=== PATIENT | female | born 1960 | race Caucasian/White ===

== ENCOUNTER 2016-06-03 13:46 | Inpatient (IN) | payer MEDICARE, MEDICAID ==
--- NOTE | 2016-06-03 16:25 | ED ---
Psych HPI - General Chief Complaint: Psychiatric Symptoms Stated Complaint: Mental Health Time Seen by Provider: 06/03/16 14:52 Source: patient Mode of arrival: ambulatory - History of Present Illness Initial Comments: This 55-year-old white female presents complaining of some depression. She states that she has a history of this for approximately 10 years. She states that she had 4 kids and but they all and this makes her quite depressed. She also ended up having her last son approximately one year ago. She states that she was sent in by her doctor today. She also saw her psychologist or counselor 3 days ago. She feels like she is having a nervous breakdown. She has had some suicidal thoughts but no attempts. She apparently was out of her psychiatric medications but started them back up 2 weeks ago. She took 2 Valium 5 mg pills just prior to arrival. She denies any other complaints or modifying factors other than complaining of severe anxiety as well. Has a history of gout or a phobia and states that she essentially never leaves her home. - Related Data Home Medications Medication Instructions Recorded Confirmed Cholecalciferol [Vitamin D3] 2,000 units PO DAILY 10/27/14 06/03/16 Fluticasone Nasal [place] [Flonase 2 spray NASAL QAM 10/27/14 06/03/16 Nasal [place]] Folic Acid 1 mg PO DAILY 10/27/14 06/03/16 Omeprazole [PriLOSEC] 20 mg PO AC-BRKFST 10/27/14 06/03/16 Propylene Glycol/Peg 400/Pf 1 drop BOTH EYES DAILY 10/27/14 06/03/16 [Systane 0.3-0.4% Eye Drops] diphenhydrAMINE [Benadryl] 25 mg PO DAILY PRN 12/10/14 06/03/16 ALPRAZolam [Xanax] 1 mg PO Q6HR PRN 06/03/16 06/03/16 ARIPiprazole [Abilify] 5 mg PO DAILY 06/03/16 06/03/16 Albuterol Inhaler [Ventolin Hfa 1 - 2 puff INHALATION RT-Q6H PRN 06/03/16 Inhaler] Aspirin EC [Ecotrin Low Dose] 81 mg PO DAILY 06/03/16 06/03/16 Aspirin/Acetaminophen/Caffeine 1 tab PO BID PRN 06/03/16 06/03/16 [Excedrin Migraine Caplet] Budesonide/Formoterol Fumarate 2 puff INHALATION RT-BID 06/03/16 06/03/16 [Symbicort 160-4.5 Mcg Inhaler] Diazepam [Valium] 5 mg PO TID PRN 06/03/16 06/03/16 Digest Assure 1 tab PO DAILY 06/03/16 06/03/16 Estradiol [Vivelle-Dot 0.075 MG] 1 patch TRANSDERM Q84H 06/03/16 06/03/16 Ferrous Sulfate [Feosol] 325 mg PO BID 06/03/16 06/03/16 Furosemide [Lasix] 20 mg PO DAILY 06/03/16 06/03/16 Gabapentin [Neurontin] 300 mg PO DAILY 06/03/16 06/03/16 Gluc/Keith-MSM#1/C/Marko/Jose Alejandro/Bor 1 tab PO DAILY 06/03/16 06/03/16 [Glucosamine-Chondroitin Tablet] Multivit-Min/FA/Lycopene/Lut 1 tab PO DAILY 06/03/16 06/03/16 [Centrum Silver Tablet] Naproxen Sodium [Aleve] 220 mg PO DAILY PRN 06/03/16 06/03/16 Ondansetron [Zofran] 4 mg PO Q6H PRN 06/03/16 06/03/16 PARoxetine [Paxil] 20 mg PO HS 06/03/16 06/03/16 Phentermine HCl [Adipex-P] 37.5 mg PO QAM 06/03/16 06/03/16 Relacore 2 tab PO BID 06/03/16 06/03/16 Turmeric 200/Tiffani [id number] 1 tab PO DAILY 06/03/16 06/03/16 Vitamin B Complex 1 cap PO DAILY 06/03/16 06/03/16 metroNIDAZOLE [Metrolotion] 1 applic TOPICAL DAILY PRN 06/03/16 06/03/16 Allergies Allergy/AdvReac Type Severity Reaction Status Date / Time shellfish derived Allergy Swelling Verified 06/03/16 15:38 nuts Allergy Swelling Uncoded 06/03/16 14:00 animals AdvReac Wheezing Uncoded 06/03/16 14:00 environmental AdvReac Wheezing Uncoded 06/03/16 14:00 Review of Systems ROS Statement: Those systems with pertinent positive or pertinent negative responses have been documented in the HPI. ROS Other: All systems not noted in ROS Statement are negative. Past Medical History Past Medical History: Asthma, Eye Disorder, Fibromyalgia, GERD/Reflux Additional Past Medical History / Comment(s): pre diabetic, arthritis, bronchitis,c difficile colitis ibs chronic depression mthfr History of Any Multi-Drug Resistant Organisms: None Reported Past Surgical History: Section, Tonsillectomy Additional Past Surgical History / Comment(s): ear recontructed,colonoscopy and EGD Past Anesthesia/Blood Transfusion Reactions: No Reported Reaction Past Psychological History: Anxiety, Depression Smoking Status: Current every day smoker Past Alcohol Use History: None Reported, Rare Past Drug Use History: None Reported - Past Family History Mother Family Medical History: Asthma, Congestive Heart Failure (CHF), Diabetes Mellitus Additional Family Medical History / Comment(s): 3 lung surgeries Sister(s) Family Medical History: Congestive Heart Failure (CHF), Diabetes Mellitus Brother(s) Family Medical History: Congestive Heart Failure (CHF), Diabetes Mellitus Father Family Medical History: No Reported History General Exam - General Exam Comments Initial Comments: GENERAL: The patient is well nourished and well hydrated. VITAL SIGNS: Heart rate, blood pressure, respiratory rate reviewed as recorded in nurse's notes. EYES: Pupils are round and reactive. Extraocular movements are intact. No conjunctival / lid redness or swelling. ENT: No external evidence of injury, swelling, or ecchymosis. Airway is patent. Throat is clear. NECK: Nontender. No swelling or evidence of injury. No subcutaneous emphysema. Trachea is midline. No thyroid mass. HEART: Regular rate and rhythm. Good peripheral pulses. LUNGS/CHEST: Breath sounds clear and equal bilaterally. No rales, rhonchi, or wheezes. No ecchymosis, subcutaneous emphysema, or tenderness. ABDOMEN: Abdomen soft without tenderness. No palpable masses or organomegaly. No peritoneal signs. No abdominal wall swelling or ecchymosis. EXTREMITIES: No extremity tenderness. Normal muscle tone and function. No thoracolumbar tenderness. NEUROLOGIC: Sensation is grossly intact. Cranial nerve exam reveals face is symmetrical, tongue is midline, speech is clear. SKIN: No abrasions or ecchymosis is noted. No induration or masses noted. PSYCHIATRIC: Alert and oriented. Appears very anxious. Limitations: no limitations Course Vital Signs 06/03/16 13:56 Temperature 98.4 F Pulse Rate 84 Respiratory 16 Rate Blood Pressure 133/86 O2 Sat by Pulse 96 Oximetry Medical Decision Making - Medical Decision Making The patient was seen and examined. All diagnostics are reviewed. It is felt as though she benefit from psychiatric evaluation. The psychiatric nurse has evaluated the patient and they recommend further admission or psychiatric treatment. Patient will be transferred to the psychiatric floor in the near future. - Lab Data Lab Results 06/03/16 Range/Units 15:12 Urine Opiates Screen Not Detected (NotDetected) Ur Oxycodone Screen Detected H (NotDetected) Urine Methadone Screen Not Detected (NotDetected) Ur Propoxyphene Screen Not Detected (NotDetected) Ur Barbiturates Screen Not Detected (NotDetected) U Tricyclic Antidepress Not Detected (NotDetected) Ur Phencyclidine Scrn Not Detected (NotDetected) Ur Amphetamines Screen Detected H (NotDetected) U Methamphetamines Scrn Not Detected (NotDetected) U Benzodiazepines Scrn Detected H (NotDetected) Urine Cocaine Screen Not Detected (NotDetected) U Marijuana (THC) Screen Not Detected (NotDetected) Disposition Clinical Impression: Acute anxiety, Depression, Agoraphobia Disposition: ADMITTED IP TO THIS [facility] Condition: Fair Time of Disposition: 18:53 Decision Date: 06/03/16 Decision Time: 18:53
[2016-06-03] MEDS ORDERED: DIAZEPAM 5 MG TAB PO STA (17:44)
[2016-06-03] MEDS ORDERED: HYDROcodone/APAP 10-325MG 1 EACH TAB PO ONE (18:01)
[2016-06-03] MEDS ORDERED: ZIPRASIDONE 20 MG VIAL IM PRN (19:51)
[2016-06-03] MEDS ORDERED: MAG HYDROX/AL HYDROX/SIMETH 30 ML CUP PO PRN (19:51)
[2016-06-03] MEDS ORDERED: MAGNESIUM HYDROXIDE 2,400 MG/10 ML CUP PO PRN (19:51)
[2016-06-03] MEDS ORDERED: ACETAMINOPHEN TAB 325 MG TAB PO PRN (19:51)
[2016-06-03] MEDS ORDERED: LORazepam 1 MG TAB PO PRN (20:11)
[2016-06-03] MEDS ORDERED: LORazepam 2 MG/ML SYRINGE IM PRN (20:11)
[2016-06-03] MEDS: clonazePAM 0.5 MG TAB PO SCH ×2 (20:49→21:47)
[2016-06-03] MEDS: CHOLECALCIFEROL 1,000 UNIT TAB PO SCH (20:49)
[2016-06-03] MEDS: cycloSPORINE 0.05% OPHTH 0.4 ML DROPERETTE BOTH EYES SCH (20:49)
[2016-06-04] MEDS: CHOLECALCIFEROL 1,000 UNIT TAB PO SCH ×2 (08:05→21:36)
[2016-06-04] MEDS: clonazePAM 0.5 MG TAB PO SCH ×3 (08:05→21:36)
[2016-06-04] MEDS: PANTOPRAZOLE 40 MG TABLET PO SCH (08:05)
[2016-06-04] MEDS: cycloSPORINE 0.05% OPHTH 0.4 ML DROPERETTE BOTH EYES SCH ×2 (08:05→21:36)
[2016-06-04 08:12] LABS: Basophils % (A) 1 %; CH 24.8; CHCM 28.3; Eosinophils # (A) 0.2 k/uL (0-0.7); Eosinophils % (A) 5 %; HCT 32.4 % (34.0-46.0); HDW 3.56; HGB 9.4 gm/dL (11.4-16.0); Hypochromasia Marked; Luc % (Auto) 4; Lymphocytes # (A) 1.5 k/uL (1.0-4.8); Lymphocytes % (A) 29 %; MCH 25.4 pg (25.0-35.0); MCV 87.6 fL (80.0-100.0); Mean Platelet Volume 7.2; Monocytes # (A) 0.3 k/uL (0-1.0); Monocytes % (A) 7 %; Neutrophils # (A) 2.7 k/uL (1.3-7.7); Neutrophils % (A) 54 %; Poikilocytosis Slight; RBC 3.69 m/uL (3.80-5.40); RDW 15.4 % (11.5-15.5); WBC (Perox) 5.26
[2016-06-04 08:58] LABS: ALT 32 U/L (9-52); AST 32 U/L (14-36); Alkaline Phosphatase 73 U/L (38-126); Anion Gap 9 mmol/L; Blood Urea Nitrogen 12 mg/dL (7-17); Calcium 9.2 mg/dL (8.4-10.2); Carbon Dioxide 23 mmol/L (22-30); Chloride 110 mmol/L (98-107); Glucose 85 mg/dL (74-99); Non-African American GFR(MDRD) >60 (>60 ml/min/1.73 sqM); Potassium 4.3 mmol/L (3.5-5.1); Sodium 142 mmol/L (137-145); Total Bilirubin 0.6 mg/dL (0.2-1.3); Total Protein 6.5 g/dL (6.3-8.2)
[2016-06-04] MEDS ORDERED: GABAPENTIN 300 MG CAP PO SCH (09:00)
[2016-06-04] MEDS: IBUPROFEN 600 MG TAB PO PRN (09:11)
--- NOTE | 2016-06-04 10:51 | P.HP ---
Psychiatric H&P - . History & Physical: Allergies Allergy/AdvReac Type Severity Reaction Status Date / Time shellfish derived Allergy Swelling Verified 06/03/16 19:38 nuts Allergy Swelling Uncoded 06/03/16 19:38 animals AdvReac Wheezing Uncoded 06/03/16 19:38 environmental AdvReac Wheezing Uncoded 06/03/16 19:38 Vital Signs Temp 96.9 F L 06/03/16 20:53 Pulse 86 06/04/16 09:15 Resp 16 06/04/16 09:15 BP 112/57 06/04/16 09:15 Pulse Ox 94 L 06/03/16 20:53 Laboratory Last Values WBC 5.0 k/uL (3.8-10.6) 06/04/16 07:58 RBC 3.69 m/uL (3.80-5.40) L 06/04/16 07:58 Hgb 9.4 gm/dL (11.4-16.0) L 06/04/16 07:58 Hct 32.4 % (34.0-46.0) L 06/04/16 07:58 MCV 87.6 fL (80.0-100.0) 06/04/16 07:58 MCH 25.4 pg (25.0-35.0) 06/04/16 07:58 MCHC 29.0 g/dL (31.0-37.0) L 06/04/16 07:58 RDW 15.4 % (11.5-15.5) 06/04/16 07:58 Plt Count 344 k/uL (150-450) 06/04/16 07:58 Neutrophils % 54 % 06/04/16 07:58 Lymphocytes % 29 % 06/04/16 07:58 Monocytes % 7 % 06/04/16 07:58 Eosinophils % 5 % 06/04/16 07:58 Basophils % 1 % 06/04/16 07:58 Neutrophils # 2.7 k/uL (1.3-7.7) 06/04/16 07:58 Lymphocytes # 1.5 k/uL (1.0-4.8) 06/04/16 07:58 Monocytes # 0.3 k/uL (0-1.0) 06/04/16 07:58 Eosinophils # 0.2 k/uL (0-0.7) 06/04/16 07:58 Basophils # 0.0 k/uL (0-0.2) 06/04/16 07:58 Hypochromasia Marked 06/04/16 07:58 Poikilocytosis Slight 06/04/16 07:58 Sodium 142 mmol/L (137-145) 06/04/16 07:58 Potassium 4.3 mmol/L (3.5-5.1) 06/04/16 07:58 Chloride 110 mmol/L (98-107) H 06/04/16 07:58 Carbon Dioxide 23 mmol/L (22-30) 06/04/16 07:58 Anion Gap 9 mmol/L 06/04/16 07:58 BUN 12 mg/dL (7-17) 06/04/16 07:58 Creatinine 0.78 mg/dL (0.52-1.04) 06/04/16 07:58 Est GFR (MDRD) Af Amer >60 (>60 ml/min/1.73 sqM) 06/04/16 07:58 Est GFR (MDRD) Non-Af >60 (>60 ml/min/1.73 sqM) 06/04/16 07:58 Glucose 85 mg/dL (74-99) 06/04/16 07:58 Calcium 9.2 mg/dL (8.4-10.2) 06/04/16 07:58 Total Bilirubin 0.6 mg/dL (0.2-1.3) 06/04/16 07:58 AST 32 U/L (14-36) 06/04/16 07:58 ALT 32 U/L (9-52) 06/04/16 07:58 Alkaline Phosphatase 73 U/L (38-126) 06/04/16 07:58 Total Protein 6.5 g/dL (6.3-8.2) 06/04/16 07:58 Albumin 3.7 g/dL (3.5-5.0) 06/04/16 07:58 TSH 0.651 mIU/L (0.465-4.680) 06/04/16 07:58 Urine Opiates Screen Not Detected (NotDetected) 06/03/16 15:12 Ur Oxycodone Screen Detected (NotDetected) H 06/03/16 15:12 Urine Methadone Screen Not Detected (NotDetected) 06/03/16 15:12 Ur Propoxyphene Screen Not Detected (NotDetected) 06/03/16 15:12 Ur Barbiturates Screen Not Detected (NotDetected) 06/03/16 15:12 U Tricyclic Antidepress Not Detected (NotDetected) 06/03/16 15:12 Ur Phencyclidine Scrn Not Detected (NotDetected) 06/03/16 15:12 Ur Amphetamines Screen Detected (NotDetected) H 06/03/16 15:12 U Methamphetamines Scrn Not Detected (NotDetected) 06/03/16 15:12 U Benzodiazepines Scrn Detected (NotDetected) H 06/03/16 15:12 Urine Cocaine Screen Not Detected (NotDetected) 06/03/16 15:12 U Marijuana (THC) Screen Not Detected (NotDetected) 06/03/16 15:12 06/04/16 10:19 IDENTIFYING DATA: This patient is a 55-year-old female who was admitted to the mental health unit through the emergency room for severe symptoms of depression and anxiety. HPI: The patient states she was instructed to come to the emergency room by a visiting executive secretary social welfare seen her in her home. The patient reports an extended episode of major depression characterized by severely depressed mood, frequent tearfulness, low appetite, poor self-care, low energy, and apathetic thinking. She states that she has not been attending to her daily needs such as showering and she states she could care less if she eats. Sleep has been fragmented. She reports that she can lay in bed for months at a time. This occurs in the context of her experiencing numerous losses. She states that her first due to medical reasons and all 4 of her children are now . Her son was murdered last June. Her mother this past December. She states "I have nobody left". She does however reside with her and they provide care for their 11-year-old grandson. The patient describes severe anxiety symptoms that are constant. They contribute to her feeling restless fatigued and having sleep disturbance. She describes frequent panic attacks. Panic attacks consist of episodes of increased heart rate, shortness of breath, diaphoresis, dizziness, and an intense fear that she will . Oftentimes these panic attacks will mimic heart attack like symptoms. She states no matter how many she has had she is convinced the next one will kill her. She isolates in her home and states she is incapable of going to her primary care physician. She remembered her mother utilized a visiting physician so she called them in one did come to the house. She was started on psychotropic medications 2-3 weeks ago. She reports that the medication has not decreased her shaking. She describes having constant back pain and electrical fibromyalgia pain. She reports using her 's oxycodone with her prescribed Valium and she is also taking Adipex hoping it would boost her energy. She endorses no symptoms of psychosis specifically no auditory or visual hallucinations or specific delusions. There is no history of hypomanic or manic episodes. She feels hopeless but states she has no intent or plan of harming herself and she has no homicidal ideation. She states her grandson is well cared for despite her condition. PAST PSYCHIATRIC HISTORY: No prior inpatient psychiatric care no history of suicide attempts. She was last prescribed Paxil 20 mg daily, Valium 5 mg 3 times daily, Abilify 5 mg daily. Previously she has tried Cymbalta. In the remote past she did work with a psychiatrist and therapist. She has no ongoing outpatient mental health services as she states she cannot leave the home. PMH: Fibromyalgia, GERD, back pain due to degenerative change. ALLERGIES: NO KNOWN DRUG ALLERGIES MEDICATIONS: [] Referred to [facility] CHEMICAL DEPENDENCY HISTORY: [] She reports using alcohol approximately 5 times a year, more recently she states she will have a half of a shot before bed to try to sleep, no use of marijuana, no use of illicit drugs. Reports using her 's oxycodone for her back pain FAMILY PSYCHIATRIC HISTORY: Her brother and sister were known to have anxiety and depressive symptoms she is unaware of which medication they may have used, a distant cousin committed suicide FAMILY CHEMICAL DEPENDENCY HISTORY: None reported SOCIAL HISTORY: The patient is 55 years old she is for the second time. She has no living children. 2 of her children were killed in a motor vehicle accident, another in a drowning accident, and another child was murdered this past June. The patient states her mother this December. Her first of a brain aneurysm. She is originally from the [place] area but has been in the [facility] [employer] [employer] for 20 years. She is unemployed no history of service. She graduated high school and has 2 associates degrees. She has 4 brothers and 2 sisters. She resides with her and their 11-year- old grandson resides with them. Legal history none. Abuse history none. MENTAL STATUS EXAM: The patient is an obese female appearing her stated age. She has a disheveled appearance she is dressed in hospital gowns. She wears eyeglasses. Her hair is not brushed. She shakes her upper extremities throughout the session while seated in the chair. She endorses a severely depressed mood with severe symptoms of anxiety. She has hopeless thinking but denies any acute suicidal ideation intent or plan. She reports no homicidal ideation intent or plan. She has never had any thoughts of harming her grandson. She is tearful throughout the session. She demonstrates psychomotor slowing with gait. She denies any auditory or visual hallucinations or specific delusions and there is no evidence of psychosis. Speech is fluent spontaneous nonpressured. Affect is dysphoric. Thought process can be circumstantial. Insight and judgment limited. Cognitively she is alert and oriented to person place and date. She is able to spell world backwards. She is able to recall 3 objects after delay of several minutes. There is no verbal or physical aggressiveness observed. STRENGTHS/WEAKNESSES: Strengths: Willingness to be treated voluntarily, support from weaknesses: Numerous losses INTELLECTUAL FUNCTIONING: Average IMPRESSIONS: [] 1. Major depressive disorder recurrent severe without psychosis, panic disorder with agoraphobia, PTSD 2. Medical comorbidities include fibromyalgia, back pain, GERD 3. Psychosocial dysfunction secondary to exacerbated symptoms of depression and anxiety in the context of numerous losses PLAN: The patient has been admitted to the mental health unit voluntarily. We reviewed her symptoms and medication options. We will change the Paxil to Zoloft to minimize side effect and initiate Zoloft at 50 mg daily. We will continue Abilify 5 mg daily for severe symptoms of depression. Valium will be discontinued we will use Klonopin 0.5 mg 3 times daily. She will undergo a routine medical consultation. I did increase her Neurontin to 300 mg 3 times daily to address pain complaint she has Motrin unavailable as well. We want to avoid use of opiates given that she is using a benzodiazepine. Social work will meet with the patient to complete a psychosocial assessment and begin discharge planning. We will monitor her for safety. Labs reviewed hemoglobin is noted to be low at 9.4. Vital signs reviewed. 06/04/16 10:41
[2016-06-04] MEDS: ARIPiprazole 5 MG TAB PO SCH (11:19)
[2016-06-04] MEDS: SERTRALINE 50 MG TAB PO SCH (11:19)
[2016-06-04] MEDS: B COMPLEX-VIT C-VIT E-ZINC 1 EACH TAB PO SCH (11:20)
[2016-06-04] MEDS: FOLIC ACID 1 MG TAB PO SCH (11:20)
[2016-06-04] MEDS: FERROUS SULFATE 325 MG TAB PO SCH (11:20)
[2016-06-04] MEDS ORDERED: ASCORBIC ACID 500 MG TAB PO SCH (12:00)
--- NOTE | 2016-06-04 13:21 | P.CONS ---
History of Present Illness - Reason for Consult Consult date: 06/04/16 Medical management - History of Present Illness This is a 55-year-old female patient of Dr. Hinton in the past but currently follows with [facility]. She states she has had severe panic attacks and has been unable to leave the home. She also has a past medical history for asthma, fibromyalgia, gastroesophageal reflux disease, prediabetic, hyperlipidemia arthritis, history of C. difficile colitis, irritable bowel syndrome, MTHFR mutation,anxiety and depression. She states she has had worsening depression for the past year. She does follow with a psychiatrist. She denies any suicidal ideation. She is following with a counselor comes to her home and she was instructed by the counselors come into the hospital. Patient came into [facility] emergency center with the above complaints. Urine drug screen was positive for oxycodone, amphetamines, and diltiazem feedings. Patient has been admitted to the mental health unit. She is complaining of fibromyalgia pain. Review of Systems All systems: negative Constitutional: Denies chills, Denies fever Eyes: denies blurred vision, denies pain Ears, nose, mouth and throat: Denies headache, Denies sore throat Cardiovascular: Denies chest pain, Denies shortness of breath Respiratory: Denies cough Gastrointestinal: Denies abdominal pain, Denies diarrhea, Denies nausea, Denies vomiting Genitourinary: Denies dysuria, Denies hematuria Musculoskeletal: Denies myalgias Integumentary: Denies pruritus, Denies rash Neurological: Denies numbness, Denies weakness Psychiatric: Reports anxiety, Reports depression, Reports hopelessness, Denies suicidal ideation Endocrine: Denies fatigue, Denies weight change Past Medical History Past Medical History: Asthma, Eye Disorder, Fibromyalgia, GERD/Reflux, Hyperlipidemia Additional Past Medical History / Comment(s): pre diabetic, arthritis, bronchitis, c difficile colitis, ibs, mthfr History of Any Multi-Drug Resistant Organisms: None Reported Past Surgical History: Section, Tonsillectomy Additional Past Surgical History / Comment(s): ear recontructed,colonoscopy and EGD Past Anesthesia/Blood Transfusion Reactions: No Reported Reaction Past Psychological History: Anxiety, Depression Smoking Status: Never smoker Past Alcohol Use History: None Reported, Rare Additional Past Alcohol Use History / Comment(s): The patient states that she is a nonsmoker. She denies any medical marijuana, marijuana, street drug use. She is and lives with her . They are taking care of a grandson. Past Drug Use History: None Reported - Past Family History Mother Family Medical History: Asthma, Congestive Heart Failure (CHF), Diabetes Mellitus Additional Family Medical History / Comment(s): 3 lung surgeries Sister(s) Family Medical History: Congestive Heart Failure (CHF), Diabetes Mellitus Brother(s) Family Medical History: Congestive Heart Failure (CHF), Diabetes Mellitus Father Family Medical History: No Reported History Medications and Allergies Home Medications Medication Instructions Recorded Confirmed Type Cholecalciferol [Vitamin D3] 2,000 units PO DAILY 10/27/14 06/03/16 History Fluticasone Nasal [place] [Flonase 2 spray NASAL QAM 10/27/14 06/03/16 History Nasal [place]] Folic Acid 1 mg PO DAILY 10/27/14 06/03/16 History Omeprazole [PriLOSEC] 20 mg PO AC-BRKFST 10/27/14 06/03/16 History Propylene Glycol/Peg 400/Pf 1 drop BOTH EYES DAILY 10/27/14 06/03/16 History [Systane 0.3-0.4% Eye Drops] diphenhydrAMINE [Benadryl] 25 mg PO DAILY PRN 12/10/14 06/03/16 History ALPRAZolam [Xanax] 1 mg PO Q6HR PRN 06/03/16 06/03/16 History ARIPiprazole [Abilify] 5 mg PO DAILY 06/03/16 06/03/16 History Albuterol Inhaler [Ventolin Hfa 1 - 2 puff INHALATION RT-Q6H PRN 06/03/16 History Inhaler] Aspirin EC [Ecotrin Low Dose] 81 mg PO DAILY 06/03/16 06/03/16 History Aspirin/Acetaminophen/Caffeine 1 tab PO BID PRN 06/03/16 06/03/16 History [Excedrin Migraine Caplet] Budesonide/Formoterol Fumarate 2 puff INHALATION RT-BID 06/03/16 06/03/16 History [Symbicort 160-4.5 Mcg Inhaler] Diazepam [Valium] 5 mg PO TID PRN 06/03/16 06/03/16 History Digest Assure 1 tab PO DAILY 06/03/16 06/03/16 History Estradiol [Vivelle-Dot 0.075 MG] 1 patch TRANSDERM Q84H 06/03/16 06/03/16 History Ferrous Sulfate [Feosol] 325 mg PO BID 06/03/16 06/03/16 History Furosemide [Lasix] 20 mg PO DAILY 06/03/16 06/03/16 History Gabapentin [Neurontin] 300 mg PO DAILY 06/03/16 06/03/16 History Gluc/Keith-MSM#1/C/Marko/Jose Alejandro/Bor 1 tab PO DAILY 06/03/16 06/03/16 History [Glucosamine-Chondroitin Tablet] Multivit-Min/FA/Lycopene/Lut 1 tab PO DAILY 06/03/16 06/03/16 History [Centrum Silver Tablet] Naproxen Sodium [Aleve] 220 mg PO DAILY PRN 06/03/16 06/03/16 History Ondansetron [Zofran] 4 mg PO Q6H PRN 06/03/16 06/03/16 History PARoxetine [Paxil] 20 mg PO HS 06/03/16 06/03/16 History Phentermine HCl [Adipex-P] 37.5 mg PO QAM 06/03/16 06/03/16 History Relacore 2 tab PO BID 06/03/16 06/03/16 History Turmeric 200/Tiffani [id number] 1 tab PO DAILY 06/03/16 06/03/16 History Vitamin B Complex 1 cap PO DAILY 06/03/16 06/03/16 History metroNIDAZOLE [Metrolotion] 1 applic TOPICAL DAILY PRN 06/03/16 06/03/16 History Allergies Allergy/AdvReac Type Severity Reaction Status Date / Time shellfish derived Allergy Swelling Verified 06/03/16 19:38 nuts Allergy Swelling Uncoded 06/03/16 19:38 animals AdvReac Wheezing Uncoded 06/03/16 19:38 environmental AdvReac Wheezing Uncoded 06/03/16 19:38 Physical Exam Vitals: Vital Signs Temp Pulse Resp BP Pulse Ox 06/04/16 09:15 86 16 112/57 06/03/16 20:53 96.9 F L 92 20 136/76 94 L Gen: This is a 35-year-old female. Generalized tremors noted patient states are due to anxiety. HEENT: Head is atraumatic, normocephalic. Pupils equal, round. Sclerae is anicteric. NECK: Supple. No JVD. No lymphadenopathy. No thyromegaly. LUNGS: Clear to auscultation. No wheezes or rhonchi. No intercostal retractions. HEART: Regular rate and rhythm. No murmur. ABDOMEN: Soft. Bowel sounds are present. No masses. No tenderness. EXTREMITIES: No pedal edema. No calf tenderness. NEUROLOGICAL: Patient is awake, alert and oriented x3. Cranial nerves 2 through 12 are grossly intact. Results CBC & Chem 7: 06/04/16 07:58 06/04/16 07:58 Labs: Abnormal Lab Results - Last 24 Hours (Table) 06/04/16 06/04/16 Range/Units 07:58 07:58 RBC 3.69 L (3.80-5.40) m/uL Hgb 9.4 L (11.4-16.0) gm/dL Hct 32.4 L (34.0-46.0) % MCHC 29.0 L (31.0-37.0) g/dL Chloride 110 H (98-107) mmol/L Assessment and Plan Plan: 1. Depression. Patient admitted to the mental health unit. Continue current plan of care. 2. Mild persistent asthma. Continue Ventolin inhaler as needed and Symbicort twice daily. 3. Gastroesophageal reflux disease. Continue omeprazole or equivalent.. 4. Fibromyalgia. Naprosyn 500 mg 3 times daily added. 5. Hyperlipidemia, not currently on medication. 6. Vitamin D deficiency. Continue supplement. Impression and plan of care have been directed as dictated by the signing physician. Aleyda Ambrose nurse practitioner acting as scribe for signing physician. Time with Patient: Greater than 30
[2016-06-04] MEDS: NAPROXEN 250 MG TAB PO SCH ×2 (13:26→21:36)
[2016-06-04] MEDS: GABAPENTIN 300 MG CAP PO SCH ×2 (16:23→21:36)
[2016-06-04] MEDS: SYMBICORT 160-4.5 MCG INHALER INHALATION SCH (21:55)
[2016-06-05] MEDS: PANTOPRAZOLE 40 MG TABLET PO SCH (07:55)
[2016-06-05] MEDS: ARIPiprazole 5 MG TAB PO SCH (07:55)
[2016-06-05] MEDS: IBUPROFEN 600 MG TAB PO PRN (07:55)
[2016-06-05] MEDS: NAPROXEN 250 MG TAB PO SCH ×3 (07:56→21:05)
[2016-06-05] MEDS: cycloSPORINE 0.05% OPHTH 0.4 ML DROPERETTE BOTH EYES SCH ×2 (07:57→21:07)
[2016-06-05] MEDS: SERTRALINE 50 MG TAB PO SCH (07:57)
[2016-06-05] MEDS: CHOLECALCIFEROL 1,000 UNIT TAB PO SCH ×2 (07:58→21:05)
[2016-06-05] MEDS: GABAPENTIN 300 MG CAP PO SCH ×3 (07:58→21:07)
[2016-06-05] MEDS: clonazePAM 0.5 MG TAB PO SCH ×3 (07:58→21:07)
--- NOTE | 2016-06-05 09:07 | P.PN ---
Progress Note - Text Interval history: The patient is found in the dining room she follows me to an interview room. She states that her depression feels mildly decreased. She continues to feel that the addition of Abilify has made the most difference. She feels that she is not shaking as much because of the change in medication. She has been compliant with medications. She did not attend groups yesterday but is willing to attend today. Anxiety symptoms continue. She reports no significant panic attacks since I've seen her last. She was seen by Dr. Alvarez for a medical consultation Naprosyn was added for pain. Mental status exam: The patient is alert she is dressed in her clothes and hospital gowns. She has a disheveled appearance. Eye contact is appropriate speech is fluent nonpressured. She reports her mood is less depressed she is reporting no hopelessness thinking no suicidal ideation intent or plan. She feels more motivated to attend to her ADLs. No report of psychosis no evidence of hypomania or tre. There is some psychomotor slowing. She describes pain in her neck and back. There is no verbal or physical aggressiveness. Cognitively she remains oriented to person place and date. Plan: The patient will continue on her current psychotropic medications. We will consider discharging her tomorrow if she demonstrates sufficient improvement. She is instructed to attend groups. Social work will arrange a family meeting involving her . We will continue to monitor her for safety. Vital signs reviewed they are within normal limits.
[2016-06-05] MEDS: ALBUTEROL INHALER 60 PUFF/8 GM INHALER INHALATION PRN ×2 (09:31→17:50)
[2016-06-05] MEDS: SYMBICORT 160-4.5 MCG INHALER INHALATION SCH ×2 (11:59→21:31)
[2016-06-05] MEDS: FOLIC ACID 1 MG TAB PO SCH (12:02)
[2016-06-05] MEDS: B COMPLEX-VIT C-VIT E-ZINC 1 EACH TAB PO SCH (12:02)
[2016-06-05] MEDS: FERROUS SULFATE 325 MG TAB PO SCH (12:02)
[2016-06-06 06:56] VITALS: BP 103/59; PULSE 64; RESP 16; TEMP 97.6
[2016-06-06] MEDS: PANTOPRAZOLE 40 MG TABLET PO SCH (08:05)
[2016-06-06] MEDS: ARIPiprazole 5 MG TAB PO SCH (08:06)
[2016-06-06] MEDS: CHOLECALCIFEROL 1,000 UNIT TAB PO SCH (08:06)
[2016-06-06] MEDS: clonazePAM 0.5 MG TAB PO SCH (08:07)
[2016-06-06] MEDS: GABAPENTIN 300 MG CAP PO SCH (08:07)
[2016-06-06] MEDS: NAPROXEN 250 MG TAB PO SCH (08:08)
[2016-06-06] MEDS: cycloSPORINE 0.05% OPHTH 0.4 ML DROPERETTE BOTH EYES SCH (08:15)
[2016-06-06 08:34] LABS: ALT 28 U/L (9-52); AST 22 U/L (14-36); Alkaline Phosphatase 82 U/L (38-126); Anion Gap 13 mmol/L; Blood Urea Nitrogen 14 mg/dL (7-17); Carbon Dioxide 21 mmol/L (22-30); Chloride 109 mmol/L (98-107); Glucose 99 mg/dL (74-99); Non-African American GFR(MDRD) >60 (>60 ml/min/1.73 sqM); Potassium 4.4 mmol/L (3.5-5.1); Sodium 143 mmol/L (137-145); Total Bilirubin 0.6 mg/dL (0.2-1.3); Total Protein 7.4 g/dL (6.3-8.2)
[2016-06-06] MEDS: SERTRALINE 50 MG TAB PO SCH (08:37)
[2016-06-06 08:44] LABS: Anisocytosis Slight; Aty Lym Flag Slight; CH 25.3; CHCM 29.1; HCT 35.4 % (34.0-46.0); HDW 3.36; HGB 10.6 gm/dL (11.4-16.0); Hypochromasia Marked; MCH 26.1 pg (25.0-35.0); MCHC 29.9 g/dL (31.0-37.0); MCV 87.2 fL (80.0-100.0); Mean Platelet Volume 8.1; RBC 4.05 m/uL (3.80-5.40); RDW 16.2 % (11.5-15.5)
[2016-06-06 08:56] LABS: Add Differential Manual Differential
[2016-06-06 08:59] LABS: Manual Review Performed; Nucleated Red Blood Cells 0 /100 WBC (0-0); Total Cells Counted 100
--- NOTE | 2016-06-06 09:06 | P.DS ---
Providers Date of admission: 06/03/16 18:58 Expected date of discharge: 06/06/16 Attending physician: Harley Peace Consults: 06/03/16 19:51 Consult Physician Routine Consulting Provider: Markie Alvarez Reason/Comments: H & P and medical management Do you want consulting provider notified?: Yes Primary care physician: Jignesh Russell Kut - Discharge Diagnosis(es) (1) Major depressive disorder, recurrent severe without psychotic features Current Visit: Yes Status: Acute Priority: High (2) Panic disorder with agoraphobia Current Visit: Yes Status: Acute Priority: High (3) Posttraumatic stress disorder Current Visit: Yes Status: Acute Priority: High Hospital Course: Brief summary of admission note: This patient is a 55-year-old female who was admitted to the mental health unit through the emergency room for severe symptoms of depression and anxiety. She was instructed to come to the hospital by a visiting social studies teacher due to the patient's lack of function. The patient endorsed a significantly depressed mood and frequent tearfulness low appetite poor self-care low energy and apathy in general. She reported experiencing panic attacks on a regular basis that were debilitating and causing her to be homebound. This occurs in the context of her experiencing numerous close losses over the last 10 years most recently her mother in December and prior to that her son was murdered in June. For full details please refer to my psychiatric evaluation dated 06/04/2016. Summary of hospital course: The patient was admitted to the mental health unit she signed in voluntarily. We reviewed her presenting symptoms and medication options. We discontinued the Paxil and initiated Zoloft which will be titrated to 100 mg daily, Abilify was continued at 5 mg daily, Neurontin was continued and we titrated to 300 mg 3 times daily. Valium was discontinued and Klonopin was initiated at 0.5 mg up to 3 times daily. She underwent a routine medical exam. Lab values reviewed vital signs monitored. Initially the patient did not attend groups but yesterday she made a full effort and attending. Social work has arranged a support meeting involving her . At no time did the patient voice any suicidal ideation. Our primary concern was her lack of function and self-care at home. She was able to attend to ADLs here on the mental health unit she attended to meals. She continues to have great difficulty processing her numerous losses. We discussed the importance of getting to her outpatient mental health appointments and she is agreeable. Mental status exam: The patient is alert she is dressed in her own clothing hygiene adequate grooming improved. Eye contact is appropriate speech is fluent and spontaneous nonpressured. She states her mood is better her anxiety has reduced she is no longer shaking. She does ambulate with some psychomotor slowing due to reported back pain. She denies having any suicidal ideation intent or plan no homicidal ideation intent or plan. She can be tearful when discussing her past losses but does reconstitute appropriately. There is no evidence of hypomanic or manic symptoms there is no evidence of psychosis. She is reporting no auditory or visual hallucinations she is endorsing no specific delusions. There is no verbal or physical aggressiveness. There is no psychomotor agitation. Insight and judgment improved. Cognitively she remains alert and oriented to person place and date and has been cognitively stable across the hospitalization. Impressions 1. Major depressive disorder recurrent severe without psychosis, panic disorder with agoraphobia, posttraumatic stress disorder 2. Medical comorbidities including fibromyalgia, back pain, GERD 3. Psychosocial dysfunction secondary to exacerbated symptoms of depression and anxiety in the context of numerous losses Plan: The patient will be discharged from the mental health unit today to return home residing with her . She will continue on Zoloft 100 mg daily , Abilify 5 mg daily, Klonopin 0.5 mg up to 3 times daily, Neurontin 300 mg 3 times daily. Social work will arrange outpatient mental health services. The patient is instructed to only use her medications as prescribed and no longer use medications prescribed or her . There is no imminent safety risk she is appropriate for transition to outpatient mental healthcare. She is instructed to return to the hospital with any acute safety concerns. Patient Condition at Discharge: Stable Plan - Discharge Summary New Discharge Prescriptions: ARIPiprazole [Abilify] 5 mg PO DAILY #30 tab Gabapentin [Neurontin] 300 mg PO TID #45 cap Sertraline [Zoloft] 100 mg PO DAILY #30 tab clonazePAM [KlonoPIN] 0.5 mg PO TID #45 tab Discharge Medication List Cholecalciferol [Vitamin D3] 2,000 units PO DAILY 10/27/14 [History] Fluticasone Nasal [place] [Flonase Nasal [place]] 2 spray NASAL QAM 10/27/14 [ History] Folic Acid 1 mg PO DAILY 10/27/14 [History] Omeprazole [PriLOSEC] 20 mg PO AC-BRKFST 10/27/14 [History] Propylene Glycol/Peg 400/Pf [Systane 0.3-0.4% Eye Drops] 1 drop BOTH EYES DAILY 10/27/14 [History] Albuterol Inhaler [Ventolin Hfa Inhaler] 1 - 2 puff INHALATION RT-Q6H PRN [History] Aspirin EC [Ecotrin Low Dose] 81 mg PO DAILY 06/03/16 [History] Aspirin/Acetaminophen/Caffeine [Excedrin Migraine Caplet] 1 tab PO BID PRN 06/03 [History] Budesonide/Formoterol Fumarate [Symbicort 160-4.5 Mcg Inhaler] 2 puff INHALATION RT-BID 06/03/16 [History] Digest Assure 1 tab PO DAILY 06/03/16 [History] Estradiol [Vivelle-Dot 0.075 MG] 1 patch TRANSDERM Q84H 06/03/16 [History] Ferrous Sulfate [Iron (65 MG Elemental)] 325 mg PO BID 06/03/16 [History] Furosemide [Lasix] 20 mg PO DAILY 06/03/16 [History] Gluc/Keith-MSM#1/C/Marko/Jose Alejandro/Bor [Glucosamine-Chondroitin Tablet] 1 tab PO DAILY 06/03/16 [History] Multivit-Min/FA/Lycopene/Lut [Centrum Silver Tablet] 1 tab PO DAILY 06/03/16 [ History] Naproxen Sodium [Aleve] 220 mg PO DAILY PRN 06/03/16 [History] Ondansetron [Zofran] 4 mg PO Q6H PRN 06/03/16 [History] Relacore 2 tab PO BID 06/03/16 [History] Turmeric 200/Tiffani [id number] 1 tab PO DAILY 06/03/16 [History] Vitamin B Complex 1 cap PO DAILY 06/03/16 [History] metroNIDAZOLE [Metrolotion] 1 applic TOPICAL DAILY PRN 06/03/16 [History] ARIPiprazole [Abilify] 5 mg PO DAILY #30 tab 06/06/16 [Rx] Gabapentin [Neurontin] 300 mg PO TID #45 cap 06/06/16 [Rx] Sertraline [Zoloft] 100 mg PO DAILY #30 tab 06/06/16 [Rx] clonazePAM [KlonoPIN] 0.5 mg PO TID #45 tab 06/06/16 [Rx] Follow up Appointment(s)/Referral(s): Jignesh Hinton MD [Primary Care Provider] - 1-2 days
[2016-06-06] MEDS: ALBUTEROL INHALER 60 PUFF/8 GM INHALER INHALATION PRN (09:28)
[2016-06-06] MEDS: SYMBICORT 160-4.5 MCG INHALER INHALATION SCH (09:28)
== END 2016-06-06 11:40 | disposition home or self-care (01) | DRG 885 ==
LOC: EC 13:46 → 3MHU 18:58
PROVIDERS: ADMIT Psychiatry & Neurology Psychiatry; ATTEND Psychiatry & Neurology Psychiatry
DX: F33.2 Major depressive disorder, recurrent severe without psychotic features (principal); E72.12 Methylenetetrahydrofolate reductase deficiency; R45.851 Suicidal ideations; F43.10 Post-traumatic stress disorder, unspecified; F40.01 Agoraphobia with panic disorder; F41.9 Anxiety disorder, unspecified; T43.226A Underdosing of selective serotonin reuptake inhibitors, initial encounter; J45.30 Mild persistent asthma, uncomplicated; K21.9 Gastro-esophageal reflux disease without esophagitis; E55.9 Vitamin D deficiency, unspecified; M47.9 Spondylosis, unspecified; K58.9 Irritable bowel syndrome, unspecified; E78.5 Hyperlipidemia, unspecified; M79.7 Fibromyalgia; Z79.899 Other long term (current) drug therapy; Z82.49 Family history of ischemic heart disease and other diseases of the circulatory system; Z83.3 Family history of diabetes mellitus; Z82.5 Family history of asthma and other chronic lower respiratory diseases; Z86.19 Personal history of other infectious and parasitic diseases; Z79.82 Long term (current) use of aspirin; Z79.890 Hormone replacement therapy; Z79.51 Long term (current) use of inhaled steroids; Z87.19 Personal history of other diseases of the digestive system; Z86.69 Personal history of other diseases of the nervous system and sense organs; Z87.09 Personal history of other diseases of the respiratory system; Z91.018 Allergy to other foods; Z91.010 Allergy to peanuts; Z91.013 Allergy to seafood; Z91.048 Other nonmedicinal substance allergy status; Z56.0 Unemployment, unspecified; Z81.8 Family history of other mental and behavioral disorders; Z63.32 Other absence of family member
CPT/HCPCS: 80053; 80306; 82075; 84443; 85025; 94640; 99285

== ENCOUNTER 2017-02-05 16:27 | Emergency (ER) | payer MEDICARE, OTHER ==
[2017-02-05] MEDS ORDERED: LABETALOL 5 MG/ML VIAL MDV IVP STA (16:39)
[2017-02-05] MEDS ORDERED: LORazepam 2 MG/ML INJ IV STA ×2 (16:58→20:04)
[2017-02-05 17:10] LABS: Anisocytosis Slight; Basophils # (A) 0.1 k/uL (0-0.2); Basophils % (A) 1 %; CH 27.9; Eosinophils # (A) 0.2 k/uL (0-0.7); Eosinophils % (A) 2 %; HDW 2.44; HGB 12.5 gm/dL (11.4-16.0); Hypochromasia Slight; Luc % (Auto) 2; Lymphocytes # (A) 1.7 k/uL (1.0-4.8); Lymphocytes % (A) 16 %; MCH 27.6 pg (25.0-35.0); MCHC 30.5 g/dL (31.0-37.0); MCV 90.4 fL (80.0-100.0); Mean Platelet Volume 8.1; Monocytes # (A) 0.6 k/uL (0-1.0); Monocytes % (A) 5 %; Neutrophils % (A) 75 %; RBC 4.54 m/uL (3.80-5.40); RDW 19.3 % (11.5-15.5); WBC 10.7 k/uL (3.8-10.6)
[2017-02-05 17:23] LABS: ALT 83 U/L (9-52); AST 48 U/L (14-36); Alcohol <10 mg/dL; Alkaline Phosphatase 101 U/L (38-126); Anion Gap 8 mmol/L; Blood Urea Nitrogen 19 mg/dL (7-17); Calcium 9.3 mg/dL (8.4-10.2); Carbon Dioxide 25 mmol/L (22-30); Chloride 108 mmol/L (98-107); Glucose 84 mg/dL (74-99); Non-African American GFR(MDRD) >60 (>60 ml/min/1.73 sqM); Potassium 4.6 mmol/L (3.5-5.1); Sodium 141 mmol/L (137-145); Total Bilirubin 0.2 mg/dL (0.2-1.3); Total Protein 6.9 g/dL (6.3-8.2)
[2017-02-05 17:28] LABS: Creatine Kinase 42 U/L (30-135)
[2017-02-05 17:35] LABS: INR 0.9 (<1.2); Prothrombin Time 9.6 sec (9.0-12.0)
[2017-02-05 17:42] LABS: Creatine Kinase MB 0.5 ng/mL (0.0-2.4); Partial Thromboplastin Time 20.5 sec (22.0-30.0); Troponin I <0.012 ng/mL (0.000-0.034)
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
[2017-02-05] MEDS ORDERED: ACETAMINOPHEN TAB 500 MG TAB PO STA (18:14)
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
[2017-02-05] MEDS ORDERED: RX INFO: IV CONTRAST WAS GIVEN 1 EACH MISC MISCELLANE PRN (19:02)
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
[2017-02-05] MEDS ORDERED: KETOROLAC 30 MG/ML 1 ML VIAL IVP STA (20:05)
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
[2017-02-05 21:26] VITALS: BP 101/55; PULSE 79; RESP 18; TEMP 97.3
== END 2017-02-05 21:51 | disposition other institution (70) ==
LOC: MERGE 16:27 → EC 16:27
DX: R41.3 Other amnesia (principal); R51 Headache; M54.2 Cervicalgia; R07.9 Chest pain, unspecified; R10.9 Unspecified abdominal pain; F41.9 Anxiety disorder, unspecified; Z79.899 Other long term (current) drug therapy; Z91.018 Allergy to other foods; Z91.013 Allergy to seafood; V47.6XXA Car passenger injured in collision with fixed or stationary object in traffic accident, initial encounter; Y92.481 Parking lot as the place of occurrence of the external cause
CPT/HCPCS: 99285; 96374; 96375; 96376; 36415; 93005; 86900; 86901; 85379; 80053; 82550; 82553; 84484; 85025; 85610; 85730; 86850; 86870; 86880; 80320; 71010; 72170; 72125; 70450; 71275; 74177; J2060; Q9967; J1885

== ENCOUNTER 2017-06-03 15:38 | Inpatient (IN) | payer MEDICARE, OTHER ==
[2017-06-03] MEDS ORDERED: SODIUM CHLORIDE 0.9% 1,000 ML IV STA ×2 (16:11)
[2017-06-03] MEDS ORDERED: ONDANSETRON 4 MG/2 ML VIAL IVP STA (16:11)
--- NOTE | 2017-06-03 16:23 | ED ---
General Adult HPI - General Source: patient, EMS, RN notes reviewed, old records reviewed Mode of arrival: EMS Limitations: no limitations <Josué Reeder - Last Filed: 06/03/17 17:03> <Zay Farah - Last Filed: 06/03/17 18:37> - General Chief complaint: Weakness Stated complaint: Mental health Time Seen by Provider: 06/03/17 15:46 - History of Present Illness Initial comments: Patient's a 56-year-old female who presents emergency room today by EMS, the chief complaint of needing admission for rehab. Patient does admit that she's had increased weakness over the last several months. She states she was admitted to the hospital in January of 2017. She states that she was discharged home but did not have physical therapy. She states she's had visiting physicians come into her home. She states she still had weakness and difficult time with ambulation. She states she was advised by her doctor that she should come to Hospital for admission and placement for rehab. Patient does not that she's had some nausea and dizziness since January when she was released from the hospital. Patient states there are no new symptoms. Admits to chronic pain with her fibromyalgia. Believes that she was in a Coma Due to having overdosed on antidepressant medications accidentally. She states she was unaware that she was taking 2 of the similar medications and believes that this was the cause for her, back in January 2017. Patient denies any recent fever, chills, shortness of breath, chest pain, abdominal pain, numbness or tingling, dysuria or hematuria, constipation or diarrhea, headaches or visual changes, or any other complaints. (Josué Reeder) - Related Data Home Medications Medication Instructions Recorded Confirmed Omeprazole [PriLOSEC] 20 mg PO DAILY 10/27/14 02/24/17 Albuterol Inhaler [Ventolin Hfa 1 - 2 puff INHALATION RT-Q6H PRN 06/03/16 Inhaler] DULoxetine HCL [Cymbalta] 60 mg PO DAILY 02/05/17 02/24/17 ARIPiprazole [Abilify] 5 mg PO QAM 02/24/17 02/24/17 Ergocalciferol [Vitamin D2] 50,000 unit PO Q7D 02/24/17 02/24/17 Ibuprofen [Motrin] 600 mg PO Q8HR PRN 02/24/17 02/24/17 Ibuprofen [Motrin] 800 mg PO TID PRN 02/24/17 02/24/17 LORazepam [Ativan] 2 mg PO HS 02/24/17 02/24/17 Lisinopril [Zestril] 20 mg PO DAILY 02/24/17 02/24/17 Hutchinson-3 Acid Ethyl Esters [Lovaza] 1 gm PO DAILY 02/24/17 02/24/17 Sertraline [Zoloft] 100 mg PO HS 02/24/17 02/24/17 Triamterene/Hydrochlorothiazid 1 tab PO DAILY 02/24/17 02/24/17 [Triamterene-Hctz 37.5-25 mg Tb] clonazePAM [KlonoPIN] 1 mg PO TID 02/24/17 02/24/17 traZODone HCL [Desyrel] 100 mg PO HS 02/24/17 02/24/17 Previous Rx's Medication Instructions Recorded Gabapentin [Neurontin] 300 mg PO TID #45 cap 06/06/16 Allergies Allergy/AdvReac Type Severity Reaction Status Date / Time cashew nut Allergy Unknown Verified 02/05/17 17:29 shellfish derived Allergy Swelling Verified 06/03/16 19:38 nuts Allergy Swelling Uncoded 06/03/16 19:38 animals AdvReac Wheezing Uncoded 06/03/16 19:38 environmental AdvReac Wheezing Uncoded 06/03/16 19:38 Review of Systems ROS Other: All systems not noted in ROS Statement are negative. <Josué Reeder - Last Filed: 06/03/17 17:03> ROS Other: All systems not noted in ROS Statement are negative. <Zay Farah - Last Filed: 06/03/17 18:37> ROS Statement: Those systems with pertinent positive or pertinent negative responses have been documented in the HPI. Past Medical History Past Medical History: Asthma, Eye Disorder, Fibromyalgia, GERD/Reflux, Hyperlipidemia Additional Past Medical History / Comment(s): pre diabetic, arthritis, bronchitis, c difficile colitis (unknown when ), ibs, amnesia History of Any Multi-Drug Resistant Organisms: C-DIFF Past Surgical History: Section, Tonsillectomy Additional Past Surgical History / Comment(s): ear recontructed,colonoscopy and EGD Past Anesthesia/Blood Transfusion Reactions: No Reported Reaction Past Psychological History: Anxiety, Depression Smoking Status: Former smoker Past Alcohol Use History: Occasional Past Drug Use History: None Reported - Past Family History Mother Family Medical History: Asthma, Congestive Heart Failure (CHF), Diabetes Mellitus Additional Family Medical History / Comment(s): 3 lung surgeries Sister(s) Family Medical History: Congestive Heart Failure (CHF), Diabetes Mellitus Brother(s) Family Medical History: Congestive Heart Failure (CHF), Diabetes Mellitus Father Family Medical History: No Reported History <Josué Reeder - Last Filed: 06/03/17 17:03> General Exam Limitations: no limitations <Josué Reeder - Last Filed: 06/03/17 17:03> Course <Josué Reeder - Last Filed: 06/03/17 17:03> <Zay Farah - Last Filed: 06/03/17 18:37> Vital Signs 06/03/17 06/03/17 15:42 17:21 Temperature 96.9 F L Pulse Rate 87 71 Respiratory 20 16 Rate Blood Pressure 175/85 122/58 O2 Sat by Pulse 98 99 Oximetry - Reevaluation(s) Reevaluation #1: 06/03/17 17:03 Patient's labs and imaging currently pending. Case discussed and signed out to Dr Farah at this time. (Josué Reeder) EKG Findings - EKG Comments: EKG Findings:: EKG performed at 1646: Shows normal sinus rhythm at 75 bpm ME interval 148. QRS is 80. QT/QTc 426/475. No acute ST changes. <Josué Reeder - Last Filed: 06/03/17 17:03> Medical Decision Making - Lab Data Result diagrams: 06/03/17 16:40 <Josué Reeder - Last Filed: 06/03/17 17:03> - Lab Data Result diagrams: 06/03/17 16:40 06/03/17 16:40 <Zay Farah - Last Filed: 06/03/17 18:37> - Medical Decision Making Medical decision making; patient's common because her visiting physician told her she needs to be admitted because of inability to walk. The patient has been receiving physical therapy and OT at home. History finds the patient was in a coma this past January. Transfer to another facility. Has had difficulty ambulating. Patient reports that yesterday while sitting on toilet because she was weak she fell forward onto her knees bumped her head on a door. No loss of consciousness. Denies neck pain. But states that she needs assistance in ambulating and has been falling frequently because of her lower extremity weakness. On the bed she can twist or move but it's not strong enough to support her weight. Patient's denying any psychological issues denies hearing voices denies being suicidal or depressed. Labs show white count 6.4 hemoglobin 9.6 hematocrit of 31.3 INR 1.0. BUN 9 creatinine 0.73 to GFR greater than 60. Troponin normal. Glucose 91. Urinalysis negative no signs of infection.CT of the brain was done and reviewed by radiologist his report includes calvarium is intact. There is no intracranial hemorrhage. There is no mass or mass effect. There is no definitive new attenuation defect. Remainder of the intra-axial and extra- axial compartment examination is unremarkable. The paranasal sinuses, middle ear cavities, and mastoid sinus air cells are clear. The orbits are intact. Impression no acute intracranial or cranial process. Incidental findings there is bilateral prominence of the temporalis, a nonspecific finding which may correlate with clinical diagnosis of bruxism. There is associated anterior osteophytic spurring on the condylar head of the temporomandibular joints. As read by Dr. Master Gaona I discussed the case with Dr. Nichole. Patient be admitted his service. He'll decide if the patient is to receive a psychiatric evaluation but he does want a neurology consultation. (Zay Farah) - Lab Data Lab Results 06/03/17 06/03/17 06/03/17 Range/Units 16:40 16:40 16:40 WBC 6.4 (3.8-10.6) k/uL RBC 3.71 L (3.80-5.40) m/uL Hgb 9.6 L (11.4-16.0) gm/dL Hct 31.3 L (34.0-46.0) % MCV 84.3 (80.0-100.0) fL MCH 25.8 (25.0-35.0) pg MCHC 30.6 L (31.0-37.0) g/dL RDW 13.7 (11.5-15.5) % Plt Count 434 (150-450) k/uL Neutrophils % 64 % Lymphocytes % 26 % Monocytes % 5 % Eosinophils % 3 % Basophils % 1 % Neutrophils # 4.1 (1.3-7.7) k/uL Lymphocytes # 1.6 (1.0-4.8) k/uL Monocytes # 0.3 (0-1.0) k/uL Eosinophils # 0.2 (0-0.7) k/uL Basophils # 0.1 (0-0.2) k/uL Hypochromasia Marked Poikilocytosis Slight PT 9.7 (9.0-12.0) sec INR 1.0 (<1.2) APTT 22.3 (22.0-30.0) sec Sodium 141 (137-145) mmol/L Potassium 4.1 (3.5-5.1) mmol/L Chloride 106 (98-107) mmol/L Carbon Dioxide 26 (22-30) mmol/L Anion Gap 9 mmol/L BUN 9 (7-17) mg/dL Creatinine 0.73 (0.52-1.04) mg/dL Est GFR (CKD-EPI)AfAm >90 (>60 ml/min/1.73 sqM) Est GFR (CKD-EPI)NonAf >90 (>60 ml/min/1.73 sqM) Glucose 91 (74-99) mg/dL Calcium 9.8 (8.4-10.2) mg/dL Total Bilirubin 0.2 (0.2-1.3) mg/dL AST 24 (14-36) U/L ALT 33 (9-52) U/L Alkaline Phosphatase 99 (38-126) U/L Total Creatine Kinase (30-135) U/L CK-MB (CK-2) (0.0-2.4) ng/mL CK-MB (CK-2) Rel Index Troponin I (0.000-0.034) ng/mL Total Protein 6.7 (6.3-8.2) g/dL Albumin 3.7 (3.5-5.0) g/dL Urine Color Urine Appearance (Clear) Urine pH (5.0-8.0) Ur Specific [place] (1.001-1.035) Urine Protein (Negative) Urine Glucose (UA) (Negative) Urine Ketones (Negative) Urine Blood (Negative) Urine Nitrite (Negative) Urine Bilirubin (Negative) Urine Urobilinogen (<2.0) mg/dL Ur Leukocyte Esterase (Negative) Urine RBC (0-5) /hpf Urine WBC (0-5) /hpf Ur Squamous Epith Cells (0-4) /hpf Urine Bacteria (None) /hpf Urine Mucus (None) /hpf 06/03/17 06/03/17 Range/Units 16:40 17:20 WBC (3.8-10.6) k/uL RBC (3.80-5.40) m/uL Hgb (11.4-16.0) gm/dL Hct (34.0-46.0) % MCV (80.0-100.0) fL MCH (25.0-35.0) pg MCHC (31.0-37.0) g/dL RDW (11.5-15.5) % Plt Count (150-450) k/uL Neutrophils % % Lymphocytes % % Monocytes % % Eosinophils % % Basophils % % Neutrophils # (1.3-7.7) k/uL Lymphocytes # (1.0-4.8) k/uL Monocytes # (0-1.0) k/uL Eosinophils # (0-0.7) k/uL Basophils # (0-0.2) k/uL Hypochromasia Poikilocytosis PT (9.0-12.0) sec INR (<1.2) APTT (22.0-30.0) sec Sodium (137-145) mmol/L Potassium (3.5-5.1) mmol/L Chloride (98-107) mmol/L Carbon Dioxide (22-30) mmol/L Anion Gap mmol/L BUN (7-17) mg/dL Creatinine (0.52-1.04) mg/dL Est GFR (CKD-EPI)AfAm (>60 ml/min/1.73 sqM) Est GFR (CKD-EPI)NonAf (>60 ml/min/1.73 sqM) Glucose (74-99) mg/dL Calcium (8.4-10.2) mg/dL Total Bilirubin (0.2-1.3) mg/dL AST (14-36) U/L ALT (9-52) U/L Alkaline Phosphatase (38-126) U/L Total Creatine Kinase 23 L (30-135) U/L CK-MB (CK-2) 0.2 (0.0-2.4) ng/mL CK-MB (CK-2) Rel Index 0.9 Troponin I <0.012 (0.000-0.034) ng/mL Total Protein (6.3-8.2) g/dL Albumin (3.5-5.0) g/dL Urine Color Colorless Urine Appearance Clear (Clear) Urine pH 5.5 (5.0-8.0) Ur Specific [place] 1.008 (1.001-1.035) Urine Protein Negative (Negative) Urine Glucose (UA) Negative (Negative) Urine Ketones Negative (Negative) Urine Blood Negative (Negative) Urine Nitrite Negative (Negative) Urine Bilirubin Negative (Negative) Urine Urobilinogen <2.0 (<2.0) mg/dL Ur Leukocyte Esterase Trace H (Negative) Urine RBC <1 (0-5) /hpf Urine WBC 4 (0-5) /hpf Ur Squamous Epith Cells 1 (0-4) /hpf Urine Bacteria Many H (None) /hpf Urine Mucus Rare H (None) /hpf Disposition <Josué Reeder - Last Filed: 06/03/17 17:03> <Zay Farah - Last Filed: 06/03/17 18:37> Clinical Impression: Muscle weakness of lower extremity Disposition: ADMITTED IP TO THIS HOSP Condition: Serious Referrals: Zaki Marin MD [Primary Care Provider] - 1-2 days
[2017-06-03] MEDS ORDERED: LORazepam 1 MG TAB PO STA (16:53)
[2017-06-03 16:57] LABS: Basophils # (A) 0.1 k/uL (0-0.2); Basophils % (A) 1 %; Eosinophils # (A) 0.2 k/uL (0-0.7); Eosinophils % (A) 3 %; HCT 31.3 % (34.0-46.0); HGB 9.6 gm/dL (11.4-16.0); Hypochromasia Marked; Lymphocytes # (A) 1.6 k/uL (1.0-4.8); Lymphocytes % (A) 26 %; MCH 25.8 pg (25.0-35.0); MCHC 30.6 g/dL (31.0-37.0); MCV 84.3 fL (80.0-100.0); Mean Platelet Volume 7.1; Monocytes # (A) 0.3 k/uL (0-1.0); Monocytes % (A) 5 %; Neutrophils # (A) 4.1 k/uL (1.3-7.7); Neutrophils % (A) 64 %; Platelet Count 434 k/uL (150-450); Poikilocytosis Slight; RBC 3.71 m/uL (3.80-5.40); RDW 13.7 % (11.5-15.5); WBC 6.4 k/uL (3.8-10.6)
[2017-06-03 17:05] LABS: Creatine Kinase 23 U/L (30-135)
[2017-06-03 17:07] LABS: ALT 33 U/L (9-52); AST 24 U/L (14-36); Albumin 3.7 g/dL (3.5-5.0); Alkaline Phosphatase 99 U/L (38-126); Anion Gap 9 mmol/L; Blood Urea Nitrogen 9 mg/dL (7-17); Calcium 9.8 mg/dL (8.4-10.2); Carbon Dioxide 26 mmol/L (22-30); Chloride 106 mmol/L (98-107); Glucose 91 mg/dL (74-99); Potassium 4.1 mmol/L (3.5-5.1); Sodium 141 mmol/L (137-145); Total Bilirubin 0.2 mg/dL (0.2-1.3); Total Protein 6.7 g/dL (6.3-8.2)
[2017-06-03 17:08] LABS: Partial Thromboplastin Time 22.3 sec (22.0-30.0); Prothrombin Time 9.7 sec (9.0-12.0)
[2017-06-03 17:18] LABS: Creatine Kinase MB 0.2 ng/mL (0.0-2.4); Troponin I <0.012 ng/mL (0.000-0.034)
[2017-06-03 17:38] LABS: Appearance,Urine Clear (Clear); Bacteria,Urine Many /hpf; Bilirubin,Urine Negative (Negative); Blood,Urine Negative (Negative); Color,Urine Colorless; Glucose,Urine (UA) Negative (Negative); Ketones,Urine Negative (Negative); Leukocyte Esterase,Urine Trace (Negative); Mucus,Urine Rare /hpf; Nitrite,Urine Negative (Negative); PH, Urine 5.5 (5.0-8.0); Protein,Urine Negative (Negative); RBC,Urine <1 /hpf (0-5); Specific Gravity,Urine 1.008 (1.001-1.035); Squamous Epithelial Cell,Urine 1 /hpf (0-4); Urobilinogen,Urine <2.0 mg/dL (<2.0); WBC,Urine 4 /hpf (0-5)
--- NOTE | 2017-06-03 17:39 | CT ---
EXAMINATION: CT brain wo con DATE AND TIME: 06/03/2017 5:17 PM ORDERING PROVIDER: Josué Reeder CLINICAL INDICATION: Pain The patient states he cannot move. TECHNIQUE: Standard departmental protocol. COMPARISON: 02/24/2017 DESCRIPTION: The calvarium is intact. There is no intracranial hemorrhage. There is no mass or mass e ffect. There is no definite new attenuation defect. Remainder of the intra-axial and extra-axial comp artment examination is unremarkable. The paranasal sinuses, middle ear cavities, and mastoid sinus ai r cells are clear. The orbits are intact. IMPRESSION: NO ACUTE INTRACRANIAL/CRANIAL PROCESS. Incidental finding: There is bilateral prominence of the temporalis, a nonspecific finding which can correlate with a clinical diagnosis of bruxism. There is associated anterior osteophytic spurring of the condylar head of the temporal mandibular joints.
[2017-06-03] MEDS ORDERED: ALPRAZolam 0.25 MG TAB PO PRN (18:12)
[2017-06-03] MEDS ORDERED: NALOXONE 0.4 MG/ML 1 ML VIAL IV PRN (18:51)
[2017-06-03] MEDS ORDERED: ACETAMINOPHEN TAB 325 MG TAB PO PRN (18:51)
[2017-06-03] MEDS ORDERED: ERGOCALCIFEROL 50,000 UNIT CAP PO SCH (20:00)
[2017-06-03 20:14] VITALS: BMI 28.1
--- NOTE | 2017-06-03 20:31 | P.CNNES ---
History of Present Illness Consult date: 06/03/17 History of Present Illness: The patient is a 57-year-old right-handed white female who came into the emergency room upon the instruction of her primary care physician for rehab placement. The patient reports that she was in a coma in January hospitalized at [facility] for 3 weeks transferred to [facility] for 2 weeks. Patient states she has no recollection of what happened during her hospital stay. But she states that what put her into the hospital was taking an excessive amount of antidepressants and the wrong combination of them causing her to be lethargic. The record shows however that the patient presented to [facility] in January with lethargy fever and nuchal rigidity possible meningitis. She was admitted with rhabdomyolysis and acute kidney injury. She had metabolic encephalopathy and was transferred for further care to [facility]. The patient reports that since leaving the hospital she has not gotten up to walk. She states she left-handed forward in the wheelchair and had some home physical therapy but still doesn't have the strength to walk independently. She states that her legs fall from under her. She also complains of vertigo which she's had since she woke up from her "" coma. She states that since January she has had numbness of the left leg. She complains of chronic low back pain which she's had for years as well as fibromyalgia. She denies any bowel or bladder difficulty. She denies any vision loss. She normally gets a headache 3 times a week in the occiput region. She has a history of hearing loss and vision disturbance. Review of Systems Eyes: denies blurred vision, denies pain Ears, nose, mouth and throat: Denies headache, Denies sore throat Cardiovascular: Denies chest pain, Denies shortness of breath Respiratory: Denies cough Gastrointestinal: Denies abdominal pain, Denies diarrhea, Denies nausea, Denies vomiting Musculoskeletal: Reports as per HPI Neurological: Denies numbness, Denies weakness Psychiatric: Denies anxiety, Denies depression Past Medical History Past Medical History: Asthma, Eye Disorder, Fibromyalgia, GERD/Reflux, Hyperlipidemia Additional Past Medical History / Comment(s): pre diabetic, arthritis, bronchitis, c difficile colitis (unknown when ), ibs, amnesia History of Any Multi-Drug Resistant Organisms: C-DIFF Date of last positivie culture/infection: unsure MDRO Source:: unsure Past Surgical History: Section, Tonsillectomy Additional Past Surgical History / Comment(s): ear recontructed,colonoscopy and EGD Past Anesthesia/Blood Transfusion Reactions: No Reported Reaction Past Psychological History: Anxiety, Depression Smoking Status: Former smoker Past Alcohol Use History: Occasional Additional Past Alcohol Use History / Comment(s): The patients states that she is a nonsmoker. She denies any medical marijuana, marijuana, street drug use. She is and lives with her . They are taking care of a grandson. Past Drug Use History: None Reported - Past Family History Mother Family Medical History: Asthma, Congestive Heart Failure (CHF), Diabetes Mellitus Additional Family Medical History / Comment(s): 3 lung surgeries Sister(s) Family Medical History: Congestive Heart Failure (CHF), Diabetes Mellitus Brother(s) Family Medical History: Congestive Heart Failure (CHF), Diabetes Mellitus Father Family Medical History: No Reported History Medications and Allergies Home Medications Medication Instructions Recorded Confirmed Type ARIPiprazole [Abilify] 5 mg PO QAM 02/24/17 06/03/17 History Ergocalciferol [Vitamin D2] 50,000 unit PO Q7D 02/24/17 06/03/17 History Sertraline [Zoloft] 100 mg PO HS 02/24/17 06/03/17 History Acetaminophen-Codeine 300-30mg 1 tab PO Q6H PRN 06/03/17 06/03/17 History [Tylenol #3] Atorvastatin [Lipitor] 20 mg PO DAILY 06/03/17 06/03/17 History Ferrous Sulfate [Feosol] 325 mg PO BID 06/03/17 06/03/17 History Gabapentin [Neurontin] 400 mg PO TID 06/03/17 06/03/17 History Gentamicin 0.3% Ophth Soln 1 drops BOTH EYES Q6HR 06/03/17 06/03/17 History [Garamycin 0.3% Ophth Soln] Meclizine HCl 12.5 mg PO BID PRN 06/03/17 06/03/17 History Ondansetron HCl [Zofran] 8 mg PO BID PRN 06/03/17 06/03/17 History cycloSPORINE 0.05% OPHTH SOLN 1 drop BOTH EYES Q12H 06/03/17 06/03/17 History [Restasis] Allergies Allergy/AdvReac Type Severity Reaction Status Date / Time cashew nut Allergy Unknown Verified 06/03/17 19:30 shellfish derived Allergy Swelling Verified 06/03/17 19:30 nuts Allergy Swelling Uncoded 06/03/16 19:38 animals AdvReac Wheezing Uncoded 06/03/16 19:38 environmental AdvReac Wheezing Uncoded 06/03/16 19:38 Physical Examination - Vital Signs Vital Signs: Vital Signs Temp Pulse Resp BP Pulse Ox 06/03/17 18:54 82 18 135/76 96 06/03/17 17:21 71 16 122/58 99 06/03/17 15:42 96.9 F L 87 20 175/85 98 Intake and Output 06/03/17 06/03/17 06/03/17 06:59 14:59 22:59 Other: Weight 81.647 kg Patient Weight 06/04/17 06:59 Weight 81.647 kg - Constitutional General appearance: cooperative - EENT EENT: PERRL, hearing intact, vision intact - Respiratory Respiratory: lungs clear - Cardiovascular Cardiovascular: regular rate, normal S1 - Integumentary Integumentary: normal - Neurologic Mental status she was awake alert and oriented 3 her speech is fluent there was no a aphasia or dysarthria she was able to name the president she would is able to do simple addition and subtraction she was able to spell next Cranial most 2 through 12 are grossly intact next Motor examination she was able to lift both legs up against gravity very briefly. Her strength was 5 out of 5X Sensory examination revealed decreased light touch left leg by 25% Plantar response was equivocal bilaterally Results - Laboratory Findings CBC and BMP: 06/03/17 16:40 06/03/17 16:40 Abnormal Lab Findings: Abnormal Labs 06/03/17 06/03/17 06/03/17 16:40 16:40 17:20 RBC 3.71 L Hgb 9.6 L Hct 31.3 L MCHC 30.6 L Total Creatine Kinase 23 L Ur Leukocyte Esterase Trace H Urine Bacteria Many H Urine Mucus Rare H Assessment and Plan (1) Complaints of leg weakness Current Visit: Yes Status: Acute SNOMED Code(s): 837227904 (2) Chronic back pain Current Visit: Yes Status: Acute SNOMED Code(s): 880007843 Plan: The patient is a 57-year-old woman who has been having weakness in the legs after being hospitalized for over a month. She states she was hospitalized at [facility] as well as [facility]. He had been hospitalized for several weeks. Not get up in the hospital or receive physical therapy during that time. He is in the hospital today so that she may receive rehab. Next The patient does have some weakness in both lower extremities. He has a history of chronic back pain. Recommend further evaluation with the back with MRI or CT. Patient also has vertigo which appears to be a peripheral vestibular type. It is exacerbated by quick head movements and is described as a subjective vertigo worse with closing her eyes . recommend ENT evaluation
[2017-06-03] MEDS ORDERED: SERTRALINE 100 MG TAB PO SCH (21:00)
[2017-06-03] MEDS: Acetaminophen-Codeine 300-30mg TAB PO PRN (22:20)
[2017-06-03] MEDS: cycloSPORINE 0.05% OPHTH 0.4 ML DROPERETTE BOTH EYES SCH (22:21)
[2017-06-03] MEDS: FERROUS SULFATE 325 MG TAB PO SCH (22:22)
[2017-06-03] MEDS: FAMOTIDINE 20 MG TAB PO SCH (22:22)
[2017-06-03] MEDS: GABAPENTIN 400 MG CAP PO SCH (22:22)
[2017-06-03] MEDS: SODIUM CHLORIDE 0.45% 1,000 ML IV SCH (22:44)
[2017-06-03] MEDS: GENTAMICIN 0.3% OPHTH DROPS 5 ML BTL BOTH EYES SCH (23:38)
[2017-06-04 01:23] LABS: Glucose,Whole Blood 124 mg/dL (75-99)
[2017-06-04] MEDS ORDERED: NON-FORMULARY DRUG (Ondansetron Hcl [Zofran] 8 MG) PO PRN (01:29)
--- NOTE | 2017-06-04 05:03 | HP ---
HISTORY AND PHYSICAL DOS: 06/03/17 CHIEF COMPLAINT: Weakness. HISTORY OF PRESENT ILLNESS: This 56-year-old woman with a past medical history of asthma, fibromyalgia, GERD , hyperlipidemia, prediabetes, C diff, anxiety, depression being followed by a physician in the outpatient setting, recently admitted to [facility] in January with multiple medical issues. The patient apparently had metabolic encephalopathy suspected viral encephalitis. Patient also had rhabdomyolysis. The patient also had meningitic picture. Subsequently patient was transferred to [facility] and according to her, the patient was in coma. The results are not available, but after discharge from the hospital, patient is unable to walk according to her and the patient was to [facility] with increasing difficulties walking and weakness also. There is no history of fever, rigors. No history of headache, loss of consciousness or seizures at this time. PAST MEDICAL HISTORY: Asthma, GERD, fibromyalgia, DJD, history of C diff, anxiety and depression. MEDICATIONS: Prior to admission include home medications are: 1. Zoloft 100 mg q.h.s. 2. Lipitor 20 mg p.o. daily. 3. Garamycin 1 q.6h p.r.n. 4. Iron sulfate. 5. ophthalmic solution 1 drop both eyes. 6. Neurontin 400 mg p.o. t.i.d. 7. Zofran 8 mg b.i.d. p.r.n. 8. Meclizine 12.5 mg b.i.d. 9. Vitamin D2 50,000 q.72h. 10.Tylenol #3 1 tablets q.6h p.r.n. 11.Abilify 5 mg q.a.m. ALLERGIES: ARE CASHEW NUTS, SHELLFISH NUTS, ANIMAL, AND ENVIRONMENTAL ALLERGIES. FAMILY HISTORY: History of asthma, CHF, diabetes mellitus, lung surgery. SOCIAL HISTORY: Previous history of smoking. No history of current smoking, alcohol intake. REVIEW OF SYSTEMS: ENT: No diminished hearing. No diminished vision. Cardiovascular: No angina. Respiratory: No cough or hemoptysis. GI no nausea or vomiting. : No dysuria. NERVOUS SYSTEM: As mentioned. ALLERGY/IMMUNOLOGY: As mentioned earlier. HEMATOLOGY/ONCOLOGY: No history of anemia. Endocrine: No history of diabetes or hypothyroidism. Constitutional: As mentioned earlier. Rheumatology: Negative. Dermatology: Negative. Psychiatric: As mentioned earlier. PHYSICAL EXAMINATION: The patient is the alert, oriented times three, pulse 92, blood pressure 115/85, respiration 18, temperature 98.2, pulse ox 98% on room air. HEENT: Conjunctivae normal. Oral mucosa moist. Neck is no jugular venous distention. No carotid bruit. No lymph node enlargement. Cardiovascular system: S1, S2. No S3, no S4. Respiratory: Breath sounds diminished in the bases. No rhonchi. No crackles. ABDOMEN: Soft, nontender. No mass palpable. Legs no edema and no swelling. NERVOUS SYSTEM: Higher functions as mentioned. Moves all 4 limbs. Mild diffuse weakness present especially in the lower limbs. Otherwise minimal sensory abnormalities also noted. SKIN: No ulcer, rash or bleeding. Lymphatics: No lymph nodes palpable in the neck, axillae or groin. Joints: No active deforming arthropathy. LABS: At this time WBC 7, hemoglobin 9.6, glucose 124, creatinine kinase . UA noted. ASSESSMENT: 1. Generalized tiredness and weakness for evaluation, rule out spinal cord lesions. 2. Rule out transient ischemic attack. 3. History of recent metabolic encephalopathy/meningitis/rhabdomyolysis. 4. Anemia normocytic anemia of chronic disease. 5. History of asthma. 6. History of fibromyalgia. 7. History of gastroesophageal reflux disease. 8. Hyperlipidemia. 9. History of prediabetes. 10.History of degenerative joint disease. 11.History of C. dif colitis. 12.History of anxiety, depression. 13.Remote history of nicotine dependence. RECOMMENDATIONS AND DISCUSSION: In this 56-year-old woman who presented with multiple complex medical issues, we will monitor the patient closely, continue the current medications, management and symptomatic treatment. MRI of the lumbar spine is requested by Dr. Vergara, Neurology. Otherwise we will also obtain a psychiatric consultation. Resume the home medications. DVT prophylaxis. Guarded prognosis because of multiple complex medical issues. A copy of this dictation forwarded to Dr. Marin who is the primary physician. MMODL / IJN: [id number] / FIDEL
[2017-06-04] MEDS: GENTAMICIN 0.3% OPHTH DROPS 5 ML BTL BOTH EYES SCH ×4 (05:56→22:41)
[2017-06-04] MEDS: Acetaminophen-Codeine 300-30mg TAB PO PRN ×3 (07:36→20:49)
[2017-06-04] MEDS: FAMOTIDINE 20 MG TAB PO SCH ×2 (07:39→20:51)
[2017-06-04] MEDS: ATORVASTATIN 20 MG TAB PO SCH (07:40)
[2017-06-04] MEDS: GABAPENTIN 400 MG CAP PO SCH ×3 (07:40→20:51)
[2017-06-04] MEDS: HEPARIN SODIUM,PORCINE 5,000 UNIT/ML 1 ML VIAL SQ SCH ×2 (07:40→20:51)
[2017-06-04] MEDS: FERROUS SULFATE 325 MG TAB PO SCH ×2 (07:40→20:51)
[2017-06-04] MEDS: PANTOPRAZOLE 40 MG TABLET PO SCH (07:41)
[2017-06-04] MEDS: cycloSPORINE 0.05% OPHTH 0.4 ML DROPERETTE BOTH EYES SCH ×2 (07:44→20:50)
[2017-06-04] MEDS ORDERED: ARIPiprazole 5 MG TAB PO SCH (09:00)
[2017-06-04] MEDS: SODIUM CHLORIDE 0.45% 1,000 ML IV SCH ×3 (10:27→22:43)
[2017-06-04] MEDS: MULTIVITAMINS, THERA 1 EACH TAB PO SCH (11:51)
[2017-06-04] MEDS: FOLIC ACID 1 MG TAB PO SCH (11:51)
[2017-06-04] MEDS: THIAMINE 100 MG TAB PO SCH (11:51)
[2017-06-04] MEDS: LORazepam 1 MG TAB PO PRN (12:26)
[2017-06-04 12:34] LABS: Amphetamine Screen,Urine Not Detected (NotDetected); Barbiturate Screen,Urine Not Detected (NotDetected); Benzodiazepines Screen,Urine Not Detected (NotDetected); Cocaine Screen,Urine Not Detected (NotDetected); Methadone Screen, Urine Not Detected (NotDetected); Opiate Screen,Urine Detected (NotDetected); Oxycodone Screen, Urine Not Detected (NotDetected); Phencyclidine Screen,Urine Not Detected (NotDetected); Tricyclic Antidepressant,Urine Not Detected (NotDetected); Urn Cannabinoid Scrn Not Detected (NotDetected)
--- NOTE | 2017-06-04 15:01 | P.CN ---
Psychiatric Consult - . Consult date: 06/04/17 Consult:: 06/04/17 14:51 Patient was seen on a psychiatry consult regarding her "behavior and medication ". Patient was admitted to with neurological complaints and request for rehab. Patient reports that she had a doctor coming to her house and had ordered several medications which did not agree with the other medications she was taking and was in a coma for a while came to this hospital and then went to [facility] and then was sent home. She said she has fibromyalgia and has multiple pains all over the body with tingling and numbness of the fingers toes etc. She also reports of having dizziness and takes meclizine. She said she has to hold onto something when she walks at home. She said she is still grieving the of her mother and her son who was murdered in June 2016. She said he is and always will be in her heart. But she said she is not depressed or worried about it anymore. She has not been taking Zoloft or Abilify since about January 2017. In spite of this she does not feel depressed and does not have any suicidal thoughts. She also reported that she cannot take these medications because they interfered with her other medications and put her into a coma. Apparently she will be going to [facility] for neurological rehabilitation either tomorrow or day after. Patient was seen lying down in her bed. When I was there earlier she was gone to have her MRI done. She was surrounded by her grand children son etc. Initially they were quiet but they started to talk between themselves and it was interfering with patient's examination. She is polite and cooperative. She did not show any psychomotor agitation or retardation. Her speech is spontaneous relevant and goal-directed. Her mood is mildly anxious and affect is appropriate. She denies hallucinations, delusional thinking, suicidal and homicidal ideas. She is well oriented with adequate memory concentration general fund of knowledge etc. Her insight appears to be adequate along with her judgment. Assessment: She has several diagnoses in her chart including major depression and panic attacks with agoraphobia etc. in spite of this she was in the hospital only for 3 days and it is unusual for a person with major depression to get better within 3 days and go home. So her diagnosis was most likely extended grief than major depression. She appears to be functioning well without Zoloft and Abilify. In view of these her Zoloft and Abilify can be safely discontinued.
--- NOTE | 2017-06-04 15:10 | MR ---
EXAMINATION TYPE: MR lumbar spine wo con DATE OF EXAM: 06/04/2017 COMPARISON: NONE HISTORY: 56-year-old female with difficulty walking TECHNIQUE: Multiplanar, multisequence images of the lumbar spine were acquired. Findings: Mild to moderate variable disc desiccation especially from L2 through S1 levels. Some fatty Modic type II endplate changes anteriorly at L2-L3 and L3-L4. No suspicious bone marrow r eplacement. Tiny posterior annular fissure at L3-L4 with multilevel mild posterior disc bulges. Hypertrophic facet arthropathy mid to lower lumbar spine. Preserved alignment and maintained vertebral body heights. Conus medullaris is normal. At T12/L1, no canal or foraminal stenosis. At L1-L2, no canal or foraminal stenosis. At L2-L3, diffuse disc bulge slightly impressing onto the ventral thecal sac. No significant spinal c anal or neuroforaminal stenosis. At L3-L4, facet degenerative change with a diffuse disc bulge and posterior annular fissure. This imp resses on the ventral thecal sac but does not cause significant spinal canal stenosis. There is a mil d right-sided neuroforaminal stenosis. At L4-L5, there is facet degenerative change and bulging disc. Changes result in minimal inferior rig ht-sided neural foraminal narrowing. No spinal canal stenosis. At L5-S1, there is facet degenerative change and mild bulging disc. No significant spinal canal or ne uroforaminal stenosis. Disc material closely approaches the bilateral traversing S1 nerve roots. No prevertebral or paravertebral soft tissue abnormality. IMPRESSION: 1. Mild degenerative disc disease particularly from L2 through S1 levels. Also, facet arthropathy mid to lower lumbar spine. 2. No vertebral compression collapse or malalignment. 3. Disc bulges impress onto the ventral thecal sac at multiple levels but do not contribute to any si gnificant spinal canal stenosis. There is a posterior annular fissure at L3-L4. 4. Disc material at L5-S1 closely approaches the bilateral traversing S1 nerve roots. 5. Mild right-sided neuroforaminal stenosis at L3-L4.
--- NOTE | 2017-06-04 21:04 | PN ---
PROGRESS NOTE DATE OF SERVICE: 06/04/2017. INTERVAL HISTORY: This 56-year-old woman who was admitted with generalized tiredness and weakness is being evaluated for a spinal cord lesion. Please note that the patient had recently significantly complicated illness which spanned the hospitalization in this hospital as well as also [facility]. The possibility of metabolic encephalopathy with rhabdomyolysis is considered at this time. The patient also complaining of severe anxiety at this time. PAST MEDICAL HISTORY: Reviewed. REVIEW OF SYSTEMS: CARDIOVASCULAR: No angina, palpitations. RESPIRATORY: As mentioned earlier. GI: As mentioned earlier. : No dysuria. NERVOUS: As mentioned earlier. CURRENT MEDICATIONS: 1. Tylenol 650 every 6 hours p.r.n. 2. Tylenol No. 3. 3. Lipitor. 4. Restasis. 6. Folic acid 1 mg daily. 7. Neurontin 400 mg p.o. t.i.d. 8. Gentamicin. 9. Heparin 5 subcu b.i.d. 10.Ativan 1 mg every 6 hours p.r.n. 11.Antivert 12.5 mg b.i.d. 12.Multivitamin 1 p.o. daily. 13.Narcan 0.2 q.2h p.r.n. 14.Zofran 4 mg q.8h p.r.n. 15.Protonix 40 mg daily. 16.Vitamin B1 thiamine 100 mg p.o. daily. PHYSICAL EXAM: Patient is alert, oriented x3. Pulse 81, blood pressure 129/70, respirations 16 , temperature 98.1, pulse ox 96% on room air. HEENT: Conjunctivae normal. NECK: No jugular venous distention. CARDIOVASCULAR: S1, S2 muffled. RESPIRATORY: Breath sounds diminished in the bases. A few scattered rhonchi and crackles. ABDOMEN: Soft, nontender. No mass palpable. LEGS: No edema. No swelling. NERVOUS SYSTEM: Diffusely weak and tremors also present. LABS: WBC 6.2, hemoglobin is 9.6. ESR is 48. Glucose 124. CRP is negative and drug screen is positive for opiates. ASSESSMENT: 1. General tiredness and weakness for evaluation, rule out spinal cord lesion. 2. Rule out transient ischemic attack. 3. History of recent metabolic encephalopathy, meningitis and rhabdomyolysis. 4. Anemia, normocytic anemia of chronic disease. 5. History of asthma. 6. History of fibromyalgia. 7. History of gastroesophageal reflux disease. 8. Hyperlipidemia. 9. History of pre-diabetes. 10.History of degenerative joint disease. 11.History of Clostridium difficile colitis. 12.History of anxiety, depression. 13.Remote history of nicotine dependence. RECOMMENDATIONS AND DISCUSSION: Recommend to continue current medical management, continue with monitoring and symptomatic treatment and a lumbar spine MRI has been ordered by Neurology which showed mild DJD and no significant lesions, disc bulges noted. Otherwise, a psych consult was also done by and was about possibly extended grief. I will continue monitoring, closely follow with PT/OT evaluation and possible ECF rehab. Further recommendations to follow. MMODL / IJN: [id number] / FIDEL
--- NOTE | 2017-06-04 21:59 | P.PN ---
Subjective Progress Note Date: 06/04/17 The patient is a 57-year-old woman admitted to the hospital for rehab placement. His been complaining of chronic pain. She has a history of chronic pain as well as fibromyalgia. She also has a history of chronic back problems. She has been complaining of left leg pain since January after she had a hospitalization and coma. She states she normally takes Tylenol for at home and was requesting some here for pain. She denies any new symptoms since yesterday. She had an MRI of the lumbar spine today which showed mild degenerative disc disease as well as disc bulging at multiple levels. There was also some mild stenosis at L3 4. Objective - Vital Signs Vital signs: Vital Signs Temp 98.1 F 06/04/17 07:00 Pulse 81 06/04/17 07:00 Resp 16 06/04/17 15:22 BP 129/77 06/04/17 07:00 Pulse Ox 96 06/04/17 07:00 Intake & Output 06/04/17 06/04/17 06/05/17 06:59 18:59 06:59 Intake Total 1160 240 Balance 1160 240 Weight 81.647 kg 81.647 kg Intake: Intake, IV Titration 800 240 Amount Sodium Chloride 0.45% 1, 800 240 000 ml @ 80 mls/hr IV . [id number] [facility] Rx#:[id number] Oral 360 Other: Voiding Method Bedside Commode Bedside Commode # Voids 1 3 - Constitutional General appearance: Present: obese - EENT Eyes: Present: EOMI, PERRLA ENT: Present: hearing grossly normal - Neurologic Neurologic: Present: CNII-XII intact - Psychiatric Psychiatric: Present: A&O x's 3, appropriate affect (On strength testing patient is able to lift both legs up against gravity but more difficulty on the left leg. This is unchanged since yesterday. He states his been this way for several months.) - Labs CBC & Chem 7: 06/03/17 16:40 06/03/17 16:40 Labs: Abnormal Lab Results - Last 24 Hours (Table) 06/04/17 06/04/17 06/04/17 Range/Units 01:20 08:13 12:00 ESR 48 H (0-20) mm/hr POC Glucose (mg/dL) 124 H (75-99) mg/dL Urine Opiates Screen Detected H (NotDetected) Assessment and Plan (1) Complaints of leg weakness Current Visit: Yes Status: Acute SNOMED Code(s): 343134316 (2) Chronic back pain Current Visit: Yes Status: Acute SNOMED Code(s): 013654888 Plan: The patient is a 57-year-old woman with history of fibromyalgia chronic pain and leg weakness and pain. She has chronic left leg pain and weakness for several months now. Her MRI shows some mild disc bulges and degenerative disc disease. Recommend the venous Doppler check of her left leg. Also we'll increase gabapentin to 600 mg 3 times a day, continue PT/rehab
[2017-06-04] MEDS ORDERED: GABAPENTIN 100 MG CAP PO STA (22:21)
[2017-06-04] MEDS: GABAPENTIN 300 MG CAP PO SCH (22:40)
[2017-06-05] MEDS: Acetaminophen-Codeine 300-30mg TAB PO PRN ×2 (03:39→10:02)
[2017-06-05] MEDS: ARTIFICIAL TEARS-HYPROMELLOSE DROPS 15 ML BTL BOTH EYES PRN ×3 (03:41→13:30)
[2017-06-05] MEDS: GENTAMICIN 0.3% OPHTH DROPS 5 ML BTL BOTH EYES SCH ×4 (06:33→23:02)
[2017-06-05] MEDS: FERROUS SULFATE 325 MG TAB PO SCH ×2 (08:14→21:19)
[2017-06-05] MEDS: cycloSPORINE 0.05% OPHTH 0.4 ML DROPERETTE BOTH EYES SCH ×2 (08:14→21:19)
[2017-06-05] MEDS: GABAPENTIN 300 MG CAP PO SCH ×2 (08:14→21:19)
[2017-06-05] MEDS: HEPARIN SODIUM,PORCINE 5,000 UNIT/ML 1 ML VIAL SQ SCH ×2 (08:14→21:19)
[2017-06-05] MEDS: PANTOPRAZOLE 40 MG TABLET PO SCH (08:14)
[2017-06-05] MEDS: ATORVASTATIN 20 MG TAB PO SCH (08:14)
[2017-06-05] MEDS: FAMOTIDINE 20 MG TAB PO SCH ×2 (08:14→21:19)
[2017-06-05] MEDS: ONDANSETRON 4 MG/2 ML VIAL IVP PRN ×2 (08:17→18:43)
[2017-06-05 08:22] LABS: Anion Gap 10 mmol/L; Blood Urea Nitrogen 7 mg/dL (7-17); Calcium 9.2 mg/dL (8.4-10.2); Carbon Dioxide 24 mmol/L (22-30); Chloride 109 mmol/L (98-107); Glucose 87 mg/dL (74-99); Potassium 4.5 mmol/L (3.5-5.1); Sodium 143 mmol/L (137-145)
[2017-06-05 08:36] LABS: Basophils # (A) 0.1 k/uL (0-0.2); Basophils % (A) 1 %; Eosinophils # (A) 0.2 k/uL (0-0.7); Eosinophils % (A) 4 %; HGB 8.7 gm/dL (11.4-16.0); Hypochromasia Marked; Lymphocytes # (A) 1.8 k/uL (1.0-4.8); Lymphocytes % (A) 31 %; MCH 25.6 pg (25.0-35.0); MCHC 30.1 g/dL (31.0-37.0); Mean Platelet Volume 7.2; Monocytes # (A) 0.4 k/uL (0-1.0); Monocytes % (A) 7 %; Neutrophils # (A) 3.2 k/uL (1.3-7.7); Neutrophils % (A) 55 %; Platelet Count 390 k/uL (150-450); Poikilocytosis Slight; RBC 3.41 m/uL (3.80-5.40); WBC 5.7 k/uL (3.8-10.6)
--- NOTE | 2017-06-05 09:16 | US ---
EXAMINATION TYPE: US venous doppler duplex LE LT DATE OF EXAM: 06/05/2017 8:45 AM COMPARISON: NONE CLINICAL HISTORY: pain for months. Left leg swelling and numbness x few months, patient on blood thin ners. SIDE PERFORMED: Left TECHNIQUE: The lower extremity deep venous system is examined utilizing real time linear array sonog tristan with graded compression, doppler sonography and color-flow sonography. VESSELS IMAGED: External Iliac Vein (EIV) Common Femoral Vein Deep Femoral Vein Greater Saphenous Vein * Femoral Vein Popliteal Vein Small Saphenous Vein * Proximal Calf Veins (* superficial vessels) Left Leg: Appears negative for DVT IMPRESSION: 1. No diagnostic evidence of DVT as visualized.
[2017-06-05] MEDS: LORazepam 1 MG TAB PO PRN ×2 (09:40→21:19)
[2017-06-05] MEDS: MECLIZINE 12.5 MG TAB PO PRN ×2 (09:40→18:43)
[2017-06-05] MEDS ORDERED: DOCUSATE 100 MG CAP PO STA (10:52)
[2017-06-05] MEDS: ASPIRIN-ACET-CAFF 250-250-65MG 1 EACH TAB PO PRN ×2 (12:05→23:03)
[2017-06-05] MEDS: MULTIVITAMINS, THERA 1 EACH TAB PO SCH (12:55)
[2017-06-05] MEDS: THIAMINE 100 MG TAB PO SCH (12:55)
[2017-06-05] MEDS: FOLIC ACID 1 MG TAB PO SCH (12:55)
[2017-06-05] MEDS: HYDROcodone/APAP 5-325MG 1 EACH TAB PO PRN ×2 (15:04→21:24)
--- NOTE | 2017-06-05 17:05 | PN ---
PROGRESS NOTE DATE OF SERVICE: 06/05/2017 This is a 56-year-old woman who was admitted with generalized tiredness and weakness had lumbar spine MRI. Lumbar spine MRI showed multiple degenerative disc disease and foraminal stenosis, but there was no spinal canal stenosis noted. PAST MEDICAL HISTORY: Reviewed. REVIEW OF SYSTEMS: Cardiovascular: No angina or palpitations. Respiratory: As mentioned earlier. GI no nausea or vomiting. : No dysuria. Central nervous system: As mentioned earlier. CURRENT MEDICATIONS ARE: 1. Tylenol 650 q.6h. 2. Excedrin 1 p.o. p.r.n. 3. [place] 5 mg p.r.n. 5. Lipitor 20 mg daily. 6. Cyclosporine 1 drop both eyes. 7. Pepcid 20 mg b.i.d. 8. Iron sulfate 320 mg p.o. b.i.d. 9. Folic acid 1 mg. 10.Neurontin 600 mg t.i.d. 11.Gentamicin 0.3% ophthalmic ointment. 12.Heparin 5000 subcu b.i.d. 13.Ativan 1 mg q.6h. 14.Antivert 12.5 mg b.i.d. 15.Multivitamins one p.o. daily. 16.Narcan 0.2 q.2h p.r.n. 17.Protonix 40 mg. 18.Vitamin B1 100 mg p.o. daily. PHYSICAL EXAM: Patient is alert, oriented x3. Pulse 73, blood pressure is 130/60, respirations 16, temperature 97.2, pulse ox 94% on room air. HEENT: Conjunctivae normal. Oral mucosa moist. Neck is no jugular venous distention. No carotid bruit. No lymph node enlargement. Cardiovascular system: S1, S2. No S3, no S4. RESPIRATORY: Breath sounds diminished in the bases. A few scattered rhonchi and crackles. ABDOMEN: Soft, nontender. Legs are no edema. No swelling. Central nervous system: Higher functions as mentioned earlier. Cranial nerves 2 thru 12 grossly intact. Otherwise, moves all 4 limbs. Diffuse wasting and tremors and weakness present. Gait ataxia present. Significant weakness of the lower limbs also present. Sensory impairment in the lower limbs also present. LAB: WBC 5.7, hemoglobin is 8.7. Drug screen positive opiates only. ASSESSMENT: 1. Generalized tiredness and weakness, possibly bilateral peripheral neuropathy, critical care polyneuropathy with gait dysfunction. 2. Spinal cord lesion unlikely. 3. Transient ischemic attack, unlikely. 4. History of recent metabolic encephalopathy, meningitis and rhabdomyolysis. 5. Anemia, normocytic anemia, chronic disease. 6. History of asthma. 7. History of fibromyalgia. 8. Gastroesophageal reflux disease. 9. Hyperlipidemia. 10.History of pre-diabetes. 11.History of degenerative joint disease. 12.History of C difficile colitis. 13.Anxiety, depression. 14.Remote history of nicotine dependence. RECOMMENDATIONS AND DISCUSSION: In this 56-year-old woman who presented with multiple complex medical issues, we will monitor the patient closely, continue the current management and symptomatic treatment. I would recommend supplement vitamins at this time. Otherwise I would also recommend PT/OT evaluation, possible ECF rehab. The patient will require more than 2 nights hospital stay for evaluation and treatment of the multiple medical problems including neurology. Otherwise continue the rest of the medications. DVT prophylaxis as mentioned earlier. Prognosis guarded because of multiple complex medical issues. Further recommendations to follow. MMODL / IJN: [id number] / FIDEL
[2017-06-05 20:41] LABS: Glucose,Whole Blood 111 mg/dL (75-99)
[2017-06-05] MEDS: SODIUM CHLORIDE 0.45% 1,000 ML IV SCH (23:05)
[2017-06-06] MEDS: GENTAMICIN 0.3% OPHTH DROPS 5 ML BTL BOTH EYES SCH ×4 (06:16→23:12)
[2017-06-06] MEDS: HYDROcodone/APAP 5-325MG 1 EACH TAB PO PRN ×4 (06:20→23:09)
[2017-06-06 07:52] LABS: Basophils # (A) 0.1 k/uL (0-0.2); Basophils % (A) 1 %; Eosinophils # (A) 0.4 k/uL (0-0.7); Eosinophils % (A) 5 %; HCT 30.1 % (34.0-46.0); Hypochromasia Marked; Lymphocytes # (A) 2.1 k/uL (1.0-4.8); Lymphocytes % (A) 28 %; MCH 25.8 pg (25.0-35.0); MCV 85.9 fL (80.0-100.0); Mean Platelet Volume 7.3; Monocytes # (A) 0.4 k/uL (0-1.0); Monocytes % (A) 6 %; Neutrophils # (A) 4.3 k/uL (1.3-7.7); Neutrophils % (A) 58 %; Platelet Count 443 k/uL (150-450); Poikilocytosis Slight; RDW 14.4 % (11.5-15.5); WBC 7.4 k/uL (3.8-10.6)
[2017-06-06 08:20] LABS: Anion Gap 9 mmol/L; Blood Urea Nitrogen 6 mg/dL (7-17); Calcium 9.2 mg/dL (8.4-10.2); Carbon Dioxide 27 mmol/L (22-30); Chloride 106 mmol/L (98-107); Glucose 98 mg/dL (74-99); Potassium 4.3 mmol/L (3.5-5.1); Sodium 142 mmol/L (137-145)
[2017-06-06] MEDS: cycloSPORINE 0.05% OPHTH 0.4 ML DROPERETTE BOTH EYES SCH ×2 (09:13→21:32)
[2017-06-06] MEDS: ATORVASTATIN 20 MG TAB PO SCH (09:13)
[2017-06-06] MEDS: FERROUS SULFATE 325 MG TAB PO SCH ×2 (09:13→21:33)
[2017-06-06] MEDS: GABAPENTIN 300 MG CAP PO SCH ×3 (09:13→21:33)
[2017-06-06] MEDS: FAMOTIDINE 20 MG TAB PO SCH (09:13)
[2017-06-06] MEDS: PANTOPRAZOLE 40 MG TABLET PO SCH (09:13)
[2017-06-06] MEDS: SODIUM CHLORIDE 0.45% 1,000 ML IV SCH (09:14)
[2017-06-06] MEDS: HEPARIN SODIUM,PORCINE 5,000 UNIT/ML 1 ML VIAL SQ SCH ×2 (09:14→21:33)
[2017-06-06] MEDS: LORazepam 1 MG TAB PO PRN ×2 (09:29→15:23)
[2017-06-06] MEDS: MULTIVITAMINS, THERA 1 EACH TAB PO SCH (11:02)
[2017-06-06] MEDS: MECLIZINE 12.5 MG TAB PO PRN (11:02)
[2017-06-06] MEDS: FOLIC ACID 1 MG TAB PO SCH (11:02)
[2017-06-06] MEDS: THIAMINE 100 MG TAB PO SCH (11:02)
[2017-06-06] MEDS: ONDANSETRON 4 MG/2 ML VIAL IVP PRN (13:02)
[2017-06-06] MEDS: LIDOCAINE 5% PATCH TOPICAL SCH (17:53)
[2017-06-06] MEDS: ARTIFICIAL TEARS-HYPROMELLOSE DROPS 15 ML BTL BOTH EYES PRN (17:57)
--- NOTE | 2017-06-06 19:57 | PN ---
PROGRESS NOTE DATE OF SERVICE: 06/06/2017 Patient is seen multiple times in the room today. Patient continues to complain of uncontrolled pain, wants her pain medication to be increased. She wants her Antivert, Ativan and her nausea medication increased. The patient was seen earlier in the day, recommended a pain consult and also discharge to skilled rehab; had detailed discussion with the patient's daughter at that point and daughter related that they have changed their minds and they want patient to be discharged to [facility]. fruit i farmworker was called by patient's nurse and was told that there were multiple family members in the room screaming and demanding that patient's pain medication be increased. Security was called at that point. Patient was seen in the room again with the family and all their questions were answered to satisfaction. HER VITAL SIGNS: Temperature 98.2, pulse 70, respiration 18, blood pressure 136/74, oxygen saturation 98%. HEENT: Atraumatic, normocephalic. Pupils equal and react to light. Extraocular movements intact. Buccal mucosa is fair. NECK: Supple. No goiter or lymphadenopathy. JVD is negative. No carotid bruit heard. Lungs are clear to auscultate. No rales, rhonchi or wheezes. Heart is regular rate and rhythm without any murmurs, gallop rhythm. Abdomen is soft, nontender, nondistended. Bowel sounds positive. EXTREMITIES: No edema, clubbing or cyanosis. LABS: CBC: White blood count 7.4, hemoglobin 9.0, hematocrit 30.1 and platelet count of 443. Chemical profile: Sodium 142, potassium 4.3, chloride 106, bicarb 27, BUN of 6, creatinine 0.7. Urine toxicology positive for opiates. ASSESSMENT: 1. Generalized tiredness, weakness. Patient has been seen by Neurology. Recommendation is possible generalized debility and PT/OT and skilled rehab. 2. Uncontrolled pain. Patient remains on [place]. I recommended pain consult. Family and patient are agreeable now. 3. Constipation. Will start patient on Colace. 4. Intractable nausea. Patient relates that Zofran is not working. Will discontinue Zofran and prescribe Phenergan. Patient has been referred to Case Management for discharge planning. Patient's insurance needs to authorize skilled rehab. Patient's and the family members' questions were answered to satisfaction. At the end they proceeded to thank me for my time and taking the time to come and see the patient and talk to the family again. I did advise the family, though, to designate one spokesperson so they could be updated and they would be then updating the rest of the family. The patient and the family are agreeable to that; will be the spokesperson from this point onwards. DEVAUGHN / DEBRA: [id number] /
[2017-06-06] MEDS: DOCUSATE 100 MG CAP PO SCH (21:33)
--- NOTE | 2017-06-06 21:41 | P.PN ---
Subjective Progress Note Date: 06/06/17 Patient is a 56-year-old woman with history of general debility. She had been hospitalized for prolonged period of time and she had been complaining about general weakness and insufficient therapy at home. She basically came into the hospital for rehab placement. During her hospital stay she has complaints of chronic back pain and fibromyalgia pain. Patient is able to lift her legs up above the bed but still has not walked according to the patient she tried to stand up today and fell. She states physical therapist was at her side. She states she did not injure herself. She has had an MRI of the lumbar spine which showed degenerative disc disease and no evidence of a herniated disc. She should benefit from physical therapy for muscle strengthening and gait training. He is awaiting rehab placement. Objective - Vital Signs Vital signs: Vital Signs Temp 98.1 F 06/06/17 14:47 Pulse 78 06/06/17 16:00 Resp 18 06/06/17 16:00 BP 128/92 06/06/17 14:47 Pulse Ox 97 06/06/17 14:47 Intake & Output 06/06/17 06/06/17 06/07/17 06:59 18:59 06:59 Intake Total 960 240 Output Total 602 Balance 960 -362 Intake: IV 960 Sodium Chloride 0.45% 1, 960 000 ml @ 80 mls/hr IV . [id number] [facility] Rx#:[id number] Oral 240 Output: Urine 600 Stool 2 Other: Voiding Method Bedside Commode Bedside Commode # Voids 2 - Constitutional General appearance: Present: obese - EENT Eyes: Present: EOMI, PERRLA - Neurologic Neurologic: Present: CNII-XII intact (She is able to lift both legs up against gravity.) - Labs CBC & Chem 7: 06/06/17 07:27 06/06/17 07:27 Labs: Abnormal Lab Results - Last 24 Hours (Table) 06/06/17 06/06/17 Range/Units 07:27 07:27 RBC 3.50 L (3.80-5.40) m/uL Hgb 9.0 L (11.4-16.0) gm/dL Hct 30.1 L (34.0-46.0) % MCHC 30.0 L (31.0-37.0) g/dL BUN 6 L (7-17) mg/dL Assessment and Plan (1) Complaints of leg weakness Current Visit: Yes Status: Acute SNOMED Code(s): 014231998 (2) Chronic back pain Current Visit: Yes Status: Acute SNOMED Code(s): 829623097 Plan: The patient is a 56-year-old woman with general debility and difficulty walking. She is awaiting rehab placement. He has chronic back pain. She has fibromyalgia. She has had a CAT scan of the brain during this hospital stay which was unremarkable. She has had physical therapy but has been unsuccessful to accomplish much. Recommend MRI of the brain, which if she is being discharged, can be done outpatient.
[2017-06-06] MEDS: PROMETHAZINE INJ 25 MG in SODIUM CHLORIDE 0.9% 50 ML IVPB PRN (23:10)
[2017-06-07] MEDS: GENTAMICIN 0.3% OPHTH DROPS 5 ML BTL BOTH EYES SCH ×3 (06:15→17:17)
[2017-06-07 07:37] LABS: Basophils % (A) 1 %; Eosinophils # (A) 0.3 k/uL (0-0.7); Eosinophils % (A) 5 %; HCT 28.4 % (34.0-46.0); HGB 8.5 gm/dL (11.4-16.0); Hypochromasia Marked; Lymphocytes # (A) 1.7 k/uL (1.0-4.8); Lymphocytes % (A) 27 %; MCHC 29.8 g/dL (31.0-37.0); MCV 87.1 fL (80.0-100.0); Mean Platelet Volume 7.9; Monocytes # (A) 0.4 k/uL (0-1.0); Monocytes % (A) 7 %; Neutrophils # (A) 3.6 k/uL (1.3-7.7); Neutrophils % (A) 59 %; Platelet Count 343 k/uL (150-450); Poikilocytosis Slight; RBC 3.26 m/uL (3.80-5.40); RDW 15.6 % (11.5-15.5); WBC 6.1 k/uL (3.8-10.6)
[2017-06-07 07:50] LABS: Calcium 9.2 mg/dL (8.4-10.2); Potassium 4.7 mmol/L (3.5-5.1)
[2017-06-07] MEDS: HYDROcodone/APAP 5-325MG 1 EACH TAB PO PRN ×3 (08:18→20:10)
[2017-06-07] MEDS: PROMETHAZINE INJ 25 MG in SODIUM CHLORIDE 0.9% 50 ML IVPB PRN ×3 (08:19→20:10)
[2017-06-07] MEDS: MECLIZINE 12.5 MG TAB PO PRN (08:19)
[2017-06-07] MEDS: ATORVASTATIN 20 MG TAB PO SCH (08:20)
[2017-06-07] MEDS: cycloSPORINE 0.05% OPHTH 0.4 ML DROPERETTE BOTH EYES SCH ×2 (08:20→20:12)
[2017-06-07] MEDS: PANTOPRAZOLE 40 MG TABLET PO SCH (08:20)
[2017-06-07] MEDS: DOCUSATE 100 MG CAP PO SCH ×2 (08:20→20:13)
[2017-06-07] MEDS: HEPARIN SODIUM,PORCINE 5,000 UNIT/ML 1 ML VIAL SQ SCH ×2 (08:21→20:12)
[2017-06-07] MEDS: GABAPENTIN 300 MG CAP PO SCH ×3 (08:21→20:12)
[2017-06-07] MEDS: FERROUS SULFATE 325 MG TAB PO SCH ×2 (08:21→20:12)
[2017-06-07] MEDS: FOLIC ACID 1 MG TAB PO SCH (11:15)
[2017-06-07] MEDS: MULTIVITAMINS, THERA 1 EACH TAB PO SCH (11:16)
[2017-06-07] MEDS: THIAMINE 100 MG TAB PO SCH (11:16)
[2017-06-07] MEDS: LIDOCAINE 5% PATCH TOPICAL SCH (17:16)
--- NOTE | 2017-06-07 18:01 | PN ---
PROGRESS NOTE DATE OF SERVICE: 06/07/2017. HISTORY: The patient is resting comfortably in bed. She has no complaints today. Claims that she is not ready to go back to [facility] because she had some episodes of nausea. Claims that she was called by the social work msw and was told that she most likely will be going tomorrow and she would like to have an ambulance with recliner since she is not able to sit. PHYSICAL EXAMINATION: VITAL SIGNS: Temperature 98.1, pulse 78, respirations 18, blood pressure 128/92, O2 saturation 97%. GENERAL: The patient is awake, alert, no acute distress. HEENT: Atraumatic, normocephalic. Pupils equal and react to light. Extraocular movements intact. Buccal mucosa is moist. NECK: Supple. No goiter or lymphadenopathy. JVD is negative. No carotid bruit heard. LUNGS: Clear to auscultate. No rales, rhonchi, or wheezes. HEART: Regular rate and rhythm without any murmurs or gallop rhythm. ABDOMEN: Soft, nontender, nondistended. Bowel sounds positive. EXTREMITIES: No edema, clubbing or cyanosis. No gross motor deficits. NEUROLOGIC: Cranial nerves 2 through 12 grossly intact. No gross motor or sensory deficit. LABORATORY DATA: Chemical profile: Sodium 142, potassium 4.3, chloride 106, bicarb 27, BUN 6, creatinine 0.7, glucose 98. CBC, white blood count 7.4, hemoglobin 9, hematocrit 30.1 and platelet count of 443,000. ASSESSMENT: 1. Generalized weakness. The patient has been seen by neurology, recommending possible MRI as an outpatient. Also PT, OT, and skilled rehab for generalized debility. 2. Uncontrolled pain. Patient remains on [place], not overly complaining of pain today. 3. Constipation. Patient is started on Colace. She does not have any further complaints. 4. Intractable nausea and vomiting. Patient was not relieved by Zofran, so she was started on Phenergan. Nursing staff claims that patient has not required any Phenergan. 5. The patient needs 3-night stay for skilled rehab. She remains stable and will be discharged to skilled rehab facility once all the arrangements are made. MMODL / IJN: [id number] /
[2017-06-07] MEDS: ASPIRIN-ACET-CAFF 250-250-65MG 1 EACH TAB PO PRN (20:11)
[2017-06-07] MEDS: LORazepam 1 MG TAB PO PRN (23:03)
[2017-06-08] MEDS: GENTAMICIN 0.3% OPHTH DROPS 5 ML BTL BOTH EYES SCH ×5 (00:11→23:50)
[2017-06-08] MEDS: HYDROcodone/APAP 5-325MG 1 EACH TAB PO PRN ×4 (03:35→21:19)
[2017-06-08 08:30] LABS: Anisocytosis Slight; Basophils # (A) 0.1 k/uL (0-0.2); Basophils % (A) 1 %; Eosinophils # (A) 0.4 k/uL (0-0.7); Eosinophils % (A) 4 %; HCT 26.9 % (34.0-46.0); HGB 8.2 gm/dL (11.4-16.0); Hypochromasia Marked; Lymphocytes # (A) 1.7 k/uL (1.0-4.8); Lymphocytes % (A) 20 %; MCH 26.3 pg (25.0-35.0); MCHC 30.5 g/dL (31.0-37.0); MCV 86.2 fL (80.0-100.0); Mean Platelet Volume 7.3; Monocytes # (A) 0.6 k/uL (0-1.0); Monocytes % (A) 7 %; Neutrophils # (A) 5.3 k/uL (1.3-7.7); Neutrophils % (A) 65 %; Platelet Count 308 k/uL (150-450); Poikilocytosis Slight; RBC 3.12 m/uL (3.80-5.40); RDW 16.6 % (11.5-15.5); WBC 8.1 k/uL (3.8-10.6)
[2017-06-08 09:00] LABS: Anion Gap 7 mmol/L; Blood Urea Nitrogen 16 mg/dL (7-17); Carbon Dioxide 28 mmol/L (22-30); Chloride 105 mmol/L (98-107); Glucose 87 mg/dL (74-99); Potassium 4.6 mmol/L (3.5-5.1); Sodium 140 mmol/L (137-145)
[2017-06-08] MEDS: DOCUSATE 100 MG CAP PO SCH ×2 (09:05→21:19)
[2017-06-08] MEDS: cycloSPORINE 0.05% OPHTH 0.4 ML DROPERETTE BOTH EYES SCH ×2 (09:06→19:27)
[2017-06-08] MEDS: FERROUS SULFATE 325 MG TAB PO SCH ×2 (09:06→21:19)
[2017-06-08] MEDS: HEPARIN SODIUM,PORCINE 5,000 UNIT/ML 1 ML VIAL SQ SCH ×2 (09:06→21:19)
[2017-06-08] MEDS: GABAPENTIN 300 MG CAP PO SCH ×3 (09:06→21:19)
[2017-06-08] MEDS: PANTOPRAZOLE 40 MG TABLET PO SCH (09:06)
[2017-06-08] MEDS: ATORVASTATIN 20 MG TAB PO SCH (09:06)
[2017-06-08] MEDS: PROMETHAZINE INJ 25 MG in SODIUM CHLORIDE 0.9% 50 ML IVPB PRN (09:07)
[2017-06-08] MEDS: MULTIVITAMINS, THERA 1 EACH TAB PO SCH (12:04)
[2017-06-08] MEDS: THIAMINE 100 MG TAB PO SCH (12:04)
[2017-06-08] MEDS: FOLIC ACID 1 MG TAB PO SCH (12:04)
[2017-06-08] MEDS: PROMETHAZINE 25 MG TAB PO PRN (15:36)
[2017-06-08] MEDS: LORazepam 1 MG TAB PO PRN ×2 (15:36→21:19)
[2017-06-08] MEDS: LIDOCAINE 5% PATCH TOPICAL SCH (18:15)
--- NOTE | 2017-06-08 19:02 | DS ---
DISCHARGE SUMMARY DATE OF ADMISSION: 06/03/2017. DATE OF DISCHARGE: 06/08/2017. DISCHARGE DIAGNOSES: 1. Generalized debility. 2. Possible transient ischemic attack. 3. Metabolic encephalopathy. 4. Anemia of chronic disease. 5. History of asthma. 6. Fibromyalgia. 7. Gastroesophageal reflux disease. 8. Hyperlipidemia. 9. History of degenerative joint disease. BRIEF HISTORY: This patient is a 56-year-old female who is a patient with past medical history of asthma, fibromyalgia, gastroesophageal reflux disease, hyperlipidemia, prediabetes, C diff colitis, anxiety, depression, presented to the ED with multiple medical issues. The patient was diagnosed with metabolic encephalopathy and rhabdomyolysis on an episode prior to this admission at which time she was transferred to [facility] and according to the patient, she was in coma. After discharge patient was unable to walk and she presented to [facility] with increasing difficulty in walking and weakness. BRIEF HOSPITAL COURSE: The patient was admitted to general medical floor. Neurology consultation was done. An MRI of the lumbar spine was done. Workup of TIA/CVA was unremarkable. Patient's CT of the head did not show any acute intracranial process. The patient also had a MRI of the lumbar spine done which showed mild degenerative disease and L2 through S1. No vertebral compression or collapse. Also showed some disc bulging, more so on level L3 and L4. The patient detailed and thorough evaluation. Venous Doppler was negative for DVT. After detailed neurology workup, the patient was recommended skilled rehab for debility. The patient and the family are agreeable to this. All of her home medications are continued. Due to complete continued complains of weakness and fall, the patient was recommended to have an MRI of the brain as an outpatient to complete the workup. DISCHARGE MEDICATIONS ARE: 1. Lipitor 20 mg daily. 2. Colace 100 mg b.i.d. 3. Iron sulfate 325 mg b.i.d. 4. Folic acid 1 mg p.o. daily. 5. Neurontin 600 mg t.i.d. 6. Ativan 1 mg p.o. q.6 hours p.r.n. 7. Meclizine 12.5 mg b.i.d. 8. Multivitamin 1 daily. 9. Protonix 40 mg daily. 10.Promethazine 25 mg q.6 hours p.r.n. for nausea. 11.Thiamine 100 mg daily. PHYSICAL EXAMINATION: At the time of discharge, patient is awake, alert and oriented. Family members at bedside. VITAL SIGNS: Temperature of 98.3, pulse 52, respiration 18, blood pressure 147/80, O2 saturation 98%. HEENT: Atraumatic, normocephalic. Pupils equal and react to light. Extraocular movements intact. Buccal mucosa is fair. NECK: Supple. No goiter, lymphadenopathy. JVD is negative. No carotid bruit heard. Lungs are clear to auscultate. No rales, rhonchi, or wheezes. Heart is regular rate and rhythm without any murmurs or gallop rhythm. ABDOMEN: Soft, nontender, nondistended. Bowel sounds positive. EXTREMITIES: No edema, clubbing or cyanosis. DISPOSITION: [facility] facility. Continue all current medications and follow up with primary care physician and Neurology for an MRI as an outpatient. MMODL / IJN: [id number] /
[2017-06-09] MEDS: HYDROcodone/APAP 5-325MG 1 EACH TAB PO PRN ×2 (05:34→11:39)
[2017-06-09] MEDS: LORazepam 1 MG TAB PO PRN ×2 (05:34→12:03)
[2017-06-09] MEDS: GENTAMICIN 0.3% OPHTH DROPS 5 ML BTL BOTH EYES SCH ×2 (05:35→11:40)
[2017-06-09] MEDS: PANTOPRAZOLE 40 MG TABLET PO SCH (07:41)
[2017-06-09] MEDS: FERROUS SULFATE 325 MG TAB PO SCH (07:41)
[2017-06-09] MEDS: GABAPENTIN 300 MG CAP PO SCH (07:42)
[2017-06-09] MEDS: cycloSPORINE 0.05% OPHTH 0.4 ML DROPERETTE BOTH EYES SCH (07:42)
[2017-06-09] MEDS: HEPARIN SODIUM,PORCINE 5,000 UNIT/ML 1 ML VIAL SQ SCH (07:43)
[2017-06-09] MEDS: DOCUSATE 100 MG CAP PO SCH (07:43)
[2017-06-09] MEDS: ATORVASTATIN 20 MG TAB PO SCH (07:43)
[2017-06-09 08:08] LABS: Anisocytosis Slight; Basophils % (A) 1 %; Eosinophils # (A) 0.3 k/uL (0-0.7); Eosinophils % (A) 4 %; HCT 28.6 % (34.0-46.0); HGB 8.5 gm/dL (11.4-16.0); Hypochromasia Marked; Lymphocytes # (A) 1.7 k/uL (1.0-4.8); Lymphocytes % (A) 23 %; MCHC 29.6 g/dL (31.0-37.0); MCV 87.7 fL (80.0-100.0); Mean Platelet Volume 8.3; Monocytes # (A) 0.5 k/uL (0-1.0); Monocytes % (A) 6 %; Neutrophils # (A) 4.8 k/uL (1.3-7.7); Neutrophils % (A) 64 %; Platelet Count 315 k/uL (150-450); RBC 3.27 m/uL (3.80-5.40); RDW 18.2 % (11.5-15.5); WBC 7.5 k/uL (3.8-10.6)
[2017-06-09] MEDS: PROMETHAZINE 25 MG TAB PO PRN ×2 (08:23→13:15)
[2017-06-09 08:28] VITALS: BP 124/76; PULSE 74; RESP 18; TEMP 97.4
[2017-06-09 08:42] LABS: Anion Gap 8 mmol/L; Blood Urea Nitrogen 15 mg/dL (7-17); Calcium 9.1 mg/dL (8.4-10.2); Carbon Dioxide 29 mmol/L (22-30); Chloride 105 mmol/L (98-107); Glucose 95 mg/dL (74-99); Potassium 4.8 mmol/L (3.5-5.1); Sodium 142 mmol/L (137-145)
[2017-06-09] MEDS: MULTIVITAMINS, THERA 1 EACH TAB PO SCH (11:40)
[2017-06-09] MEDS: MECLIZINE 12.5 MG TAB PO PRN (11:41)
[2017-06-09] MEDS: FOLIC ACID 1 MG TAB PO SCH (11:41)
[2017-06-09] MEDS: THIAMINE 100 MG TAB PO SCH (12:03)
--- NOTE | 2017-06-09 12:10 | P.CON ---
Consult Note - . Consult date: 06/09/17 Assessment/Plan:: This is a 56-year-old female with history of fibromyalgia, opioid dependence, and debilitation due to history of 1 month, as the patient states. She complains of widespread body pain and especially in both shoulders arms lower back and left leg. She feels sharp pain in the left leg when she moves it and occasional numbness and tingling. The patient has been on Tylenol with Codeine No. 4 2 pills every 4-6 hours with a total of 8-10 pills a day as she states. Right now she is on [place] 5 mg every 6 hours when necessary pain. She had side effects to tramadol with nausea and vomiting and she cannot use it anymore. She is awaiting [facility] in a penit[facility]. She denies any bowel or bladder dysfunction however this pain wakes her up at night. She used to be on trazodone 100 mg at night and ibuprofen 800 mg when necessary pain. By physical exam she is alert oriented 3 She has normal muscle strength for knee flexion bilaterally and ankle flexion and extension bilaterally. Jignesh's test negative bilaterally and internal and external rotation of the hip joints did not elicit any pain in the hip joints.. She has widespread tenderness in her body especially in her lower back and trapezius muscles bilaterally. Straight leg raising test negative bilaterally Her lumbar spine MRI showed mild lumbar spondylosis and mild neural foraminal stenosis at the L3 4 level on the right side and mild degenerative disc disease with disc bulging at the L5-S1 level. There is no central canal stenosis and no clear nerve root compression. Plan: The patient understands that fibromyalgia should not be treated by opioids however she does have osteoarthritis in multiple sites. The patient is requesting to be on Tylenol with Codeine No. 4 however she was told that this is not on the hospital formulary. I will increase her [place] dose to 10 mg 1 every 4-6 hours when necessary pain with maximum dose of 4 pills a day. We will put her on trazodone 100 mg at night as she used to be. We will also resume her ibuprofen 800 mg twice a day as needed for pain. The patient may benefit from getting lumbar epidural steroid injection because of her left leg pain however if the above measures help her pain then we can do the injection as an outpatient procedure. I thank you for the consultation
[2017-06-09] MEDS ORDERED: HYDROcodone/APAP 10-325MG 1 EACH TAB PO PRN (12:32)
--- NOTE | 2017-06-09 12:57 | P.DS ---
Providers Date of admission: 06/05/17 09:54 Expected date of discharge: 06/09/17 Attending physician: Arnold Nichole Consults: 06/03/17 18:51 Consult Physician Stat Consulting Provider: Tsering Vergara Consult Reason/Comments: lower extremity weakness, bilateral Do you want consulting provider notified?: Yes 06/04/17 03:13 Consult Physician Routine Consulting Provider: Mahesh West Consult Reason/Comments: medications/behavioral Do you want consulting provider notified?: Yes, Notify in am Pain management services, Dr. Sheets Primary care physician: [facility] Course: Final Diagnoses: 1. Generalized debility 2. Possible TIA 3. Acute metabolic encephalopathy, multifactorial 4. Anemia of chronic disease 5. History of asthma 6. Fibromyalgia 7. Gastroesophageal reflux is 8. Hyperlipidemia 9. Degenerative joint disease Hospital course: This is a 56-year-old female with history of chronic back pain , fibromyalgia, admitted with increasing difficulty in walking, generalized weakness, pain,. Evaluated by neurology, psychiatry and pain management. Neuro workup completed. Brain CT unremarkable . Lumbar Spine MRI reported degenerative disc disease without evidence of herniated disc, no vertebral compression collapse or malalignment, no significant spinal canal stenosis.Neurology recommending outpatient MRI of the brain. Significant clinical improvement. Patient has been cleared by all the consults for discharge. Patient is being discharged to subacute rehab in a stable condition with guarded prognosis. Physical exam: VSS, ALert & oriented X 3,CV; Regular S1,S2,Lungs: Bilateral bases Diminished, essentially clear. ABD: Soft, nontender, positive bowel sounds. Neuro: generalized weakness, able to lift legs off the bed. The impression and plan of care has been dictated as directed. : I performed a history and examination of this patient, discussed the same with the dictator. I agree with the dictator's note ,documented as a scribe. Any additional findings or plans will be noted. Time taken: 35 minutes Patient Condition at Discharge: Stable Plan - Discharge Summary Discharge Rx Participant: Yes New Discharge Prescriptions: New [id number] [phone] [Excedrin] 1 each PO Q6HR PRN 14 Days #30 tab PRN Reason: Headache Docusate [Colace] 100 mg PO BID cap LORazepam [Ativan] 1 mg PO Q6HR PRN 7 Days #10 tab PRN Reason: Anxiety Pantoprazole [Protonix] 40 mg PO AC-BRKFST 30 Days #30 tablet. Folic Acid 1 mg PO DAILY@1200 tab Gabapentin [Neurontin] 600 mg PO TID cap Lidocaine 5% Patch [Lidoderm 5% Patch] 1 patch TOPICAL DAILY@1730 patch Multivitamins, Thera [Multivitamin (formulary)] 1 each PO DAILY@1200 tab Promethazine [Phenergan] 25 mg PO Q6HR PRN tab PRN Reason: Nausea Thiamine [Vitamin B-1] 100 mg PO DAILY@1200 tab traZODone HCL [Desyrel] 100 mg PO HS tab Hydrocodone/Acetaminophen [[place] 10-325] 1 tab PO Q4H PRN #20 tab PRN Reason: Pain Ibuprofen [Motrin] 800 mg PO BID PRN #1 tab PRN Reason: Pain Continue Ergocalciferol [Vitamin D2 (DRISDOL)] 50,000 unit PO Q7D Atorvastatin [Lipitor] 20 mg PO DAILY Gentamicin 0.3% Ophth Soln [Garamycin 0.3% Ophth Soln] 1 drops BOTH EYES Q6HR Ferrous Sulfate [Iron (65 MG Elemental)] 325 mg PO BID cycloSPORINE 0.05% OPHTH SOLN [Restasis] 1 drop BOTH EYES Q12H Ondansetron HCl [Zofran] 8 mg PO BID PRN PRN Reason: Nausea Meclizine HCl 12.5 mg PO BID PRN PRN Reason: Vertigo Discontinued Sertraline [Zoloft] 100 mg PO HS ARIPiprazole [Abilify] 5 mg PO QAM Gabapentin [Neurontin] 400 mg PO TID Discharge Medication List Ergocalciferol [Vitamin D2 (DRISDOL)] 50,000 unit PO Q7D 02/24/17 [History] Atorvastatin [Lipitor] 20 mg PO DAILY 06/03/17 [History] Ferrous Sulfate [Iron (65 MG Elemental)] 325 mg PO BID 06/03/17 [History] Gentamicin 0.3% Ophth Soln [Garamycin 0.3% Ophth Soln] 1 drops BOTH EYES Q6HR [History] Meclizine HCl 12.5 mg PO BID PRN 06/03/17 [History] Ondansetron HCl [Zofran] 8 mg PO BID PRN 06/03/17 [History] cycloSPORINE 0.05% OPHTH SOLN [Restasis] 1 drop BOTH EYES Q12H 06/03/17 [History ] Qyxxhli-Klgx-Qjwg [phone] [Excedrin] 1 each PO Q6HR PRN 14 Days #30 tab 02/15 [Rx] Docusate [Colace] 100 mg PO BID cap 06/08/17 [Rx] LORazepam [Ativan] 1 mg PO Q6HR PRN 7 Days #10 tab 06/08/17 [Rx] Pantoprazole [Protonix] 40 mg PO AC-BRKFST 30 Days #30 tablet. 06/08/17 [Rx] Folic Acid 1 mg PO DAILY@1200 tab 06/09/17 [Rx] Gabapentin [Neurontin] 600 mg PO TID cap 06/09/17 [Rx] Hydrocodone/Acetaminophen [[place] 10-325] 1 tab PO Q4H PRN #20 tab 06/09/17 [Rx] Ibuprofen [Motrin] 800 mg PO BID PRN #1 tab 06/09/17 [Rx] Lidocaine 5% Patch [Lidoderm 5% Patch] 1 patch TOPICAL DAILY@1730 patch [Rx] Multivitamins, Thera [Multivitamin (formulary)] 1 each PO DAILY@1200 tab [Rx] Promethazine [Phenergan] 25 mg PO Q6HR PRN tab 06/09/17 [Rx] Thiamine [Vitamin B-1] 100 mg PO DAILY@1200 tab 06/09/17 [Rx] traZODone HCL [Desyrel] 100 mg PO HS tab 06/09/17 [Rx] Follow up Appointment(s)/Referral(s): Jarrod Birmingham, [NON-STAFF] - 1 Week Anastasia Vergara MD [STAFF PHYSICIAN] - 2 Weeks Jose Sheets MD [STAFF PHYSICIAN] - 1 Week Zaki Marin MD [Primary Care Provider] - 3 Days Activity/Diet/Wound Care/Special Instructions: OP Brain MRI as per Neurology Potential OP Lumbar epidural steroid INjection secondary to Left leg pain, if no improvement with medication. Discharge Disposition: TRANSFER TO SNF/ECF
[2017-06-09] MEDS ORDERED: IBUPROFEN 400 MG TAB PO SCH (16:00)
[2017-06-09] MEDS ORDERED: traZODone HCL 100 MG TAB PO SCH (21:00)
--- NOTE | 2017-06-11 09:52 | CDI ---
Documentation Clarification Form Date: 06/12/17 From: Sandie Swanson (If you have questions, contact Natasha Chin, Vendor Specialist at [phone]) Admit Date: 06/05/2017 9:54:00 AM Patient Name: Concepción Rios Visit Number: [id number] Discharge Date: 06/09/17 ATTENTION: The Clinical Documentation Specialists (CDI) and [facility] Coding Staff appreciate your assistance in clarifying documentation. Please respond to the clarification below the line at the bottom and electronically sign. The CDI & [facility] Coding staff will review the response and follow-up if needed. Please note: Queries are made part of the Legal Health Record. If you have any questions, please contact the author of this message via ITS. Dr. Arnold Nichole Conflicting documentation has been found in the medical record. On the H&P, it is noted that the patient has a history of recent metabolic encephalopathy back in January of last year. Per the neurology consult, "mental status she was awake alert and oriented x 3, her speech is fluent there was no aphasia or dysarthria, she was able to name the president, she is able to do simple addition and subtraction, she was able to spell next." The discharge summary notes a final diagnosis of acute metabolic encephalopathy , multifactorial. Further clarification regarding the diagnosis of metabolic encephalopathy is needed for proper reporting purposes. In your opinion what is the most clinically appropriate diagnosis for this patient? *History of metabolic encephalopathy, no symptoms of encephalopathy noted during this stay *Acute metabolic encephalopathy (please clarify clinical significance) *Other explanation of clinical findings *Unable to determine (no explanation for clinical findings) Thank you for your time. History of recent acute metabolic encephalopathy, no symptoms of encephalopathy noted during this stay MTDD
== END 2017-06-09 14:00 | DRG 948 ==
LOC: EC 15:38 → 5MS5E 18:51 → OBSVTOIN 06-05 09:54
PROVIDERS: ADMIT Hospitalist; ATTEND Hospitalist
DX: R53.81 Other malaise (principal); F11.20 Opioid dependence, uncomplicated; G45.9 Transient cerebral ischemic attack, unspecified; F43.21 Adjustment disorder with depressed mood; D63.8 Anemia in other chronic diseases classified elsewhere; E78.5 Hyperlipidemia, unspecified; G89.29 Other chronic pain; M79.7 Fibromyalgia; J45.909 Unspecified asthma, uncomplicated; K21.9 Gastro-esophageal reflux disease without esophagitis; K58.9 Irritable bowel syndrome, unspecified; F41.9 Anxiety disorder, unspecified; H57.9 Unspecified disorder of eye and adnexa; R73.03 Prediabetes; M79.605 Pain in left leg; M54.5 Low back pain; H81.399 Other peripheral vertigo, unspecified ear; M15.9 Polyosteoarthritis, unspecified; M51.36 Other intervertebral disc degeneration, lumbar region; H53.9 Unspecified visual disturbance; H91.90 Unspecified hearing loss, unspecified ear; M47.816 Spondylosis without myelopathy or radiculopathy, lumbar region; W19.XXXA Unspecified fall, initial encounter; K59.00 Constipation, unspecified; R11.2 Nausea with vomiting, unspecified; Z79.899 Other long term (current) drug therapy; Z91.018 Allergy to other foods; Z91.013 Allergy to seafood; Z86.19 Personal history of other infectious and parasitic diseases; Z82.5 Family history of asthma and other chronic lower respiratory diseases; Z91.81 History of falling; Z83.3 Family history of diabetes mellitus; Z82.49 Family history of ischemic heart disease and other diseases of the circulatory system; Z87.891 Personal history of nicotine dependence; Z86.61 Personal history of infections of the central nervous system
CPT/HCPCS: 36415; 70450; 72148; 80048; 80053; 80306; 81001; 82550; 82553; 84484; 85025; 85610; 85652; 85730; 86140; 93005; 96361; 96374; 99285

== ENCOUNTER 2017-09-03 21:47 | Emergency (ER) | payer MEDICARE, OTHER ==
[2017-09-03] MEDS ORDERED: SODIUM CHLORIDE 0.9% 1,000 ML IV STA (22:15)
[2017-09-03] MEDS ORDERED: ALBUTEROL NEBULIZED 2.5 MG/3 ML INHALATION STA (22:15)
[2017-09-03] MEDS ORDERED: IPRATROPIUM 0.5 MG/2.5 ML NEBU INHALATION STA (22:15)
[2017-09-03 22:32] LABS: Anisocytosis Moderate; Basophils % (A) 0 %; Eosinophils # (A) 0.4 k/uL (0-0.7); Eosinophils % (A) 6 %; HCT 29.8 % (34.0-46.0); HGB 8.8 gm/dL (11.4-16.0); Hypochromasia Marked; Lymphocytes # (A) 1.5 k/uL (1.0-4.8); Lymphocytes % (A) 22 %; MCH 25.5 pg (25.0-35.0); MCHC 29.6 g/dL (31.0-37.0); MCV 86.2 fL (80.0-100.0); Mean Platelet Volume 7.2; Monocytes # (A) 0.4 k/uL (0-1.0); Monocytes % (A) 5 %; Neutrophils # (A) 4.3 k/uL (1.3-7.7); Neutrophils % (A) 64 %; Platelet Count 289 k/uL (150-450); Poikilocytosis Moderate; RBC 3.46 m/uL (3.80-5.40); RDW 20.2 % (11.5-15.5); WBC 6.8 k/uL (3.8-10.6)
[2017-09-03 22:34] VITALS: RESP 18
[2017-09-03 22:41] LABS: Partial Thromboplastin Time 22.3 sec (22.0-30.0)
[2017-09-03 22:43] LABS: ALT 28 U/L (9-52); AST 17 U/L (14-36); Albumin 3.9 g/dL (3.5-5.0); Alkaline Phosphatase 95 U/L (38-126); Anion Gap 14 mmol/L; Blood Urea Nitrogen 11 mg/dL (7-17); Calcium 9.1 mg/dL (8.4-10.2); Carbon Dioxide 23 mmol/L (22-30); Chloride 108 mmol/L (98-107); Glucose 87 mg/dL (74-99); Sodium 145 mmol/L (137-145); Total Bilirubin 0.2 mg/dL (0.2-1.3); Total Protein 6.5 g/dL (6.3-8.2)
[2017-09-03 22:55] LABS: Creatine Kinase 38 U/L (30-135)
--- NOTE | 2017-09-03 23:00 | CT ---
EXAMINATION TYPE: CT angio chest DATE OF EXAM: 09/03/2017 10:52 PM COMPARISON: 02/05/2017 HISTORY: SOB CT DLP: 425.6 mGycm Automated exposure control for dose reduction was used. CONTRAST: CTA scan of the thorax is performed with IV Contrast, patient injected with 100 mL of Isovue 370, pul monary embolism protocol. There are 3-D post processed images.. FINDINGS: There is diffuse mild pulmonary emphysema. There is mild pleural thickening at the lung apices. There is a 2 cm minimal reticular infiltrate in the superior segment right lower lobe. There is moderate s ize hiatal hernia. There is some patchy infiltrate and atelectasis at the left posterior lung base. H eart size is fairly normal. There is no pericardial effusion. There is no mediastinal adenopathy. I see no filling defects in the pulmonary arteries. Thoracic aorta is intact. There is no evidence of aneurysm or dissection.. IMPRESSION: NO EVIDENCE OF PULMONARY EMBOLISM. MILD PULMONARY CHANGES ABOVE. LARGE HIATAL HERNIA.
[2017-09-03 23:07] LABS: Creatine Kinase MB 0.4 ng/mL (0.0-2.4); Troponin I <0.012 ng/mL (0.000-0.034)
--- NOTE | 2017-09-03 23:25 | XR ---
EXAMINATION TYPE: XR cervical spine comp DATE OF EXAM: 09/03/2017 COMPARISON: NONE HISTORY: Left side neck pain TECHNIQUE: 6 views FINDINGS: The cervical vertebra have normal alignment. There is narrowing of disc spaces from C4 to C 7. Posterior elements are intact. Atlantoaxial facet joint is normal. There are no cervical ribs. IMPRESSION: Multilevel mild spondylotic changes. No fracture seen.
--- NOTE | 2017-09-03 23:25 | ED ---
SOB HPI - General Chief Complaint: Shortness of Breath Stated Complaint: SOB Time Seen by Provider: 09/03/17 21:56 Source: patient, EMS Mode of arrival: EMS Limitations: no limitations - History of Present Illness Initial Comments: 57 years old female sent in by Dr. Dhaliwal she shortness of breath for the last 2 days she had a history of anemia she required a transfusion in recent past and she developed the infection according to her and she had a history of asthma now she is concerned about pulmonary embolism as well as the Dr. Dhaliwal. She is also complaining about the neck pain and pain in the left shoulder and she said she fell 3 days ago. Denies any abdominal pain no frequency urgency dysuria no symptoms of TIA or CVA - Related Data Home Medications Medication Instructions Recorded Confirmed Atorvastatin [Lipitor] 20 mg PO HS 06/03/17 09/03/17 Ferrous Sulfate [Iron (65 MG 325 mg PO DAILY 06/03/17 09/03/17 Elemental)] Albuterol Inhaler [Ventolin Hfa 2 puff INHALATION RT-Q6H PRN 09/03/17 09/03/17 Inhaler] Baclofen [Lioresal] 10 mg PO TID PRN 09/03/17 09/03/17 Buprenorphine [[place] 10 MCG/HOUR] 1 patch TRANSDERM Q7D 09/03/17 09/03/17 Cefuroxime [Ceftin] 250 mg PO BID 09/03/17 09/03/17 Diclofenac Sodium [Voltaren Gel] 1 applic TOPICAL BID 09/03/17 09/03/17 Folic Acid 1 mg PO DAILY 09/03/17 09/03/17 Gabapentin [Neurontin] 400 mg PO TID 09/03/17 09/03/17 Hydrocodone/Acetaminophen [[place] 1 tab PO Q6HR PRN 09/03/17 09/03/17 10-325] Lidocaine 5% Oint [Xylocaine 5% 1 applic TOPICAL Q2HR PRN 09/03/17 09/03/17 Oint] Losartan Potassium [Cozaar] 25 mg PO DAILY 09/03/17 09/03/17 Mometasone Inhalr 220 Mcg/Puff 2 puff INHALATION RT-DAILY 09/03/17 09/03/17 [Asmanex] Montelukast Sodium [Singulair] 10 mg PO HS 09/03/17 09/03/17 Nitroglycerin Sl Tabs [Nitrostat] 0.4 mg SUBLINGUAL Q5M PRN 09/03/17 09/03/17 Sertraline HCl [Zoloft] 100 mg PO HS 09/03/17 09/03/17 clonazePAM [KlonoPIN] 0.5 mg PO BID 09/03/17 09/03/17 Previous Rx's Medication Instructions Recorded Pantoprazole [Protonix] 40 mg PO AC-BRKFST 30 Days #30 06/08/17 tablet. Levofloxacin [Levaquin] 500 mg PO DAILY #5 tab 09/04/17 predniSONE 50 mg PO DAILY #5 tablet 09/04/17 Allergies Allergy/AdvReac Type Severity Reaction Status Date / Time cashew nut Allergy Unknown Verified 09/03/17 22:18 shellfish derived Allergy Swelling Verified 09/03/17 22:18 nuts Allergy Swelling Uncoded 06/03/16 19:38 animals AdvReac Wheezing Uncoded 06/03/16 19:38 environmental AdvReac Wheezing Uncoded 06/03/16 19:38 Review of Systems ROS Statement: Those systems with pertinent positive or pertinent negative responses have been documented in the HPI. ROS Other: All systems not noted in ROS Statement are negative. Past Medical History Past Medical History: Asthma, Eye Disorder, Fibromyalgia, GERD/Reflux, Hyperlipidemia Additional Past Medical History / Comment(s): pre diabetic, arthritis, bronchitis, c difficile colitis (unknown when ), ibs, amnesia History of Any Multi-Drug Resistant Organisms: C-DIFF Date of last positivie culture/infection: unsure MDRO Source:: unsure Past Surgical History: Section, Tonsillectomy Additional Past Surgical History / Comment(s): ear recontructed,colonoscopy and EGD Past Anesthesia/Blood Transfusion Reactions: No Reported Reaction Past Psychological History: Anxiety, Depression Smoking Status: Former smoker Past Alcohol Use History: Occasional Past Drug Use History: None Reported - Past Family History Mother Family Medical History: Asthma, Congestive Heart Failure (CHF), Diabetes Mellitus Additional Family Medical History / Comment(s): 3 lung surgeries Sister(s) Family Medical History: Congestive Heart Failure (CHF), Diabetes Mellitus Brother(s) Family Medical History: Congestive Heart Failure (CHF), Diabetes Mellitus Father Family Medical History: No Reported History General Exam - General Exam Comments Initial Comments: General: The patient is awake and alert, in no distress, and does not appear acutely ill. Skin: Skin is warm and dry and no rashes or lesions are noted. Eye: Pupils are equal, round and reactive to light, extra-ocular movements are intact; there is normal conjunctiva bilaterally. Ears, nose, mouth and throat: There are moist mucous membranes and no oral lesions. Neck: The neck is supple, there is no tenderness or JVD. Cardiovascular: There is a regular rate and rhythm. No murmur, rub or gallop is appreciated. Respiratory: To auscultation bilateral, no wheezing no rhonchi no distress respiratory lee noticed Gastrointestinal: Soft, non-distended, non-tender abdomen without masses or organomegaly noted. There is no rebound or guarding present. Bowel sounds are unremarkable. Back: There is no tenderness to palpation in the midline. There is no obvious deformity. Musculoskeletal: Normal ROM, no tenderness, There is no pedal edema. There is no calf tenderness or swelling. No cords were appreciated. Neurological: CN II-XII intact, Cranial nerves III through XII are intact. There are no obvious motor or sensory deficits. Coordination appears grossly intact. Speech is normal. Psychiatric: Cooperative, appropriate mood & affect, normal judgment. Limitations: no limitations Course Vital Signs 09/03/17 09/03/17 09/03/17 21:59 22:21 22:31 Temperature 98.2 F Pulse Rate 71 67 Respiratory 18 16 18 Rate Blood Pressure 182/97 O2 Sat by Pulse 97 Oximetry 09/03/17 09/03/17 22:33 23:19 Temperature Pulse Rate 71 75 Respiratory 18 Rate Blood Pressure 135/58 O2 Sat by Pulse 96 Oximetry EKG is normal sinus rhythm ventricular rate is 61 NE interval is 152 QRS duration is 76 QT/QTc is 442/444 review of this EKG does not reveal any ST elevation or ST depression Plan reassessment noticed CBC is normal hemoglobin is on the lower side is 8.8 and hemoglobin has been in the same ballpark INR is normal, BS metabolic panel is unremarkable troponin is normal EKG did not show any STEMI PE study was normal C-spine studies show some degenerative changes left shoulder was absolutely within normal range noticed some infiltrate on the PE studies she be gone home on some antibiotics Levaquin 500 milligrams once daily for next 7 days she will follow with the Dr. Dhaliwal Medical Decision Making - Lab Data Result diagrams: 09/03/17 21:54 09/03/17 21:54 Lab Results 09/03/17 09/03/17 09/03/17 Range/Units 21:54 21:54 21:54 WBC 6.8 (3.8-10.6) k/uL RBC 3.46 L (3.80-5.40) m/uL Hgb 8.8 L (11.4-16.0) gm/dL Hct 29.8 L (34.0-46.0) % MCV 86.2 (80.0-100.0) fL MCH 25.5 (25.0-35.0) pg MCHC 29.6 L (31.0-37.0) g/dL RDW 20.2 H (11.5-15.5) % Plt Count 289 (150-450) k/uL Neutrophils % 64 % Lymphocytes % 22 % Monocytes % 5 % Eosinophils % 6 % Basophils % 0 % Neutrophils # 4.3 (1.3-7.7) k/uL Lymphocytes # 1.5 (1.0-4.8) k/uL Monocytes # 0.4 (0-1.0) k/uL Eosinophils # 0.4 (0-0.7) k/uL Basophils # 0.0 (0-0.2) k/uL Hypochromasia Marked Poikilocytosis Moderate Anisocytosis Moderate PT (9.0-12.0) sec INR (<1.2) APTT (22.0-30.0) sec Sodium 145 (137-145) mmol/L Potassium 4.0 (3.5-5.1) mmol/L Chloride 108 H (98-107) mmol/L Carbon Dioxide 23 (22-30) mmol/L Anion Gap 14 mmol/L BUN 11 (7-17) mg/dL Creatinine 0.80 (0.52-1.04) mg/dL Est GFR (CKD-EPI)AfAm >90 (>60 ml/min/1.73 sqM) Est GFR (CKD-EPI)NonAf 82 (>60 ml/min/1.73 sqM) Glucose 87 (74-99) mg/dL Calcium 9.1 (8.4-10.2) mg/dL Total Bilirubin 0.2 (0.2-1.3) mg/dL AST 17 (14-36) U/L ALT 28 (9-52) U/L Alkaline Phosphatase 95 (38-126) U/L Total Creatine Kinase 38 (30-135) U/L CK-MB (CK-2) 0.4 (0.0-2.4) ng/mL CK-MB (CK-2) Rel Index 1.1 Troponin I <0.012 (0.000-0.034) ng/mL NT-Pro-B Natriuret Pep pg/mL Total Protein 6.5 (6.3-8.2) g/dL Albumin 3.9 (3.5-5.0) g/dL 09/03/17 09/03/17 Range/Units 21:54 21:54 WBC (3.8-10.6) k/uL RBC (3.80-5.40) m/uL Hgb (11.4-16.0) gm/dL Hct (34.0-46.0) % MCV (80.0-100.0) fL MCH (25.0-35.0) pg MCHC (31.0-37.0) g/dL RDW (11.5-15.5) % Plt Count (150-450) k/uL Neutrophils % % Lymphocytes % % Monocytes % % Eosinophils % % Basophils % % Neutrophils # (1.3-7.7) k/uL Lymphocytes # (1.0-4.8) k/uL Monocytes # (0-1.0) k/uL Eosinophils # (0-0.7) k/uL Basophils # (0-0.2) k/uL Hypochromasia Poikilocytosis Anisocytosis PT 10.0 (9.0-12.0) sec INR 1.0 (<1.2) APTT 22.3 (22.0-30.0) sec Sodium (137-145) mmol/L Potassium (3.5-5.1) mmol/L Chloride (98-107) mmol/L Carbon Dioxide (22-30) mmol/L Anion Gap mmol/L BUN (7-17) mg/dL Creatinine (0.52-1.04) mg/dL Est GFR (CKD-EPI)AfAm (>60 ml/min/1.73 sqM) Est GFR (CKD-EPI)NonAf (>60 ml/min/1.73 sqM) Glucose (74-99) mg/dL Calcium (8.4-10.2) mg/dL Total Bilirubin (0.2-1.3) mg/dL AST (14-36) U/L ALT (9-52) U/L Alkaline Phosphatase (38-126) U/L Total Creatine Kinase (30-135) U/L CK-MB (CK-2) (0.0-2.4) ng/mL CK-MB (CK-2) Rel Index Troponin I (0.000-0.034) ng/mL NT-Pro-B Natriuret Pep 435 pg/mL Total Protein (6.3-8.2) g/dL Albumin (3.5-5.0) g/dL Disposition Clinical Impression: Dyspnea, Pneumonia Disposition: HOME SELF-CARE Condition: Good Instructions: Dyspnea (ED) Prescriptions: Levofloxacin [Levaquin] 500 mg PO DAILY #5 tab predniSONE 50 mg PO DAILY #5 tablet Is patient prescribed a controlled substance at d/c from ED?: No Referrals: Amelie Dhaliwal MD [Primary Care Provider] - 1-2 days
--- NOTE | 2017-09-03 23:26 | XR ---
EXAMINATION TYPE: XR shoulder complete LT DATE OF EXAM: 09/03/2017 COMPARISON: NONE HISTORY: Left shoulder pain TECHNIQUE: 3 views FINDINGS: I see no fracture nor dislocation. Joint spaces are normal. There are no pathologic calcifi cations. IMPRESSION: Negative left shoulder exam.
[2017-09-03] MEDS ORDERED: cefTRIAXone 2,000 MG in SODIUM CHLORIDE 0.9% 100 ML IVPB STA (23:27)
[2017-09-04] MEDS ORDERED: MORPHINE SULFATE 2 MG/ML SYRINGE IVP STA (00:43)
[2017-09-04 00:57] VITALS: BP 143/67; PULSE 71; TEMP 98.4
== END 2017-09-04 01:13 | disposition home or self-care (01) ==
LOC: EC 21:47
DX: J18.9 Pneumonia, unspecified organism (principal); M54.2 Cervicalgia; M25.512 Pain in left shoulder; D64.9 Anemia, unspecified; J45.909 Unspecified asthma, uncomplicated; M79.7 Fibromyalgia; E78.5 Hyperlipidemia, unspecified; M19.90 Unspecified osteoarthritis, unspecified site; F32.9 Major depressive disorder, single episode, unspecified; F41.9 Anxiety disorder, unspecified; Z86.19 Personal history of other infectious and parasitic diseases; Z91.013 Allergy to seafood; Z91.018 Allergy to other foods; Z91.09 Other allergy status, other than to drugs and biological substances; Z79.1 Long term (current) use of non-steroidal anti-inflammatories (NSAID); Z79.51 Long term (current) use of inhaled steroids; Z79.899 Other long term (current) drug therapy; Z87.891 Personal history of nicotine dependence
CPT/HCPCS: 99285; 96365; 96375; 36415; 94640; 93005; 83880; 80053; 82550; 82553; 84484; 85025; 85610; 85730; 72050; 73030; 71275; J0696; J2270; Q9967

== ENCOUNTER → 2017-11-21 | Outpatient (CLI) | payer MEDICARE, OTHER ==
--- NOTE | 2017-11-22 22:34 | MR ---
EXAMINATION TYPE: MR brain/cspine wo/w DATE OF EXAM: 11/21/2017 COMPARISON: CT brain 06/03/2017 HISTORY: Dizziness, unsteady gait, neck pain, headaches, BUE weakness TECHNIQUE: Multiplanar, multisequence images of the brain and brainstem, cervical spine is performed without and with IV contrast, utilizing 8.5 mL intravenous Gadavist . FINDINGS: Brain MRI: Diffusion weighted images demonstrate no evidence of a recent infarct or other diffusion a bnormality. There is no extra-axial fluid collection or significant white matter signal abnormality. The ventricular system and cisternal spaces are normal in size and appearance. The brain volume is age appropriate. Midline structures demonstrate normal morphology. The craniocervical junction appears within normal limits. Post contrast images demonstrate no abnormal enhancement. The dural venous sinuses appear pa tent. The visualized sinuses are clear and the globes are intact. IMPRESSION: Normal brain MRI Cervical spine MRI: Cervical vertebral bodies show preserved height and alignment. There is multileve l spondylosis present, loss of disc height and signal at the intervertebral levels and endplate disco genic marrow signal change. Difficult to exclude cord signal change. C2-3: Lateral extension of endplate disc complex towards the left causes some foraminal encroachment. There is no evident disc herniation or central canal stenosis C3-4: Posterior extension of endplate disc complex may contact the anterior cervical cord, there is m oderate central canal stenosis, lateral extension of endplate disc complex results in bilateral scarlett inal encroachment left greater than right. There is associated facet arthropathy C4-5: Posterior extension of endplate disc complex, broad-based posterior disc bulge contacts anterio r cervical cord and causes moderate to severe central canal stenosis, lateral extension of endplate d isc complex results in bilateral foraminal encroachment C5-6: Posterior extension of endplate disc complex results in mass effect on the anterior cervical co rd, moderate central stenosis. Lateral extension of endplate disc complex causes bilateral foraminal encroachment left greater than right C6-7: Posterior extension of disc complex is eccentric towards the left causing anterolateral mass ef fect on the thecal sac, mild central stenosis, left-sided foraminal encroachment greater than right. C7-T1: Lateral extension endplate disc complex causes left-sided foraminal encroachment, mild anterio r mass effect on the thecal sac, no significant central stenosis. No abnormal enhancement following contrast administration. IMPRESSION: Multilevel degenerative disc disease, spinal stenosis, foraminal encroachment. Difficult to exclude cord signal change.
== END | disposition home or self-care (01) ==
LOC: RADMRIMAIN 14:30
PROVIDERS: ATTEND Family Medicine
DX: M48.02 Spinal stenosis, cervical region (principal); M51.16 Intervertebral disc disorders with radiculopathy, lumbar region; R26.89 Other abnormalities of gait and mobility; Z01.812 Encounter for preprocedural laboratory examination
CPT/HCPCS: 82565; 70553; 72156; 36415; A9581

== ENCOUNTER 2018-06-05 12:17 | Day surgery (SDC) | payer MEDICARE, OTHER ==
[2018-06-04 14:48] VITALS: BMI 35.0
[~2018-06-05 12:17] MED LIST: LACTATED RINGERS 1,000 ML IV SCH
[2018-06-05 14:08] VITALS: RESP 18; TEMP 97.2
[2018-06-05] MEDS ORDERED: LIDOCAINE 1% 20 ML VIAL (10MG/ML) FOR IV START INTRADERMA ONE (14:19)
[2018-06-05] MEDS ORDERED: MIDAZOLAM 2 MG/2 ML VIAL IVP ONE (14:53)
[2018-06-05] MEDS ORDERED: LIDOCAINE 1% INJ 10MG/ML (20 ML MDV) ONE (15:01)
[2018-06-05] MEDS ORDERED: PROPOFOL 10 MG/ML 20 ML VIAL IV ONE (15:01)
--- NOTE | 2018-06-05 15:22 | P.PCN ---
Date of Procedure: 06/05/18 Procedure(s) Performed: Brief history: Patient is a pleasant 57-year-old white female, scheduled for an upper endoscopy as well as colonoscopy as a part of evaluation of iron deficiency anemia and intermittent lower abdominal pain/change in bowel habits. Procedure performed: Esophagogastroduodenoscopy with biopsy Colonoscopy Preoperative diagnosis: Iron deficiency anemia Abdominal pain and change in bowel habits Anesthesia: MAC Procedure: After informed consent was obtained from the patient was brought into the endoscopy unit and IV sedation was administered by anesthesia under continuous monitoring. Initially upper endoscopy was done. The Olympus GF 160 video endoscope was inserted inserted into the mouth and esophagus intubated without any difficulty and was gradually advanced into the stomach and duodenum and carefully examined. The bulb and second part of the duodenum appeared normal. Biopsies were done from the duodenum to rule out celiac disease. The scope was then withdrawn into the stomach adequately insufflated with air and upon careful examination the antrum and body, cardia and fundus appeared normal. The scope was then withdrawn into the esophagus. The GE junction was located at 38 cm to the incisors. Small sliding Hiatal hernia noted. It appeared regular with no erythema erosions or ulcerations. Rest of the esophagus appeared normal. Patient tolerated the procedure well. At this time the patient continued to remain sedation. Initial digital rectal examination was normal. Olympus CF 160 video colonoscope was then inserted into the rectum and gradually advanced to the cecum without any difficulty. Careful examination was performed as the scope was gradually being withdrawn. The prep was excellent. The cecum, ascending colon, transverse colon, descending colon, sigmoid colon and rectum appeared normal. Retroflexion was performed in the rectum and no lesions were noted. Patient tolerated the procedure well. Impression: 1. Upper endoscopy revealed antral erosive gastritis and a small hiatal hernia 2. Colonoscopy was within normal limits with no evidence of colitis or colorectal neoplasia Recommendations: Findings of this examination were discussed with the patient as well as a family. She was advised to follow with the biopsy results. She can have a repeat screening colonoscopy in 10 years
[2018-06-05 15:42] VITALS: BP 156/88; PULSE 64
== END 2018-06-05 16:14 | disposition home or self-care (01) ==
LOC: ORWHC2ENDO 12:17
PROVIDERS: ATTEND Internal Medicine Gastroenterology
DX: D50.9 Iron deficiency anemia, unspecified (principal); R19.4 Change in bowel habit; K44.9 Diaphragmatic hernia without obstruction or gangrene; K29.60 Other gastritis without bleeding; K29.50 Unspecified chronic gastritis without bleeding; Z88.8 Allergy status to other drugs, medicaments and biological substances; Z79.899 Other long term (current) drug therapy; I10 Essential (primary) hypertension; J45.909 Unspecified asthma, uncomplicated; F41.9 Anxiety disorder, unspecified
CPT/HCPCS: 88305; 45378; 43239; J2250; J2001; J2704

== ENCOUNTER 2019-04-16 17:05 | Inpatient (IN) | payer MEDICARE, OTHER ==
[2019-04-16] MEDS ORDERED: ONDANSETRON 4 MG/2 ML VIAL IVP STA (18:12)
[2019-04-16] MEDS ORDERED: SODIUM CHLORIDE 0.9% 1,000 ML IV STA (18:12)
[2019-04-16] MEDS ORDERED: LORazepam 2 MG/ML INJ IV STA ×2 (18:12→20:59)
[2019-04-16 18:48] LABS: Anisocytosis Moderate; Basophils # (A) 0.1 k/uL (0-0.2); Basophils % (A) 1 %; Eosinophils # (A) 0.5 k/uL (0-0.7); Eosinophils % (A) 4 %; HCT 23.7 % (34.0-46.0); Hypochromasia Marked; Lymphocytes # (A) 2.3 k/uL (1.0-4.8); Lymphocytes % (A) 19 %; MCH 17.1 pg (25.0-35.0); MCHC 24.4 g/dL (31.0-37.0); MCV 70.2 fL (80.0-100.0); Mean Platelet Volume 7.9; Microcytosis Marked; Monocytes # (A) 0.7 k/uL (0-1.0); Monocytes % (A) 5 %; Neutrophils # (A) 8.6 k/uL (1.3-7.7); Neutrophils % (A) 70 %; Platelet Count 425 k/uL (150-450); Poikilocytosis Slight; RBC 3.38 m/uL (3.80-5.40); RDW 20.9 % (11.5-15.5); WBC 12.3 k/uL (3.8-10.6)
[2019-04-16 18:50] LABS: HGB 5.8 gm/dL (11.4-16.0)
[2019-04-16 18:53] LABS: ALT 13 U/L (4-34); AST 22 U/L (14-36); African American GFR (CKD) >90 (>60 ml/min/1.73 sqM); Albumin 4.2 g/dL (3.5-5.0); Alkaline Phosphatase 84 U/L (38-126); Anion Gap 10 mmol/L; Blood Urea Nitrogen 10 mg/dL (7-17); Calcium 9.1 mg/dL (8.4-10.2); Carbon Dioxide 22 mmol/L (22-30); Chloride 110 mmol/L (98-107); Glucose 90 mg/dL (74-99); Magnesium 1.9 mg/dL (1.6-2.3); Non-African American GFR(CKD) 84 (>60 ml/min/1.73 sqM); Potassium 4.4 mmol/L (3.5-5.1); Sodium 142 mmol/L (137-145); Total Bilirubin 0.3 mg/dL (0.2-1.3); Total Protein 7.3 g/dL (6.3-8.2)
[2019-04-16 19:03] LABS: Ovalocytes Present; Polychromasia Present; Target Cells Present
[2019-04-16 19:04] LABS: Stomatocytes Present
[2019-04-16 19:12] LABS: INR 0.9 (<1.2); Partial Thromboplastin Time 20.9 sec (22.0-30.0); Prothrombin Time 9.5 sec (9.0-12.0)
--- NOTE | 2019-04-16 20:06 | ED ---
General Adult HPI - General Chief complaint: GI Bleed Stated complaint: needs blood transfusion Time Seen by Provider: 04/16/19 17:15 Source: patient Mode of arrival: ambulatory Limitations: no limitations - History of Present Illness Initial comments: The patient is a 58-year-old female with past medical history of iron deficiency anemia, hypertension and asthma who presents to the emergency department reported generalized weakness and shortness of breath. She states that she does have a history of iron deficiency anemia. Last iron infusion was in 2018. She states that she did have stabilization of her hemoglobin and did not require iron transfusions during the end of last year. During the last week she has had some generalized weakness and shortness of breath. She was concerned that it may be related to her hemoglobin level. She called and had a visiting physician come to the house. They did perform laboratory studies and noted the patient's hemoglobin was low. They sent her into the emergency room for further evaluation. She denies a history of GI bleeding. No blood loss from other sources. Does admit to having black stools over the past week. Does not take any iron supplementation at home. Her last endoscopy was in May of last year. Denies alcohol or NSAID use. Does admit to diffuse abdominal bloating and discomfort. No fevers or chills. Denies any nausea or vomiting. Denies hematuria, dysuria or difficulty voiding. Denies any abnormal vaginal bleeding or discharge. No headaches or visual changes. There are no alleviating, precipitating or modifying factors - Related Data Home Medications Medication Instructions Recorded Confirmed ARIPiprazole [Abilify] 5 mg PO DAILY 04/16/19 04/19/19 Albuterol Sulfate [Proair Hfa] 2 puff INHALATION RT-QID PRN 04/16/19 04/19/19 Ergocalciferol [Vitamin D2 50,000 unit PO Q7D 04/16/19 04/19/19 (DRISDOL)] cycloSPORINE [Restasis] 1 drop BOTH EYES Q12H 04/16/19 04/19/19 oxyCODONE HCL [oxyCODONE HCL (IR)] 30 mg PO TID 04/16/19 04/19/19 traZODone HCL [Desyrel] 100 mg PO HS 04/16/19 04/19/19 Meclizine HCl 25 mg PO BID PRN 04/19/19 04/19/19 busPIRone HCL [Buspar] 30 mg PO BID 04/19/19 04/19/19 rOPINIRole HCL [Requip] 0.25 mg PO TID 04/19/19 04/19/19 tiZANidine [Zanaflex] 2 mg PO BID PRN 04/19/19 04/19/19 tiZANidine [Zanaflex] 4 mg PO HS 04/19/19 04/19/19 Previous Rx's Medication Instructions Recorded DULoxetine HCL [Cymbalta] 60 mg PO DAILY capsule. 04/19/19 Docusate [Colace] 100 mg PO BID cap 04/19/19 Pantoprazole [Protonix] 40 mg PO AC-BID #60 tablet. 04/19/19 Polyethylene Glycol 3350 [Miralax] 17 gm PO DAILY powd.pack 04/19/19 Allergies Allergy/AdvReac Type Severity Reaction Status Date / Time cashew nut Allergy Unknown Verified 04/16/19 21:26 shellfish derived Allergy Swelling Verified 04/16/19 21:26 nuts Allergy Swelling Uncoded 04/16/19 17:14 animals AdvReac Wheezing Uncoded 04/16/19 17:14 environmental AdvReac Wheezing Uncoded 04/16/19 17:14 Review of Systems ROS Statement: Those systems with pertinent positive or pertinent negative responses have been documented in the HPI. ROS Other: All systems not noted in ROS Statement are negative. 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), has some amnesia, anemia-gets iron infusions History of Any Multi-Drug Resistant Organisms: C-DIFF Date of last positivie culture/infection: unsure MDRO Source:: unsure Past Surgical History: Section, Cholecystectomy, Ear Surgery, Hysterectomy, Tonsillectomy Additional Past Surgical History / Comment(s): left ear recontructed, colonoscopy and EGD, C/S x 4 Past Anesthesia/Blood Transfusion Reactions: Motion Sickness Past Psychological History: Anxiety, Depression Smoking Status: Former smoker Past Alcohol Use History: None Reported Past Drug Use History: None Reported - Past Family History Mother Family Medical History: No Reported History Additional Family Medical History / Comment(s): . Sister(s) Family Medical History: Congestive Heart Failure (CHF), Diabetes Mellitus Brother(s) Family Medical History: Congestive Heart Failure (CHF), Diabetes Mellitus Father Family Medical History: No Reported History Son(s) Additional Family Medical History / Comment(s): Patient has 1 son living. 3 sons have passed and patient does not want to talk about their cause of . General Exam Limitations: no limitations General appearance: alert, in no apparent distress Head exam: Present: atraumatic, normocephalic, normal inspection Eye exam: Present: normal appearance, PERRL, EOMI. Absent: scleral icterus, conjunctival injection, periorbital swelling ENT exam: Present: normal exam, mucous membranes moist Neck exam: Present: normal inspection. Absent: tenderness, meningismus, lymphadenopathy Respiratory exam: Present: normal lung sounds bilaterally. Absent: respiratory distress, wheezes, rales, rhonchi, stridor Cardiovascular Exam: Present: normal rhythm, tachycardia, normal heart sounds. Absent: systolic murmur, diastolic murmur, rubs, gallop, clicks GI/Abdominal exam: Present: soft, normal bowel sounds. Absent: distended, tenderness, guarding, rebound, rigid Rectal exam: Present: normal inspection, heme (-) stool Extremities exam: Present: normal inspection, full ROM, normal capillary refill. Absent: tenderness, pedal edema, joint swelling, calf tenderness Back exam: Present: normal inspection Neurological exam: Present: alert, oriented X3, CN II-XII intact Psychiatric exam: Present: normal affect, normal mood Skin exam: Present: warm, dry, intact, normal color. Absent: rash Course Vital Signs 04/16/19 04/16/19 04/16/19 17:12 20:45 21:49 Temperature 97.8 F 97.8 F Pulse Rate 111 H 124 H Pulse Rate [ 95 Left Pulse Oximetery] Pulse Rate [ 95 Pulse Oximetery ] Respiratory 20 18 18 Rate Blood Pressure 138/81 125/99 Blood Pressure 143/65 [Left Arm] O2 Sat by Pulse 98 98 95 Oximetry 04/16/19 22:04 Temperature 98.0 F Pulse Rate 105 H Pulse Rate [ Left Pulse Oximetery] Pulse Rate [ Pulse Oximetery ] Respiratory 18 Rate Blood Pressure 127/95 Blood Pressure [Left Arm] O2 Sat by Pulse 98 Oximetry EKG Findings - EKG Comments: EKG Findings:: EKG demonstrates sinus tachycardia with a ventricular rate of 121. [place] interval 130. QRS 66. QTC of 477. No acute ST segment elevation depressions concerning for ischemic changes. Procedures - Stool Hemoccult Hemoccult result: negative Medical Decision Making - Medical Decision Making Upon arrival the patient was placed into room 22. A thorough history and physical exam is performed. Peripheral IV was established. I did perform a rectal exam which does not demonstrate any gross blood. Sample sent to the lab for occult testing. The patient is noted to be tachycardic. A 12-lead EKG was performed which demonstrated a sinus tachycardia. The patient is requesting something for pain and anxiety. I did provide her with a liter bolus of normal saline, 4 mg of Zofran and 1 mg of Ativan. She is reassessed and continues to ask for something for pain. I then provided her with 4 mg of morphine. Laboratory studies were repeated and demonstrated with blood cell count of 12.3. Hemoglobin 5.8. CMP is unremarkable. Fecal occult is negative. I did send the patient for a CT of her abdomen and pelvis because of reported diffuse abdominal pain. It does not demonstrate any acute abnormality. Large hiatal hernia. I reevaluated the patient. She does state that her pain is improved. She does remain tachycardic. I will transfuse the patient 2 units of blood because of her symptomatic anemia. I did recommend hospital admission. A call discuss case with Dr. Byrne who accepted admission recommended that GI be placed on consult. Bridging orders were placed and the patient was transferred to the floor in stable condition - Lab Data Result diagrams: 04/20/19 06:19 04/18/19 06:41 Lab Results 04/16/19 04/16/19 04/16/19 Range/Units 17:25 17:25 17:25 WBC 12.3 H (3.8-10.6) k/uL RBC 3.38 L (3.80-5.40) m/uL Hgb 5.8 L* (11.4-16.0) gm/dL Hct 23.7 L (34.0-46.0) % MCV 70.2 L (80.0-100.0) fL MCH 17.1 L (25.0-35.0) pg MCHC 24.4 L (31.0-37.0) g/dL RDW 20.9 H (11.5-15.5) % Plt Count 425 (150-450) k/uL Neutrophils % 70 % Lymphocytes % 19 % Monocytes % 5 % Eosinophils % 4 % Basophils % 1 % Neutrophils # 8.6 H (1.3-7.7) k/uL Lymphocytes # 2.3 (1.0-4.8) k/uL Monocytes # 0.7 (0-1.0) k/uL Eosinophils # 0.5 (0-0.7) k/uL Basophils # 0.1 (0-0.2) k/uL Manual Slide Review Performed Polychromasia Present Hypochromasia Marked Poikilocytosis Slight Anisocytosis Moderate Microcytosis Marked Target Cells Present Ovalocytes Present Stomatocytes Present PT (9.0-12.0) sec INR (<1.2) APTT (22.0-30.0) sec Sodium 142 (137-145) mmol/L Potassium 4.4 (3.5-5.1) mmol/L Chloride 110 H (98-107) mmol/L Carbon Dioxide 22 (22-30) mmol/L Anion Gap 10 mmol/L BUN 10 (7-17) mg/dL Creatinine 0.78 (0.52-1.04) mg/dL Est GFR (CKD-EPI)AfAm >90 (>60 ml/min/1.73 sqM) Est GFR (CKD-EPI)NonAf 84 (>60 ml/min/1.73 sqM) Glucose 90 (74-99) mg/dL Plasma Lactic Acid Cipriano (0.7-2.0) mmol/L Calcium 9.1 (8.4-10.2) mg/dL Magnesium 1.9 (1.6-2.3) mg/dL Iron (50-170) ug/dL TIBC (228-460) ug/dL % Saturation (12.00-45.00) Ferritin (10.0-291.0) ng/mL Total Bilirubin 0.3 (0.2-1.3) mg/dL AST 22 (14-36) U/L ALT 13 (4-34) U/L Alkaline Phosphatase 84 (38-126) U/L Troponin I (0.000-0.034) ng/mL Total Protein 7.3 (6.3-8.2) g/dL Albumin 4.2 (3.5-5.0) g/dL Lipase 63 (23-300) U/L Stool Occult Blood (Negative) Blood Type A Positive Blood Type Recheck A Pos Bld Type Recheck Status No Antibody Screen POSITIVE Antibody Identification Anti-E Direct Antiglob Test Negative Crossmatch See Detail Spec Expiration Date 04/16/19 18204/16/19 04/16/19 04/16/19 Range/Units 17:25 17:25 17:25 WBC (3.8-10.6) k/uL RBC (3.80-5.40) m/uL Hgb (11.4-16.0) gm/dL Hct (34.0-46.0) % MCV (80.0-100.0) fL MCH (25.0-35.0) pg MCHC (31.0-37.0) g/dL RDW (11.5-15.5) % Plt Count (150-450) k/uL Neutrophils % % Lymphocytes % % Monocytes % % Eosinophils % % Basophils % % Neutrophils # (1.3-7.7) k/uL Lymphocytes # (1.0-4.8) k/uL Monocytes # (0-1.0) k/uL Eosinophils # (0-0.7) k/uL Basophils # (0-0.2) k/uL Manual Slide Review Polychromasia Hypochromasia Poikilocytosis Anisocytosis Microcytosis Target Cells Ovalocytes Stomatocytes PT 9.5 (9.0-12.0) sec INR 0.9 (<1.2) APTT 20.9 L (22.0-30.0) sec Sodium (137-145) mmol/L Potassium (3.5-5.1) mmol/L Chloride (98-107) mmol/L Carbon Dioxide (22-30) mmol/L Anion Gap mmol/L BUN (7-17) mg/dL Creatinine (0.52-1.04) mg/dL Est GFR (CKD-EPI)AfAm (>60 ml/min/1.73 sqM) Est GFR (CKD-EPI)NonAf (>60 ml/min/1.73 sqM) Glucose (74-99) mg/dL Plasma Lactic Acid Cipriano 1.6 (0.7-2.0) mmol/L Calcium (8.4-10.2) mg/dL Magnesium (1.6-2.3) mg/dL Iron (50-170) ug/dL TIBC (228-460) ug/dL % Saturation (12.00-45.00) Ferritin (10.0-291.0) ng/mL Total Bilirubin (0.2-1.3) mg/dL AST (14-36) U/L ALT (4-34) U/L Alkaline Phosphatase (38-126) U/L Troponin I (0.000-0.034) ng/mL Total Protein (6.3-8.2) g/dL Albumin (3.5-5.0) g/dL Lipase (23-300) U/L Stool Occult Blood Negative (Negative) Blood Type Blood Type Recheck Bld Type Recheck Status Antibody Screen Antibody Identification Direct Antiglob Test Crossmatch Spec Expiration Date 04/16/19 04/16/19 Range/Units 17:25 17:25 WBC (3.8-10.6) k/uL RBC (3.80-5.40) m/uL Hgb (11.4-16.0) gm/dL Hct (34.0-46.0) % MCV (80.0-100.0) fL MCH (25.0-35.0) pg MCHC (31.0-37.0) g/dL RDW (11.5-15.5) % Plt Count (150-450) k/uL Neutrophils % % Lymphocytes % % Monocytes % % Eosinophils % % Basophils % % Neutrophils # (1.3-7.7) k/uL Lymphocytes # (1.0-4.8) k/uL Monocytes # (0-1.0) k/uL Eosinophils # (0-0.7) k/uL Basophils # (0-0.2) k/uL Manual Slide Review Polychromasia Hypochromasia Poikilocytosis Anisocytosis Microcytosis Target Cells Ovalocytes Stomatocytes PT (9.0-12.0) sec INR (<1.2) APTT (22.0-30.0) sec Sodium (137-145) mmol/L Potassium (3.5-5.1) mmol/L Chloride (98-107) mmol/L Carbon Dioxide (22-30) mmol/L Anion Gap mmol/L BUN (7-17) mg/dL Creatinine (0.52-1.04) mg/dL Est GFR (CKD-EPI)AfAm (>60 ml/min/1.73 sqM) Est GFR (CKD-EPI)NonAf (>60 ml/min/1.73 sqM) Glucose (74-99) mg/dL Plasma Lactic Acid Cipriano (0.7-2.0) mmol/L Calcium (8.4-10.2) mg/dL Magnesium (1.6-2.3) mg/dL Iron 35 L (50-170) ug/dL TIBC 488 H (228-460) ug/dL % Saturation 7.17 L (12.00-45.00) Ferritin 7.4 L (10.0-291.0) ng/mL Total Bilirubin (0.2-1.3) mg/dL AST (14-36) U/L ALT (4-34) U/L Alkaline Phosphatase (38-126) U/L Troponin I <0.012 (0.000-0.034) ng/mL Total Protein (6.3-8.2) g/dL Albumin (3.5-5.0) g/dL Lipase (23-300) U/L Stool Occult Blood (Negative) Blood Type Blood Type Recheck Bld Type Recheck Status Antibody Screen Antibody Identification Direct Antiglob Test Crossmatch Spec Expiration Date Critical Care Time Critical Care Time: Yes Critical Care Time: 35 minutes. Patient received 2 units of blood due to her low hb of 5.8. Multiple reassessments were performed as blood was delayed due to antibodies. She remained hemodynamically stable before transfusion. Disposition Clinical Impression: Anemia, Tachycardia Disposition: ADMITTED IP TO THIS HOSP Condition: Serious Is patient prescribed a controlled substance at d/c from ED?: No Decision to Admit Reason: Admit from EC Decision Date: 04/16/19 Decision Time: 20:21
--- NOTE | 2019-04-16 20:07 | CT ---
EXAMINATION TYPE: CT abdomen pelvis w con DATE OF EXAM: 04/16/2019 COMPARISON: 02/24/2017 HISTORY: Abdomen pain, black stool, anemic. CT DLP: 1495 mGycm Automated exposure control for dose reduction was used. CONTRAST: Performed with IV Contrast, patient injected with 100 mL of Isovue 300. There is very large hiatal hernia. There is intrathoracic stomach. There is no pleural effusion. Ther e is mild atelectasis at the lung bases. Liver spleen pancreas appear normal. There are clips from cholecystectomy. Bile ducts are not dilated . There is no adrenal mass. Kidneys show satisfactory contrast opacification. There is no hydronephrosi s. There is no retroperitoneal adenopathy. Ureters are not dilated. Bladder distends smoothly. There is no inguinal hernia. There is no ascites. There is no free air. There is no evidence of a bowel obstruction. There is no s ign of mesenteric edema. There is no sign of thickened appendix. Lumbar vertebra have fairly normal alignment. There is mild disc space narrowing. Posterior elements are intact. There is no compression fracture. Bony pelvis appears intact. IMPRESSION: Very large hiatal hernia. No acute abnormality of the abdomen pelvis. There is some patchy atelectasi s at the lung bases improved slightly compared to old exam.
[2019-04-16] MEDS ORDERED: NALOXONE 0.4 MG/ML 1 ML VIAL IV PRN (20:21)
[2019-04-16] MEDS ORDERED: MORPHINE SULFATE 4 MG/ML SYRINGE IVP STA (20:32)
[2019-04-17 00:59] LABS: Anisocytosis Moderate; HCT 23.1 % (34.0-46.0); Hypochromasia Marked; MCH 17.1 pg (25.0-35.0); MCHC 24.4 g/dL (31.0-37.0); MCV 69.8 fL (80.0-100.0); Mean Platelet Volume 8.9; Microcytosis Marked; Platelet Count 365 k/uL (150-450); Poikilocytosis Slight; RBC 3.31 m/uL (3.80-5.40); RDW 21.2 % (11.5-15.5); WBC 12.7 k/uL (3.8-10.6)
[2019-04-17 01:01] LABS: HGB 5.6 gm/dL (11.4-16.0)
[2019-04-17 01:37] LABS: Band Neutrophils % 2 %; Eosinophils # (M) 0.25 k/uL (0-0.7); Lymphocytes # (M) 1.14 k/uL (1.0-4.8); Monocytes # (M) 0.51 k/uL (0-1.0); Neutrophils % (M) 83 %; Nucleated Red Blood Cells 0 /100 WBC (0-0); Total Cells Counted 100
[2019-04-17 01:38] LABS: Polychromasia Present
[2019-04-17] MEDS ORDERED: SODIUM CHLORIDE 0.9% 500 ML 500 ML IV ONE (01:44)
[2019-04-17] MEDS: traZODone HCL 100 MG TAB PO SCH ×2 (02:04→22:01)
[2019-04-17] MEDS: cycloSPORINE 0.05% OPHTH 0.4 ML DROPERETTE BOTH EYES SCH ×3 (02:05→22:01)
[2019-04-17 02:55] LABS: Glucose,Whole Blood 128 mg/dL (75-99)
[2019-04-17 05:03] LABS: Anisocytosis Moderate; HCT 21.9 % (34.0-46.0); Hypochromasia Marked; MCH 17.8 pg (25.0-35.0); MCHC 24.7 g/dL (31.0-37.0); MCV 72.1 fL (80.0-100.0); Mean Platelet Volume 8.9; Microcytosis Marked; Platelet Count 360 k/uL (150-450); Poikilocytosis Slight; RBC 3.04 m/uL (3.80-5.40); RDW 21.9 % (11.5-15.5); WBC 11.9 k/uL (3.8-10.6)
[2019-04-17 05:04] LABS: HGB 5.4 gm/dL (11.4-16.0)
[2019-04-17 05:12] LABS: African American GFR (CKD) >90 (>60 ml/min/1.73 sqM); Anion Gap 8 mmol/L; Blood Urea Nitrogen 8 mg/dL (7-17); Calcium 8.7 mg/dL (8.4-10.2); Carbon Dioxide 21 mmol/L (22-30); Chloride 111 mmol/L (98-107); Glucose 101 mg/dL (74-99); Non-African American GFR(CKD) >90 (>60 ml/min/1.73 sqM); Potassium 4.4 mmol/L (3.5-5.1); Sodium 140 mmol/L (137-145)
[2019-04-17] MEDS: SODIUM CHLORIDE 0.9% 1,000 ML IV SCH ×2 (05:26→13:45)
[2019-04-17 05:36] LABS: Band Neutrophils % 1 %; Eosinophils # (M) 0.12 k/uL (0-0.7); Lymphocytes # (M) 1.67 k/uL (1.0-4.8); Neutrophils % (M) 79 %; Nucleated Red Blood Cells 0 /100 WBC (0-0); Total Cells Counted 100
[2019-04-17 05:37] LABS: Polychromasia Present
[2019-04-17] MEDS: ARIPiprazole 5 MG TAB PO SCH (08:17)
[2019-04-17] MEDS: DULoxetine HCL 60 MG CAPSULE.DR PO SCH (08:17)
[2019-04-17] MEDS: FERROUS SULFATE 325 MG TAB PO SCH ×2 (08:17→22:00)
[2019-04-17] MEDS: TRIAMTERENE-HCTZ 37.5-25MG 1 EACH TAB PO SCH (08:18)
[2019-04-17] MEDS ORDERED: HYDROcodone/APAP 7.5-325MG 1 EACH TAB PO SCH (09:00)
[2019-04-17 11:56] LABS: Anisocytosis Moderate; HCT 29.6 % (34.0-46.0); Hypochromasia Marked; MCH 20.8 pg (25.0-35.0); Mean Platelet Volume 8.5; Microcytosis Moderate; Platelet Count 369 k/uL (150-450); Poikilocytosis Marked; RBC 3.85 m/uL (3.80-5.40); RDW 22.9 % (11.5-15.5); WBC 12.5 k/uL (3.8-10.6)
[2019-04-17 12:23] LABS: Basophils # (M) 0.13 k/uL (0-0.2); Eosinophils # (M) 0.75 k/uL (0-0.7); Lymphocytes # (M) 2.25 k/uL (1.0-4.8); Monocytes # (M) 0.38 k/uL (0-1.0); Neutrophils % (M) 72 %; Nucleated Red Blood Cells 0 /100 WBC (0-0); Polychromasia Present; Stomatocytes Present; Total Cells Counted 100
[2019-04-17 12:24] LABS: Poikilocytosis (M) Present
--- NOTE | 2019-04-17 13:10 | P.CNPUL ---
History of Present Illness Consult date: 04/17/19 Requesting physician: Amelie Dhaliwal Reason for consult: other (severe anemia, patient was transferred to the ICU.) Chief complaint: weakness and shortness of breath. History of present illness: this is a 58-year-old female with history of chronic iron deficiency anemia, hypertension, bronchial asthma, presented to the ER with mostly symptoms of weakness, some shortness of breath, patient is normally maintained on iron infusions for her chronic iron deficiency anemia. During the last week, the patient has been complaining of shortness of breath, weakness, and she was quite concerned that her hemoglobin may be getting low. Her primary care physician ordered a CBC, and indeed her hemoglobin was extremely low, patient was advised to go to the ER. Patient had no symptoms of GI bleeding, no symptoms to suggest any active bleeding, but she does have chronic black tarry stools. More so in the last week. Patient had her last endoscopy in May of last year. Not using any nonsteroidal anti-inflammatory drugs. She had no abdominal pain, except she had some vague abdominal bloating and discomfort. No fever no chills, no hematuria, no dysuria, no frequency, no vaginal bleeding. Patient was initially admitted to the medical floor, however considering there was a delay of getting her blood from [place], and considering her hemoglobin was 5.8 on admission, and was rechecked went down to 5.4, patient was transferred to the ICU for stabilization until blood is received from [place]. While I was seeing the patient, patient was already receiving her first unit of packed RBCs. And she was relatively asymptomatic, feeling much better. Her only issue seems to be related to the fact that she is hard of hearing, and she could not find her hearing aid. Review of Systems constitutional: Weakness fatigue malaise HEENT: Negative, patient is hard of hearing, Pulmonary: Some shortness of breath on exertion for the last 2 weeks. No cough no wheezing no fever no chills no hemoptysis. GI: As noted in HPI. Cardiac: Denies any chest pain, no syncope, no palpitations. genitourinary : No dysuria frequency urgency or hematuria. Neurologic: No headache blurred vision dizziness, hard of hearing.history of seizure disorder. Skin: No rashes. No pruritus. Psychologic: Denies any symptoms of active depression.. Hematologic: History of [place] HFR gene mutation,History of chronic iron deficiency anemia multiple colonoscopies and EGDs done in the past 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), has some amnesia, anemia-gets iron infusions History of Any Multi-Drug Resistant Organisms: C-DIFF Date of last positivie culture/infection: unsure MDRO Source:: unsure Past Surgical History: Section, Cholecystectomy, Ear Surgery, Hyste rectomy, Tonsillectomy Additional Past Surgical History / Comment(s): left ear recontructed, colonoscopy and EGD, C/S x 4 Past Anesthesia/Blood Transfusion Reactions: Motion Sickness Past Psychological History: Anxiety, Depression Smoking Status: Former smoker Past Alcohol Use History: None Reported Past Drug Use History: None Reported - Past Family History Mother Family Medical History: No Reported History Additional Family Medical History / Comment(s): . Sister(s) Family Medical History: Congestive Heart Failure (CHF), Diabetes Mellitus Brother(s) Family Medical History: Congestive Heart Failure (CHF), Diabetes Mellitus Father Family Medical History: No Reported History Medications and Allergies Home Medications Medication Instructions Recorded Confirmed Type ARIPiprazole [Abilify] 5 mg PO DAILY 04/16/19 04/16/19 History Albuterol Sulfate [Proair Hfa] 1 - 2 puff INHALATION RT-Q6H PRN 04/16/19 04/16/19 History DULoxetine HCL [Cymbalta] 60 mg PO DAILY 04/16/19 04/16/19 History Ergocalciferol [Vitamin D2] 50,000 unit PO Q7D 04/16/19 04/16/19 History Ferrous Sulfate [Feosol] 325 mg PO BID 04/16/19 04/16/19 History HYDROcodone/APAP 7.5-325MG [Sabin 1 tab PO BID 04/16/19 04/16/19 History 7.5-325] Alexis-3 Acid Ethyl Esters [Lovaza] 1 gm PO DAILY 04/16/19 04/16/19 History Triamterene/Hydrochlorothiazid 1 tab PO DAILY 04/16/19 04/16/19 History [Triamterene-Hctz 37.5-25 mg Tb] cycloSPORINE [Restasis] 1 drop BOTH EYES Q12H 04/16/19 04/16/19 History oxyCODONE HCL [oxyCODONE HCL (IR)] 30 mg PO TID 04/16/19 04/16/19 History traZODone HCL [Desyrel] 100 mg PO HS 04/16/19 04/16/19 History Allergies Allergy/AdvReac Type Severity Reaction Status Date / Time cashew nut Allergy Unknown Verified 04/16/19 21:26 shellfish derived Allergy Swelling Verified 04/16/19 21:26 nuts Allergy Swelling Uncoded 04/16/19 17:14 animals AdvReac Wheezing Uncoded 04/16/19 17:14 environmental AdvReac Wheezing Uncoded 04/16/19 17:14 Physical Exam Vitals: Vital Signs Temp Pulse Pulse Pulse Resp BP BP 04/17/19 11:00 98 14 107/96 04/17/19 10:59 98.5 F 90 14 118/90 04/17/19 10:00 98 12 126/91 04/17/19 09:30 98.6 F 97 12 126/81 04/17/19 09:00 98.6 F 101 H 15 105/58 04/17/19 08:50 98.6 F 101 H 16 115/62 04/17/19 08:07 98.4 F 95 15 111/62 04/17/19 08:00 98.3 F 98 14 119/83 04/17/19 07:00 101 H 17 111/68 04/17/19 06:00 108 H 14 113/74 04/17/19 05:56 98.7 F 98 12 111/68 04/17/19 05:26 98.6 F 105 H 16 119/70 04/17/19 05:16 98.9 F 110 H 14 125/65 04/17/19 05:00 100 11 L 98/73 04/17/19 04:05 04/17/19 04:00 104 H 12 121/62 04/17/19 03:00 97.8 F 105 H 12 131/98 04/17/19 02:54 11 L 04/17/19 01:50 97.7 F 132 H 18 128/76 04/16/19 23:00 97.9 F 99 18 135/67 04/16/19 22:04 98.0 F 105 H 18 127/95 04/16/19 21:49 97.8 F 95 95 18 143/65 04/16/19 20:45 124 H 18 125/99 04/16/19 17:12 97.8 F 111 H 20 138/81 Pulse Ox 04/17/19 11:00 95 04/17/19 10:59 94 L 04/17/19 10:00 96 04/17/19 09:30 95 04/17/19 09:00 94 L 04/17/19 08:50 91 L 04/17/19 08:07 95 04/17/19 08:00 98 04/17/19 07:00 96 04/17/19 06:00 97 04/17/19 05:56 100 04/17/19 05:26 96 04/17/19 05:16 96 04/17/19 05:00 96 04/17/19 04:05 96 04/17/19 04:00 97 04/17/19 03:00 94 L 04/17/19 02:54 96 04/17/19 01:50 98 04/16/19 23:00 96 04/16/19 22:04 98 04/16/19 21:49 95 04/16/19 20:45 98 04/16/19 17:12 98 Intake and Output 04/16/19 04/17/19 04/17/19 22:59 06:59 14:59 Intake Total 480 375 745 Output Total 400 Balance 480 375 345 Intake: IV 375 125 Sodium Chloride 0.9% 1, 375 125 000 ml @ 125 mls/hr IV . Q8H [facility] Rx#:[id number] Oral 480 Blood Product 0 620 Rc As-1 Unit 310 [id number] Rc As-1 Unit 0 310 [id number] Output: Urine 400 Other: Voiding Method Bedside Commode Bedside Commode Bedside Commode # Voids 1 0 1 Weight 79.379 kg Physical Exam: Revealed 58-year-old female in no distress. Head: Atraumatic, normocephalic. HEENT:[Neck is supple.] [No neck masses.] [No thyromegaly.] [No JVD.]moist mucous membranes. Chest: [Clear throughout, no crackles, no rhonchi, no wheezes.] Cardiac Exam: [Normal S1 and S2, no S3 gallop, no murmur.] Abdomen: [Soft, nontender, no megaly, no rebound, no guarding, normal bowel sounds.] Extremities: [No clubbing, no edema, no cyanosis.] Neurological Exam: [No focal neurologic deficit.]patient is hard of hearing. Skin: No rashes. Psychiatric: Normal mood, slightly anxious, normal mental status examination. Musculoskeletal: No deformities, no limitation in range of motion. Results - Laboratory Findings CBC and BMP: 04/17/19 11:28 04/17/19 04:27 PT/INR, D-dimer PT 9.5 sec (9.0-12.0) 04/16/19 17:25 INR 0.9 (<1.2) 04/16/19 17:25 Abnormal lab findings: Abnormal Labs 04/16/19 04/16/19 04/16/19 17:25 17:25 17:25 WBC 12.3 H RBC 3.38 L Hgb 5.8 L* Hct 23.7 L MCV 70.2 L MCH 17.1 L MCHC 24.4 L RDW 20.9 H Neutrophils # 8.6 H Neutrophils # (Manual) Eosinophils # (Manual) APTT Chloride 110 H Carbon Dioxide Glucose POC Glucose (mg/dL) Crossmatch See Detail 04/16/19 04/17/19 04/17/19 17:25 00:43 02:13 WBC 12.7 H RBC 3.31 L Hgb 5.6 L* Hct 23.1 L MCV 69.8 L MCH 17.1 L MCHC 24.4 L RDW 21.2 H Neutrophils # Neutrophils # (Manual) 10.70 H Eosinophils # (Manual) APTT 20.9 L Chloride Carbon Dioxide Glucose POC Glucose (mg/dL) Crossmatch See Detail 04/17/19 04/17/19 04/17/19 02:53 04:27 04:27 WBC 11.9 H RBC 3.04 L Hgb 5.4 L* Hct 21.9 L MCV 72.1 L MCH 17.8 L MCHC 24.7 L RDW 21.9 H Neutrophils # Neutrophils # (Manual) 9.50 H Eosinophils # (Manual) APTT Chloride 111 H Carbon Dioxide 21 L Glucose 101 H POC Glucose (mg/dL) 128 H Crossmatch 04/17/19 11:28 WBC 12.5 H RBC Hgb 8.0 L D Hct 29.6 L MCV 77.0 L MCH 20.8 L MCHC 27.0 L RDW 22.9 H Neutrophils # Neutrophils # (Manual) 9.00 H Eosinophils # (Manual) 0.75 H APTT Chloride Carbon Dioxide Glucose POC Glucose (mg/dL) Crossmatch - Diagnostic Findings Additional studies: CT of the abdomen and pelvis was noted, large hiatal hernia otherwise unr emarkable. Minimal atelectasis at the lung bases Assessment and Plan Assessment: impression: acute on chronic iron deficiency anemia, most likely secondary to chronic GI blood losses. Will need further evaluation by gastroenterology. severe anemia secondary to above. Multiple comorbidities including psoriatic arthritis. Mild asthma presently inactive. History of fibromyalgia. Large hiatal hernia with GERD and esophagitis. History of dyslipidemia. Osteoarthritis. Obstructive sleep apnea syndrome. Psoriatic arthritis. Recommendation: Agree with blood transfusion as ordered. Once the patient receives her blood and stable, could be transferred out of the ICU later today. And will be continued to be monitored on the regular medical floor. Suggested GI consultation and evaluation Also suggest hematology to evaluate. In the meantime continue present treatment plan as outlined. We'll continue to follow. While in the ICU Time with Patient: Greater than 30
[2019-04-17] MEDS ORDERED: ACETAMINOPHEN TAB 325 MG TAB PO PRN (13:27)
[2019-04-17] MEDS: HYDROcodone/APAP 7.5-325MG 1 EACH TAB PO PRN (13:45)
[2019-04-17] MEDS ORDERED: PANTOPRAZOLE 40 MG TABLET PO SCH (16:30)
--- NOTE | 2019-04-17 16:42 | P.HPIM ---
History of Present Illness H&P Date: 04/17/19 Chief Complaint: Generalized weakness This is a 58-year-old female patient of Dr. Dhaliwal with past medical history of iron deficiency anemia with previous iron infusions, hypertension, hyperlipidemia, psoriasis, obstructive sleep apnea, MTHFR mutation, asthma, depression, chronic pain with cervical and lumbar stenosis, fibromyalgia, gastroesophageal reflux disease. Patient states that she was receiving regular iron infusions with Dr. Melo about every 6-8 weeks but has not received any for a while. She states she is off schedule and has not been back to see him. In May 2018 she underwent upper endoscopy and colonoscopy. Results were antral erosive gastritis and small hiatal hernia, no colitis or colorectal neoplasia. Patient complains of left-sided abdominal pain, no nausea or vomiting, no hematuria. She has not noticed any blood in her stools. She does have dark stools but on chronic iron. Patient is complaining of severe headache and neck pain secondary to her spinal stenosis. Patient came into [facility] emergency center for evaluation. She was afebrile, sinus tachycardia 124, blood pressure 138/81, pulse ox 98%. EKG was a sinus tachycardia 121. No acute ST changes. WBC 12.3, hemoglobin 5.8, platelet count 425. Creatinine 0.78 and BUN 10, blood sugar 90 lactic acid 1.6, stool for occult blood negative. Troponin negative. Patient was admitted to the intensive care unit and has been downgraded to [facility] with telemetry. She is status post transfusion of 2 units of packed RBC with repeat hemoglobin of 8. Third unit of packed RBCs will be held. Patient has been seen by GI with plan for possible capsule endoscopy. Review of Systems Constitutional: Reports chronic headaches, Reports chronic pain, Reports fatigue, Reports poor appetite, Reports weakness, Denies anorexia, Denies chills, Denies fever Eyes: denies blurred vision, denies pain Ears, nose, mouth and throat: Reports headache, Denies nasal congestion, Denies nasal discharge, Denies vertigo Cardiovascular: Denies chest pain, Denies dyspnea on exertion, Denies edema, Denies leg edema, Denies lightheadedness, Denies shortness of breath, Denies syncope Respiratory: Denies cough, Denies cough with sputum, Denies dyspnea, Denies excessive sputum, Denies hemoptysis, Denies home oxygen, Denies respiratory infections, Denies wheezing Gastrointestinal: Reports abdominal pain, Denies diarrhea, Denies nausea, Denies vomiting Genitourinary: Denies dysuria, Denies hematuria, Denies urgency, Denies urinary frequency Musculoskeletal: Reports gait dysfunction, Reports muscle weakness, Denies frequent falls, Denies myalgias Integumentary: Denies pruritus, Denies rash, Denies wounds Neurological: Denies change in mentation, Denies change in speech, Denies numbness, Denies weakness Psychiatric: Denies anxiety, Denies depression Endocrine: Denies fatigue, Denies weight change 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), has some amnesia, anemia-gets iron infusions History of Any Multi-Drug Resistant Organisms: C-DIFF Date of last positivie culture/infection: unsure MDRO Source:: unsure Past Surgical History: Section, Cholecystectomy, Ear Surgery, Hysterectomy, Tonsillectomy Additional Past Surgical History / Comment(s): left ear recontructed, colonoscopy and EGD, C/S x 4 Past Anesthesia/Blood Transfusion Reactions: Motion Sickness Past Psychological History: Anxiety, Depression Smoking Status: Former smoker Past Alcohol Use History: None Reported Additional Past Alcohol Use History / Comment(s): Patient was a smoker for 10 years and quit in 1998. She denies any marijuana, illicit drug use or alcohol use. She drinks a shot of vodka maybe 5 times per year. Past Drug Use History: None Reported - Past Family History Mother Family Medical History: No Reported History Additional Family Medical History / Comment(s): Mother at age 84 and had history of anemia. Sister(s) Family Medical History: Congestive Heart Failure (CHF), Diabetes Mellitus Brother(s) Family Medical History: Congestive Heart Failure (CHF), Diabetes Mellitus Father Family Medical History: No Reported History Additional Family Medical History / Comment(s): Father at age 54 from an accident. Son(s) Additional Family Medical History / Comment(s): Patient has 1 son living. 3 sons have passed and patient does not want to talk about their cause of . Medications and Allergies Home Medications Medication Instructions Recorded Confirmed Type ARIPiprazole [Abilify] 5 mg PO DAILY 04/16/19 04/19/19 History Albuterol Sulfate [Proair Hfa] 2 puff INHALATION RT-QID PRN 04/16/19 04/19/19 History Ergocalciferol [Vitamin D2 50,000 unit PO Q7D 04/16/19 04/19/19 History (GABINO)] cycloSPORINE [Restasis] 1 drop BOTH EYES Q12H 04/16/19 04/19/19 History oxyCODONE HCL [oxyCODONE HCL (IR)] 30 mg PO TID 04/16/19 04/19/19 History traZODone HCL [Desyrel] 100 mg PO HS 04/16/19 04/19/19 History DULoxetine HCL [Cymbalta] 60 mg PO DAILY capsule. 04/19/19 Rx Docusate [Colace] 100 mg PO BID cap 04/19/19 Rx Meclizine HCl 25 mg PO BID PRN 04/19/19 04/19/19 History Pantoprazole [Protonix] 40 mg PO AC-BID #60 tablet. 04/19/19 Rx Polyethylene Glycol 3350 [Miralax] 17 gm PO DAILY powd.pack 04/19/19 Rx busPIRone HCL [Buspar] 30 mg PO BID 04/19/19 04/19/19 History rOPINIRole HCL [Requip] 0.25 mg PO TID 04/19/19 04/19/19 History tiZANidine [Zanaflex] 2 mg PO BID PRN 04/19/19 04/19/19 History tiZANidine [Zanaflex] 4 mg PO HS 04/19/19 04/19/19 History Allergies Allergy/AdvReac Type Severity Reaction Status Date / Time cashew nut Allergy Unknown Verified 04/16/19 21:26 shellfish derived Allergy Swelling Verified 04/16/19 21:26 nuts Allergy Swelling Uncoded 04/16/19 17:14 animals AdvReac Wheezing Uncoded 04/16/19 17:14 environmental AdvReac Wheezing Uncoded 04/16/19 17:14 Physical Exam Vitals: Vital Signs Temp Pulse Pulse Pulse Resp BP BP 04/17/19 11:00 98 14 107/96 04/17/19 10:59 98.5 F 90 14 118/90 04/17/19 10:00 98 12 126/91 04/17/19 09:30 98.6 F 97 12 126/81 04/17/19 09:00 98.6 F 101 H 15 105/58 04/17/19 08:50 98.6 F 101 H 16 115/62 04/17/19 08:07 98.4 F 95 15 111/62 04/17/19 08:00 98.3 F 98 14 119/83 04/17/19 07:00 101 H 17 111/68 04/17/19 06:00 108 H 14 113/74 04/17/19 05:56 98.7 F 98 12 111/68 04/17/19 05:26 98.6 F 105 H 16 119/70 04/17/19 05:16 98.9 F 110 H 14 125/65 04/17/19 05:00 100 11 L 98/73 04/17/19 04:05 04/17/19 04:00 104 H 12 121/62 04/17/19 03:00 97.8 F 105 H 12 131/98 04/17/19 02:54 11 L 04/17/19 01:50 97.7 F 132 H 18 128/76 04/16/19 23:00 97.9 F 99 18 135/67 04/16/19 22:04 98.0 F 105 H 18 127/95 04/16/19 21:49 97.8 F 95 95 18 143/65 04/16/19 20:45 124 H 18 125/99 04/16/19 17:12 97.8 F 111 H 20 138/81 Pulse Ox 04/17/19 11:00 95 04/17/19 10:59 94 L 04/17/19 10:00 96 04/17/19 09:30 95 04/17/19 09:00 94 L 04/17/19 08:50 91 L 04/17/19 08:07 95 04/17/19 08:00 98 04/17/19 07:00 96 04/17/19 06:00 97 04/17/19 05:56 100 04/17/19 05:26 96 04/17/19 05:16 96 04/17/19 05:00 96 04/17/19 04:05 96 04/17/19 04:00 97 04/17/19 03:00 94 L 04/17/19 02:54 96 04/17/19 01:50 98 04/16/19 23:00 96 04/16/19 22:04 98 04/16/19 21:49 95 04/16/19 20:45 98 04/16/19 17:12 98 Intake and Output 04/16/19 04/17/19 04/17/19 22:59 06:59 14:59 Intake Total 480 375 745 Output Total 400 Balance 480 375 345 Intake: IV 375 125 Sodium Chloride 0.9% 1, 375 125 000 ml @ 125 mls/hr IV . Q8H [facility] Rx#:[id number] Oral 480 Blood Product 0 620 Rc As-1 Unit 310 [id number] Rc As-1 Unit 0 310 [id number] Output: Urine 400 Other: Voiding Method Bedside Commode Bedside Commode Bedside Commode # Voids 1 0 1 Weight 79.379 kg Gen: This is a 58-year-old obese female. Patient is resting in the ICU bed appears to be in moderate distress secondary to pain from her neck and head. Patient states she's unable to talk and answer questions any further due to the pain. HEENT: Head is atraumatic, normocephalic. Pupils equal, round. Sclerae is anicteric. Patient is hard of hearing on the left side. NECK: Supple. No JVD. No lymphadenopathy. No thyromegaly. LUNGS: Clear to auscultation. No wheezes or rhonchi. No intercostal retractions. HEART: Regular rate and rhythm. No murmur. ABDOMEN: Soft. Bowel sounds are present. No masses. Left-sided tenderness. EXTREMITIES: No pedal edema. No calf tenderness. Dorsalis pedis +1 bilaterally. NEUROLOGICAL: Patient is awake, alert and oriented x3. Cranial nerves 2 through 12 are grossly intact. Results CBC & Chem 7: 04/20/19 06:19 04/18/19 06:41 Labs: Abnormal Lab Results - Last 24 Hours (Table) 04/16/19 04/16/19 04/16/19 Range/Units 17:25 17:25 17:25 WBC 12.3 H (3.8-10.6) k/uL RBC 3.38 L (3.80-5.40) m/uL Hgb 5.8 L* (11.4-16.0) gm/dL Hct 23.7 L (34.0-46.0) % MCV 70.2 L (80.0-100.0) fL MCH 17.1 L (25.0-35.0) pg MCHC 24.4 L (31.0-37.0) g/dL RDW 20.9 H (11.5-15.5) % Neutrophils # 8.6 H (1.3-7.7) k/uL Neutrophils # (Manual) (1.3-7.7) k/uL Eosinophils # (Manual) (0-0.7) k/uL APTT (22.0-30.0) sec Chloride 110 H (98-107) mmol/L Carbon Dioxide (22-30) mmol/L Glucose (74-99) mg/dL POC Glucose (mg/dL) (75-99) mg/dL Crossmatch See Detail 04/16/19 04/17/19 04/17/19 Range/Units 17:25 00:43 02:13 WBC 12.7 H (3.8-10.6) k/uL RBC 3.31 L (3.80-5.40) m/uL Hgb 5.6 L* (11.4-16.0) gm/dL Hct 23.1 L (34.0-46.0) % MCV 69.8 L (80.0-100.0) fL MCH 17.1 L (25.0-35.0) pg MCHC 24.4 L (31.0-37.0) g/dL RDW 21.2 H (11.5-15.5) % Neutrophils # (1.3-7.7) k/uL Neutrophils # (Manual) 10.70 H (1.3-7.7) k/uL Eosinophils # (Manual) (0-0.7) k/uL APTT 20.9 L (22.0-30.0) sec Chloride (98-107) mmol/L Carbon Dioxide (22-30) mmol/L Glucose (74-99) mg/dL POC Glucose (mg/dL) (75-99) mg/dL Crossmatch See Detail 04/17/19 04/17/19 04/17/19 Range/Units 02:53 04:27 04:27 WBC 11.9 H (3.8-10.6) k/uL RBC 3.04 L (3.80-5.40) m/uL Hgb 5.4 L* (11.4-16.0) gm/dL Hct 21.9 L (34.0-46.0) % MCV 72.1 L (80.0-100.0) fL MCH 17.8 L (25.0-35.0) pg MCHC 24.7 L (31.0-37.0) g/dL RDW 21.9 H (11.5-15.5) % Neutrophils # (1.3-7.7) k/uL Neutrophils # (Manual) 9.50 H (1.3-7.7) k/uL Eosinophils # (Manual) (0-0.7) k/uL APTT (22.0-30.0) sec Chloride 111 H (98-107) mmol/L Carbon Dioxide 21 L (22-30) mmol/L Glucose 101 H (74-99) mg/dL POC Glucose (mg/dL) 128 H (75-99) mg/dL Crossmatch 04/17/19 Range/Units 11:28 WBC 12.5 H (3.8-10.6) k/uL RBC (3.80-5.40) m/uL Hgb 8.0 L D (11.4-16.0) gm/dL Hct 29.6 L (34.0-46.0) % MCV 77.0 L (80.0-100.0) fL MCH 20.8 L (25.0-35.0) pg MCHC 27.0 L (31.0-37.0) g/dL RDW 22.9 H (11.5-15.5) % Neutrophils # (1.3-7.7) k/uL Neutrophils # (Manual) 9.00 H (1.3-7.7) k/uL Eosinophils # (Manual) 0.75 H (0-0.7) k/uL APTT (22.0-30.0) sec Chloride (98-107) mmol/L Carbon Dioxide (22-30) mmol/L Glucose (74-99) mg/dL POC Glucose (mg/dL) (75-99) mg/dL Crossmatch Thrombosis Risk Factor Assmnt - DVT/VTE Prophylaxis DVT/VTE Prophylaxis: Pharmacologic Prophylaxis ordered - Choose All That Apply Any of the Below Risk Factors Present?: Yes Each Factor Represents 1 point: Age 41-60 years, Obesity (BMI >25) Other Risk Factors: No Thrombosis Risk Factor Assessment Total Risk Factor Score: 2 Thrombosis Risk Factor Assessment Level: Low Risk Assessment and Plan Assessment: 1.[ ]. 2. [ ]. 3. [ ]. 4. [ ]. 5. [ ]. 6. [ ]. 7. [ ]. 8. [ ]. 9. [ ]. 10. [ ]. Patient will be admitted to the hospital for a minimum of 2 night stay. Discharge plan: Impression and plan of care have been directed as dictated by the signing physician. Aleyda Ambrose nurse practitioner acting as scribe for signing physician. Plan: 1. Acute on chronic iron deficiency anemia, previously under the care of Dr. Franco. Consult with GI appreciated. Patient may undergo capsule endoscopy. Consult with Dr. Melo added. 2. Severe symptomatic anemia, possible acute on chronic blood loss. Patient is status post transfusion of 2 units packed RBCs. Recheck hemoglobin in the morning. Continue oral iron 325 mg twice daily 3. Chronic pain syndrome secondary to cervical and lumbar spinal stenosis, fibromyalgia, rheumatoid arthritis. Continue Tylenol, Excedrin, [place] 7.5 twice daily as needed, oxycodone 30 mg 3 times daily scheduled. 4. Hypertension. Continue Maxzide 25 mg daily. 5. Recurrent depression. Continue Cymbalta 60 mg daily, trazodone 100 mg at bedtime, Abilify 5 mg daily. 6. Hyperlipidemia. Hold omega-3. 7. Psoriasis, stable. 8. Obstructive sleep apnea. 9. MTHFR mutation. 10. Mild intermittent asthma, stable. 11. GI prophylaxis. Protonix twice daily. 12. DVT prophylaxis. SCDs and LIBERTAD hose. Patient will be admitted to the hospital for a minimum of 2 night stay. Discharge plan: To be determined. PT and OT will be added Impression and plan of care have been directed as dictated by the signing physician. Aleyda Ambrose nurse practitioner acting as scribe for signing physician.
--- NOTE | 2019-04-17 16:53 | P.CONS ---
History of Present Illness - Reason for Consult Consult date: 04/17/19 Anemia Requesting physician: Afua Moseley - Chief Complaint Weakness - History of Present Illness 58-year-old female with multiple medical comorbidities including iron deficiency anemia, fibromyalgia, rheumatoid arthritis, hypertension, and asthma who presented to the hospital with complaints of weakness and shortness of breath. Patient reports a known history of iron deficiency anemia. She has required iron infusion in the past for her anemia. She underwent endoscopic evaluation with EGD and colonoscopy in 05/2018 with findings of erosive gastritis, hiatal hernia and a normal-appearing colon for investigation of her iron deficiency anemia. The patient has multiple apical comorbidities and is currently on oral iron in the outpatient setting. No longer on PPI therapy. Patient had stool testing after presentation to the hospital which was found to be negative. WBC 11.9, hemoglobin 5.4 from 5.6, platelet count 360,000, AST 22, ALT 13, total bilirubin 0.3 and alkaline phosphatase 84. Patient denies any signs or symptoms of GI bleeding with no hematemesis or hematochezia. She has noted dark bowel movements on iron therapy. Review of Systems REVIEW OF SYSTEMS: CONSTITUTIONAL: Denies any fevers, chills, weight change but has noted fatigue and weakness. CARDIOVASCULAR: Denies any chest pain, palpitations high or low blood pressures RESPIRATORY: Denies any hemoptysis or cough, but has noted shortness of breath. GENITOURINARY: No dysuria or hematuria. MUSCULOSKELETAL: No focal weakness reported. SKIN: Denies any new rashes or lesions but does suffer from chronic rash at baseline, no jaundice or pallor. PSYCHIATRIC: Denies any depression or anxiety. NEUROLOGY: Denies headache, denies any new focal deficits. EARS/NOSE/THROAT: No recent hearing change, congestion, nasal discharge or sore throat. EYES: No pain in eyes, discharge or change in vision. GASTROINTESTINAL: As per HPI. 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), has some amnesia, anemia-gets iron infusions History of Any Multi-Drug Resistant Organisms: C-DIFF Year Discovered:: unsure MDRO Source:: unsure Past Surgical History: Section, Cholecystectomy, Ear Surgery, Hysterectomy, Tonsillectomy Additional Past Surgical History / Comment(s): left ear recontructed, colonoscopy and EGD, C/S x 4 Past Anesthesia/Blood Transfusion Reactions: Motion Sickness Past Psychological History: Anxiety, Depression Smoking Status: Former smoker Past Alcohol Use History: None Reported Past Drug Use History: None Reported - Past Family History Mother Family Medical History: No Reported History Additional Family Medical History / Comment(s): . Sister(s) Family Medical History: Congestive Heart Failure (CHF), Diabetes Mellitus Brother(s) Family Medical History: Congestive Heart Failure (CHF), Diabetes Mellitus Father Family Medical History: No Reported History Medications and Allergies Home Medications Medication Instructions Recorded Confirmed Type ARIPiprazole [Abilify] 5 mg PO DAILY 04/16/19 04/16/19 History Albuterol Sulfate [Proair Hfa] 1 - 2 puff INHALATION RT-Q6H PRN 04/16/19 04/16/19 History DULoxetine HCL [Cymbalta] 60 mg PO DAILY 04/16/19 04/16/19 History Ergocalciferol [Vitamin D2] 50,000 unit PO Q7D 04/16/19 04/16/19 History Ferrous Sulfate [Feosol] 325 mg PO BID 04/16/19 04/16/19 History HYDROcodone/APAP 7.5-325MG [Sedan 1 tab PO BID 04/16/19 04/16/19 History 7.5-325] Cos Cob-3 Acid Ethyl Esters [Lovaza] 1 gm PO DAILY 04/16/19 04/16/19 History Triamterene/Hydrochlorothiazid 1 tab PO DAILY 04/16/19 04/16/19 History [Triamterene-Hctz 37.5-25 mg Tb] cycloSPORINE [Restasis] 1 drop BOTH EYES Q12H 04/16/19 04/16/19 History oxyCODONE HCL [oxyCODONE HCL (IR)] 30 mg PO TID 04/16/19 04/16/19 History traZODone HCL [Desyrel] 100 mg PO HS 04/16/19 04/16/19 History Allergies Allergy/AdvReac Type Severity Reaction Status Date / Time cashew nut Allergy Unknown Verified 04/16/19 21:26 shellfish derived Allergy Swelling Verified 04/16/19 21:26 nuts Allergy Swelling Uncoded 04/16/19 17:14 animals AdvReac Wheezing Uncoded 04/16/19 17:14 environmental AdvReac Wheezing Uncoded 04/16/19 17:14 Physical Exam Vitals: Vital Signs Temp Pulse Pulse Pulse Resp BP BP 04/17/19 11:00 98 14 107/96 04/17/19 10:00 98 12 126/91 04/17/19 09:30 98.6 F 97 12 126/81 04/17/19 09:00 98.6 F 101 H 15 105/58 04/17/19 08:50 98.6 F 101 H 16 115/62 04/17/19 08:07 98.4 F 95 15 111/62 04/17/19 08:00 98.3 F 98 14 119/83 04/17/19 07:00 101 H 17 111/68 04/17/19 06:00 108 H 14 113/74 04/17/19 05:56 98.7 F 98 12 111/68 04/17/19 05:26 98.6 F 105 H 16 119/70 04/17/19 05:16 98.9 F 110 H 14 125/65 04/17/19 05:00 100 11 L 98/73 04/17/19 04:05 04/17/19 04:00 104 H 12 121/62 04/17/19 03:00 97.8 F 105 H 12 131/98 04/17/19 02:54 11 L 04/17/19 01:50 97.7 F 132 H 18 128/76 04/16/19 23:00 97.9 F 99 18 135/67 04/16/19 22:04 98.0 F 105 H 18 127/95 04/16/19 21:49 97.8 F 95 95 18 143/65 04/16/19 20:45 124 H 18 125/99 04/16/19 17:12 97.8 F 111 H 20 138/81 Pulse Ox 04/17/19 11:00 95 04/17/19 10:00 96 04/17/19 09:30 95 04/17/19 09:00 94 L 04/17/19 08:50 91 L 04/17/19 08:07 95 04/17/19 08:00 98 04/17/19 07:00 96 04/17/19 06:00 97 04/17/19 05:56 100 04/17/19 05:26 96 04/17/19 05:16 96 04/17/19 05:00 96 04/17/19 04:05 96 04/17/19 04:00 97 04/17/19 03:00 94 L 04/17/19 02:54 96 04/17/19 01:50 98 04/16/19 23:00 96 04/16/19 22:04 98 04/16/19 21:49 95 04/16/19 20:45 98 04/16/19 17:12 98 Intake and Output 04/16/19 04/17/19 04/17/19 22:59 06:59 14:59 Intake Total 480 375 435 Output Total 400 Balance 480 375 35 Intake: IV 375 125 Sodium Chloride 0.9% 1, 375 125 000 ml @ 125 mls/hr IV . Q8H [facility] Rx#:[id number] Oral 480 Blood Product 0 310 Rc As-1 Unit 0 [id number] Rc As-1 Unit 0 310 [id number] Output: Urine 400 Other: Voiding Method Bedside Commode Bedside Commode Bedside Commode # Voids 1 0 1 Weight 79.379 kg On physical examination, patient appears comfortable in no apparent distress. HEAD: Normocephalic, atraumatic. EYES: No scleral icterus. No conjunctival injection. MOUTH: No lesions, tongue midline. NECK: Trachea midline, no gross abnormalities. CHEST: Decreased air entry in all lung ramirez. HEART: S1-S2 appreciated, no murmurs appreciated. ABDOMEN: Soft, obese and nontender to palpation. Bowel sounds are positive. No organomegaly. No guarding or rigidity. EXTREMITIES: No pedal edema. SKIN: No rashes, no jaundice. NEUROLOGIC: Alert and oriented x3. Results CBC & Chem 7: 04/17/19 11:28 04/17/19 04:27 Labs: Abnormal Lab Results - Last 24 Hours (Table) 04/16/19 04/16/19 04/16/19 Range/Units 17:25 17:25 17:25 WBC 12.3 H (3.8-10.6) k/uL RBC 3.38 L (3.80-5.40) m/uL Hgb 5.8 L* (11.4-16.0) gm/dL Hct 23.7 L (34.0-46.0) % MCV 70.2 L (80.0-100.0) fL MCH 17.1 L (25.0-35.0) pg MCHC 24.4 L (31.0-37.0) g/dL RDW 20.9 H (11.5-15.5) % Neutrophils # 8.6 H (1.3-7.7) k/uL Neutrophils # (Manual) (1.3-7.7) k/uL APTT (22.0-30.0) sec Chloride 110 H (98-107) mmol/L Carbon Dioxide (22-30) mmol/L Glucose (74-99) mg/dL POC Glucose (mg/dL) (75-99) mg/dL Crossmatch See Detail 04/16/19 04/17/19 04/17/19 Range/Units 17:25 00:43 02:13 WBC 12.7 H (3.8-10.6) k/uL RBC 3.31 L (3.80-5.40) m/uL Hgb 5.6 L* (11.4-16.0) gm/dL Hct 23.1 L (34.0-46.0) % MCV 69.8 L (80.0-100.0) fL MCH 17.1 L (25.0-35.0) pg MCHC 24.4 L (31.0-37.0) g/dL RDW 21.2 H (11.5-15.5) % Neutrophils # (1.3-7.7) k/uL Neutrophils # (Manual) 10.70 H (1.3-7.7) k/uL APTT 20.9 L (22.0-30.0) sec Chloride (98-107) mmol/L Carbon Dioxide (22-30) mmol/L Glucose (74-99) mg/dL POC Glucose (mg/dL) (75-99) mg/dL Crossmatch See Detail 04/17/19 04/17/19 04/17/19 Range/Units 02:53 04:27 04:27 WBC 11.9 H (3.8-10.6) k/uL RBC 3.04 L (3.80-5.40) m/uL Hgb 5.4 L* (11.4-16.0) gm/dL Hct 21.9 L (34.0-46.0) % MCV 72.1 L (80.0-100.0) fL MCH 17.8 L (25.0-35.0) pg MCHC 24.7 L (31.0-37.0) g/dL RDW 21.9 H (11.5-15.5) % Neutrophils # (1.3-7.7) k/uL Neutrophils # (Manual) 9.50 H (1.3-7.7) k/uL APTT (22.0-30.0) sec Chloride 111 H (98-107) mmol/L Carbon Dioxide 21 L (22-30) mmol/L Glucose 101 H (74-99) mg/dL POC Glucose (mg/dL) 128 H (75-99) mg/dL Crossmatch CT scan - abdomen: report reviewed (Computed tomography scan of the abdomen with very large hiatal hernia noted but no focal intra-abdominal pathology seen.) Assessment and Plan (1) Iron deficiency anemia Narrative/Plan: 58-year-old female with multiple medical comorbidities including chronic iron deficiency anemia for which she has been treated with iron infusions in the past and is currently receiving oral iron therapy who presented to the hospital with complaints of weakness and shortness of breath. Patient was found to be anemic with a hemoglobin of 5.4 today from 5.6 previously. She did have stool testing which was negative for occult blood. She has also undergone investigation with EGD and colonoscopy in 05/2018 with findings of erosive gastritis, hiatal hernia and negative findings on colonoscopy for any pathology. Patient denies any signs or symptoms of GI bleeding, bowel movements have been dark with oral iron therapy. Anemia appears to be chronic in nature with no acute evidence of acute bleeding at this time. Likely a component of chronic disease in the setting of multiple comorbidities. Current Visit: Yes Status: Acute Code(s): D50.9 - IRON DEFICIENCY ANEMIA, UNSPECIFIED SNOMED Code(s): 32986025 Plan: Supportive care Okay for diet as tolerated Continue to monitor CBC and transfuse as Protonix 40 mg daily added in the setting of previous findings of erosive gastritis on EGD in 05/2018 No plans for endoscopic evaluation at this time If patient has further fall in hemoglobin can consider video capsule endoscopy for further evaluation, this could also perform an outpatient setting after discharge if patient remains stable Avoid NSAID therapy CT scan of the abdomen reviewed with a known intra-abdominal pathology seen Stool testing for blood negative Thank you for allowing us to participate in the care of the patient, we will continue to follow
[2019-04-17] MEDS: PANTOPRAZOLE 40 MG TABLET PO SCH (17:37)
[2019-04-18] MEDS: HYDROcodone/APAP 7.5-325MG 1 EACH TAB PO PRN (04:12)
[2019-04-18 07:37] LABS: Anisocytosis Marked; HCT 26.8 % (34.0-46.0); HGB 7.2 gm/dL (11.4-16.0); Hypochromasia Marked; MCH 20.4 pg (25.0-35.0); MCHC 26.9 g/dL (31.0-37.0); MCV 75.9 fL (80.0-100.0); Mean Platelet Volume 8.3; Microcytosis Marked; Platelet Count 303 k/uL (150-450); Poikilocytosis Marked; RBC 3.54 m/uL (3.80-5.40); RDW 24.3 % (11.5-15.5); WBC 7.4 k/uL (3.8-10.6)
[2019-04-18 07:51] LABS: ALT 13 U/L (4-34); AST 20 U/L (14-36); African American GFR (CKD) >90 (>60 ml/min/1.73 sqM); Albumin 3.4 g/dL (3.5-5.0); Alkaline Phosphatase 82 U/L (38-126); Anion Gap 7 mmol/L; Blood Urea Nitrogen 7 mg/dL (7-17); Calcium 8.7 mg/dL (8.4-10.2); Carbon Dioxide 27 mmol/L (22-30); Chloride 105 mmol/L (98-107); Glucose 99 mg/dL (74-99); Non-African American GFR(CKD) >90 (>60 ml/min/1.73 sqM); Potassium 4.1 mmol/L (3.5-5.1); Sodium 139 mmol/L (137-145); Total Bilirubin 0.5 mg/dL (0.2-1.3); Total Protein 6.3 g/dL (6.3-8.2)
[2019-04-18] MEDS: DULoxetine HCL 60 MG CAPSULE.DR PO SCH (07:59)
[2019-04-18] MEDS: TRIAMTERENE-HCTZ 37.5-25MG 1 EACH TAB PO SCH (07:59)
[2019-04-18] MEDS: ARIPiprazole 5 MG TAB PO SCH (07:59)
[2019-04-18] MEDS: FERROUS SULFATE 325 MG TAB PO SCH ×2 (07:59→20:19)
[2019-04-18] MEDS: PANTOPRAZOLE 40 MG TABLET PO SCH ×2 (07:59→17:43)
--- NOTE | 2019-04-18 11:24 | P.PN ---
Subjective Progress Note Date: 04/18/19 Principal diagnosis: Symptomatic anemia Patient continued to be hemodynamically stable but continued to have dizziness lightheadedness and stated that it's worse when she closes her eyes with the room spinning around her. Patient currently is denying chest pain shortness breath abdominal pain but complaining of no appetite Objective - Vital Signs Vital signs: Vital Signs Temp 98.1 F 04/18/19 11:00 Pulse 82 04/18/19 11:00 Resp 18 04/18/19 11:00 BP 109/70 04/18/19 11:00 Pulse Ox 93 L 04/18/19 11:00 Intake & Output 04/17/19 04/18/19 04/18/19 18:59 06:59 18:59 Intake Total 1485 150 0 Output Total 1300 Balance 185 150 0 Intake: IV 125 Sodium Chloride 0.9% 1, 125 000 ml @ 125 mls/hr IV . Q8H [facility] Rx#:[id number] Intake, IV Titration 740 Amount Sodium Chloride 0.9% 1, 740 000 ml @ 999 mls/hr IV . Q1H1M [facility] Rx#:[id number] Oral 150 Blood Product 620 0 Rc As-1 Unit 310 [id number] Rc As-1 Unit 310 [id number] Rc As-1 Unit 0 [id number] Output: Urine 1300 Other: Voiding Method Bedside Commode Bedside Commode Bedside Commode # Voids 1 1 - Exam Gen.: in stated age, no acute distress Heart: Normal S1-S2 Lungs: Clear to auscultation bilaterally Abdomen: Soft, no tenderness, positive bowel sounds in all 4 quadrant no guarding or rebound Skin: No new rash Psych: Alert and oriented 3 Neuro: No focal deficit Lower extremity stable place edema - Labs CBC & Chem 7: 04/18/19 06:41 04/18/19 06:41 Labs: Abnormal Lab Results - Last 24 Hours (Table) 04/17/19 04/17/19 04/18/19 Range/Units 02:13 11:28 06:41 WBC 12.5 H (3.8-10.6) k/uL RBC 3.54 L (3.80-5.40) m/uL Hgb 8.0 L D 7.2 L (11.4-16.0) gm/dL Hct 29.6 L 26.8 L (34.0-46.0) % MCV 77.0 L 75.9 L (80.0-100.0) fL MCH 20.8 L 20.4 L (25.0-35.0) pg MCHC 27.0 L 26.9 L (31.0-37.0) g/dL RDW 22.9 H 24.3 H (11.5-15.5) % Neutrophils # (Manual) 9.00 H (1.3-7.7) k/uL Eosinophils # (Manual) 0.75 H (0-0.7) k/uL Albumin (3.5-5.0) g/dL Crossmatch See Detail 04/18/19 Range/Units 06:41 WBC (3.8-10.6) k/uL RBC (3.80-5.40) m/uL Hgb (11.4-16.0) gm/dL Hct (34.0-46.0) % MCV (80.0-100.0) fL MCH (25.0-35.0) pg MCHC (31.0-37.0) g/dL RDW (11.5-15.5) % Neutrophils # (Manual) (1.3-7.7) k/uL Eosinophils # (Manual) (0-0.7) k/uL Albumin 3.4 L (3.5-5.0) g/dL Crossmatch Assessment and Plan Assessment: 1. Symptomatic anemia, iron deficiency, chronic. 2. Generalized weakness. 3. Dizziness. 4. Chronic pain syndrome. 5. Chronic lower back pain. 6. Fibromyalgia area 7. Rheumatoid arthritis. 8. Hyperlipidemia. 9. Morbid obesity. 10. Obstructive sleep apnea. 11. Mild intermittent asthma Patient is still weak in general stated that she cannot get up to the bathroom and requiring one-on-one public health training assistant with transfers. I ordered 1 Unit of blood this morning as her hemoglobin dropped from 8.0 down to 7.2 and I would like to repeat them globin in the morning. Monitor vital signs closely and given the patient's dizziness and changing in the description since yesterday I would like to consult neurology and follow-up with her medication have dizziness could be multifactorial including symptomatic anemia, medication- induced and fibromyalgia along with her other comorbidities. Will follow-up with neurology recommendation and monitor patient during this hospital stay closely continue current pain regimen. Would encourage ambulation and encourage oral intake
[2019-04-18] MEDS: ASPIRIN-ACET-CAFF 250-250-65MG 1 EACH TAB PO PRN (11:37)
[2019-04-18] MEDS: cycloSPORINE 0.05% OPHTH 0.4 ML DROPERETTE BOTH EYES SCH ×2 (11:37→21:32)
--- NOTE | 2019-04-18 11:51 | P.PN ---
Subjective Progress Note Date: 04/18/19 Principal diagnosis: Iron deficient Anemia Patient is seen lying in bed. She reports poor oral intake. She has not had a bowel movement in 2 days and reports some mild left colonic abdominal pain. She does report taking a [id number] laxative at home. Objective - Vital Signs Vital signs: Vital Signs Temp 98.1 F 04/18/19 11:00 Pulse 82 04/18/19 11:00 Resp 18 04/18/19 11:00 BP 109/70 04/18/19 11:00 Pulse Ox 93 L 04/18/19 11:00 Intake & Output 04/17/19 04/18/19 04/18/19 18:59 06:59 18:59 Intake Total 1485 150 0 Output Total 1300 Balance 185 150 0 Intake: IV 125 Sodium Chloride 0.9% 1, 125 000 ml @ 125 mls/hr IV . Q8H [facility] Rx#:[id number] Intake, IV Titration 740 Amount Sodium Chloride 0.9% 1, 740 000 ml @ 999 mls/hr IV . Q1H1M [facility] Rx#:[id number] Oral 150 Blood Product 620 0 Rc As-1 Unit 310 [id number] Rc As-1 Unit 310 [id number] Rc As-1 Unit 0 [id number] Output: Urine 1300 Other: Voiding Method Bedside Commode Bedside Commode Bedside Commode # Voids 1 1 - Exam On physical examination, patient appears comfortable in no apparent distress. HEAD: Normocephalic, atraumatic. EYES: No scleral icterus. No conjunctival injection. MOUTH: No lesions, tongue midline. NECK: Trachea midline, no gross abnormalities. ABDOMEN: Soft, obese and mildly tender to palpation in the left lower quadrant of her abdomen. Bowel sounds are positive. No organomegaly. No guarding or rigidity. EXTREMITIES: No pedal edema. NEUROLOGIC: Alert and oriented x3. No focal deficits. - Labs CBC & Chem 7: 04/18/19 06:41 04/18/19 06:41 Labs: Abnormal Lab Results - Last 24 Hours (Table) 04/17/19 04/17/19 04/18/19 Range/Units 02:13 11:28 06:41 WBC 12.5 H (3.8-10.6) k/uL RBC 3.54 L (3.80-5.40) m/uL Hgb 8.0 L D 7.2 L (11.4-16.0) gm/dL Hct 29.6 L 26.8 L (34.0-46.0) % MCV 77.0 L 75.9 L (80.0-100.0) fL MCH 20.8 L 20.4 L (25.0-35.0) pg MCHC 27.0 L 26.9 L (31.0-37.0) g/dL RDW 22.9 H 24.3 H (11.5-15.5) % Neutrophils # (Manual) 9.00 H (1.3-7.7) k/uL Eosinophils # (Manual) 0.75 H (0-0.7) k/uL Albumin (3.5-5.0) g/dL Crossmatch See Detail 04/18/19 Range/Units 06:41 WBC (3.8-10.6) k/uL RBC (3.80-5.40) m/uL Hgb (11.4-16.0) gm/dL Hct (34.0-46.0) % MCV (80.0-100.0) fL MCH (25.0-35.0) pg MCHC (31.0-37.0) g/dL RDW (11.5-15.5) % Neutrophils # (Manual) (1.3-7.7) k/uL Eosinophils # (Manual) (0-0.7) k/uL Albumin 3.4 L (3.5-5.0) g/dL Crossmatch Assessment and Plan (1) Iron deficiency anemia Narrative/Plan: 58-year-old female with multiple medical comorbidities including chronic iron deficiency anemia for which she has been treated with iron infusions in the past and is currently receiving oral iron therapy who presented to the hospital with complaints of weakness and shortness of breath. Patient was found to be anemic with a hemoglobin of 5.4 today from 5.6 previously. She did have stool testing which was negative for occult blood. She has also undergone investigation with EGD and colonoscopy in 05/2018 with findings of erosive gastritis, hiatal hernia and negative findings on colonoscopy for any pathology. Patient denies any signs or symptoms of GI bleeding, bowel movements have been dark with oral iron therapy. Anemia appears to be chronic in nature with no acute evidence of acute bleeding at this time. Likely a component of chronic disease in the setting of multiple comorbidities. The patient has had no bowel movements in the past 2 days and is complaining of some left lower quadrant abdominal pain, likely related to constipation. No melena, hematemesis, coffee-ground emesis or hematochezia since she has been in the hospital. Current Visit: Yes Status: Acute Code(s): D50.9 - IRON DEFICIENCY ANEMIA, UNSPECIFIED SNOMED Code(s): 65938321 Plan: Supportive care Okay for diet as tolerated Continue to monitor CBC and transfuse as needed Protonix 40 mg daily added in the setting of previous findings of erosive gastritis on EGD in 05/2018 No plans for endoscopic evaluation at this time If patient has further fall in hemoglobin can consider video capsule endoscopy for further evaluation, this could also perform an outpatient setting after discharge if patient remains stable or prior to discharge, based on repeat lab work and clinical course Avoid NSAID therapy CT scan of the abdomen reviewed with a known intra-abdominal pathology seen Stool testing for blood negative At this time we'll add Colace twice daily and MiraLAX daily for bowel regimen and titrate to bowel movements Thank you for allowing us to participate in the care of the patient, we will continue to follow
[2019-04-18] MEDS: DOCUSATE 100 MG CAP PO SCH ×2 (12:54→20:19)
[2019-04-18] MEDS: POLYETHYLENE GLYCOL 3350 17 GM POWD.PACK PO SCH (12:54)
--- NOTE | 2019-04-18 16:23 | CONS ---
CONSULTATION DATE OF SERVICE: April 18, 2019. REASON FOR CONSULTATION: Anemia. HISTORY OF PRESENT ILLNESS: Concepción is a pleasant 58 years old lady well known to our practice, has been under the care of Dr. Melo for iron deficiency anemia and she has had parenteral iron treatment in the past. She was last seen by Dr. Melo about a year ago. She was last seen by Dr. Melo in July of 2018. The patient came into the emergency Department because she had been feeling weak and tired and her hemoglobin was down to 5.8 g/dL, and the patient ended up being admitted to the hospital. She received transfusion with packed red blood cells and also she has been seen by Gastroenterology as well as she did have a CT scan of her abdomen and pelvis was ordered, which revealed a very large hiatal hernia. Otherwise was negative. As stated, the patient feels tired. The patient denies any melena, hematochezia, hematuria, hemoptysis, hematemesis, or any epistaxis. She stated she is feeling tired. She has been craving ice. She has exertional dyspnea. She has generalized pain and she denies any use of NSAIDs at home. However she has been taking narcotic for her back pain. Her appetite is fair and there is no recent weight loss. No fever, night sweats, and she has no dysphagia. PAST MEDICAL HISTORY: In addition to what is stated above in regard to iron deficiency anemia, she has a history of hypertension, hyperlipidemia, rheumatoid arthritis, obstructive sleep apnea. She has MTHFR mutation, asthma, depression, chronic back pain and cervical pain, lumbar stenosis, fibromyalgia, gastroesophageal reflux disease. She had a seizure during in the past and she has a history of C diff and H pylori in 2007. PAST SURGICAL HISTORY: She had a , cholecystectomy, ear surgery, hysterectomy, tonsillectomy. She has anxiety and depression as well. SOCIAL HISTORY: She used to smoke for 10 years. She quit in 1998. She denies any illicit drug use or alcohol abuse. FAMILY HISTORY: She stated that her mother had iron deficiency anemia in the past. Otherwise not pertinent for hematologic or oncologic disorder. REVIEW OF SYSTEMS: As stated above in history of present illness. ALLERGIES: Reviewed in her electronic medical record. MEDICATIONS: Home medications include the: Restasis eyedrops, ferrous sulfate 325 mg b.i.d., vitamin D 62124 units daily. Albuterol inhaler. Desyrel 100 mg q.h.s. hydrochlorothiazide oral once a day. Oxycodone 30 mg t.i.d., Lovaza 1 g daily, hydrocodone, [place] 7.5/325 1 tablet twice a day. Cymbalta 60 mg daily. Abilify 5 mg daily. PHYSICAL EXAMINATION: She is alert, oriented x3. She does not appear to be in distress at this time. Vital signs: Temperature 98, afebrile, pulse 89 and regular, respirations 16, blood pressure 126/51. HEENT: Normocephalic, atraumatic. No obvious icterus. NECK: Supple. No jugular venous distention. CHEST equal expansion bilaterally. LUNGS are clear to auscultation and percussion. HEART: Regular rate and rhythm. ABDOMEN: Soft. No tenderness or organomegaly. No masses. Bowel sounds present. EXTREMITIES: No edema. SKIN no significant bruises, ecchymosis or petechia. LYMPHATICS: No peripherally enlarged cervical or supraclavicular nodes. MUSCULOSKELETAL: Moving all extremities appropriately. No percussion tenderness detected over spine or sternum. LABORATORY DATA: WBC 7.4, hemoglobin 7.2, hematocrit 26.8, MCV 75.9, platelets 313. Sodium 139, potassium 4.1, chloride 101, CO2 is 27, BUN is 7, creatinine 0.67, LFTs are within normal limit. IMPRESSION AND DISCUSSION: 1. Microcytic anemia. This is likely recurrent iron deficiency anemia. I agree with blood transfusion for now. 2. The patient did have an EGD and colonoscopy in July of 2018, was found to have erosive gastritis. I will repeat iron studies today, although she already had blood transfusion. If there is evidence of iron deficiency, then parenteral iron supplement should be highly considered. To fully complete the workup, she may require a capsule endoscopy. I am not sure if she had that done previously. If hemoglobin remains stable, she could be discharged home and she will follow up with Dr. Melo in the outpatient setting. The above was discussed with the patient and I have answered all her questions to her satisfaction. Thank you very much for asking me participate in the care of this nice lady. MMODL / IJN: [id number] /
[2019-04-18] MEDS: traZODone HCL 100 MG TAB PO SCH (20:19)
[2019-04-19] MEDS: HYDROcodone/APAP 7.5-325MG 1 EACH TAB PO PRN ×2 (06:51→17:55)
[2019-04-19] MEDS: ARIPiprazole 5 MG TAB PO SCH (07:44)
[2019-04-19] MEDS: DULoxetine HCL 60 MG CAPSULE.DR PO SCH (07:44)
[2019-04-19] MEDS: PANTOPRAZOLE 40 MG TABLET PO SCH ×2 (07:45→17:51)
[2019-04-19] MEDS: DOCUSATE 100 MG CAP PO SCH ×2 (07:45→20:12)
[2019-04-19] MEDS: POLYETHYLENE GLYCOL 3350 17 GM POWD.PACK PO SCH (07:45)
[2019-04-19] MEDS: FERROUS SULFATE 325 MG TAB PO SCH ×2 (07:45→20:12)
[2019-04-19] MEDS: TRIAMTERENE-HCTZ 37.5-25MG 1 EACH TAB PO SCH (07:46)
[2019-04-19 11:01] LABS: % Iron Saturation 2.08 (12.00-45.00); Ferritin 8.1 ng/mL (10.0-291.0)
[2019-04-19 11:04] LABS: Anisocytosis Moderate; Basophils # (A) 0.1 k/uL (0-0.2); Basophils % (A) 1 %; Eosinophils # (A) 0.3 k/uL (0-0.7); Eosinophils % (A) 3 %; HCT 32.1 % (34.0-46.0); Hypochromasia Marked; Lymphocytes % (A) 11 %; MCH 21.5 pg (25.0-35.0); MCV 76.9 fL (80.0-100.0); Mean Platelet Volume 8.1; Microcytosis Moderate; Monocytes # (A) 0.4 k/uL (0-1.0); Monocytes % (A) 4 %; Neutrophils # (A) 7.2 k/uL (1.3-7.7); Neutrophils % (A) 80 %; Platelet Count 328 k/uL (150-450); Poikilocytosis Marked; RBC 4.18 m/uL (3.80-5.40); RDW 23.4 % (11.5-15.5)
[2019-04-19] MEDS: cycloSPORINE 0.05% OPHTH 0.4 ML DROPERETTE BOTH EYES SCH ×2 (11:08→21:54)
[2019-04-19] MEDS ORDERED: SODIUM FERRIC GLUCONAT-SUCROSE 125 MG in SODIUM CHLORIDE 0.9% 100 ML IVPB ONE (12:30)
[2019-04-19] MEDS ORDERED: oxyCODONE-APAP 7.5-325MG 1 EACH TAB PO PRN (13:08)
[2019-04-19] MEDS ORDERED: BISACODYL 5 MG TABLET.DR PO STA (13:09)
--- NOTE | 2019-04-19 14:27 | P.CNNES ---
History of Present Illness Consult date: 04/19/19 Requesting physician: Sparkle Byrne Reason for Consult: Dizziness History of Present Illness: Patient is a 58-year-old female who came to the hospital on 04/16/2023 generalized weakness, shortness of breath and dizziness. Patient's home nurse check her hemoglobin, which was low. Patient has been having dizziness for last couple weeks. He is more orthostatic. Patient was brought to the hospital, and was found to have severe anemia with hemoglobin of 5.8 with hematocrit 23.7, WBC 12.3 and platelets 425. Chem-7 was normal. Patient has received 3 units of packed red blood cells and her dizziness is much improved. Patient states the dizziness was mainly occurring on standing up and walking around. However since she had blood transfusion, she is feeling much better, able to walk and not as dizzy. Patient does have history of vertigo for long time. She also has hearing loss and uses hearing aids for last 30 years. She has seen another neurologist in the past on 06/03/2017 for vertigo, who had recommended an ENT evaluation at that time. Patient denies any tobacco or alcohol use. Denies any focal neurological symptoms. Patient had a previous MRI of lumbar spine on 06/04/2017, which revealed mild d egenerative disc disease per degree from L2 through S1 levels. No vertebral compression, no significant spinal canal stenosis. There is possible annular fissure at L3 4. This disc material at L5-S1 closely approaches the bilateral traversing S1 nerve roots. Patient's MRI of the cervical spine from 11/21/2017 showed multilevel degenerative disc disease, spinal stenosis and foraminal encroachment. At C4 5 there is moderate to severe central canal stenosis, lateral extension of endplate disc complex results in bilateral foraminal encroachment. At C5 6 there is posterior extension of the endplate disc complex results in mass effect on the anterior cervical cord. Moderate central canal stenosis. Moderate central stenosis at C3 4. Patient had a normal MRI of brain on 11/21/2017. Patient's most recent hemoglobin is 9.0, hemoglobin A1c 4.7 on 06/12/2017. Liver functions normal. Vitamin B12 850, vitamin B1 50 and folate > 20, normal TSH. Review of Systems Patient has history of chronic neck and back pain related to spondylosis. Patient states that she "needs surgery", but has not done yet. Denies any numbness tingling focal weakness. Denies chest pain shortness of breath wheezing cough diplopia, sore throat. Generalized weakness. Denies any h ematemesis, melena, or postmenopausal bleeding. 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), has some amnesia, anemia-gets iron infusions History of Any Multi-Drug Resistant Organisms: C-DIFF Date of last positivie culture/infection: unsure MDRO Source:: unsure Past Surgical History: Section, Cholecystectomy, Ear Surgery, Hysterectomy, Tonsillectomy Additional Past Surgical History / Comment(s): left ear recontructed, colonoscopy and EGD, C/S x 4 Past Anesthesia/Blood Transfusion Reactions: Motion Sickness Past Psychological History: Anxiety, Depression Smoking Status: Former smoker Past Alcohol Use History: None Reported Past Drug Use History: None Reported - Past Family History Son(s) Additional Family Medical History / Comment(s): Patient has 1 son living. 3 sons have passed and patient does not want to talk about their cause of . Mother Family Medical History: No Reported History Additional Family Medical History / Comment(s): . Sister(s) Family Medical History: Congestive Heart Failure (CHF), Diabetes Mellitus Brother(s) Family Medical History: Congestive Heart Failure (CHF), Diabetes Mellitus Father Family Medical History: No Reported History Additional Family Medical History / Comment(s): Father at age 54 from an accident. Medications and Allergies Home Medications Medication Instructions Recorded Confirmed Type ARIPiprazole [Abilify] 5 mg PO DAILY 04/16/19 04/19/19 History Albuterol Sulfate [Proair Hfa] 2 puff INHALATION RT-QID PRN 04/16/19 04/19/19 History Ergocalciferol [Vitamin D2 50,000 unit PO Q7D 04/16/19 04/19/19 History (DRISDOL)] Ferrous Sulfate [Iron (65 MG 325 mg PO BID 04/16/19 04/19/19 History Elemental)] cycloSPORINE [Restasis] 1 drop BOTH EYES Q12H 04/16/19 04/19/19 History oxyCODONE HCL [oxyCODONE HCL (IR)] 30 mg PO TID 04/16/19 04/19/19 History traZODone HCL [Desyrel] 100 mg PO HS 04/16/19 04/19/19 History DULoxetine HCL [Cymbalta] 60 mg PO DAILY capsule. 04/19/19 Rx Docusate [Colace] 100 mg PO BID cap 04/19/19 Rx Meclizine HCl 25 mg PO BID PRN 04/19/19 04/19/19 History Pantoprazole [Protonix] 40 mg PO AC-BID #60 tablet. 04/19/19 Rx Polyethylene Glycol 3350 [Miralax] 17 gm PO DAILY powd.pack 04/19/19 Rx busPIRone HCL [Buspar] 30 mg PO BID 04/19/19 04/19/19 History rOPINIRole HCL [Requip] 0.25 mg PO TID 04/19/19 04/19/19 History tiZANidine [Zanaflex] 2 mg PO BID PRN 04/19/19 04/19/19 History tiZANidine [Zanaflex] 4 mg PO HS 04/19/19 04/19/19 History Allergies Allergy/AdvReac Type Severity Reaction Status Date / Time cashew nut Allergy Unknown Verified 04/16/19 21:26 shellfish derived Allergy Swelling Verified 04/16/19 21:26 nuts Allergy Swelling Uncoded 04/16/19 17:14 animals AdvReac Wheezing Uncoded 04/16/19 17:14 environmental AdvReac Wheezing Uncoded 04/16/19 17:14 Physical Examination - Vital Signs Vital Signs: Vital Signs Temp Pulse Pulse Resp BP Pulse Ox 04/19/19 04:11 98.3 F 85 18 138/73 95 04/18/19 20:35 98.1 F 89 18 131/63 94 L Intake and Output 04/18/19 04/19/19 04/19/19 22:59 06:59 14:59 Other: Voiding Method Bedside Commode Bedside Commode Bedside Commode # Voids 1 1 On examination patient is a middle aged female, in no distress. Patient is alert and awake oriented to time place and person. Speech and language functions are normal. Attention and concentration fund of knowledge a dequate. Patient is slightly slow mentation. On cranial nerves her pupils are round and reactive to light, visual ramirez are full on confrontation, extraocular muscles are intact. Face is symmetric and tongue protrudes the midline. Palatal elevation sensation normal. On muscle strength testing there is no bruit or drift and the strength is normal in arms and legs up to 7+ and plantars are downgoing. Sensory touch is equal. No ataxia for [id number]-fi-ekdu testing. Tone and bulk of muscles normal. Gait normal. No carotid bruit or murmur, S1 and S2 audible. Peripheral pulses present Results - Laboratory Findings CBC and BMP: 04/19/19 09:38 04/18/19 06:41 Abnormal Lab Findings: Abnormal Labs 04/16/19 04/16/19 04/16/19 17:25 17:25 17:25 WBC 12.3 H RBC 3.38 L Hgb 5.8 L* Hct 23.7 L MCV 70.2 L MCH 17.1 L MCHC 24.4 L RDW 20.9 H Neutrophils # 8.6 H Neutrophils # (Manual) Eosinophils # (Manual) APTT Chloride 110 H Carbon Dioxide Glucose POC Glucose (mg/dL) Iron % Saturation Ferritin Albumin Crossmatch See Detail 04/16/19 04/17/19 04/17/19 17:25 00:43 02:13 WBC 12.7 H RBC 3.31 L Hgb 5.6 L* Hct 23.1 L MCV 69.8 L MCH 17.1 L MCHC 24.4 L RDW 21.2 H Neutrophils # Neutrophils # (Manual) 10.70 H Eosinophils # (Manual) APTT 20.9 L Chloride Carbon Dioxide Glucose POC Glucose (mg/dL) Iron % Saturation Ferritin Albumin Crossmatch See Detail 04/17/19 04/17/19 04/17/19 02:53 04:27 04:27 WBC 11.9 H RBC 3.04 L Hgb 5.4 L* Hct 21.9 L MCV 72.1 L MCH 17.8 L MCHC 24.7 L RDW 21.9 H Neutrophils # Neutrophils # (Manual) 9.50 H Eosinophils # (Manual) APTT Chloride 111 H Carbon Dioxide 21 L Glucose 101 H POC Glucose (mg/dL) 128 H Iron % Saturation Ferritin Albumin Crossmatch 04/17/19 04/17/19 04/18/19 04:27 11:28 06:41 WBC 12.5 H RBC 3.54 L Hgb 8.0 L D 7.2 L Hct 29.6 L 26.8 L MCV 77.0 L 75.9 L MCH 20.8 L 20.4 L MCHC 27.0 L 26.9 L RDW 22.9 H 24.3 H Neutrophils # Neutrophils # (Manual) 9.00 H Eosinophils # (Manual) 0.75 H APTT Chloride Carbon Dioxide Glucose POC Glucose (mg/dL) Iron 9 L % Saturation 2.08 L Ferritin 8.1 L Albumin Crossmatch 04/18/19 04/19/19 06:41 09:38 WBC RBC Hgb 9.0 L D Hct 32.1 L MCV 76.9 L MCH 21.5 L MCHC 28.0 L RDW 23.4 H Neutrophils # Neutrophils # (Manual) Eosinophils # (Manual) APTT Chloride Carbon Dioxide Glucose POC Glucose (mg/dL) Iron % Saturation Ferritin Albumin 3.4 L Crossmatch Assessment and Plan Assessment: * 58-year-old female admitted with 2 week history of dizziness, likely due to severe anemia. Her hemoglobin on presentation was 5.8. Patient's dizziness is much improved since she has undergone 3 units of packed RBC transfusion. Dizziness likely due to hypovolemia/anemia. * History of vertigo in the past, currently stable. * Hearing loss, chronic. * History of cervical spondylosis. Plan: * Patient's dizziness has remarkably improved since she had undergone 3 units of packed RBC transfusion. * No further neurological workup indicated. * Neurologically the patient is clear.
--- NOTE | 2019-04-19 15:09 | P.PN ---
Subjective Progress Note Date: 04/19/19 This is a 58-year-old female patient of Dr. Dhaliwal with past medical history of iron deficiency anemia with previous iron infusions, hypertension, hyperlipidemia, rheumatoid arthritis, obstructive sleep apnea, [place] HFR mutation, asthma, depression, chronic pain with cervical and lumbar stenosis, fi bromyalgia, gastroesophageal reflux disease. Patient states that she was receiving regular iron infusions with Dr. Melo about every 6-8 weeks but has not received any for a while. She states she is off schedule and has not been back to see him. In May 2018 she underwent upper endoscopy and colonoscopy. Results were antral erosive gastritis and small hiatal hernia, no colitis or colorectal neoplasia. Patient complains of left-sided abdominal pain, no nausea or vomiting, no hematuria. She has not noticed any blood in her stools. She does have dark stools but on chronic iron. Patient is complaining of severe headache and neck pain secondary to her spinal stenosis. Patient came into [facility] emergency center for evaluation. She was afebrile, sinus tachycardia 124, blood pressure 138/81, pulse ox 98%. EKG was a sinus tachycardia 121. No acute ST changes. WBC 12.3, hemoglobin 5.8, platelet count 425. Creatinine 0.78 and BUN 10, blood sugar 90 lactic acid 1.6, stool for occult blood negative. Troponin negative. Patient was admitted to the intensive care unit and has been downgraded to [facility] with telemetry. She is status post transfusion of 2 units of packed RBC with repeat hemoglobin of 8. Third unit of packed RBCs will be held. Patient has been seen by GI with plan for possible capsule endoscopy. 04/19 patient examined bedside still complaining of weakness associated with dizziness. Evaluation is in spite of patient has a temp of 98.3 pulse 85 blood pressure 138/73 hemoglobin is improved to 9 platelet 328. Patient will receive a dose of ferrlicit as iron stores are low. GI plans to do capsule endoscopy tomorrow. Patient can be discharged once completed ROS Constitutional: Denies chills, Denies fever, endorses lethargy Eyes: denies decreased vision, denies diplopia, denies discharge, denies pain Ears: deny: decreased hearing Ears, nose, mouth and throat: Denies dental pain, Denies headache, Denies nasal discharge, Denies nose pain Cardiovascular: Denies chest pain, Denies decreased exercise tolerance, Denies edema, Denies high blood pressure, Denies irregular heart beat, Denies palpitations, Denies paroxysmal nocturnal dyspnea, Denies rapid heart beat, Denies shortness of breath Respiratory: Denies congestion, Denies cough, Denies cough with sputum, Denies dyspnea, Denies home oxygen, Denies wheezing Gastrointestinal: Denies abdominal pain, Denies change in bowel habits, Denies coffee ground emesis, Denies early satiety, Denies excessive gas, Denies heartburn, Denies hematemesis, Denies hematochezia, Denies loss of appetite, Denies nausea, Denies vomiting Genitourinary: Denies dysuria, Denies flank pain, Denies kidney stones, Denies menorrhagia, Denies urgency, Denies urinary frequency Musculoskeletal: Denies gait dysfunction, Denies limitation of motion, Denies morning stiffness, Denies muscle cramps Integumentary: Denies rash, Denies wounds, Denies brittle nails, Denies change in hair/nails, Denies darkening of skin Neurological: Denies balance difficulties, Denies change in speech, Denies double vision, Denies gait dysfunction, Denies loss of vision, Denies motor disturbance, Denies numbness, Denies paralysis, Denies paresthesias, Denies seizures endorses dizziness Psychiatric: Denies anxiety, Denies depression Endocrine: Denies excessive sweating, Denies excessive thirst, Denies high blood sugars, Denies palpitations Hematologic/Lymphatic: Denies easy bruising, Denies lymphadenopathy Objective - Vital Signs Vital signs: Vital Signs Temp 98.3 F 04/19/19 04:11 Pulse 85 04/19/19 04:11 Resp 18 04/19/19 04:11 BP 138/73 04/19/19 04:11 Pulse Ox 95 04/19/19 04:11 Intake & Output 04/18/19 04/19/19 04/19/19 18:59 06:59 18:59 Intake Total 310 Balance 310 Intake: Blood Product 310 Rc As-1 Unit 310 [id number] Other: Voiding Method Bedside Commode Bedside Commode Bedside Commode # Voids 3 1 2 - Exam - Constitutional General appearance: cooperative, no acute distress, obese - EENT Eyes: anicteric sclerae, PERRLA, normal appearance ENT: hearing grossly normal - Neck Neck: no lymphadenopathy, normal ROM, no other, no rigidity, no stridor, no thyromegaly - Respiratory Respiratory: bilateral: CTA, negative: diminished, dullness, rales, rhonchi - Cardiovascular Rhythm: regular Heart sounds: normal: S1, S2 Abnormal Heart Sounds: no systolic murmur, no diastolic murmur, no rub, no S3 Gallop, no S4 Gallop, no click, no other - Gastrointestinal General gastrointestinal: normal bowel sounds, soft nontender - Integumentary Integumentary: no rash - Neurologic Neurologic: CNII-XII intact - Musculoskeletal Musculoskeletal: gait normal, strength equal bilaterally - Psychiatric Psychiatric: A&O x's 3, appropriate affect - Labs CBC & Chem 7: 04/19/19 09:38 04/18/19 06:41 Labs: Abnormal Lab Results - Last 24 Hours (Table) 04/17/19 04/19/19 Range/Units 04:27 09:38 Hgb 9.0 L D (11.4-16.0) gm/dL Hct 32.1 L (34.0-46.0) % MCV 76.9 L (80.0-100.0) fL MCH 21.5 L (25.0-35.0) pg MCHC 28.0 L (31.0-37.0) g/dL RDW 23.4 H (11.5-15.5) % Iron 9 L (50-170) ug/dL % Saturation 2.08 L (12.00-45.00) Ferritin 8.1 L (10.0-291.0) ng/mL Assessment and Plan Plan: 1. Acute on chronic iron deficiency anemia likely secondary to gastritis, previously under the care of Dr. melo. IV iron fo X1 on 04/19 EGD from July 2018 p ositive for erosive gastritis no plan for repeat EGD. Capsule endoscopy ordered for tomorrow Consult with GI appreciated. Patient may undergo capsule endoscopy. Consult with Dr. Melo added. 2. Severe symptomatic anemia, possible acute on chronic blood loss. Patient is status post transfusion of 2 units packed RBCs. Recheck hemoglobin in the morning. Continue oral iron 325 mg twice daily 3. Chronic pain syndrome secondary to cervical and lumbar spinal stenosis, fibromyalgia, rheumatoid arthritis. Continue Tylenol, Excedrin, [place] 7.5 twice daily as needed, oxycodone 30 mg 3 times daily scheduled. 4. Hypertension. Continue Maxzide 25 mg daily. 5. Recurrent depression. Continue Cymbalta 60 mg daily, trazodone 100 mg at bedtime, Abilify 5 mg daily. 6. Hyperlipidemia. Hold omega-3. 7. Rheumatoid arthritis. 8. Obstructive sleep apnea. 9. MTHFR mutation. 10. Mild intermittent asthma, stable. 11. GI prophylaxis. Protonix twice daily. 12. DVT prophylaxis. SCDs and LIBERTAD hanna. Discharge plan: Patient has refused subacute rehab and will be discharged home with homecare
[2019-04-19] MEDS ORDERED: MAGNESIUM CITRATE 296 ML BOTTLE PO ONE ×2 (15:15→18:00)
[2019-04-19 15:59] LABS: % Iron Saturation 7.17 (12.00-45.00)
--- NOTE | 2019-04-19 16:40 | P.PN ---
Objective - Vital Signs Vital signs: Vital Signs Temp 98.3 F 04/19/19 04:11 Pulse 85 04/19/19 04:11 Resp 18 04/19/19 04:11 BP 138/73 04/19/19 04:11 Pulse Ox 95 04/19/19 04:11 Intake & Output 04/18/19 04/19/19 04/19/19 18:59 06:59 18:59 Intake Total 310 Balance 310 Intake: Blood Product 310 Rc As-1 Unit 310 [id number] Other: Voiding Method Bedside Commode Bedside Commode Bedside Commode # Voids 3 1 2 - Labs CBC & Chem 7: 04/19/19 09:38 04/18/19 06:41 Labs: Abnormal Lab Results - Last 24 Hours (Table) 04/16/19 04/17/19 04/19/19 Range/Units 17:25 04:27 09:38 Hgb 9.0 L D (11.4-16.0) gm/dL Hct 32.1 L (34.0-46.0) % MCV 76.9 L (80.0-100.0) fL MCH 21.5 L (25.0-35.0) pg MCHC 28.0 L (31.0-37.0) g/dL RDW 23.4 H (11.5-15.5) % Iron 35 L 9 L (50-170) ug/dL TIBC 488 H (228-460) ug/dL % Saturation 7.17 L 2.08 L (12.00-45.00) Ferritin 8.1 L (10.0-291.0) ng/mL Assessment and Plan (1) Iron deficiency anemia Narrative/Plan: Parenteral and oral iron ordered. Patient is missed some appointments and parenteral iron which is likely contributing to her exacerbated anemia. Recommend f/u with [facility]. Agree with GI evaluation. Current Visit: Yes Status: Chronic Priority: Medium Code(s): D50.9 - IRON DEFICIENCY ANEMIA, UNSPECIFIED SNOMED Code(s): 03538088 Plan: Doctor attests: I performed a history and physical examination of this patient, developed impression and plan of care, discussed with dictator. I agree with dictators note, documented as a scribe.
[2019-04-19 16:43] LABS: Ferritin 7.4 ng/mL (10.0-291.0)
--- NOTE | 2019-04-19 17:05 | PN ---
PROGRESS NOTE DATE OF DICTATION: 04/19/2019 This patient is a 58-year-old pleasant white female admitted to the hospital with severe symptomatic anemia and hemoglobin of 5.4 g/dL. She received a total of 3 units of PRBC transfusion. Last hemoglobin was 7.8 g/dL. She has a prior history of iron deficiency anemia and has been having periodic iron infusions over the years. She complains of some abdominal pain. She reports no nausea or vomiting. She has intermittent dark-colored stools. She did have an EGD and colonoscopy done by me in May of 2018 as a part of evaluation of iron deficiency anemia which revealed antral erosive gastritis and a small hiatal hernia but was otherwise unremarkable. PHYSICAL EXAMINATION: She appears comfortable. No apparent distress. VITAL SIGNS: Stable. Blood pressure is 133/86, pulse rate 88 per minute and afebrile. HEENT examination unremarkable. Conjunctivae pink. Sclerae anicteric. Oral cavity no lesions. NECK: No JVD or lymph node enlargement. CHEST: Clear to auscultation. HEART: Regular rate and rhythm. ABDOMEN: Soft. Bowel sounds are positive. No organomegaly. EXTREMITIES: No pedal edema. SKIN: No rashes. NEUROLOGIC: Alert and oriented x3. No focal deficits. LABS: Labs done at the time of admission to the hospital showed WBC 9, hemoglobin 9, platelets 328. Rest of the labs are within normal limits. Hemoglobin 2 days ago was 5.4 g/dL. IMPRESSION: 1. Iron deficiency anemia with intermittent dark-colored stools. EGD and colonoscopy done in May of 2018 by me revealed antral erosive gastritis or small hiatal hernia with normal colonoscopy. At this time possibility of small bowel source of bleeding needs to be considered. 2. Chronic pain syndrome and history of fibromyalgia. 3. Hypertension and hyperlipidemia. 4. Anxiety and depression. RECOMMENDATIONS: I had a lengthy discussion with the patient regarding workup for anemia. Since she had an EGD and colonoscopy in May of 2018, no plans for repeating any endoscopic intervention, but will schedule her for a small bowel capsule endoscopy either as an inpatient or on outpatient to evaluate for small bowel source of occult GI blood loss. Discussed with her about the procedure and she is agreeable to it. If the patient stays in the hospital, we can do this tomorrow. In the meantime, we will follow with you closely. Thank you for this consultation. MMODL / IJN: [id number] /
[2019-04-19] MEDS: ASPIRIN-ACET-CAFF 250-250-65MG 1 EACH TAB PO PRN (17:51)
[2019-04-19] MEDS: traZODone HCL 100 MG TAB PO SCH (20:13)
[2019-04-20] MEDS: HYDROcodone/APAP 7.5-325MG 1 EACH TAB PO PRN (01:51)
[2019-04-20] MEDS: ASPIRIN-ACET-CAFF 250-250-65MG 1 EACH TAB PO PRN (06:24)
[2019-04-20 07:46] LABS: Anisocytosis Marked; Basophils # (A) 0.1 k/uL (0-0.2); Basophils % (A) 1 %; Eosinophils # (A) 0.2 k/uL (0-0.7); Eosinophils % (A) 3 %; HCT 34.6 % (34.0-46.0); HGB 9.5 gm/dL (11.4-16.0); Hypochromasia Marked; Lymphocytes # (A) 1.2 k/uL (1.0-4.8); Lymphocytes % (A) 13 %; MCH 21.3 pg (25.0-35.0); MCHC 27.3 g/dL (31.0-37.0); MCV 77.9 fL (80.0-100.0); Mean Platelet Volume 7.7; Microcytosis Moderate; Monocytes # (A) 0.4 k/uL (0-1.0); Monocytes % (A) 5 %; Neutrophils # (A) 6.7 k/uL (1.3-7.7); Neutrophils % (A) 77 %; Platelet Count 304 k/uL (150-450); Poikilocytosis Marked; RBC 4.44 m/uL (3.80-5.40); WBC 8.8 k/uL (3.8-10.6)
[2019-04-20] MEDS ORDERED: HYDROmorphone 1 MG/ML 1 ML SYRINGE IVP STA (08:31)
[2019-04-20 11:40] VITALS: BP 130/71; RESP 17; TEMP 97.7
--- NOTE | 2019-04-20 12:30 | P.DS ---
Providers Date of admission: 04/16/19 20:32 Expected date of discharge: 04/20/19 Attending physician: Sparkle Byrne Consults: 04/16/19 20:24 Consult Physician Urgent Consulting Provider: Jaret Cooper Consult Reason/Comments: anemia, hospitalist request Do you want consulting provider notified?: Yes 04/17/19 02:12 Consult Physician Urgent Consulting Provider: Komal Nieto Consult Reason/Comments: icu transfer Do you want consulting provider notified?: Yes, Notify in am 04/17/19 16:36 Consult Physician Routine Consulting Provider: Farrukh Melo Consult Reason/Comments: acute on chronic anemia Do you want consulting provider notified?: Yes 04/18/19 10:26 Consult Physician Routine Consulting Provider: Madyson Schuler Consult Reason/Comments: dizziness Do you want consulting provider notified?: Already Contacted Primary care physician: Amelie Dhaliwal [facility] Course: This is a 58-year-old female patient of Dr. Dhaliwal with past medical history of iron deficiency anemia with previous iron infusions, hypertension, hyperlipidemia, osteoarthritis, psoriasis, obstructive sleep apnea, MT HFR mutation, asthma, depression, chronic pain with cervical and lumbar stenosis, fibromyalgia, gastroesophageal reflux disease. Patient states that she was receiving regular iron infusions with Dr. Melo about every 6-8 weeks but has not received any for a while. She states she is off schedule and has not been back to see him. In May 2018 she underwent upper endoscopy and colonoscopy. Results were antral erosive gastritis and small hiatal hernia, no colitis or colorectal neoplasia. Patient complains of left-sided abdominal pain, no nausea or vomiting, no hematuria. She has not noticed any blood in her stools. She does have dark stools but on chronic iron. Patient is complaining of severe headache and neck pain secondary to her spinal stenosis. Patient came into [facility] emergency center for evaluation. She was afebrile, sinus tachycardia 124, blood pressure 138/81, pulse ox 98%. EKG was a sinus tachycardia 121. No acute ST changes. WBC 12.3, hemoglobin 5.8, platelet count 425. Creatinine 0.78 and BUN 10, blood sugar 90 lactic acid 1.6, stool for occult blood negative. Troponin negative. Patient was admitted to the intensive care unit and has been downgraded to MedSurg with telemetry. She is status post transfusion of 2 units of packed RBC with repeat hemoglobin of 8. Third unit of packed RBCs will be held. Patient has been seen by GI with plan for possible capsule endoscopy. 04/19 patient examined bedside still complaining of weakness associated with dizziness. Evaluation is in spite of patient has a temp of 98.3 pulse 85 blood pressure 138/73 hemoglobin is improved to 9 platelet 328. Patient will receive a dose of ferrlicit as iron stores are low. GI plans to do capsule endoscopy tomorrow. Patient can be discharged once completed 04/20: Repeat hemoglobin is 9.5. The patient has been seen by Dr. Harris for dizziness and has signed off the case. Patient is status post total of 3 units of packed RBCs. Because patient is currently nothing by mouth, Dilaudid IV 1 dose will be given. Patient has been seen by oncology as well with plan for follow-up in the office. Patient is to have capsule endoscopy today and be discharged home later in the afternoon. Discharge diagnoses: 1. Acute on chronic iron deficiency anemia likely secondary to gastritis, previously under the care of Dr. Melo. 2. Severe symptomatic anemia, possible acute on chronic blood loss. 3. Chronic pain syndrome secondary to cervical and lumbar spinal stenosis, fibromyalgia, osteoarthritis. 4. Hypertension. 5. Recurrent depression. 6. Hyperlipidemia. 7. Psoriasis. 8. Obstructive sleep apnea. 9. MTHFR mutation. 10. Mild intermittent asthma, stable. Discharge plan: Home, patient refused home care Impression and plan of care have been directed as dictated by the signing physician. Aleyda Ambrose nurse practitioner acting as scribe for signing physician. Patient Condition at Discharge: Good Plan - Discharge Summary Discharge Rx Participant: No New Discharge Prescriptions: New Docusate [Colace] 100 mg PO BID cap Polyethylene Glycol 3350 [Miralax] 17 gm PO DAILY powd.pack Pantoprazole [Protonix] 40 mg PO AC-BID #60 tablet. DULoxetine HCL [Cymbalta] 60 mg PO DAILY capsule. Continue cycloSPORINE [Restasis] 1 drop BOTH EYES Q12H Ergocalciferol [Vitamin D2 (DRISDOL)] 50,000 unit PO Q7D Albuterol Sulfate [Proair Hfa] 2 puff INHALATION RT-QID PRN PRN Reason: Shortness Of Breath traZODone HCL [Desyrel] 100 mg PO HS oxyCODONE HCL [oxyCODONE HCL (IR)] 30 mg PO TID ARIPiprazole [Abilify] 5 mg PO DAILY rOPINIRole HCL [Requip] 0.25 mg PO TID tiZANidine [Zanaflex] 4 mg PO HS tiZANidine [Zanaflex] 2 mg PO BID PRN PRN Reason: Muscle Spasm busPIRone HCL [Buspar] 30 mg PO BID Meclizine HCl 25 mg PO BID PRN PRN Reason: DIZZINESS AND/OR NAUSEA Discharge Medication List ARIPiprazole [Abilify] 5 mg PO DAILY 04/16/19 [History] Albuterol Sulfate [Proair Hfa] 2 puff INHALATION RT-QID PRN 04/16/19 [History] Ergocalciferol [Vitamin D2 (DRISDOL)] 50,000 unit PO Q7D 04/16/19 [History] cycloSPORINE [Restasis] 1 drop BOTH EYES Q12H 04/16/19 [History] oxyCODONE HCL [oxyCODONE HCL (IR)] 30 mg PO TID 04/16/19 [History] traZODone HCL [Desyrel] 100 mg PO HS 04/16/19 [History] DULoxetine HCL [Cymbalta] 60 mg PO DAILY capsule. 04/19/19 [Rx] Docusate [Colace] 100 mg PO BID cap 04/19/19 [Rx] Meclizine HCl 25 mg PO BID PRN 04/19/19 [History] Pantoprazole [Protonix] 40 mg PO AC-BID #60 tablet. 04/19/19 [Rx] Polyethylene Glycol 3350 [Miralax] 17 gm PO DAILY powd.pack 04/19/19 [Rx] busPIRone HCL [Buspar] 30 mg PO BID 04/19/19 [History] rOPINIRole HCL [Requip] 0.25 mg PO TID 04/19/19 [History] tiZANidine [Zanaflex] 2 mg PO BID PRN 04/19/19 [History] tiZANidine [Zanaflex] 4 mg PO HS 04/19/19 [History] Follow up Appointment(s)/Referral(s): Farrukh Melo MD [STAFF PHYSICIAN] - 3 Weeks Amelie Dhaliwal MD [Primary Care Provider] - 1-2 days (Dr. Dhaliwal's office will call and schedule follow up appointment. ) Patient Instructions/Handouts: Pantoprazole (By mouth), Iron Deficiency Anemia (DC), Anemia (DC), Tachycardia (ED) Activity/Diet/Wound Care/Special Instructions: Dr. Melo's ofc will call pt for appt for IV iron Discharge Disposition: HOME WITH HOME HEALTH SERVICES
[2019-04-20] MEDS: cycloSPORINE 0.05% OPHTH 0.4 ML DROPERETTE BOTH EYES SCH (13:01)
[2019-04-20] MEDS: TRIAMTERENE-HCTZ 37.5-25MG 1 EACH TAB PO SCH (13:02)
[2019-04-20] MEDS: PANTOPRAZOLE 40 MG TABLET PO SCH (13:02)
[2019-04-20] MEDS: ARIPiprazole 5 MG TAB PO SCH (13:02)
[2019-04-20] MEDS: DULoxetine HCL 60 MG CAPSULE.DR PO SCH (13:03)
[2019-04-20] MEDS: DOCUSATE 100 MG CAP PO SCH (13:03)
[2019-04-20] MEDS: FERROUS SULFATE 325 MG TAB PO SCH (13:03)
[2019-04-20] MEDS: POLYETHYLENE GLYCOL 3350 17 GM POWD.PACK PO SCH (13:04)
[2019-04-20 15:30] VITALS: PULSE 80
--- NOTE | 2019-04-20 15:53 | P.PN ---
Subjective Progress Note Date: 04/20/19 Patient states she is doing much better. She still feels slightly dizzy, but better than yesterday. She uses walker. Overall feeling better. States she is going home. Objective - Vital Signs Vital signs: Vital Signs Temp 97.7 F 04/20/19 11:39 Pulse 80 04/20/19 15:29 Resp 17 04/20/19 15:29 BP 130/71 04/20/19 11:39 Pulse Ox 94 L 04/20/19 11:39 Intake & Output 04/19/19 04/20/19 04/20/19 18:59 06:59 18:59 Intake Total 750 1200 Output Total 900 Balance 750 300 Intake: Oral 750 1200 Output: Urine 900 Other: Voiding Method Bedside Commode Bedside Commode Bedside Commode # Voids 2 2 4 # Bowel Movements 3 - Exam Mental status, speech and language functions normal. Cranial nerves normal. Muscle strength normal. - Labs CBC & Chem 7: 04/20/19 06:19 04/18/19 06:41 Labs: Abnormal Lab Results - Last 24 Hours (Table) 04/16/19 04/16/19 04/20/19 Range/Units 17:25 17:25 06:19 Hgb 9.5 L (11.4-16.0) gm/dL MCV 77.9 L (80.0-100.0) fL MCH 21.3 L (25.0-35.0) pg MCHC 27.3 L (31.0-37.0) g/dL RDW 24.0 H (11.5-15.5) % Iron 35 L (50-170) ug/dL TIBC 488 H (228-460) ug/dL % Saturation 7.17 L (12.00-45.00) Ferritin 7.4 L (10.0-291.0) ng/mL Crossmatch See Detail Assessment and Plan Assessment: * 58-year-old female admitted with 2 week history of dizziness, likely due to severe anemia. Her hemoglobin on presentation was 5.8. Patient's dizziness is much improved since she has undergone 3 units of packed RBC transfusion. Dizziness likely due to hypovolemia/anemia. * History of vertigo in the past, currently stable. * Hearing loss, chronic. * History of cervical spondylosis. Plan: * Patient's dizziness has remarkably improved since she had undergone 3 units of packed RBC transfusion. Her dizziness is improved as compared even to yesterday. * No further neurological workup indicated. * Neurologically the patient is clear. * Patient being discharged home.
--- NOTE | 2019-04-20 15:56 | PN ---
PROGRESS NOTE DATE OF DICTATION: 04/20/2019 This patient is a 58-year-old pleasant white female admitted to the hospital with severe symptomatic anemia, hemoglobin of 5.4, requiring 3 units of blood transfusion. She is presently undergoing small bowel capsule endoscopy to investigate this further. She denies any GI symptoms. She did have an EGD and colonoscopy done by me in May of 2018 that showed mild gastritis and diverticulosis. She denies any symptoms today. PHYSICAL EXAMINATION: Appears comfortable. No apparent distress. VITAL SIGNS: Stable. Blood pressure is 130/71, pulse rate 80, temperature 97.7. HEENT examination unremarkable. Conjunctivae pink. Sclerae anicteric. Oral cavity no lesions. NECK: No JVD or lymph node enlargement. CHEST: Clear to auscultation. HEART: Regular rate and rhythm. ABDOMEN: Soft. Bowel sounds are positive. No organomegaly. EXTREMITIES: No pedal edema. SKIN: No rashes. NEUROLOGIC: Alert and oriented x3. No focal deficits. LABS: Labs from today show hemoglobin 9.5, WBC 8.8, platelets 304. IMPRESSION: Severe symptomatic iron deficiency anemia with a hemoglobin of 5.4, status post 3 units of blood transfusion. Last hemoglobin is 9.5 g/dL. Clinically no evidence of active ongoing bleeding. Last EGD and colonoscopy in May of 2018 showed gastritis and diverticulosis. At this time she is undergoing small bowel capsule endoscopy to evaluate for small bowel source of occult GI blood loss. RECOMMENDATIONS: 1. Will advance diet as tolerated. 2. After the capsule study is done, the patient can be discharged home today. 3. She will be followed up in the office in a week from now to discuss the capsule results. In the meantime she was advised to start on iron supplements from tomorrow. Thank you for this consultation. MMODL / IJN: [id number] /
== END 2019-04-20 16:45 | disposition home health service (06) | DRG 378 ==
LOC: EC 17:05 → 5NMEDONC 20:32 → 2SICU 04-17 02:52 → 5NMEDONC 04-17 19:44
PROVIDERS: ADMIT Internal Medicine; ATTEND Internal Medicine
PROC: 30233N1 Transfusion of Nonautologous Red Blood Cells into Peripheral Vein, Percutaneous Approach (ICD-10-PCS; principal; 2019-04-17)
PROC: 0DJ07ZZ Inspection of Upper Intestinal Tract, Via Natural or Artificial Opening (ICD-10-PCS; 2019-04-20)
DX: K29.71 Gastritis, unspecified, with bleeding (principal); F33.9 Major depressive disorder, recurrent, unspecified; E72.12 Methylenetetrahydrofolate reductase deficiency; D50.9 Iron deficiency anemia, unspecified; K44.9 Diaphragmatic hernia without obstruction or gangrene; F41.9 Anxiety disorder, unspecified; G47.33 Obstructive sleep apnea (adult) (pediatric); G89.4 Chronic pain syndrome; H91.90 Unspecified hearing loss, unspecified ear; I10 Essential (primary) hypertension; J45.20 Mild intermittent asthma, uncomplicated; K21.0 Gastro-esophageal reflux disease with esophagitis; K57.90 Diverticulosis of intestine, part unspecified, without perforation or abscess without bleeding; L40.50 Arthropathic psoriasis, unspecified; M06.9 Rheumatoid arthritis, unspecified; M19.90 Unspecified osteoarthritis, unspecified site; M48.02 Spinal stenosis, cervical region; M48.061 Spinal stenosis, lumbar region without neurogenic claudication; M79.7 Fibromyalgia; E66.01 Morbid (severe) obesity due to excess calories; Z68.27 Body mass index [BMI] 27.0-27.9, adult; E78.5 Hyperlipidemia, unspecified; E86.1 Hypovolemia; Z79.899 Other long term (current) drug therapy; Z82.49 Family history of ischemic heart disease and other diseases of the circulatory system; Z83.3 Family history of diabetes mellitus; Z87.891 Personal history of nicotine dependence; Z90.710 Acquired absence of both cervix and uterus; Z99.81 Dependence on supplemental oxygen; Z83.2 Family history of diseases of the blood and blood-forming organs and certain disorders involving the immune mechanism; Z87.01 Personal history of pneumonia (recurrent); R42 Dizziness and giddiness; Z90.49 Acquired absence of other specified parts of digestive tract; Z79.891 Long term (current) use of opiate analgesic; Z91.018 Allergy to other foods; Z91.013 Allergy to seafood
CPT/HCPCS: 36415; 74177; 80048; 80053; 82272; 82728; 83540; 83550; 83605; 83690; 83735; 84484; 85025; 85027; 85610; 85730; 86850; 86870; 86880; 86900; 86901; 86902; 86920; 91110; 93005; 96361; 96374; 96375; 96376; 99285

== ENCOUNTER 2019-05-24 10:18 | Inpatient (IN) | payer MEDICARE, OTHER ==
[2019-05-24] MEDS ORDERED: SODIUM CHLORIDE 0.9% 500 ML 500 ML IV STA (10:56)
[2019-05-24] MEDS ORDERED: ONDANSETRON 4 MG/2 ML VIAL IVP STA (10:57)
--- NOTE | 2019-05-24 11:02 | ED ---
General Adult HPI - General Chief complaint: Shortness of Breath Stated complaint: SOB, nausea, dizzy Time Seen by Provider: 05/24/19 10:45 Source: patient, RN notes reviewed, old records reviewed Mode of arrival: wheelchair Limitations: no limitations - History of Present Illness Initial comments: This is a 58-year-old female who presents to the emergency department with a past medical history significant for anemia. Patient states she was recently in the hospital to get blood transfusions because she was so anemic. Patient comes in today stating she short of breath dizzy and nauseated. Patient states multiple times she felt as though she was given a passout she has not yet passed out but she is afraid she is going to. Patient states she has vomited multiple times as well. Patient states she has also had some rectal bleeding. The difficulty breathing and dizziness started 3 days ago and the rectal bleeding started yesterday. Patient states her symptoms come and go sometimes she feels fine and then other times his symptoms presents himself. Patient denies any chest pain or palpitations. Patient denies any fever chills. Patient denies any diarrhea. Patient states they were unable to find out why she is so anemic. - Related Data Home Medications Medication Instructions Recorded Confirmed ARIPiprazole [Abilify] 5 mg PO DAILY 04/16/19 04/19/19 Albuterol Sulfate [Proair Hfa] 2 puff INHALATION RT-QID PRN 04/16/19 04/19/19 Ergocalciferol [Vitamin D2 50,000 unit PO Q7D 04/16/19 04/19/19 (DRISDOL)] cycloSPORINE [Restasis] 1 drop BOTH EYES Q12H 04/16/19 04/19/19 oxyCODONE HCL [oxyCODONE HCL (IR)] 30 mg PO TID 04/16/19 04/19/19 traZODone HCL [Desyrel] 100 mg PO HS 04/16/19 04/19/19 Meclizine HCl 25 mg PO BID PRN 04/19/19 04/19/19 busPIRone HCL [Buspar] 30 mg PO BID 04/19/19 04/19/19 rOPINIRole HCL [Requip] 0.25 mg PO TID 04/19/19 04/19/19 tiZANidine [Zanaflex] 2 mg PO BID PRN 04/19/19 04/19/19 tiZANidine [Zanaflex] 4 mg PO HS 04/19/19 04/19/19 Previous Rx's Medication Instructions Recorded DULoxetine HCL [Cymbalta] 60 mg PO DAILY capsule. 04/19/19 Docusate [Colace] 100 mg PO BID cap 04/19/19 Pantoprazole [Protonix] 40 mg PO AC-BID #60 tablet. 04/19/19 Polyethylene Glycol 3350 [Miralax] 17 gm PO DAILY powd.pack 04/19/19 Allergies Allergy/AdvReac Type Severity Reaction Status Date / Time cashew nut Allergy Unknown Verified 05/24/19 10:42 shellfish derived Allergy Swelling Verified 05/24/19 10:42 nuts Allergy Swelling Uncoded 05/24/19 10:42 animals AdvReac Wheezing Uncoded 05/24/19 10:42 environmental AdvReac Wheezing Uncoded 05/24/19 10:42 Review of Systems ROS Statement: Those systems with pertinent positive or pertinent negative responses have been documented in the HPI. ROS Other: All systems not noted in ROS Statement are negative. 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), has some amnesia, anemia-gets iron infusions History of Any Multi-Drug Resistant Organisms: None Reported Date of last positivie culture/infection: unsure MDRO Source:: unsure Past Surgical History: Section, Cholecystectomy, Ear Surgery, Hysterectomy, Tonsillectomy Additional Past Surgical History / Comment(s): left ear recontructed, colonoscop y and EGD, C/S x 4 Past Anesthesia/Blood Transfusion Reactions: Motion Sickness Past Psychological History: Anxiety, Depression Smoking Status: Former smoker Past Alcohol Use History: None Reported Past Drug Use History: None Reported - Past Family History Son(s) Additional Family Medical History / Comment(s): Patient has 1 son living. 3 sons have passed and patient does not want to talk about their cause of . Mother Family Medical History: No Reported History Additional Family Medical History / Comment(s): Mother at age 84 and had history of anemia. Sister(s) Family Medical History: Congestive Heart Failure (CHF), Diabetes Mellitus Brother(s) Family Medical History: Congestive Heart Failure (CHF), Diabetes Mellitus Father Family Medical History: No Reported History Additional Family Medical History / Comment(s): Father at age 54 from an accident. General Exam - General Exam Comments Initial Comments: GENERAL: Patient is well-developed and well-nourished. Patient is nontoxic and well- hydrated and is in mild distress. ENT: Neck is soft and supple. No significant lymphadenopathy is noted. Oropharynx is clear. Moist mucous membranes. Neck has full range of motion without eliciting any pain. EYES: The sclera were anicteric and conjunctiva were pink and moist. Extraocular movements were intact and pupils were equal round and reactive to light. Eyelids were unremarkable. PULMONARY: Unlabored respirations. Good breath sounds bilaterally. No audible rales rhonchi or wheezing was noted. CARDIOVASCULAR: There is a regular rate and rhythm without any murmurs gallops or rubs. ABDOMEN: Soft and nontender with normal bowel sounds. . SKIN: Skin is clear with no lesions or rashes and otherwise unremarkable. NEUROLOGIC: Patient is alert and oriented x3. Cranial nerves II through XII are grossly intact. Motor and sensory are also intact. Normal speech, volume and content. Symmetrical smile. MUSCULOSKELETAL: Normal extremities with adequate strength and full range of motion. No lower extremity swelling or edema. No calf tenderness. LYMPHATICS: No significant lymphadenopathy is noted PSYCHIATRIC: Normal psychiatric evaluation. Limitations: no limitations Course Vital Signs 05/24/19 05/24/19 05/24/19 10:42 11:04 11:45 Temperature 98.1 F Pulse Rate 95 89 Respiratory 18 20 Rate Blood Pressure 146/82 O2 Sat by Pulse 94 L Oximetry Medical Decision Making - Medical Decision Making EKG shows normal sinus rhythm at 80 bpm [place] interval 222 QRS is 72 QT interval 392 QTC is 474. Patient's EKG shows no ST segment elevation or depression. Chest x-ray showed no acute abnormality. Patient was not comfortable going home because of the multiple near syncopal ep isode she was having. In the fact that she was recently significantly anemic to the point where she needed to be transfused multiple units of blood. I spoke with Dr. Trujillo agreed to admit the patient admitted the patient wrote admitting orders. - Lab Data Result diagrams: 05/24/19 11:15 05/24/19 11:15 Lab Results 05/24/19 05/24/19 05/24/19 Range/Units 11:15 11:15 11:15 WBC 8.8 (3.8-10.6) k/uL RBC 4.62 (3.80-5.40) m/uL Hgb 12.5 D (11.4-16.0) gm/dL Hct 41.5 (34.0-46.0) % MCV 89.9 D (80.0-100.0) fL MCH 27.1 (25.0-35.0) pg MCHC 30.2 L (31.0-37.0) g/dL RDW 22.1 H (11.5-15.5) % Plt Count 204 (150-450) k/uL Neutrophils % 80 % Lymphocytes % 11 % Monocytes % 4 % Eosinophils % 4 % Basophils % 0 % Neutrophils # 7.0 (1.3-7.7) k/uL Lymphocytes # 1.0 (1.0-4.8) k/uL Monocytes # 0.4 (0-1.0) k/uL Eosinophils # 0.3 (0-0.7) k/uL Basophils # 0.0 (0-0.2) k/uL Hypochromasia Marked Poikilocytosis Slight Anisocytosis Moderate Microcytosis Slight PT (9.0-12.0) sec INR (<1.2) APTT (22.0-30.0) sec Sodium 140 (137-145) mmol/L Potassium 4.6 (3.5-5.1) mmol/L Chloride 106 (98-107) mmol/L Carbon Dioxide 26 (22-30) mmol/L Anion Gap 8 mmol/L BUN 11 (7-17) mg/dL Creatinine 0.62 (0.52-1.04) mg/dL Est GFR (CKD-EPI)AfAm >90 (>60 ml/min/1.73 sqM) Est GFR (CKD-EPI)NonAf >90 (>60 ml/min/1.73 sqM) Glucose 107 H (74-99) mg/dL Plasma Lactic Acid Cipriano 2.3 H* (0.7-2.0) mmol/L Calcium 9.7 (8.4-10.2) mg/dL Magnesium 2.3 (1.6-2.3) mg/dL Total Bilirubin 0.4 (0.2-1.3) mg/dL AST 47 H (14-36) U/L ALT 32 (4-34) U/L Alkaline Phosphatase 79 (38-126) U/L Troponin I (0.000-0.034) ng/mL Total Protein 7.2 (6.3-8.2) g/dL Albumin 4.3 (3.5-5.0) g/dL 05/24/19 05/24/19 Range/Units 11:15 11:15 WBC (3.8-10.6) k/uL RBC (3.80-5.40) m/uL Hgb (11.4-16.0) gm/dL Hct (34.0-46.0) % MCV (80.0-100.0) fL MCH (25.0-35.0) pg MCHC (31.0-37.0) g/dL RDW (11.5-15.5) % Plt Count (150-450) k/uL Neutrophils % % Lymphocytes % % Monocytes % % Eosinophils % % Basophils % % Neutrophils # (1.3-7.7) k/uL Lymphocytes # (1.0-4.8) k/uL Monocytes # (0-1.0) k/uL Eosinophils # (0-0.7) k/uL Basophils # (0-0.2) k/uL Hypochromasia Poikilocytosis Anisocytosis Microcytosis PT 9.5 (9.0-12.0) sec INR 0.9 (<1.2) APTT 22.6 (22.0-30.0) sec Sodium (137-145) mmol/L Potassium (3.5-5.1) mmol/L Chloride (98-107) mmol/L Carbon Dioxide (22-30) mmol/L Anion Gap mmol/L BUN (7-17) mg/dL Creatinine (0.52-1.04) mg/dL Est GFR (CKD-EPI)AfAm (>60 ml/min/1.73 sqM) Est GFR (CKD-EPI)NonAf (>60 ml/min/1.73 sqM) Glucose (74-99) mg/dL Plasma Lactic Acid Cipriano (0.7-2.0) mmol/L Calcium (8.4-10.2) mg/dL Magnesium (1.6-2.3) mg/dL Total Bilirubin (0.2-1.3) mg/dL AST (14-36) U/L ALT (4-34) U/L Alkaline Phosphatase (38-126) U/L Troponin I <0.012 (0.000-0.034) ng/mL Total Protein (6.3-8.2) g/dL Albumin (3.5-5.0) g/dL Disposition Clinical Impression: Rectal bleeding, Near syncope Disposition: ADMITTED IP TO THIS HOSP Referrals: Major Funk MD [Primary Care Provider] - 1-2 days Time of Disposition: 13:40
[2019-05-24 11:39] LABS: ALT 32 U/L (4-34); AST 47 U/L (14-36); African American GFR (CKD) >90 (>60 ml/min/1.73 sqM); Albumin 4.3 g/dL (3.5-5.0); Alkaline Phosphatase 79 U/L (38-126); Anion Gap 8 mmol/L; Blood Urea Nitrogen 11 mg/dL (7-17); Calcium 9.7 mg/dL (8.4-10.2); Carbon Dioxide 26 mmol/L (22-30); Chloride 106 mmol/L (98-107); Glucose 107 mg/dL (74-99); Magnesium 2.3 mg/dL (1.6-2.3); Non-African American GFR(CKD) >90 (>60 ml/min/1.73 sqM); Potassium 4.6 mmol/L (3.5-5.1); Sodium 140 mmol/L (137-145); Total Bilirubin 0.4 mg/dL (0.2-1.3); Total Protein 7.2 g/dL (6.3-8.2)
[2019-05-24 11:42] LABS: Anisocytosis Moderate; Basophils % (A) 0 %; Eosinophils # (A) 0.3 k/uL (0-0.7); Eosinophils % (A) 4 %; HCT 41.5 % (34.0-46.0); Hypochromasia Marked; Lymphocytes % (A) 11 %; MCH 27.1 pg (25.0-35.0); MCHC 30.2 g/dL (31.0-37.0); Mean Platelet Volume 9.5; Microcytosis Slight; Monocytes # (A) 0.4 k/uL (0-1.0); Monocytes % (A) 4 %; Neutrophils % (A) 80 %; Platelet Count 204 k/uL (150-450); Poikilocytosis Slight; RBC 4.62 m/uL (3.80-5.40); RDW 22.1 % (11.5-15.5); WBC 8.8 k/uL (3.8-10.6)
--- NOTE | 2019-05-24 11:45 | XR ---
EXAMINATION TYPE: XR chest 2V DATE OF EXAM: 05/24/2019 COMPARISON: Prior chest x-ray 02/27/2017 CT 04/16/2019 HISTORY: Difficulty breathing TECHNIQUE: Frontal and lateral views of the chest are obtained. FINDINGS: There is no focal air space opacity, pleural effusion, or pneumothorax seen. The cardiac silhouette size is within normal limits. The osseous structures are intact. Retrocardiac density wi th air-fluid level is noted. There are overlying cardiac leads. IMPRESSION: No acute cardiopulmonary process. Hiatal hernia with partial intrathoracic stomach.
[2019-05-24 11:47] LABS: INR 0.9 (<1.2); Partial Thromboplastin Time 22.6 sec (22.0-30.0); Prothrombin Time 9.5 sec (9.0-12.0)
[2019-05-24 11:50] LABS: HGB 12.5 gm/dL (11.4-16.0); MCV 89.9 fL (80.0-100.0)
[2019-05-24] MEDS ORDERED: SODIUM CHLORIDE 0.9% 1,000 ML IV ONE (13:40)
[2019-05-24] MEDS ORDERED: ALBUTEROL NEBULIZED 2.5 MG/3 ML INHALATION PRN (13:59)
[2019-05-24] MEDS: ONDANSETRON 4 MG/2 ML VIAL IVP PRN (19:42)
[2019-05-24] MEDS ORDERED: MECLIZINE 25 MG TAB PO PRN (19:52)
[2019-05-24] MEDS ORDERED: ALBUTEROL INHALER 60 PUFF/8 GM INHALER INHALATION PRN (19:52)
[2019-05-24] MEDS ORDERED: DICLOFENAC SODIUM GEL 100 GM TUBE TOPICAL PRN (19:52)
[2019-05-24] MEDS ORDERED: tiZANidine 4 MG TAB PO SCH (21:00)
[2019-05-24] MEDS: cycloSPORINE 0.05% OPHTH 0.4 ML DROPERETTE BOTH EYES SCH (21:05)
[2019-05-24] MEDS: tiZANidine 4 MG TAB PO SCH (21:05)
[2019-05-24] MEDS: traZODone HCL 100 MG TAB PO SCH (21:05)
[2019-05-24 22:43] LABS: Anisocytosis Moderate; Basophils % (A) 1 %; Eosinophils # (A) 0.4 k/uL (0-0.7); Eosinophils % (A) 5 %; HCT 39.3 % (34.0-46.0); HGB 11.7 gm/dL (11.4-16.0); Hypochromasia Marked; Lymphocytes # (A) 1.1 k/uL (1.0-4.8); Lymphocytes % (A) 16 %; MCHC 29.8 g/dL (31.0-37.0); MCV 90.6 fL (80.0-100.0); Mean Platelet Volume 9.9; Microcytosis Slight; Monocytes # (A) 0.4 k/uL (0-1.0); Monocytes % (A) 5 %; Neutrophils # (A) 5.1 k/uL (1.3-7.7); Neutrophils % (A) 71 %; Platelet Count 188 k/uL (150-450); Poikilocytosis Slight; RBC 4.34 m/uL (3.80-5.40); WBC 7.1 k/uL (3.8-10.6)
--- NOTE | 2019-05-24 23:02 | P.HPIM ---
History of Present Illness H&P Date: 05/24/19 Chief Complaint: Dizzy History of presenting complaint: This is a 58-year-old patient of Dr. Major Braden from visiting physicians. Patient presents with episodes which she describes as she feels likes getting heavy it goes up to her head she becomes dizzy nauseated and also has dry heaves. She also has some [place] tablets for last month and she may take one occasionally. Appetite hasn't been very good. Patient is very anxious during the interview. Quite restless. She says at times she'll not sleep for a few days. Then to sleep and catchup for complaint of days. No fever no chills. Does question about having some blood per rectum. She did have EGD and col onoscopy in May 2018 with findings of erosive gastritis, hiatal hernia and a normal-appearing colon. As a workup for iron deficiency anemia. On last admission about a month ago she was seen both by GI and by hematology. On last admission also received 3 units of blood. Today's a hemoglobin of the ER was 12.5 Review of systems: GEN.: Restless EYES: None HEENT: None NECK: None RESPIRATORY: None CARDIOVASCULAR: None GASTROINTESTINAL: No abdominal pain GENITOURINARY: None MUSCULOSKELETAL: None LYMPHATICS: None HEMATOLOGICAL: None PSYCHIATRY: Very anxious NEUROLOGICAL: Does not sleep well Past medical history to include: Asthma, fibromyalgia, GERD, hyperlipidemia, rheumatoid arthritis, M.D. HFR, seizures during , migraines, 2 L of oxygen at night, psoriatic arthritis, suprapubic fullness iron deficiency anemia, anxiety depression has lost 4 children Social history: Patient smoked for 10 years stopped in 1998. Denies use of recreational drugs. Alcohol rarely. Physical examination: VITAL SIGNS: 98.1, 95, 18, 146/82, 94% room air GENERAL: Average built, sitting up, restless. EYES: Pupils equal. Conjunctiva normal. HEENT: External appearance of nose and ears normal, oral cavity grossly normal. NECK: JVD not raised; masses not palpable. HEART: First and second heart sounds are normal; no edema. LUNGS: Respiratory rate normal; clear to auscultation. ABDOMEN: Soft, nontender, liver spleen not palpable, no masses palpable. PSYCH: Alert and oriented x3; mood and affect. Anxiousl. NEUROLOGICAL: Cranial nerves grossly intact; no facial asymmetry, power and sensation grossly intact. LYMPHATICS: No lymph nodes palpable in the axilla and neck INVESTIGATIONS, reviewed in the clinical context: White count 8.8 hemoglobin 12.5 platelets 204 potassium 4.6 creatinine 0.62 Assessment: -Patient described an episode of feeling heaviness in the legs and gets nausea and dry heaving dizziness. Patient has history of gastritis in the past. She has been taking Celebrex and iron pills that itself give nausea. -Uncontrolled anxiety -Intermittent asthma control -Chronic fibromyalgia -GERD -Hyperlipidemia -M.D. HFR gene mutation -Chronic hypoxic respiratory failure on home oxygen 2 L at night Plan: This point will hold of patient's iron supplementation and also NSAIDs. Increase the Protonix to 40 mg twice a day. We'll also had some Tums. We'll get a psychiatry consultation. Also GI consultation. Care was discussed with the patient question were answered. 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 poor historian for health hx Smoking Status: Former smoker Past Alcohol Use History: None Reported Additional Past Alcohol Use History / Comment(s): Patient was a smoker for 10 years and quit in 1998. She denies any marijuana, illicit drug use or alcohol use. She drinks a shot of vodka maybe 5 times per year. Past Drug Use History: None Reported - Past Family History Son(s) Additional Family Medical History / Comment(s): Patient has 1 son living. 3 sons have passed and patient does not want to talk about their cause of . Mother Family Medical History: No Reported History Additional Family Medical History / Comment(s): Mother at age 84 and had history of anemia. Sister(s) Family Medical History: Congestive Heart Failure (CHF), Diabetes Mellitus Brother(s) Family Medical History: Congestive Heart Failure (CHF), Diabetes Mellitus Father Family Medical History: No Reported History Additional Family Medical History / Comment(s): Father at age 54 from an accident. Medications and Allergies Home Medications Medication Instructions Recorded Confirmed Type ARIPiprazole [Abilify] 5 mg PO DAILY 04/16/19 05/24/19 History Albuterol Sulfate [Proair Hfa] 2 puff INHALATION RT-QID PRN 04/16/19 05/24/19 History Ergocalciferol [Vitamin D2 50,000 unit PO WE 04/16/19 05/24/19 History (GABINO)] cycloSPORINE [Restasis] 1 drop BOTH EYES Q12H 04/16/19 05/24/19 History oxyCODONE HCL [oxyCODONE HCL (IR)] 30 mg PO TID 04/16/19 05/24/19 History traZODone HCL [Desyrel] 100 mg PO HS 04/16/19 05/24/19 History DULoxetine HCL [Cymbalta] 60 mg PO DAILY capsule. 04/19/19 05/24/19 Rx Docusate [Colace] 100 mg PO BID cap 04/19/19 05/24/19 Rx Meclizine HCl 25 mg PO BID PRN 04/19/19 05/24/19 History Polyethylene Glycol 3350 [Miralax] 17 gm PO DAILY powd.pack 04/19/19 05/24/19 Rx busPIRone HCL [Buspar] 30 mg PO DAILY 04/19/19 05/24/19 History rOPINIRole HCL [Requip] 0.25 mg PO TID 04/19/19 05/24/19 History tiZANidine [Zanaflex] 2 mg PO BID 04/19/19 05/24/19 History tiZANidine [Zanaflex] 4 mg PO HS 04/19/19 05/24/19 History Albuterol Nebulized [Ventolin 2.5 mg INHALATION RT-Q6H PRN 05/24/19 05/24/19 History Nebulized] Celecoxib [CeleBREX] 200 mg PO DAILY 05/24/19 05/24/19 History Diclofenac Sodium [Voltaren Gel] 1 applic TOPICAL BID PRN 05/24/19 05/24/19 History Ferrous Sulfate [Feosol] 325 mg PO DAILY 05/24/19 05/24/19 History Pantoprazole [Protonix] 40 mg PO DAILY 05/24/19 05/24/19 History Allergies Allergy/AdvReac Type Severity Reaction Status Date / Time cashew nut Allergy Unknown Verified 05/24/19 13:46 shellfish derived Allergy Swelling Verified 05/24/19 13:46 nuts Allergy Swelling Uncoded 05/24/19 10:42 animals AdvReac Wheezing Uncoded 05/24/19 10:42 environmental AdvReac Wheezing Uncoded 05/24/19 10:42 Physical Exam Vitals: Vital Signs Temp Pulse Pulse Resp BP BP BP 05/24/19 20:39 97.7 F 99 18 149/105 144/85 05/24/19 17:59 98.5 F 102 H 18 05/24/19 17:51 99 18 117/98 05/24/19 16:00 95 18 132/75 05/24/19 13:30 98 18 125/73 05/24/19 11:45 89 05/24/19 11:04 20 05/24/19 10:42 98.1 F 95 18 146/82 BP BP Pulse Ox 05/24/19 20:39 157/86 90 L 05/24/19 17:59 159/85 97 05/24/19 17:51 96 05/24/19 16:00 96 05/24/19 13:30 94 L 05/24/19 11:45 05/24/19 11:04 05/24/19 10:42 94 L Intake and Output 05/24/19 05/24/19 05/24/19 06:59 14:59 22:59 Intake Total 225 Balance 225 Intake: Intake, IV Titration 225 Amount Sodium Chloride 0.9% 1, 225 000 ml @ 75 mls/hr IV . [id number] ONE Rx#:[id number] Other: # Voids 1 Weight 90.718 kg Results CBC & Chem 7: 05/24/19 22:01 05/24/19 11:15 Labs: Abnormal Lab Results - Last 24 Hours (Table) 05/24/19 05/24/19 05/24/19 Range/Units 11:15 11:15 11:15 MCHC 30.2 L (31.0-37.0) g/dL RDW 22.1 H (11.5-15.5) % Glucose 107 H (74-99) mg/dL Plasma Lactic Acid Cipriano 2.3 H* (0.7-2.0) mmol/L AST 47 H (14-36) U/L 05/24/19 Range/Units 22:01 MCHC 29.8 L (31.0-37.0) g/dL RDW 22.0 H (11.5-15.5) % Glucose (74-99) mg/dL Plasma Lactic Acid Cipriano (0.7-2.0) mmol/L AST (14-36) U/L Thrombosis Risk Factor Assmnt - Choose All That Apply Each Factor Represents 1 point: Age 41-60 years Thrombosis Risk Factor Assessment Total Risk Factor Score: 1 Thrombosis Risk Factor Assessment Level: Low Risk
[2019-05-25] MEDS: DICLOFENAC SODIUM GEL 100 GM TUBE TOPICAL SCH ×5 (02:47→21:41)
[2019-05-25] MEDS: PANTOPRAZOLE 40 MG TABLET PO SCH ×3 (02:47→17:38)
[2019-05-25] MEDS: tiZANidine 4 MG TAB PO PRN ×2 (04:10→08:12)
[2019-05-25 05:22] LABS: Anisocytosis Moderate; Basophils % (A) 1 %; Eosinophils # (A) 0.4 k/uL (0-0.7); Eosinophils % (A) 6 %; HCT 38.1 % (34.0-46.0); HGB 11.1 gm/dL (11.4-16.0); Hypochromasia Marked; Lymphocytes # (A) 1.1 k/uL (1.0-4.8); Lymphocytes % (A) 17 %; MCH 26.7 pg (25.0-35.0); MCHC 29.2 g/dL (31.0-37.0); MCV 91.4 fL (80.0-100.0); Mean Platelet Volume 9.6; Microcytosis Slight; Monocytes # (A) 0.3 k/uL (0-1.0); Monocytes % (A) 4 %; Neutrophils # (A) 4.8 k/uL (1.3-7.7); Neutrophils % (A) 71 %; Platelet Count 198 k/uL (150-450); Poikilocytosis Slight; RBC 4.17 m/uL (3.80-5.40); RDW 22.1 % (11.5-15.5); WBC 6.7 k/uL (3.8-10.6)
[2019-05-25] MEDS: CALCIUM CARBONATE LIQUID 500 MG/5 ML CUP PO SCH ×3 (08:10→17:37)
[2019-05-25] MEDS: busPIRone HCl 10 MG TAB PO SCH (08:10)
[2019-05-25] MEDS: cycloSPORINE 0.05% OPHTH 0.4 ML DROPERETTE BOTH EYES SCH ×2 (08:11→21:36)
[2019-05-25] MEDS: ENOXAPARIN 40 MG/0.4 ML SYRINGE SQ SCH (08:11)
[2019-05-25] MEDS: ARIPiprazole 5 MG TAB PO SCH (08:12)
[2019-05-25] MEDS ORDERED: FERROUS SULFATE 325 MG TAB PO SCH (09:00)
[2019-05-25] MEDS ORDERED: MELOXICAM 7.5 MG TAB PO SCH (09:00)
[2019-05-25] MEDS ORDERED: PANTOPRAZOLE 40 MG TABLET PO SCH (09:00)
[2019-05-25] MEDS ORDERED: DULoxetine HCL 60 MG CAPSULE.DR PO SCH (09:00)
[2019-05-25] MEDS: ONDANSETRON 4 MG/2 ML VIAL IVP PRN ×2 (10:53→21:36)
--- NOTE | 2019-05-25 14:15 | P.CN ---
Psychiatric Consult - . Consult date: 05/25/19 Consult:: 05/25/19 13:39 IDENTIFYING DATA: This patient is a 58-year-old female who is and raising her grandchild and an adopted son in a house with her and collects Social Security HISTORY OF PRESENT ILLNESS: The patient presented to the hospital with complaints of episodes of dizziness, nausea shortness of breath and poor appetite restlessness. Patient also mentioned that she had blood in her rectum and was previously given several pints of blood due to decrease in her hemoglobin and was previously admitted to the ICU. Psychiatry is consulted for uncontrolled anxiety. Patient was seen at the bedside and appeared to be directable and agreeable to be interviewed. Patient was appropriate during the interview however did appear to be anxious with her affect. Patient spoke about being in chronic pain and having several medical comorbidities including claiming that she is a "burden" and also mentions that she cannot leave the house and gets panic attacks. She mentioned that she's been dealing with panic disorder for several years. She claims that she has lost 4 children due to tragic events in the past and states that she is dealing with her grief however denies any depression at this time. She states that her anxiety at this time is mild however does have panic attacks at times. She claims that her sleep has been "on and off" however has been sleeping better in the hospital. At this time patient denies any suicidal or homical ideations, intent or plan. Patient denies any auditory, visual hallucinations and denies any paranoia or delusions. Patients admitted to quitting smoking in 1998 and claims that she does not use any drugs or alcohol this time. PAST PSYCHIATRIC HISTORY: Patient has a history of depression and panic disorder with a agoraphobia. Patient was last admitted to the mental health unit on 05/2016 and currently patient does not have an outpatient psychiatrist. She is currently taking Abilify 5 mg daily, BuSpar 30 mg twice a day, Cymbalta 60 mg daily, Requip 0.25 mg 3 times a day and trazodone daily at bedtime. Patient denies any history of suicide attempts. PAST MEDICAL HISTORY: Asthma, fibromyalgia, GERD, hyperlipidemia, rheumatoid arthritis, seizures, anemia and chronic pain. ALLERGIES: as per EMR. CHEMICAL DEPENDENCY HISTORY: as per HPI. FAMILY PSYCHIATRIC/SUBSTANCE USE HISTORY: denies SOCIAL HISTORY: She states that she was raised in [place] and now lives in [facility] with her in a house. She claims that she has lost 4 children due to tragic events in the past. She is currently raising her grandchild and her adopted son and collects Social Security. 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 MENTAL STATUS EXAM: General Appearance: Patient appears to be stated age is alert, appears anxious, and cooperative. Patient appears to have poor hygiene and grooming wearing hospital gown with intense eye contact. Behavior: Patient is anxiously lying in bed without any agitated behavior. Attempts to cooperate. Speech: Patient's speech is fluent and nonpressured. Mood/Affect: Patient reports their mood is "fine", affect is congruent and appears anxious. Suicidality/Homicidality: Patient denies having any suicidal or homicidal ideation intent or plan. Perceptions: Patient denies any visual hallucinations and denies any auditory hallucinations Though content/process: There is no evidence of any delusional thought content and thought process is linear and goal-directed. Memory and concentration: AOX3, grossly intact for the purposes of this session. Can spell "WORLD" backwards Judgment and insight: Fair IMPRESSIONS: Panic disorder with agoraphobia History of major depressive disorder PLAN: -At this time patient DOES NOT meet criteria for inpatient psychiatric admission. -Would recommend the following medication changes/additions: Patient can continue on her current medications including Abilify 5 mg daily, BuSpar 30 mg twice a day, Requip 0.25 mg 3 times a day trazodone 100 mg daily at bedtime. At this time will increase Cymbalta to 90 mg daily for mood/anxiety/pain and also add on melatonin 3 mg daily at bedtime for sleep regulation. Loop Machine Operator spoke with patient in detail about treatment for anxiety and at this time due to patient's concurrent use of opiates patient is not a good candidate for benzodiazepines. -Sw to give patient resources for outpatient psychiatry follow up. Loop Machine Operator also spoke with patient about the emphasis of such modalities as individual therapy and CBT to help treat anxiety and patient claims that she will think about it and would like to inquire if these services are available to her. -Psychiatry will sign off at this point, please contact with any questions. 05/25/19 14:04
--- NOTE | 2019-05-25 19:20 | XR ---
EXAMINATION TYPE: XR lumbosacral spine min 4V DATE OF EXAM: 05/25/2019 COMPARISON: NONE HISTORY: Low back pain TECHNIQUE: 5 views FINDINGS: Lumbar vertebra have fairly normal alignment. There is no significant disc space narrowing. There is minor spurring of the endplates. There is anterior spurring at L2-3 and L3-4. There is no c ompression fracture. Posterior elements are intact. Sacroiliac joints are intact. IMPRESSION: Mild degenerative spurring. No fracture seen.
--- NOTE | 2019-05-25 19:36 | CT ---
EXAMINATION TYPE: CT cervical spine wo con DATE OF EXAM: 05/25/2019 COMPARISON: None HISTORY: Right sided weakness Neck pain CT DLP: 733.20 mGycm Automated exposure control for dose reduction was used. Multiple axial sections were obtained from the skull base to T1 vertebra without contrast. Cervical vertebra have normal alignment. There is degenerative mild disc space narrowing from C4 to C 7 with spurring of the endplates. Posterior elements are intact. Facet joints are intact. Skull base is intact. There is no evidence for fracture. There is multilevel mild hypertrophic facet arthropathy . I see no bony destructive process. There is no subluxation. There is a mild relative spinal stenosi s at C5-6 measuring 6 mm. There is less severe stenosis at C4-5 and C6-7 due to endplate spurring. IMPRESSION: Multilevel spondylosis. Mild spinal stenosis. No fracture seen.
--- NOTE | 2019-05-25 21:32 | US ---
EXAMINATION TYPE: US venous doppler duplex LE RT DATE OF EXAM: 05/25/2019 9:04 PM COMPARISON: US LLEV CLINICAL HISTORY: Rule out DVT. Pain and swelling x 3 days. No hx of DVT. Patient does not take blood thinners. SIDE PERFORMED: Right TECHNIQUE: The lower extremity deep venous system is examined utilizing real time linear array sonog tristan with graded compression, doppler sonography and color-flow sonography. VESSELS IMAGED: External Iliac Vein (EIV) Common Femoral Vein Deep Femoral Vein Greater Saphenous Vein * Femoral Vein Popliteal Vein Small Saphenous Vein * Proximal Calf Veins (* superficial vessels) Right Leg: No evidence of DVT in veins imaged at this time from prox calf veins to EIV. Limited eval uation of prox calf veins. Patient refused Venous Doppler of left lower extremity. IMPRESSION: No evidence of deep vein thrombosis in the right leg.
[2019-05-25] MEDS: traZODone HCL 100 MG TAB PO SCH (21:36)
[2019-05-25] MEDS: MELATONIN 3 MG TABLET PO SCH (21:36)
--- NOTE | 2019-05-25 22:17 | P.PN ---
Progress Note - Text Progress Note Date: 05/25/19 Chief Complaint: Dizzy History of presenting complaint: This is a 58-year-old patient of Dr. Major Braden from visiting physicians. Patient presents with episodes which she describes as she feels likes getting heavy it goes up to her head she becomes dizzy nauseated and also has dry heaves. She also has some [place] tablets for last month and she may take one occasionally. Appetite hasn't been very good. Patient is very anxious during the interview. Quite restless. She says at times she'll not sleep for a few days. Then to sleep and catchup for complaint of days. No fever no chills. Does question about having some blood per rectum. She did have EGD and colonoscopy in May 2018 with findings of erosive gastritis, hiatal hernia and a normal-appearing colon. As a workup for iron deficiency anemia. On last admission about a month ago she was seen both by GI and by hematology. On last admission also received 3 units of blood. Today's a hemoglobin of the ER was 12.5 Admitted with-uncontrolled anxiety. Nausea vomiting episodes. Patient's Celeb abel and iron pills were discontinued. Initially. Nothing by mouth. Psychiatry was consulted. Today-feels a bit better. Since intermittent neck pain. Chronic low back pain. Says sometimes has right-sided weakness. Patient's concerned about clot in the right leg. Review of systems: Was done for constitutional, cardiovascular, GI, pulmonary. relevant finding as above Active Medications Albuterol Sulfate (Ventolin Nebulized) 2.5 mg INHALATION RT-Q6H PRN PRN Reason: Shortness Of Breath Aripiprazole (Abilify) 5 mg PO DAILY [facility] Last Admin: 05/25/19 08:12 Dose: 5 mg Documented by: Buspirone HCl (Buspar) 30 mg PO DAILY [facility] Last Admin: 05/25/19 08:10 Dose: 30 mg Documented by: Calcium Carbonate/Glycine (Tums Liquid) 500 mg PO TID-W/MEALS [facility] Last Admin: 05/25/19 17:37 Dose: 500 mg Documented by: Cyclosporine (Restasis 0.05% Ophth Soln) 1 drops BOTH EYES Q12H [facility] Last Admin: 05/25/19 21:36 Dose: 1 drops Documented by: Diclofenac Sodium (Voltaren Gel) 1 gm TOPICAL QID [facility] Last Admin: 05/25/19 21:41 Dose: 1 gm Documented by: Duloxetine HCl (Cymbalta) 90 mg PO DAILY [facility] Enoxaparin Sodium (Lovenox) 40 mg SQ DAILY [facility] Last Admin: 05/25/19 08:11 Dose: 40 mg Documented by: Melatonin (Melatonin) 3 mg PO [facility] Last Admin: 05/25/19 21:36 Dose: 3 mg Documented by: Ondansetron HCl (Zofran) 4 mg IVP Q6HR PRN PRN Reason: Nausea And Vomiting Last Admin: 05/25/19 21:36 Dose: 4 mg Documented by: Oxycodone HCl (Oxyir) 30 mg PO TID [facility] Last Admin: 05/25/19 21:36 Dose: 30 mg Documented by: Pantoprazole Sodium (Protonix) 40 mg PO AC-BID [facility] Last Admin: 05/25/19 17:38 Dose: 40 mg Documented by: Ropinirole HCl (Requip) 0.25 mg PO TID [facility] Last Admin: 05/25/19 21:36 Dose: 0.25 mg Documented by: Tizanidine HCl (Zanaflex) 4 mg PO [facility] Last Admin: 05/24/19 21:05 Dose: 4 mg Documented by: Tizanidine HCl (Zanaflex) 2 mg PO BID PRN PRN Reason: MUSCLE SPASM Last Admin: 05/25/19 08:12 Dose: 2 mg Documented by: Trazodone HCl (Desyrel) 100 mg PO [facility] Last Admin: 05/25/19 21:36 Dose: 100 mg Documented by: Physical examination: VITAL SIGNS: 98.1, 96, 20, 135/75, 94% on 2 L GENERAL: Average built, sitting up, restless. EYES: Pupils equal. Conjunctiva normal. HEENT: External appearance of nose and ears normal, oral cavity grossly normal. NECK: JVD not raised; masses not palpable. HEART: First and second heart sounds are normal; no edema. LUNGS: Respiratory rate normal; clear to auscultation. ABDOMEN: Soft, nontender, liver spleen not palpable, no masses palpable. PSYCH: Alert and oriented x3; mood and affect. Anxiousl. INVESTIGATIONS, reviewed in the clinical context: White count 6.7 hemoglobin 11.1 Venous Doppler-negative for DVT in the right leg Lumbar spine x-ray-mild DJD Cervical spine CT-multilevel spondylosis Previous testing White count 8.8 hemoglobin 12.5 platelets 204 potassium 4.6 creatinine 0.62 Assessment: -Acute and chronic gastritis possibly worse after getting Celebrex and iron pills. A bit better -Panic attack with agoraphobia. Patient seen by Dr. roblero is from psychiatry. Dose of Cymbalta increased. -Intermittent asthma control -Chronic fibromyalgia -GERD -Hyperlipidemia -MTHFR gene mutation -Chronic hypoxic respiratory failure on home oxygen 2 L at night Plan: Follicular opinion from GI and from Dr. Mckeon from orthopedic spine. Patient started on full liquid. Encouraged to be out of bed. Dose of Cymbalta was increased by psychiatry and also melatonin was added at night
[2019-05-25] MEDS: tiZANidine 4 MG TAB PO SCH (22:25)
[2019-05-26] MEDS: PANTOPRAZOLE 40 MG TABLET PO SCH ×2 (08:54→17:20)
[2019-05-26] MEDS: ARIPiprazole 5 MG TAB PO SCH (08:55)
[2019-05-26] MEDS: DULoxetine HCL 30 MG CAPSULE.DR PO SCH (08:55)
[2019-05-26] MEDS: busPIRone HCl 10 MG TAB PO SCH (08:57)
[2019-05-26] MEDS: cycloSPORINE 0.05% OPHTH 0.4 ML DROPERETTE BOTH EYES SCH ×2 (08:58→19:30)
[2019-05-26] MEDS: CALCIUM CARBONATE LIQUID 500 MG/5 ML CUP PO SCH ×3 (08:58→17:20)
[2019-05-26] MEDS: ENOXAPARIN 40 MG/0.4 ML SYRINGE SQ SCH (08:58)
[2019-05-26] MEDS: DICLOFENAC SODIUM GEL 100 GM TUBE TOPICAL SCH ×4 (08:58→22:00)
[2019-05-26] MEDS ORDERED: ERGOCALCIFEROL 50,000 UNIT CAP PO SCH (09:00)
[2019-05-26] MEDS ORDERED: DIAZEPAM 5 MG TAB PO STA (12:41)
--- NOTE | 2019-05-26 14:32 | P.CNOR ---
<Sergio Hernandez - Last Filed: 05/26/19 14:26> History of Present Illness - [facility] Consult date: 05/26/19 Requesting physician: Edward Trujillo Consult reason: neck pain, other (Upper extremity radiculopathy) History of present illness: Patient is a pleasant 58-year-old female who is seen and examined at bedside for further evaluation in regards to her cervical spine. Patient originally presented to the emergency department with shortness of breath, nausea, and dizziness. She states he has been experiencing increasing low back pain with right lower extremity radiculopathy. When she experiences increased low back pain and right lower extremity radiculopathy, she experiences shortness of breath, dizziness, nausea. She is known have some degenerative changes of the lumbar spine. She states her pain radiates from the lumbar spine down the entire right lower extremity. She's been ambulating with a limp. More significantly, over the past 6 months she has had worsening cervical pain and stiffness with symptoms radiating into the bilateral upper extremities. She states her pain is most significant over the posterior cervical spine radiating over the shoulders. She does have numbness and tingling that radiates down the arm, into the forearms, and all fingers of the hand. The numbness is most sig nificant in the left pinky and ring fingers. She's noticed change in her ambulation. She is unsteady in her gait. Her handwriting has worsened over the past 6 months. She has difficulty with dexterity with her hands. She denies any recent injuries. She has not had surgical intervention at her cervical or lumbar spines. She states she did follow with Dr. Santana in pain management at [facility] states he would not proceed forward with the injection that her cervical spine at that time due to the significant changes at her cervical spine. Patient did have previous imaging at her cervical spine with MRI results in 2018 which she show significant changes at that time. CT imaging was taken during her admission to the emergency department. Patient also has a history of recent admittance to the hospital for anemia and subsequently received multiple units of blood. Patient does have a history of iron deficiency anemia with previous iron infusions, hypertension, hyperlipidemia, and CHF or mutation, depression, fibromyalgia, and obstructive sleep apnea. 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 poor historian for health hx Smoking Status: Former smoker Past Alcohol Use History: None Reported Additional Past Alcohol Use History / Comment(s): Patient was a smoker for 10 years and quit in 1998. She denies any marijuana, illicit drug use or alcohol use. She drinks a shot of vodka maybe 5 times per year. Past Drug Use History: None Reported - Past Family History Son(s) Additional Family Medical History / Comment(s): Patient has 1 son living. 3 sons have passed and patient does not want to talk about their cause of . Mother Family Medical History: No Reported History Additional Family Medical History / Comment(s): Mother at age 84 and had history of anemia. Sister(s) Family Medical History: Congestive Heart Failure (CHF), Diabetes Mellitus Brother(s) Family Medical History: Congestive Heart Failure (CHF), Diabetes Mellitus Father Family Medical History: No Reported History Additional Family Medical History / Comment(s): Father at age 54 from an accident. Medications and Allergies Home Medications Medication Instructions Recorded Confirmed Type ARIPiprazole [Abilify] 5 mg PO DAILY 04/16/19 05/24/19 History Albuterol Sulfate [Proair Hfa] 2 puff INHALATION RT-QID PRN 04/16/19 05/24/19 History Ergocalciferol [Vitamin D2 50,000 unit PO WE 04/16/19 05/24/19 History (GABINO)] cycloSPORINE [Restasis] 1 drop BOTH EYES Q12H 04/16/19 05/24/19 History oxyCODONE HCL [oxyCODONE HCL (IR)] 30 mg PO TID 04/16/19 05/24/19 History traZODone HCL [Desyrel] 100 mg PO HS 04/16/19 05/24/19 History DULoxetine HCL [Cymbalta] 60 mg PO DAILY capsule. 04/19/19 05/24/19 Rx Docusate [Colace] 100 mg PO BID cap 04/19/19 05/24/19 Rx Meclizine HCl 25 mg PO BID PRN 04/19/19 05/24/19 History Polyethylene Glycol 3350 [Miralax] 17 gm PO DAILY powd.pack 04/19/19 05/24/19 Rx busPIRone HCL [Buspar] 30 mg PO DAILY 04/19/19 05/24/19 History rOPINIRole HCL [Requip] 0.25 mg PO TID 04/19/19 05/24/19 History tiZANidine [Zanaflex] 2 mg PO BID 04/19/19 05/24/19 History tiZANidine [Zanaflex] 4 mg PO HS 04/19/19 05/24/19 History Albuterol Nebulized [Ventolin 2.5 mg INHALATION RT-Q6H PRN 05/24/19 05/24/19 History Nebulized] Celecoxib [CeleBREX] 200 mg PO DAILY 05/24/19 05/24/19 History Diclofenac Sodium [Voltaren Gel] 1 applic TOPICAL BID PRN 05/24/19 05/24/19 History Ferrous Sulfate [Feosol] 325 mg PO DAILY 05/24/19 05/24/19 History Pantoprazole [Protonix] 40 mg PO DAILY 05/24/19 05/24/19 History Allergies Allergy/AdvReac Type Severity Reaction Status Date / Time cashew nut Allergy Unknown Verified 05/24/19 13:46 shellfish derived Allergy Swelling Verified 05/24/19 13:46 nuts Allergy Swelling Uncoded 05/24/19 10:42 animals AdvReac Wheezing Uncoded 05/24/19 10:42 environmental AdvReac Wheezing Uncoded 05/24/19 10:42 Physical Examination Physical exam: Patient is awake, alert, and oriented 3 Vital signs stable Good chest excursion with deep inspiration and expiration Abdomen soft nontender Examination of the cervical spine reveals skin is intact with no abrasions, lacerations, or bruises; no erythema, purulence or signs of infection Full range of motion of the cervical spine with adequate flexion, extension, and bilateral rotation Increased pain with cervical rotation bilaterally Evidence of paravertebral spasm on the posterior cervical spine over the trapezius bilaterally Bacteriologist Dairy strength, thumb strength, interosseous strength, biceps strength, triceps strength, and shoulder strength positive sustained bilaterally Upper extremity strength positive sustained throughout range of motion but feels generally weaker bilaterally Biceps reflex 2+ bilaterally and Brachioradialis reflexes 2+ bilaterally No significant upper extremity hyperreflexia bilaterally Positive Hoffmans sign upper extremity bilaterally Examination of lumbar spine reveals skin is intact with no abrasions, lacerations, or bruises; no erythema, purulence or signs of infection Dorsiflexion, plantarflexion, and extensor hallucis longus positive sustained bi laterally Lower extremity strength positive sustained throughout range of motion but feels generally weaker bilaterally Patellar reflex 1+ bilaterally and Achilles reflexes 0+ bilaterally No obvious hyperreflexia of the bilateral lower extremities Patient is able to lift legs off the bed independently but has some difficulty while doing so No signs or symptoms of DVT; no calf pain No pain with internal and external rotation of the hips bilaterally Neurovascularly intact Results Pertinent studies: CT of the cervical spine taken on 05/25/2019: Straightening of normal cervical lordosis; C3-4 mild degenerative disc disease with posterior osteoarthritic spurring; C4-5, C5-6, and C6-7 significant degenerative disease with significant posterior osteophytic spurring; multilevel facet hypertrophy; no evidence of bony destruction X-rays of the lumbar spine taken on 05/25/2019: Lumbar asymmetry; evidence of clips and previous cholecystectomy; L3-4 and L4-5 degenerative disc disease with anterior osteophytic spurring; no evidence of vertebral body compression fracture MRI of the cervical spine the 2017: C3-4 posterior disc ossified complex and facet arthropathy resulting in moderate central canal stenosis and left neural foraminal stenosis; C4-5 degenerative disc disease, posterior disc osteophyte complex, and facet arthropathy resulting in [id number] spinal canal stenosis and bilateral neural foraminal stenosis; C5-6 degenerative disc disease, posterior disc osteophyte complex, and facet arthropathy resulting in moderate spinal canal stenosis and left neural foraminal stenosis; C6-7 posterior disc excision with mild central canal stenosis and left-sided neural foraminal stenosis MRI of the lumbar spine taken on 06/04/2017: Mild to moderate variable disc desiccation L2-S1; no evidence of tumor compression fractures and no evidence of significant spinal canal stenosis; L3-4 posterior annular fissure; no evidence of significant nucleus pulposus - Labs Labs: H & H 05/24/19 05/24/19 05/25/19 Range/Units 11:15 22:01 05:06 Hgb 12.5 D 11.7 11.1 L (11.4-16.0) gm/dL Hct 41.5 39.3 38.1 (34.0-46.0) % Coagulation 05/24/19 Range/Units 11:15 INR 0.9 (<1.2) Result Diagrams: 05/25/19 05:06 05/24/19 11:15 Assessment and Plan Assessment: Assessment: Cervical myelopathy Cervical pain Upper extremity radiculopathy C3-4 degenerative disc disease C4-5, C5-6, and C6-7 significant degenerative disc disease Multilevel cervical facet hypertrophy Multilevel cervical spinal stenosis and neural foraminal stenosis Unsteady gait; gait abnormality Low back pain Right lower extremity radiculopathy L3-4 and L4-5 lumbar degenerative disc disease with anterior osteophytic spurring History of iron deficiency anemia with previous iron infusions Hypertension Hyperlipidemia MTFHR mutation Depression Fibromyalgia Obstructive sleep apnea (1) Cervical myelopathy with cervical radiculopathy Current Visit: Yes Status: Acute Code(s): M47.12 - OTHER SPONDYLOSIS WITH MYELOPATHY, CERVICAL REGION SNOMED Code(s): 869032605 (2) Cervical pain Current Visit: Yes Status: Acute Code(s): M54.2 - CERVICALGIA SNOMED Co de(s): 06522701 (3) Degenerative cervical disc Current Visit: Yes Status: Acute Code(s): M50.30 - OTHER CERVICAL DISC DEGENERATION, UNSP CERVICAL REGION SNOMED Code(s): 92196977 (4) Facet arthropathy, cervical Current Visit: Yes Status: Acute Code(s): M47.812 - SPONDYLOSIS W/O MYELOPATHY OR RADICULOPATHY, CERVICAL REGION SNOMED Code(s): 779910010 (5) Cervical spinal stenosis Current Visit: Yes Status: Acute Code(s): M48.02 - SPINAL STENOSIS, CERVICAL REGION SNOMED Code(s): 10458017 (6) Unsteady gait Current Visit: Yes Status: Acute Code(s): R26.81 - UNSTEADINESS ON FEET SNOMED Code(s): 123618453 (7) Low back pain Current Visit: Yes Status: Acute Code(s): M54.5 - LOW BACK PAIN SNOMED Code(s): 954577625 (8) Lumbar back pain with radiculopathy affecting right lower extremity Current Visit: Yes Status: Acute Code(s): M54.16 - RADICULOPATHY, LUMBAR REGION SNOMED Code(s): 531558206 (9) Lumbar degenerative disc disease Current Visit: Yes Status: Acute Code(s): M51.36 - OTHER INTERVERTEBRAL DISC DEGENERATION, LUMBAR REGION SNOMED Code(s): 22847327 (10) History of iron deficiency anemia Current Visit: Yes Status: Acute Code(s): Z86.2 - PRSNL HISTORY OF DIS OF THE BLD[facility]BLD[facility] Code(s): 643685453 (11) Hypertension Current Visit: Yes Status: Acute Code(s): I10 - ESSENTIAL (PRIMARY) HYPERTENSION SNOMED Code(s): 15172839 (12) Hyperlipidemia Current Visit: Yes Status: Acute Code(s): E78.5 - HYPERLIPIDEMIA, UNSPECIFIED SNOMED Code(s): 13265206 (13) Fibromyalgia Current Visit: Yes Status: Acute Code(s): M79.7 - FIBROMYALGIA SNOMED Code(s): 206294581 (14) Depression Current Visit: No Status: Acute Code(s): F32.9 - MAJOR DEPRESSIVE DISORDER, SINGLE EPISODE, UNSPECIFIED SNOMED Code(s): 42114261 Plan: Plan: 1. Patient has been discussed detail Dr. Vel Mckeon. After physical examination of the patient, reviewing of previous imaging, obtaining history from the patient, and further discussion with the patient, we'll plan to obtain further imaging in regards to her cervical spine. She does have evidence of cer vical myelopathy with physical examination and has evidence of previous imaging showing evidence of spinal stenosis. Patient has had change in her dexterity, penmanship, and ambulation over the past 6 months. She is evidence of positive Garcia's sign of the bilaterally upper extremities. At this time we'll plan to obtain a new MRI of the cervical spine for further evaluation. She does have some low back pain with right lower extremity radiculopathy. Previous imaging does not show evidence of significant degenerative changes at her lumbar spine. We discussed we will currently plan to focus on her cervical spine given her significant symptoms and significant findings on previous imaging. Patient will be given Valium 5 mg 1-2 tabs prior to her MRI imaging. We will plan to review her cervical MRI imaging and will follow up to discuss an appropriate plan of care depending on those imaging results. 2. Patient will continue to be seen and examined by medicine for her other medical diagnoses 3. Continue pain control medication as prescribed by medicine Time with Patient: Greater than 30 (Including obtaining history, physical examination, reviewing of imaging, and dictation.) <Rey Mckeon - Last Filed: 05/27/19 10:23> Physical Examination Osteopathic Statement: *. No significant issues noted on an osteopathic structural exam other than those noted in the History and Physical/Consult. Results - Labs Labs: H & H 05/24/19 05/24/19 05/25/19 Range/Units 11:15 22:01 05:06 Hgb 12.5 D 11.7 11.1 L (11.4-16.0) gm/dL Hct 41.5 39.3 38.1 (34.0-46.0) % Coagulation 05/24/19 Range/Units 11:15 INR 0.9 (<1.2) Result Diagrams: 05/25/19 05:06 05/24/19 11:15 Assessment and Plan Plan: The patient is seen and examined and I agree with the above. She is continuing her medical management and we'll follow up after her cervical MRI is completed.
--- NOTE | 2019-05-26 16:51 | MR ---
EXAMINATION TYPE: MR cervical spine wo con DATE OF EXAM: 05/26/2019 COMPARISON: None HISTORY: Cervical stenosis with upper extremity weakness Multiplanar multiecho imaging of the cervical spine was performed without contrast. Cervical vertebra have normal alignment. There is degenerative disc space narrowing throughout the ce rvical spine. There is posterior disc herniation and endplate spur formation from C3 to C7. This is m ore severe at C4-5 and C5-6. There is 6 mm spinal stenosis at C4-5. There is 7.5 mm spinal canal at C 5-6. I see no edema in the cervical cord. There is contact of the cord and mild effacement of the cor d at C3-4 and C4-5 and C5-6. The brainstem appears intact. There is no compression fracture. I see no focal bone destruction. There is no evidence of cervical paraspinal mass. IMPRESSION: Multilevel spondylotic changes and multilevel posterior spurring and disc herniation with resultant s flora stenosis at multiple levels that is more severe at C4-5. No cord edema seen..
--- NOTE | 2019-05-26 21:00 | P.PN ---
Progress Note - Text Progress Note Date: 05/26/19 Chief Complaint: Dizzy History of presenting complaint: This is a 58-year-old patient of Dr. Major Braden from visiting physicians. Patient presents with episodes which she describes as she feels likes getting heavy it goes up to her head she becomes dizzy nauseated and also has dry heaves. She also has some Ismay tablets for last month and she may take one occasionally. Appetite hasn't been very good. Patient is very anxious during the interview. Quite restless. She says at times she'll not sleep for a few days. Then to sleep and catchup for complaint of days. No fever no chills. Does question about having some blood per rectum. She did have EGD and colonoscopy in May 2018 with findings of erosive gastritis, hiatal hernia and a normal-appearing colon. As a workup for iron deficiency anemia. On last admission about a month ago she was seen both by GI and by hematology. On last admission also received 3 units of blood. Today's a hemoglobin of the ER was 12.5 Admitted with-uncontrolled anxiety. Nausea vomiting episodes. Patient's Celeb abel and iron pills were discontinued. Initially. Nothing by mouth. Psychiatry was consulted. Today-At all breakfast. Seen by orthopedics. Ordered MRI of the cervical spine. No nausea vomiting. Review of systems: Was done for constitutional, cardiovascular, GI, pulmonary. relevant finding as above Physical examination: VITAL SIGNS: 97.5, 84, 20, 121/66, 94% GENERAL: Sitting up, more comfortable EYES: Pupils equal. Conjunctiva normal. HEENT: External appearance of nose and ears normal, oral cavity grossly normal. NECK: JVD not raised; masses not palpable. HEART: First and second heart sounds are normal; no edema. LUNGS: Respiratory rate normal; clear to auscultation. ABDOMEN: Soft, nontender, liver spleen not palpable, no masses palpable. PSYCH: Alert and oriented x3; mood and affect. Anxiousl. INVESTIGATIONS, reviewed in the clinical context: White count 6.7 hemoglobin 11.1 Venous Doppler-negative for DVT in the right leg Lumbar spine x-ray-mild DJD Cervical spine CT-multilevel spondylosis Cervical spine MRI-multilevel spondylitic changes with multilevels posterior spurring and disc herniation with spinal stenosis at multiple levels more severe at C4-C5. No cord edema seen. Previous testing White count 8.8 hemoglobin 12.5 platelets 204 potassium 4.6 creatinine 0.62 Assessment: -Acute and chronic gastritis possibly worse after getting Celebrex and iron pills. Much improved. At all of breakfast. -Panic attack with agoraphobia. Patient seen by Dr. roblero is from psychiatry. Dose of Cymbalta increased. Doing better. -Intermittent asthma control -Chronic fibromyalgia -GERD -Hyperlipidemia -MTHFR gene mutation -Chronic hypoxic respiratory failure on home oxygen 2 L at night -Multilevel spondylitic changes in the cervical spine including disc herniation and spinal stenosis especially at C4-C5. No cord edema seen. Plan: Patient doing well on the current medications. Await further determination by orthopedics.
[2019-05-26] MEDS: tiZANidine 4 MG TAB PO SCH (21:57)
[2019-05-26] MEDS: MELATONIN 3 MG TABLET PO SCH (21:57)
[2019-05-26] MEDS: traZODone HCL 100 MG TAB PO SCH (21:57)
--- NOTE | 2019-05-27 07:03 | P.CONS ---
History of Present Illness - Reason for Consult Consult date: 05/27/19 Nausea and vomiting Requesting physician: Edward Trujillo - Chief Complaint Dizziness, nausea and vomiting - History of Present Illness 58-year-old female with multiple medical comorbidities including asthma, fibromyalgia, GERD, anxiety disorder, chronic anemia, prior episodes of C. diff and H. pylori, KD and hyperlipidemia who presented to the hospital due to complaints of dizziness, nausea and dry heaving. Patient reports intractable dizziness with associated nausea and dry heaving. She feels that this has been present for approximately one to 2 weeks. The patient does have a history of GERD and takes Prilosec at home. She has undergone investigation for anemia in the past with EGD and colonoscopy in 05/2018 with findings of gastritis and an essentially normal colonoscopy. On presentation WBC 6.7, hemoglobin 11.1, platelet count 198,000, INR 0.9, total bilirubin 0.4, alkaline phosphatase 79, AST 49 and ALT 32. No acute cardiopulmonary process on chest x-ray with hiatal hernia noted. Review of Systems REVIEW OF SYSTEMS: CONSTITUTIONAL: Denies any fevers, chills, weight change or fatigue. CARDIOVASCULAR: Denies any chest pain, palpitations high or low blood pressures RESPIRATORY: Denies any shortness of breath, hemoptysis or cough. GENITOURINARY: No dysuria or hematuria. MUSCULOSKELETAL: No weakness reported. SKIN: Denies any new rashes or lesions, jaundice or pallor. PSYCHIATRIC: She does report uncontrolled anxiety. NEUROLOGY: Denies headache, denies any new focal deficits, she is reporting dizziness. EARS/NOSE/THROAT: No recent hearing change, congestion, nasal discharge or sore throat. EYES: No pain in eyes, discharge or change in vision. GASTROINTESTINAL: As per HPI. 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 poor historian for health hx Smoking Status: Former smoker Past Alcohol Use History: None Reported Additional Past Alcohol Use History / Comment(s): Patient was a smoker for 10 years and quit in 1998. She denies any marijuana, illicit drug use or alcohol use. She drinks a shot of vodka maybe 5 times per year. Past Drug Use History: None Reported - Past Family History Son(s) Additional Family Medical History / Comment(s): Patient has 1 son living. 3 sons have passed and patient does not want to talk about their cause of . Mother Family Medical History: No Reported History Additional Family Medical History / Comment(s): Mother at age 84 and had history of anemia. Sister(s) Family Medical History: Congestive Heart Failure (CHF), Diabetes Mellitus Brother(s) Family Medical History: Congestive Heart Failure (CHF), Diabetes Mellitus Father Family Medical History: No Reported History Additional Family Medical History / Comment(s): Father at age 54 from an accident. Medications and Allergies Home Medications Medication Instructions Recorded Confirmed Type ARIPiprazole [Abilify] 5 mg PO DAILY 04/16/19 05/24/19 History Albuterol Sulfate [Proair Hfa] 2 puff INHALATION RT-QID PRN 04/16/19 05/24/19 History Ergocalciferol [Vitamin D2 50,000 unit PO WE 04/16/19 05/24/19 History (DRISDOL)] cycloSPORINE [Restasis] 1 drop BOTH EYES Q12H 04/16/19 05/24/19 History oxyCODONE HCL [oxyCODONE HCL (IR)] 30 mg PO TID 04/16/19 05/24/19 History traZODone HCL [Desyrel] 100 mg PO HS 04/16/19 05/24/19 History DULoxetine HCL [Cymbalta] 60 mg PO DAILY capsule. 04/19/19 05/24/19 Rx Docusate [Colace] 100 mg PO BID cap 04/19/19 05/24/19 Rx Meclizine HCl 25 mg PO BID PRN 04/19/19 05/24/19 History Polyethylene Glycol 3350 [Miralax] 17 gm PO DAILY powd.pack 04/19/19 05/24/19 Rx busPIRone HCL [Buspar] 30 mg PO DAILY 04/19/19 05/24/19 History rOPINIRole HCL [Requip] 0.25 mg PO TID 04/19/19 05/24/19 History tiZANidine [Zanaflex] 2 mg PO BID 04/19/19 05/24/19 History tiZANidine [Zanaflex] 4 mg PO HS 04/19/19 05/24/19 History Albuterol Nebulized [Ventolin 2.5 mg INHALATION RT-Q6H PRN 05/24/19 05/24/19 History Nebulized] Celecoxib [CeleBREX] 200 mg PO DAILY 05/24/19 05/24/19 History Diclofenac Sodium [Voltaren Gel] 1 applic TOPICAL BID PRN 05/24/19 05/24/19 History Ferrous Sulfate [Feosol] 325 mg PO DAILY 05/24/19 05/24/19 History Pantoprazole [Protonix] 40 mg PO DAILY 05/24/19 05/24/19 History Allergies Allergy/AdvReac Type Severity Reaction Status Date / Time cashew nut Allergy Unknown Verified 05/24/19 13:46 shellfish derived Allergy Swelling Verified 05/24/19 13:46 nuts Allergy Swelling Uncoded 05/24/19 10:42 animals AdvReac Wheezing Uncoded 05/24/19 10:42 environmental AdvReac Wheezing Uncoded 05/24/19 10:42 Physical Exam Vitals: Vital Signs Temp Pulse Resp BP BP BP BP 05/26/19 13:09 131/79 124/78 132/87 05/26/19 12:47 97.5 F L 84 12 121/66 05/26/19 09:24 12 05/26/19 07:18 98.6 F 78 12 114/74 05/26/19 05:00 97.8 F 75 16 132/92 05/25/19 20:40 97.7 F 79 18 146/82 05/25/19 16:33 Pulse Ox 05/26/19 13:09 05/26/19 12:47 94 L 05/26/19 09:24 05/26/19 07:18 94 L 05/26/19 05:00 93 L 05/25/19 20:40 95 05/25/19 16:33 94 L Intake and Output 05/25/19 05/26/19 05/26/19 22:59 06:59 14:59 Intake Total 660 590 Balance 660 590 Intake: Intake, IV Titration 300 Amount Sodium Chloride 0.9% 1, 300 000 ml @ 75 mls/hr IV . [id number] ONE Rx#:[id number] Oral 360 590 Other: Voiding Method Toilet Toilet # Voids 3 On physical examination, patient appears comfortable in no apparent distress. HEAD: Normocephalic, atraumatic. EYES: No scleral icterus. No conjunctival injection. MOUTH: No lesions, tongue midline. NECK: Trachea midline, no gross abnormalities. CHEST: Clear to auscultation with no wheezing or rhonchi appreciated. HEART: Regular rate and rhythm. ABDOMEN: Soft. Bowel sounds are positive. No organomegaly. No guarding or rigidity. EXTREMITIES: No pedal edema. SKIN: No rashes, no jaundice. NEUROLOGIC: Alert and oriented x3. No focal deficits. Results CBC & Chem 7: 05/25/19 05:06 05/24/19 11:15 Chest x-ray: report reviewed (Chest x-ray with no cardiopulmonary process noted and a hiatal hernia seen.) Assessment and Plan (1) Nausea Narrative/Plan: 58-year-old female with multiple comorbidities who presented to the hospital with complaints of dizziness, nausea and dry heaving. The patient has had evaluation with EGD and colonoscopy in the past on 05/2018 with findings of gastritis and a normal colonoscopy. Laboratory evaluation of current presentation essentially normal. She had been reporting dry heaving over the past 1-2 weeks. She does have a history of GERD and is on Prilosec at home. Symptoms are currently improved with the patient tolerating a diet. Current Visit: Yes Status: Acute Code(s): R11.0 - NAUSEA SNOMED Code(s): 748463658 (2) History of iron deficiency anemia Current Visit: Yes Status: Acute Code(s): Z86.2 - PRSNL HISTORY OF DIS OF THE BLD/BLD-FORM ORG/[facility] SNOMED Code(s): 212605431 Plan: Supportive care Okay for diet as tolerated Continue Protonix 40 mg twice daily No plans for endoscopic evaluation at this time Continue treatment of other underlying comorbidities Thank you for allowing us to participate in the care of the patient, the GI service will stand by, please call any questions or concerns
[2019-05-27] MEDS: CALCIUM CARBONATE LIQUID 500 MG/5 ML CUP PO SCH ×2 (08:54→12:23)
[2019-05-27] MEDS: DULoxetine HCL 30 MG CAPSULE.DR PO SCH (08:54)
[2019-05-27] MEDS: PANTOPRAZOLE 40 MG TABLET PO SCH (08:54)
[2019-05-27] MEDS: cycloSPORINE 0.05% OPHTH 0.4 ML DROPERETTE BOTH EYES SCH (08:54)
[2019-05-27] MEDS: ARIPiprazole 5 MG TAB PO SCH (08:55)
[2019-05-27] MEDS: busPIRone HCl 10 MG TAB PO SCH (08:55)
[2019-05-27] MEDS: DICLOFENAC SODIUM GEL 100 GM TUBE TOPICAL SCH ×2 (08:56→12:23)
[2019-05-27] MEDS: ENOXAPARIN 40 MG/0.4 ML SYRINGE SQ SCH (08:57)
[2019-05-27] MEDS ORDERED: POLYETHYLENE GLYCOL 3350 17 GM POWD.PACK PO SCH (10:15)
--- NOTE | 2019-05-27 10:22 | P.PN ---
Progress Note - Text Progress Note Date: 05/27/19 Patient is seen and examined today at bedside. I reviewed the MRI that was done yesterday of her cervical spine. She has significant disc protrusion with disc degeneration C3 4 C4 5 C5 6 and C6 7. She has some foraminal encroachment particular to the left side at each level. There is no obvious change in her spinal cord signal. There is no edema at the spinal cord noted. The patient has significant disc degeneration at her cervical spine with upper extremity radiculopathy. She has been through some conservative treatment including interventional pain management. She has not had long-term results despite conservative treatment. She could be a candidate for surgical intervention in the form of decompression and fusion at her anterior cervical spine. This is not emergent and she does not plan on having that surgery while in the hospital at this point. I think that is certainly appropriate. I think it is be okay for her to be discharged home when she is cleared medicine and follow-up with our office in the next 1-2 weeks for recheck evaluation. We can continue to follow her spine status and consider further intervention as necessary. From an orthopedic spine standpoint soak it the patient be discharged home today if she is cleared from medicine and follow-up on an outpatient basis.
[2019-05-27 13:39] VITALS: BP 144/78; PULSE 80; RESP 17; TEMP 98.2
--- NOTE | 2019-05-29 21:07 | P.DS ---
Providers Date of admission: 05/26/19 11:05 Expected date of discharge: 05/27/19 Attending physician: Edward Trujillo Consults: 05/24/19 22:48 Consult Physician Routine Consulting Provider: Avelino Alvarenga Consult Reason/Comments: Uncontrolled anxiety Do you want consulting provider notified?: Yes 05/25/19 22:09 Consult Physician Routine Consulting Provider: Rey Mckeon Consult Reason/Comments: Neck pain, right-sided weakness Do you want consulting provider notified?: Yes Primary care physician: Major Funk MD Hospital Course: Chief Complaint: Dizzy History of presenting complaint: This is a 58-year-old patient of Dr. Major Braden from visiting physicians. Patient presents with episodes which she describes as she feels likes getting heavy it goes up to her head she becomes dizzy nauseated and also has dry heaves. She also has some [place] tablets for last month and she may take one occasionally. Appetite hasn't been very good. Patient is very anxious during the interview. Quite restless. She says at times she'll not sleep for a few days. Then to sleep and catchup for complaint of days. No fever no chills. Does question about having some blood per rectum. She did have EGD and colonoscopy in May 2018 with findings of erosive gastritis, hiatal hernia and a normal-appearing colon. As a workup for iron deficiency anemia. On last admission about a month ago she was seen both by GI and by hematology. On last admission also received 3 units of blood. Today's a hemoglobin of the ER was 12.5 Admitted with-uncontrolled anxiety. Nausea vomiting from Celebrex and iron pills , sleep deprivation, acute on chronic gastritis. Panic disorder with agoraphobia. Patient's Celebrex and iron pills were discontinued. PPI was increased. Nausea vomiting relieved. Change her for medications including melatonin improved her sleep. Patient is eating much better and mentally more rested. Patient was found to be vaping in the hospital. Educated about the same.. Cervical spine MRI did show multiple spondylitic changes at multiple levels spurring and disc herniation-seen by Dr. Mckeon from orthopedic spine. For outpatient follow-up. Dose of Cymbalta was increased. Melatonin was added. Outpatient psychiatry follow-up. Today-At all breakfast. Care was discussed in detail the patient. Questions were answered. Cleared by orthopedics. And psychiatry. Discussion and discharge planning more than 35 minutes Consultation: -Dr. Alvarenga is from psychiatry Dr. Vel Mckeon from orthopedic spine Physical examination: VITAL SIGNS: 97.978, 16, 84, 94% on room air GENERAL: Sitting up, more comfortable EYES: Pupils equal. Conjunctiva normal. HEENT: External appearance of nose and ears normal, oral cavity grossly normal. NECK: JVD not raised; masses not palpable. HEART: First and second heart sounds are normal; no edema. LUNGS: Respiratory rate normal; clear to auscultation. ABDOMEN: Soft, nontender, liver spleen not palpable, no masses palpable. PSYCH: Alert and oriented x3; mood and affect. Anxiousl. INVESTIGATIONS, reviewed in the clinical context: White count 6.7 hemoglobin 11.1 Venous Doppler-negative for DVT in the right leg Lumbar spine x-ray-mild DJD Cervical spine CT-multilevel spondylosis Cervical spine MRI-multilevel spondylitic changes with multilevels posterior spurring and disc herniation with spinal stenosis at multiple levels more severe at C4-C5. No cord edema seen. Previous testing White count 8.8 hemoglobin 12.5 platelets 204 potassium 4.6 creatinine 0.62 Assessment: -Acute and chronic gastritis possibly worse from Celebrex and iron pills. POA. -Panic attack with agoraphobia.-Dose of Cymbalta increased. Doing better. -Intermittent asthma control -Acute on chronic sleep deprivation and poor sleep hygiene -Chronic fibromyalgia -GERD -Hyperlipidemia -MTHFR gene mutation -Chronic hypoxic respiratory failure on home oxygen 2 L at night -Multilevel spondylitic changes in the cervical spine including disc herniation and spinal stenosis especially at C4-C5. No cord edema seen. Disposition: Home Patient Condition at Discharge: Stable Plan - Discharge Summary New Discharge Prescriptions: New DULoxetine HCL [Cymbalta] 90 mg PO DAILY #30 capsule.dr Melatonin 3 mg PO HS #30 tablet Continue cycloSPORINE [Restasis] 1 drop BOTH EYES Q12H Ergocalciferol [Vitamin D2 (DRISDOL)] 50,000 unit PO WE Albuterol Sulfate [Proair Hfa] 2 puff INHALATION RT-QID PRN PRN Reason: Shortness Of Breath traZODone HCL [Desyrel] 100 mg PO HS oxyCODONE HCL [oxyCODONE HCL (IR)] 30 mg PO TID ARIPiprazole [Abilify] 5 mg PO DAILY rOPINIRole HCL [Requip] 0.25 mg PO TID tiZANidine [Zanaflex] 4 mg PO HS tiZANidine [Zanaflex] 2 mg PO BID busPIRone HCL [Buspar] 30 mg PO DAILY Polyethylene Glycol 3350 [Miralax] 17 gm PO DAILY powd.pack Albuterol Nebulized [Ventolin Nebulized] 2.5 mg INHALATION RT-Q6H PRN PRN Reason: Shortness Of Breath Diclofenac Sodium [Voltaren Gel] 1 applic TOPICAL BID PRN PRN Reason: Pain Ferrous Sulfate [Iron (65 MG Elemental)] 325 mg PO DAILY Changed Pantoprazole [Protonix] 40 mg PO BID #60 tab Discontinued Meclizine HCl 25 mg PO BID PRN PRN Reason: DIZZINESS AND/OR NAUSEA Docusate [Colace] 100 mg PO BID cap DULoxetine HCL [Cymbalta] 60 mg PO DAILY capsule. Celecoxib [CeleBREX] 200 mg PO DAILY Discharge Medication List ARIPiprazole [Abilify] 5 mg PO DAILY 04/16/19 [History] Albuterol Sulfate [Proair Hfa] 2 puff INHALATION RT-QID PRN 04/16/19 [History] Ergocalciferol [Vitamin D2 (DRISDOL)] 50,000 unit PO WE 04/16/19 [History] cycloSPORINE [Restasis] 1 drop BOTH EYES Q12H 04/16/19 [History] oxyCODONE HCL [oxyCODONE HCL (IR)] 30 mg PO TID 04/16/19 [History] traZODone HCL [Desyrel] 100 mg PO HS 04/16/19 [History] Polyethylene Glycol 3350 [Miralax] 17 gm PO DAILY powd.pack 04/19/19 [Rx] busPIRone HCL [Buspar] 30 mg PO DAILY 04/19/19 [History] rOPINIRole HCL [Requip] 0.25 mg PO TID 04/19/19 [History] tiZANidine [Zanaflex] 2 mg PO BID 04/19/19 [History] tiZANidine [Zanaflex] 4 mg PO HS 04/19/19 [History] Albuterol Nebulized [Ventolin Nebulized] 2.5 mg INHALATION RT-Q6H PRN 05/24/19 [History] Diclofenac Sodium [Voltaren Gel] 1 applic TOPICAL BID PRN 05/24/19 [History] Ferrous Sulfate [Iron (65 MG Elemental)] 325 mg PO DAILY 05/24/19 [History] DULoxetine HCL [Cymbalta] 90 mg PO DAILY #30 capsule. 05/27/19 [Rx] Melatonin 3 mg PO HS #30 tablet 05/27/19 [Rx] Pantoprazole [Protonix] 40 mg PO BID #60 tab 05/27/19 [Rx] Follow up Appointment(s)/Referral(s): Rey Mckeon DO [Doctor of Osteopathic Medicine] - 06/11/19 8:00 am (Please bring insurance card and photo Id and please make sure to show up to this appointment the office states they will not make another one due to you not showing up.) Major Funk MD [Primary Care Provider] - 1-2 days (The office will call you and let you know what time and date your appointment will be.) Patient Instructions/Handouts: Pantoprazole (By mouth), Duloxetine (By mouth), Melatonin (By mouth) Activity/Diet/Wound Care/Special Instructions: Okay to ambulate as tolerated and to do light activities as tolerated for more thorough standpoint no vaping Regular diet as tolerated Discharge Disposition: HOME SELF-CARE
== END 2019-05-27 15:55 | disposition home or self-care (01) | DRG 392 ==
LOC: EC 10:18 → 5NMEDONC 13:40 → OBSVTOIN 05-26 11:05
PROVIDERS: ADMIT Hospitalist; ATTEND Hospitalist
DX: K29.00 Acute gastritis without bleeding (principal); J96.11 Chronic respiratory failure with hypoxia; E72.12 Methylenetetrahydrofolate reductase deficiency; K62.5 Hemorrhage of anus and rectum; M47.12 Other spondylosis with myelopathy, cervical region; M47.16 Other spondylosis with myelopathy, lumbar region; M50.01 Cervical disc disorder with myelopathy, high cervical region; M50.021 Cervical disc disorder at C4-C5 level with myelopathy; M51.06 Intervertebral disc disorders with myelopathy, lumbar region; K29.50 Unspecified chronic gastritis without bleeding; J45.20 Mild intermittent asthma, uncomplicated; D50.9 Iron deficiency anemia, unspecified; E78.5 Hyperlipidemia, unspecified; F32.9 Major depressive disorder, single episode, unspecified; F40.01 Agoraphobia with panic disorder; G47.33 Obstructive sleep apnea (adult) (pediatric); Z63.4 Disappearance and death of family member; G89.29 Other chronic pain; I11.0 Hypertensive heart disease with heart failure; I50.9 Heart failure, unspecified; K21.9 Gastro-esophageal reflux disease without esophagitis; K44.9 Diaphragmatic hernia without obstruction or gangrene; L40.50 Arthropathic psoriasis, unspecified; M06.9 Rheumatoid arthritis, unspecified; M47.22 Other spondylosis with radiculopathy, cervical region; M47.26 Other spondylosis with radiculopathy, lumbar region; M48.02 Spinal stenosis, cervical region; M50.11 Cervical disc disorder with radiculopathy, high cervical region; M50.121 Cervical disc disorder at C4-C5 level with radiculopathy; M51.16 Intervertebral disc disorders with radiculopathy, lumbar region; M48.061 Spinal stenosis, lumbar region without neurogenic claudication; M79.7 Fibromyalgia; Z72.820 Sleep deprivation; Z79.1 Long term (current) use of non-steroidal anti-inflammatories (NSAID); T39.395A Adverse effect of other nonsteroidal anti-inflammatory drugs [NSAID], initial encounter; T45.4X5A Adverse effect of iron and its compounds, initial encounter; Z79.899 Other long term (current) drug therapy; Z82.49 Family history of ischemic heart disease and other diseases of the circulatory system; Z83.3 Family history of diabetes mellitus; Z87.891 Personal history of nicotine dependence; Z90.710 Acquired absence of both cervix and uterus; Z99.81 Dependence on supplemental oxygen; Z99.89 Dependence on other enabling machines and devices; M25.78 Osteophyte, vertebrae; Z90.49 Acquired absence of other specified parts of digestive tract; Z87.01 Personal history of pneumonia (recurrent); Z91.018 Allergy to other foods; Z91.013 Allergy to seafood; K58.9 Irritable bowel syndrome, unspecified; R26.9 Unspecified abnormalities of gait and mobility
CPT/HCPCS: 36415; 71046; 72110; 72125; 72141; 80053; 83605; 83735; 84484; 85025; 85610; 85730; 86850; 86860; 86870; 86880; 86900; 86901; 86902; 86971; 93005; 94760; 96361; 96374; 99285

== ENCOUNTER 2019-07-07 06:48 | Inpatient (IN) | payer MEDICARE, OTHER ==
[2019-07-07] MEDS ORDERED: ALPRAZolam 0.25 MG TAB PO STA (07:10)
--- NOTE | 2019-07-07 07:15 | ED ---
URI HPI <Andrea Collazo - Last Filed: 07/07/19 09:13> - General Source: patient Mode of arrival: ambulatory Limitations: no limitations <Kathy Mccullough - Last Filed: 07/07/19 09:37> - General Chief Complaint: Upper Respiratory Infection Stated Complaint: SOB, flu-like symptoms Time Seen by Provider: 07/07/19 06:56 - History of Present Illness Initial Comments: 59yo female with history of COPD-on 2L home oxygen at night, sleep apnea, history of kidney disease, anemia, IBS, HLD, "ulcers", Psoriatic arthritis presenting to the ER today for cc of fever, cough, shortness of breath x 3 days. Patient states she has had fever, cough, chills, body aches and increasing SOB x 3 days. Patient denies travel. Patient states that she is concerned she has Covid-19. No specific exposures, admits to diarrhea. Patient denies chest pain. Denies leg swelling, SOB when lying flat. Patient states SOB increases with ambulation. Patient states she is very anxious on arrival. She has increased RR rate. Patient feels warm to touch during history and physical-with poor closure of patient mouth patient temperatuer 99.3F, suspect higher. Patient has no other complaints. (Kathy Mccullough) - Related Data Home Medications Medication Instructions Recorded Confirmed ARIPiprazole [Abilify] 5 mg PO DAILY 04/16/19 05/24/19 Albuterol Sulfate [Proair Hfa] 2 puff INHALATION RT-QID PRN 04/16/19 05/24/19 Ergocalciferol [Vitamin D2 50,000 unit PO WE 04/16/19 05/24/19 (DRISDOL)] cycloSPORINE [Restasis] 1 drop BOTH EYES Q12H 04/16/19 05/24/19 oxyCODONE HCL [oxyCODONE HCL (IR)] 30 mg PO TID 04/16/19 05/24/19 traZODone HCL [Desyrel] 100 mg PO HS 04/16/19 05/24/19 busPIRone HCL [Buspar] 30 mg PO DAILY 04/19/19 05/24/19 rOPINIRole HCL [Requip] 0.25 mg PO TID 04/19/19 05/24/19 tiZANidine [Zanaflex] 2 mg PO BID 04/19/19 05/24/19 tiZANidine [Zanaflex] 4 mg PO HS 04/19/19 05/24/19 Albuterol Nebulized [Ventolin 2.5 mg INHALATION RT-Q6H PRN 05/24/19 05/24/19 Nebulized] Diclofenac Sodium [Voltaren Gel] 1 applic TOPICAL BID PRN 05/24/19 05/24/19 Ferrous Sulfate [Iron (65 MG 325 mg PO DAILY 05/24/19 05/24/19 Elemental)] Previous Rx's Medication Instructions Recorded Polyethylene Glycol 3350 [Miralax] 17 gm PO DAILY powd.pack 04/19/19 DULoxetine HCL [Cymbalta] 90 mg PO DAILY #30 capsule. 05/27/19 Melatonin 3 mg PO HS #30 tablet 05/27/19 Pantoprazole [Protonix] 40 mg PO BID #60 tab 05/27/19 Allergies Allergy/AdvReac Type Severity Reaction Status Date / Time cashew nut Allergy Unknown Verified 07/07/19 06:54 shellfish derived Allergy Swelling Verified 07/07/19 06:54 nuts Allergy Swelling Uncoded 07/07/19 06:54 animals AdvReac Wheezing Uncoded 07/07/19 06:54 environmental AdvReac Wheezing Uncoded 07/07/19 06:54 Review of Systems ROS Other: All systems not noted in ROS Statement are negative. <Andrea Collazo - Last Filed: 07/07/19 09:13> ROS Other: All systems not noted in ROS Statement are negative. <Kathy Mccullough - Last Filed: 07/07/19 09:37> ROS Statement: Those systems with pertinent positive or pertinent negative responses have been documented in the HPI. 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), has some amnesia, anemia-gets iron infusions History of Any Multi-Drug Resistant Organisms: None Reported Date of last positivie culture/infection: unsure MDRO Source:: unsure Past Surgical History: Section, Cholecystectomy, Ear Surgery, Hysterectomy, Tonsillectomy Additional Past Surgical History / Comment(s): left ear recontructed, col onoscopy and EGD, C/S x 4 Past Anesthesia/Blood Transfusion Reactions: Motion Sickness Past Psychological History: Anxiety, Depression Smoking Status: Former smoker Past Alcohol Use History: None Reported Past Drug Use History: None Reported - Past Family History Son(s) Additional Family Medical History / Comment(s): Patient has 1 son living. 3 sons have passed and patient does not want to talk about their cause of . Mother Family Medical History: No Reported History Additional Family Medical History / Comment(s): Mother at age 84 and had history of anemia. Sister(s) Family Medical History: Congestive Heart Failure (CHF), Diabetes Mellitus Brother(s) Family Medical History: Congestive Heart Failure (CHF), Diabetes Mellitus Father Family Medical History: No Reported History Additional Family Medical History / Comment(s): Father at age 54 from an accident. <Kathy Mccullough - Last Filed: 07/07/19 09:37> General Exam Limitations: no limitations <Kathy Mccullough - Last Filed: 07/07/19 09:37> - General Exam Comments Initial Comments: General: The patient is awake and alert, patient appears panicked Eye: +3 mm pupils are equal, round and reactive to light, extra-ocular movements are intact. No nystagmus. There is normal conjunctiva bilaterally. No signs of icterus. No photophobia Ears, nose, mouth and throat: Rhinorrhea, clear and bilateral nares. No tripoding, no drooling. Neck: The neck is supple, there is no tenderness or JVD. No nuchal rigidity negative Brudzinski and Kernig Cardiovascular: There is a regular rate and rhythm. No murmur, rub or gallop is appreciated. Respiratory: Respirations are mildly-labored, breath sounds are equal. Mild rhonchi, I did not appreciate significant rales, no stridor. No retractions, mild abdominal breathing. Gastrointestinal: Soft, non-distended, non-tender abdomen without masses or organomegaly noted. There is no rebound or guarding present. Bowel sounds are unremarkable. Musculoskeletal: Normal ROM, no tenderness. Strength 5/5. Sensation intact. Radial pulses equal bilaterally 2+. Neurological: A&O x 3. CN II-XII intact grossly, There are no obvious motor or sensory deficits. Coordination appears grossly intact. Speech appears normal, no muffling. Skin: Skin is warm and dry and no rashes or lesions are noted. No extremity edema Psychiatric: Cooperative (Kathy Mccullough) Course <Andrea Collazo - Last Filed: 07/07/19 09:13> Vital Signs 07/07/19 07/07/19 07/07/19 06:52 07:30 08:07 Temperature 98.7 F Pulse Rate 100 92 Respiratory 22 24 24 Rate Blood Pressure 179/104 133/73 O2 Sat by Pulse 95 94 L Oximetry 07/07/19 09:02 Temperature 100.1 F H Pulse Rate 93 Respiratory 24 Rate Blood Pressure 149/91 O2 Sat by Pulse 94 L Oximetry - Reevaluation(s) Reevaluation #1: 07/07/19 09:13 PA supervision: I proceeded did evaluate this case and did discuss the findings with Dr. Trujillo the patient will be admitted CT shows evidence of upper lobe pulmonary embolism also evidence of groundglass pneumonic processes. Viral infection in the process of being ruled out. Patient will be admitted (Andrea Collazo) Medical Decision Making - Lab Data Result diagrams: 07/07/19 07:10 07/07/19 07:10 <Andrea Collazo - Last Filed: 07/07/19 09:13> - Lab Data Result diagrams: 07/07/19 07:10 07/07/19 07:10 <Kathy Mccullough - Last Filed: 07/07/19 09:37> - Lab Data Lab Results 07/07/19 07/07/19 07/07/19 Range/Units 07:10 07:10 07:10 WBC 14.9 H (3.8-10.6) k/uL RBC 4.24 (3.80-5.40) m/uL Hgb 12.7 (11.4-16.0) gm/dL Hct 39.9 (34.0-46.0) % MCV 94.3 (80.0-100.0) fL MCH 29.9 (25.0-35.0) pg MCHC 31.7 (31.0-37.0) g/dL RDW 16.8 H (11.5-15.5) % Plt Count 239 (150-450) k/uL Neutrophils % 86 % Lymphocytes % 6 % Monocytes % 5 % Eosinophils % 4 % Basophils % 0 % Neutrophils # 12.8 H (1.3-7.7) k/uL Lymphocytes # 0.8 L (1.0-4.8) k/uL Monocytes # 0.7 (0-1.0) k/uL Eosinophils # 0.5 (0-0.7) k/uL Basophils # 0.0 (0-0.2) k/uL Hypochromasia Slight Anisocytosis Slight PT 9.5 (9.0-12.0) sec INR 0.9 (<1.2) APTT 23.6 (22.0-30.0) sec D-Dimer 0.93 H (<0.60) mg/L FEU Sodium 140 (137-145) mmol/L Potassium 3.8 (3.5-5.1) mmol/L Chloride 105 (98-107) mmol/L Carbon Dioxide 27 (22-30) mmol/L Anion Gap 8 mmol/L BUN 11 (7-17) mg/dL Creatinine 0.66 (0.52-1.04) mg/dL Est GFR (CKD-EPI)AfAm >90 (>60 ml/min/1.73 sqM) Est GFR (CKD-EPI)NonAf >90 (>60 ml/min/1.73 sqM) Glucose 124 H (74-99) mg/dL Plasma Lactic Acid Cipriano (0.7-2.0) mmol/L Calcium 9.5 (8.4-10.2) mg/dL Magnesium 1.7 (1.6-2.3) mg/dL Total Bilirubin 0.6 (0.2-1.3) mg/dL AST 60 H (14-36) U/L ALT 54 H (4-34) U/L Alkaline Phosphatase 127 H (38-126) U/L Lactate Dehydrogenase 577 (313-618) U/L C-Reactive Protein 50.9 H (<10.0) mg/L Total Protein 7.3 (6.3-8.2) g/dL Albumin 4.2 (3.5-5.0) g/dL Influenza Type A RNA (Not Detectd) Influenza Type B (PCR) (Not Detectd) 07/07/19 07/07/19 Range/Units 07:10 07:42 WBC (3.8-10.6) k/uL RBC (3.80-5.40) m/uL Hgb (11.4-16.0) gm/dL Hct (34.0-46.0) % MCV (80.0-100.0) fL MCH (25.0-35.0) pg MCHC (31.0-37.0) g/dL RDW (11.5-15.5) % Plt Count (150-450) k/uL Neutrophils % % Lymphocytes % % Monocytes % % Eosinophils % % Basophils % % Neutrophils # (1.3-7.7) k/uL Lymphocytes # (1.0-4.8) k/uL Monocytes # (0-1.0) k/uL Eosinophils # (0-0.7) k/uL Basophils # (0-0.2) k/uL Hypochromasia Anisocytosis PT (9.0-12.0) sec INR (<1.2) APTT (22.0-30.0) sec D-Dimer (<0.60) mg/L FEU Sodium (137-145) mmol/L Potassium (3.5-5.1) mmol/L Chloride (98-107) mmol/L Carbon Dioxide (22-30) mmol/L Anion Gap mmol/L BUN (7-17) mg/dL Creatinine (0.52-1.04) mg/dL Est GFR (CKD-EPI)AfAm (>60 ml/min/1.73 sqM) Est GFR (CKD-EPI)NonAf (>60 ml/min/1.73 sqM) Glucose (74-99) mg/dL Plasma Lactic Acid Cipriano 1.7 (0.7-2.0) mmol/L Calcium (8.4-10.2) mg/dL Magnesium (1.6-2.3) mg/dL Total Bilirubin (0.2-1.3) mg/dL AST (14-36) U/L ALT (4-34) U/L Alkaline Phosphatase (38-126) U/L Lactate Dehydrogenase (313-618) U/L C-Reactive Protein (<10.0) mg/L Total Protein (6.3-8.2) g/dL Albumin (3.5-5.0) g/dL Influenza Type A RNA Not Detected (Not Detectd) Influenza Type B (PCR) Not Detected (Not Detectd) - EKG Data EKG Comments: Ventricular rate 91bpm, MD interval 120ms, QRS duration 76ms, QT/QTc 378/464ms normal sinus no ST elevation or depression there is some artifact noted. (Kathy Mccullough) Disposition <Andrea Collazo - Last Filed: 07/07/19 09:13> Is patient prescribed a controlled substance at d/c from ED?: No Time of Disposition: 09:15 Decision to Admit Reason: Admit from EC Decision Date: 07/07/19 Decision Time: 09:15 <Kathy Mccullough - Last Filed: 07/07/19 09:37> Clinical Impression: Suspected COVID-19 virus infection, Dyspnea, Pulmonary embolism, Pneumonia, Fever, Cough Disposition: ADMITTED IP TO THIS HOSP Condition: Serious Referrals: Major Funk MD [Primary Care Provider] - 1-2 days
[2019-07-07 07:24] LABS: Anisocytosis Slight; Basophils % (A) 0 %; Eosinophils # (A) 0.5 k/uL (0-0.7); Eosinophils % (A) 4 %; HCT 39.9 % (34.0-46.0); HGB 12.7 gm/dL (11.4-16.0); Hypochromasia Slight; Lymphocytes # (A) 0.8 k/uL (1.0-4.8); Lymphocytes % (A) 6 %; MCH 29.9 pg (25.0-35.0); MCHC 31.7 g/dL (31.0-37.0); MCV 94.3 fL (80.0-100.0); Mean Platelet Volume 8.6; Monocytes # (A) 0.7 k/uL (0-1.0); Monocytes % (A) 5 %; Neutrophils # (A) 12.8 k/uL (1.3-7.7); Neutrophils % (A) 86 %; Platelet Count 239 k/uL (150-450); RBC 4.24 m/uL (3.80-5.40); RDW 16.8 % (11.5-15.5); WBC 14.9 k/uL (3.8-10.6)
[2019-07-07 07:37] LABS: ALT 54 U/L (4-34); AST 60 U/L (14-36); African American GFR (CKD) >90 (>60 ml/min/1.73 sqM); Albumin 4.2 g/dL (3.5-5.0); Alkaline Phosphatase 127 U/L (38-126); Anion Gap 8 mmol/L; Blood Urea Nitrogen 11 mg/dL (7-17); C Reactive Protein 50.9 mg/L (<10.0); Calcium 9.5 mg/dL (8.4-10.2); Carbon Dioxide 27 mmol/L (22-30); Chloride 105 mmol/L (98-107); Glucose 124 mg/dL (74-99); LDH 577 U/L (313-618); Magnesium 1.7 mg/dL (1.6-2.3); Non-African American GFR(CKD) >90 (>60 ml/min/1.73 sqM); Potassium 3.8 mmol/L (3.5-5.1); Sodium 140 mmol/L (137-145); Total Bilirubin 0.6 mg/dL (0.2-1.3); Total Protein 7.3 g/dL (6.3-8.2)
[2019-07-07 07:38] LABS: INR 0.9 (<1.2); Partial Thromboplastin Time 23.6 sec (22.0-30.0); Prothrombin Time 9.5 sec (9.0-12.0)
[2019-07-07 07:46] LABS: D-Dimer 0.93 mg/L FEU (<0.60)
--- NOTE | 2019-07-07 07:53 | XR ---
EXAMINATION TYPE: XR chest 1V DATE OF EXAM: 07/07/2019 HISTORY: Shortness of breath. COMPARISON: 05/24/2019 TECHNIQUE: Single view of the chest is submitted. FINDINGS: Demonstrated are scattered senescent parenchymal change. Hazy density overlying the right hemithorax may reflect underlying infiltrate. Correlate clinically. The heart is stable. Hilar and mediastinal structures are within normal limits. Degenerative changes are seen of the dorsal spine. IMPRESSION: 1. Hazy density overlying the right hemithorax may reflect underlying infiltrate. Correlate clinical ly.
[2019-07-07] MEDS ORDERED: AZITHROMYCIN 500 MG in SODIUM CHLORIDE 0.9% 250 ML IVPB STA (07:55)
--- NOTE | 2019-07-07 08:59 | CT ---
EXAMINATION TYPE: CT chest angio for PE DATE OF EXAM: 07/07/2019 COMPARISON: None HISTORY: Shortness of breath, fever and pain CT DLP: 508.1 mGycm CONTRAST: CT chest with contrast and 3D reconstruction with MIP imaging is performed with IV Contrast, patient injected with 100 mL of Isovue 370. Contrast-enhanced CT of the chest was performed through the course of the pulmonary arteries with giuseppe g and mediastinal window settings submitted. 3D reconstruction with MIP imaging was also performed. PULMONARY ARTERIES: There are a few tiny filling defects seen within the upper lobe secondary and ter tiary branches of the pulmonary arteries and to a lesser extent the left lower lobe. I cannot exclude small pulmonary emboli. LUNGS: Scattered groundglass infiltrates noted. No evidence for atelectasis. No pulmonary nodule or mass is detected. No pleural effusion. MEDIASTINUM: Large fixed hiatal hernia. Atheromatous change thoracic aorta without evidence for aneu rysm. The heart is not enlarged. No evidence for mediastinal mass. No mediastinal lymph nodes great er than 1cm. HILAR STRUCTURES: No evidence for mass. No hilar lymph nodes greater than 1 cm. UPPER ABDOMEN: No significant abnormality is seen. IMPRESSION: 1. I cannot exclude small pulmonary emboli as discussed above. 2. Scattered groundglass infiltrates. Correlate for pneumonia.
[2019-07-07] MEDS ORDERED: ACETAMINOPHEN TAB 325 MG TAB PO STA (09:05)
[2019-07-07] MEDS ORDERED: DICLOFENAC SODIUM GEL 100 GM TUBE TOPICAL PRN (11:23)
[2019-07-07] MEDS ORDERED: ERGOCALCIFEROL 50,000 UNIT CAP PO SCH (12:00)
[2019-07-07] MEDS: ALBUTEROL HFA INHALER INHALATION SCH ×4 (12:03→19:41)
[2019-07-07] MEDS: DULoxetine HCL 30 MG CAPSULE.DR PO SCH (12:57)
[2019-07-07] MEDS: PANTOPRAZOLE 40 MG TABLET PO SCH (12:57)
[2019-07-07] MEDS: tiZANidine 4 MG TAB PO SCH ×3 (12:57→20:24)
[2019-07-07] MEDS: busPIRone HCl 10 MG TAB PO SCH (12:58)
[2019-07-07 15:35] LABS: Ferritin 58.3 ng/mL (10.0-291.0)
[2019-07-07] MEDS: ENOXAPARIN 80 MG/0.8 ML SYRINGE SQ SCH ×2 (16:21→21:03)
[2019-07-07] MEDS: ARIPiprazole 5 MG TAB PO SCH (16:21)
--- NOTE | 2019-07-07 19:53 | P.HPIM ---
History of Present Illness H&P Date: 07/07/19 Chief Complaint: Fever and cough History of presenting complaint: This is a 58-year-old patient of Dr. Major Braden from [facility]. Chronic stable medical conditions include chronic gastritis, fibromyalgia, GERD, hyperlipidemia, MTHFR gene mutation, cervical spine spondylosis with disc herniation. Patient now presents with five-day history is of fevers cough some vomiting. Some chest tightness and wheezing also. Also having some loose stools about 2 times a day. Some headache body aches. Patient is due to vaping in the past. Denies doing the same for last 2 months. Review of systems: GEN.: Fever or chills EYES: None HEENT: None NECK: None RESPIRATORY: As above CARDIOVASCULAR: None GASTROINTESTINAL: No abdominal pain GENITOURINARY: None MUSCULOSKELETAL: Some intermittent chronic neck pain LYMPHATICS: None HEMATOLOGICAL: None PSYCHIATRY: Very anxious NEUROLOGICAL: Does not sleep well Past medical history to include: Asthma, fibromyalgia, GERD, hyperlipidemia, rheumatoid arthritis, MTHFR gene mutations, seizures during , migraines, 2 L of oxygen at night, psoriatic arthritis, iron deficiency anemia, anxiety depression has lost 4 children Social history: Patient smoked for 10 years stopped in 1998. Denies use of recreational drugs. Alcohol rarely. . History of vaping till about 2 months ago. Physical examination: VITAL SIGNS: 100.1, 93, 24, 149/91, 94% on room air GENERAL: BMI 27.4, sitting up, somewhat anxious restless. EYES: Pupils equal. Conjunctiva normal. HEENT: External appearance of nose and ears normal, oral cavity grossly normal. NECK: JVD not raised; masses not palpable. HEART: First and second heart sounds are normal; no edema. LUNGS: Respiratory rate increased, decreased breath sounds some wheezing. ABDOMEN: Soft, nontender, liver spleen not palpable, no masses palpable. PSYCH: Alert and oriented x3; mood and affect. Very anxious NEUROLOGICAL: Cranial nerves grossly intact; no facial asymmetry, power and sensation grossly intact. LYMPHATICS: No lymph nodes palpable in the axilla and neck INVESTIGATIONS, reviewed in the clinical context: White count 14.9 hemoglobin 12.7 neutrophils 12.8 lymphocytes 0.8 d-dimer 0.93 progression 3.8 creatinine 0.66 Progress calcitonin 0.14 Coronavirus PCR-not detected Influenza type A and type B both negative EKG tracing personally reviewed by me-normal sinus rhythm Computed tomography scan of the chest-scattered groundglass infiltrates. Large fixed hiatal hernia small pulmonary emboli cannot be ruled out Chest x-ray film personally reviewed by me-scattered infiltrates Assessment: -Bilateral pneumonia, suspect gram-negative organism. Patient's symptoms have been present for 5 days has the chance of coronavirus PCR being negative ruled out. POA -Clinical picture is not compatible with PE. We'll check Doppler ultrasounds lower extremity. -chronic gastritis. -Intermittent asthma, with acute exacerbation, POA -poor sleep hygiene -Chronic fibromyalgia -GERD -Hyperlipidemia -MTHFR gene mutation -Chronic hypoxic respiratory failure on home oxygen 2 L at night -Multilevel spondylitic changes in the cervical spine including disc herniation and spinal stenosis especially at C4-C5. Plan: Home medications resumed. Start the patient on cefepime. Zithromax. Bronchodilators. Patient can be discontinued from COVID precautions. Discussed with the patient. Lovenox for DVT prophylaxis. 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), has some amnesia, anemia-gets iron infusions History of Any Multi-Drug Resistant Organisms: None Reported Date of last positivie culture/infection: unsure MDRO Source:: unsure Past Surgical History: Section, Cholecystectomy, Ear Surgery, Hysterectomy, Tonsillectomy Additional Past Surgical History / Comment(s): left ear recontructed, colonoscopy and EGD, C/S x 4 Past Anesthesia/Blood Transfusion Reactions: Motion Sickness Past Psychological History: Anxiety, Depression Smoking Status: Former smoker Past Alcohol Use History: None Reported Past Drug Use History: None Reported - Past Family History Son(s) Additional Family Medical History / Comment(s): Patient has 1 son living. 3 sons have passed and patient does not want to talk about their cause of . Mother Family Medical History: No Reported History Additional Family Medical History / Comment(s): Mother at age 84 and had hi story of anemia. Sister(s) Family Medical History: Congestive Heart Failure (CHF), Diabetes Mellitus Brother(s) Family Medical History: Congestive Heart Failure (CHF), Diabetes Mellitus Father Family Medical History: No Reported History Additional Family Medical History / Comment(s): Father at age 54 from an accident. Medications and Allergies Home Medications Medication Instructions Recorded Confirmed Type ARIPiprazole [Abilify] 5 mg PO DAILY 04/16/19 07/07/19 History Albuterol Sulfate [Proair Hfa] 2 puff INHALATION RT-QID PRN 04/16/19 07/07/19 History Ergocalciferol [Vitamin D2 50,000 unit PO WE 04/16/19 07/07/19 History (DRISDOL)] cycloSPORINE [Restasis] 1 drop BOTH EYES Q12H 04/16/19 07/07/19 History oxyCODONE HCL [oxyCODONE HCL (IR)] 30 mg PO QID 04/16/19 07/07/19 History traZODone HCL [Desyrel] 100 mg PO HS 04/16/19 07/07/19 History Polyethylene Glycol 3350 [Miralax] 17 gm PO DAILY powd.pack 04/19/19 07/07/19 Rx busPIRone HCL [Buspar] 30 mg PO DAILY 04/19/19 07/07/19 History rOPINIRole HCL [Requip] 0.25 mg PO TID 04/19/19 07/07/19 History tiZANidine [Zanaflex] 2 mg PO BID 04/19/19 07/07/19 History tiZANidine [Zanaflex] 4 mg PO HS 04/19/19 07/07/19 History Albuterol Nebulized [Ventolin 2.5 mg INHALATION RT-Q6H PRN 05/24/19 07/07/19 History Nebulized] Diclofenac Sodium [Voltaren Gel] 1 applic TOPICAL BID PRN 05/24/19 07/07/19 History Ferrous Sulfate [Iron (65 MG 325 mg PO DAILY 05/24/19 07/07/19 History Elemental)] Melatonin 3 mg PO HS #30 tablet 05/27/19 07/07/19 Rx DULoxetine HCL [Cymbalta] 30 mg PO DAILY 07/07/19 07/07/19 History DULoxetine HCL [Cymbalta] 60 mg PO DAILY 07/07/19 07/07/19 History Docusate [Colace] 100 mg PO BID 07/07/19 07/07/19 History Meclizine [Antivert] 25 mg PO BID PRN 07/07/19 07/07/19 History Pantoprazole [Protonix] 40 mg PO DAILY 07/07/19 07/07/19 History Allergies Allergy/AdvReac Type Severity Reaction Status Date / Time cashew nut Allergy Unknown Verified 07/07/19 06:54 shellfish derived Allergy Swelling Verified 07/07/19 06:54 nuts Allergy Swelling Uncoded 07/07/19 06:54 animals AdvReac Wheezing Uncoded 07/07/19 06:54 environmental AdvReac Wheezing Uncoded 07/07/19 06:54 Physical Exam Vitals: Vital Signs Temp Pulse Resp BP Pulse Ox 07/07/19 09:20 98 24 149/91 07/07/19 09:02 100.1 F H 93 24 149/91 94 L 07/07/19 09:00 97 24 136/76 94 L 07/07/19 08:40 90 24 136/76 95 07/07/19 08:30 95 24 133/73 95 07/07/19 08:07 92 24 133/73 94 L 07/07/19 08:00 96 24 143/79 94 L 07/07/19 07:30 24 07/07/19 06:52 98.7 F 100 22 179/104 95 Intake and Output 07/06/19 07/07/19 07/07/19 22:59 06:59 14:59 Output Total 150 Balance -150 Output: Urine 150 Other: Weight 79.379 kg Results CBC & Chem 7: 07/07/19 07:10 07/07/19 07:10 Labs: Abnormal Lab Results - Last 24 Hours (Table) 07/07/19 07/07/19 07/07/19 Range/Units 07:10 07:10 07:10 WBC 14.9 H (3.8-10.6) k/uL RDW 16.8 H (11.5-15.5) % Neutrophils # 12.8 H (1.3-7.7) k/uL Lymphocytes # 0.8 L (1.0-4.8) k/uL D-Dimer 0.93 H (<0.60) mg/L FEU Glucose 124 H (74-99) mg/dL AST 60 H (14-36) U/L ALT 54 H (4-34) U/L Alkaline Phosphatase 127 H (38-126) U/L C-Reactive Protein 50.9 H (<10.0) mg/L Procalcitonin (0.02-0.09) ng/mL 07/07/19 Range/Units 07:10 WBC (3.8-10.6) k/uL RDW (11.5-15.5) % Neutrophils # (1.3-7.7) k/uL Lymphocytes # (1.0-4.8) k/uL D-Dimer (<0.60) mg/L FEU Glucose (74-99) mg/dL AST (14-36) U/L ALT (4-34) U/L Alkaline Phosphatase (38-126) U/L C-Reactive Protein (<10.0) mg/L Procalcitonin 0.14 H (0.02-0.09) ng/mL
[2019-07-07] MEDS ORDERED: IPRATROPIUM-ALBUTEROL 3 ML NEB INHALATION SCH (20:00)
[2019-07-07] MEDS: DOCUSATE 100 MG CAP PO SCH (20:23)
[2019-07-07] MEDS: CEFEPIME 1 GM in SODIUM CHLORIDE 0.9% 50 ML IVPB SCH (20:23)
[2019-07-07] MEDS: traZODone HCL 100 MG TAB PO SCH (20:24)
[2019-07-07] MEDS: MELATONIN 3 MG TABLET PO SCH (20:24)
[2019-07-07] MEDS: cycloSPORINE 0.05% OPHTH 0.4 ML DROPERETTE BOTH EYES SCH (20:25)
--- NOTE | 2019-07-07 21:15 | US ---
EXAMINATION TYPE: US venous doppler duplex LE DATE OF EXAM: 07/07/2019 9:06 PM COMPARISON: US CLINICAL HISTORY: Rule out DVT. Rule out DVT. PE. SIDE PERFORMED: Bilateral TECHNIQUE: The lower extremity deep venous system is examined utilizing real time linear array sonog tristan with graded compression, doppler sonography and color-flow sonography. VESSELS IMAGED: External Iliac Vein (EIV) Common Femoral Vein Deep Femoral Vein Greater Saphenous Vein * Femoral Vein Popliteal Vein Small Saphenous Vein * Proximal Calf Veins (* superficial vessels) Right Leg: No evidence of DVT in veins imaged at this time from prox calf veins to EIV. Left Leg: No evidence of DVT in veins imaged at this time from prox calf veins to EIV. IMPRESSION: No sonographic evidence of deep venous thrombosis in either of the visualized bilateral lower extremities.
[2019-07-08] MEDS: PANTOPRAZOLE 40 MG TABLET PO SCH (06:06)
[2019-07-08 07:31] LABS: Anisocytosis Slight; Basophils % (A) 0 %; Eosinophils # (A) 0.3 k/uL (0-0.7); Eosinophils % (A) 4 %; HCT 37.5 % (34.0-46.0); HGB 11.6 gm/dL (11.4-16.0); Hypochromasia Slight; Lymphocytes # (A) 1.1 k/uL (1.0-4.8); Lymphocytes % (A) 14 %; MCH 29.3 pg (25.0-35.0); MCV 94.6 fL (80.0-100.0); Mean Platelet Volume 9.1; Monocytes # (A) 0.6 k/uL (0-1.0); Monocytes % (A) 7 %; Neutrophils # (A) 5.6 k/uL (1.3-7.7); Neutrophils % (A) 72 %; Platelet Count 200 k/uL (150-450); RBC 3.96 m/uL (3.80-5.40); RDW 16.2 % (11.5-15.5); WBC 7.8 k/uL (3.8-10.6)
[2019-07-08 07:39] LABS: African American GFR (CKD) >90 (>60 ml/min/1.73 sqM); Anion Gap 7 mmol/L; Blood Urea Nitrogen 10 mg/dL (7-17); Calcium 8.8 mg/dL (8.4-10.2); Carbon Dioxide 26 mmol/L (22-30); Chloride 107 mmol/L (98-107); Glucose 108 mg/dL (74-99); Non-African American GFR(CKD) >90 (>60 ml/min/1.73 sqM); Potassium 3.7 mmol/L (3.5-5.1); Sodium 140 mmol/L (137-145)
[2019-07-08] MEDS: ALBUTEROL HFA INHALER INHALATION PRN ×2 (08:28→13:42)
[2019-07-08] MEDS: SODIUM CHLORIDE 0.9% 1,000 ML IV SCH ×3 (09:54→21:29)
[2019-07-08] MEDS: ENOXAPARIN 80 MG/0.8 ML SYRINGE SQ SCH ×2 (09:55→21:27)
[2019-07-08] MEDS: busPIRone HCl 10 MG TAB PO SCH (09:56)
[2019-07-08] MEDS: DULoxetine HCL 30 MG CAPSULE.DR PO SCH (09:56)
[2019-07-08] MEDS: ARIPiprazole 5 MG TAB PO SCH (09:56)
[2019-07-08] MEDS: tiZANidine 4 MG TAB PO SCH ×3 (09:56→21:28)
[2019-07-08] MEDS: AZITHROMYCIN 500 MG TAB PO SCH (09:56)
[2019-07-08] MEDS: DOCUSATE 100 MG CAP PO SCH ×2 (09:57→21:16)
[2019-07-08] MEDS: FERROUS SULFATE 325 MG TAB PO SCH (09:57)
[2019-07-08] MEDS: cycloSPORINE 0.05% OPHTH 0.4 ML DROPERETTE BOTH EYES SCH ×2 (09:57→21:15)
[2019-07-08] MEDS: POLYETHYLENE GLYCOL 3350 17 GM POWD.PACK PO SCH (09:58)
[2019-07-08] MEDS: CEFEPIME 1 GM in SODIUM CHLORIDE 0.9% 50 ML IVPB SCH ×2 (10:19→21:30)
[2019-07-08] MEDS: traZODone HCL 100 MG TAB PO SCH (21:18)
[2019-07-08] MEDS: MELATONIN 3 MG TABLET PO SCH (21:20)
--- NOTE | 2019-07-08 21:36 | P.PN ---
Progress Note - Text Progress Note Date: 07/08/19 Chief Complaint: Fever and cough History of presenting complaint: This is a 58-year-old patient of Dr. Major Braden from visiting physicians. Chronic stable medical conditions include chronic gastritis, fibromyalgia, GERD, hyperlipidemia, MTHFR gene mutation, cervical spine spondylosis with disc herniation. Patient now presents with five-day history is of fevers cough some vomiting. Some chest tightness and wheezing also. Also having some loose stools about 2 times a day. Some headache body aches. Patient is due to vaping in the past. Denies doing the same for last 2 months. Admitted with pneumonia. Coronavirus PCR was negative. Started IV cefepime, Z ithromax Today-feeling better. Less cough. No fever. Getting somewhat better. Decreased appetite Review of systems: Was done for constitutional, cardiovascular, GI, pulmonary. relevant finding as above Active Medications Albuterol Sulfate (Ventolin Hfa Inhaler) 2 puff INHALATION RT-Q6H PRN PRN Reason: Shortness Of Breath Or Wheezing Last Admin: 07/08/19 13:42 Dose: 2 puff Documented by: Aripiprazole (Abilify) 5 mg PO DAILY [facility] Last Admin: 07/08/19 09:56 Dose: 5 mg Documented by: Azithromycin (Zithromax) 500 mg PO DAILY [facility] Last Admin: 07/08/19 09:56 Dose: 500 mg Documented by: Buspirone HCl (Buspar) 30 mg PO DAILY [facility] Last Admin: 07/08/19 09:56 Dose: 30 mg Documented by: Cyclosporine (Restasis 0.05% Ophth Soln) 1 drops BOTH EYES Q12HR [facility] Last Admin: 07/08/19 21:15 Dose: Not Given Documented by: Diclofenac Sodium (Voltaren Gel) 1 gm TOPICAL BID PRN PRN Reason: Pain Docusate Sodium (Colace) 100 mg PO BID [facility] Last Admin: 07/08/19 21:16 Dose: Not Given Documented by: Duloxetine HCl (Cymbalta) 30 mg PO DAILY [facility] Last Admin: 07/08/19 09:56 Dose: 30 mg Documented by: Enoxaparin Sodium (Lovenox) 80 mg SQ BID [facility] Last Admin: 07/08/19 21:27 Dose: 80 mg Documented by: Ergocalciferol (Vitamin D2) 50,000 unit PO WE [facility] Last Admin: 07/07/19 16:21 Dose: 50,000 unit Documented by: Ferrous Sulfate (Feosol) 325 mg PO DAILY [facility] Last Admin: 07/08/19 09:57 Dose: 325 mg Documented by: Cefepime HCl 1 gm/ Sodium (Chloride) 50 mls @ 100 mls/hr IVPB Q12HR [facility] Last Admin: 07/08/19 21:30 Dose: 100 mls/hr Documented by: Sodium Chloride (Saline 0.9%) 1,000 mls @ 100 mls/hr IV .Q10H [facility] Last Admin: 07/08/19 21:29 Dose: 100 mls/hr Documented by: Melatonin (Melatonin) 3 mg PO [facility] Last Admin: 07/08/19 21:20 Dose: Not Given Documented by: Oxycodone HCl (Oxyir) 30 mg PO QID [facility] Last Admin: 07/08/19 21:16 Dose: 30 mg Documented by: Pantoprazole Sodium (Protonix) 40 mg PO AC-BRKFST [facility] Last Admin: 07/08/19 06:06 Dose: 40 mg Documented by: Polyethylene Glycol (Miralax) 17 gm PO DAILY [facility] Last Admin: 07/08/19 09:58 Dose: Not Given Documented by: Ropinirole HCl (Requip) 0.25 mg PO TID [facility] Last Admin: 07/08/19 21:20 Dose: Not Given Documented by: Tizanidine HCl (Zanaflex) 4 mg PO [facility] Last Admin: 07/08/19 21:28 Dose: 4 mg Documented by: Tizanidine HCl (Zanaflex) 2 mg PO BID [facility] Last Admin: 07/08/19 21:28 Dose: 2 mg Documented by: Trazodone HCl (Desyrel) 100 mg PO [facility] Last Admin: 07/08/19 21:18 Dose: 100 mg Documented by: Physical examination: VITAL SIGNS: 97.9, 67, 15, 120 dose 37, 94% on room air GENERAL: Laying in bed, more comfortable today less anxious. EYES: Pupils equal. Conjunctiva normal. HEENT: External appearance of nose and ears normal, oral cavity grossly normal. NECK: JVD not raised; masses not palpable. HEART: First and second heart sounds are normal; no edema. LUNGS: Respiratory rate increased, decreased breath sounds ABDOMEN: Soft, nontender, liver spleen not palpable, no masses palpable. PSYCH: Alert and oriented x3; mood and affect. Less anxious INVESTIGATIONS, reviewed in the clinical context: White count 7.8 hemoglobin 11.6 potassium 3.7 creatinine 0.66 Doppler ultrasound of both the lower extremity-negative for DVT Previous testing White count 14.9 hemoglobin 12.7 neutrophils 12.8 lymphocytes 0.8 d-dimer 0.93 progression 3.8 creatinine 0.66 Progress calcitonin 0.14 Coronavirus PCR-not detected Influenza type A and type B both negative EKG tracing personally reviewed by me-normal sinus rhythm Computed tomography scan of the chest-scattered groundglass infiltrates. Large fixed hiatal hernia small pulmonary emboli cannot be ruled out Chest x-ray film personally reviewed by me-scattered infiltrates Assessment: -Bilateral pneumonia, suspect gram-negative organism., Improving POA -Clinical picture is not compatible with PE. Negative Doppler ultrasounds lower extremity. -chronic gastritis. -Intermittent asthma, with acute exacerbation, POA -poor sleep hygiene -Chronic fibromyalgia -GERD -Hyperlipidemia -MTHFR gene mutation -Chronic hypoxic respiratory failure on home oxygen 2 L at night -Multilevel spondylitic changes in the cervical spine including disc herniation and spinal stenosis especially at C4-C5. Plan: on cefepime. Zithromax. Bronchodilators. Significantly better. Encouraged to be out of bed. . Encourage oral intake.
[2019-07-09] MEDS: ALBUTEROL HFA INHALER INHALATION PRN ×3 (07:36→16:17)
[2019-07-09] MEDS: PANTOPRAZOLE 40 MG TABLET PO SCH (08:36)
[2019-07-09] MEDS: tiZANidine 4 MG TAB PO SCH ×3 (08:36→21:07)
[2019-07-09] MEDS: FERROUS SULFATE 325 MG TAB PO SCH (08:36)
[2019-07-09] MEDS: ARIPiprazole 5 MG TAB PO SCH (08:36)
[2019-07-09] MEDS: AZITHROMYCIN 500 MG TAB PO SCH (08:36)
[2019-07-09] MEDS: DULoxetine HCL 30 MG CAPSULE.DR PO SCH (08:36)
[2019-07-09] MEDS: DOCUSATE 100 MG CAP PO SCH ×2 (08:37→20:21)
[2019-07-09] MEDS: busPIRone HCl 10 MG TAB PO SCH (08:37)
[2019-07-09] MEDS: cycloSPORINE 0.05% OPHTH 0.4 ML DROPERETTE BOTH EYES SCH ×2 (08:37→20:22)
[2019-07-09] MEDS: ENOXAPARIN 80 MG/0.8 ML SYRINGE SQ SCH ×2 (08:37→20:21)
[2019-07-09] MEDS: POLYETHYLENE GLYCOL 3350 17 GM POWD.PACK PO SCH (08:38)
[2019-07-09 09:39] VITALS: BMI 29.7
[2019-07-09] MEDS: CEFEPIME 1 GM in SODIUM CHLORIDE 0.9% 50 ML IVPB SCH ×2 (10:00→21:07)
[2019-07-09] MEDS: SODIUM CHLORIDE 0.9% 1,000 ML IV SCH ×2 (19:00→20:22)
--- NOTE | 2019-07-09 19:57 | P.PN ---
Progress Note - Text Progress Note Date: 07/09/19 Chief Complaint: Fever and cough History of presenting complaint: This is a 58-year-old patient of Dr. Major Brdaen from visiting physicians. Chronic stable medical conditions include chronic gastritis, fibromyalgia, GERD, hyperlipidemia, MTHFR gene mutation, cervical spine spondylosis with disc herniation. Patient now presents with five-day history is of fevers cough some vomiting. Some chest tightness and wheezing also. Also having some loose stools about 2 times a day. Some headache body aches. Patient is due to vaping in the past. Denies doing the same for last 2 months. Admitted with pneumonia. Coronavirus PCR was negative. Started IV cefepime, Z ithromax. Blood cultures grew-E. coli Today-continues to feel better. Appetite is improving. Had 100% breakfast. Breathing much improved. Started to walk around the room. Review of systems: Was done for constitutional, cardiovascular, GI, pulmonary. relevant finding as above Active Medications Albuterol Sulfate (Ventolin Hfa Inhaler) 2 puff INHALATION RT-Q6H PRN PRN Reason: Shortness Of Breath Or Wheezing Last Admin: 07/09/19 16:17 Dose: 2 puff Documented by: Aripiprazole (Abilify) 5 mg PO DAILY [facility] Last Admin: 07/09/19 08:36 Dose: 5 mg Documented by: Azithromycin (Zithromax) 500 mg PO DAILY [facility] Last Admin: 07/09/19 08:36 Dose: 500 mg Documented by: Buspirone HCl (Buspar) 30 mg PO DAILY [facility] Last Admin: 07/09/19 08:37 Dose: 30 mg Documented by: Cyclosporine (Restasis 0.05% Oph Soln) 1 drops BOTH EYES Q12HR [facility] Last Admin: 07/09/19 08:37 Dose: 1 drops Documented by: Diclofenac Sodium (Voltaren Gel) 1 gm TOPICAL BID PRN PRN Reason: Pain Docusate Sodium (Colace) 100 mg PO BID [facility] Last Admin: 07/09/19 08:37 Dose: Not Given Documented by: Duloxetine HCl (Cymbalta) 30 mg PO DAILY [facility] Last Admin: 07/09/19 08:36 Dose: 30 mg Documented by: Enoxaparin Sodium (Lovenox) 80 mg SQ BID [facility] Last Admin: 07/09/19 08:37 Dose: 80 mg Documented by: Ergocalciferol (Vitamin D2) 50,000 unit PO WE [facility] Last Admin: 07/07/19 16:21 Dose: 50,000 unit Documented by: Ferrous Sulfate (Feosol) 325 mg PO DAILY [facility] Last Admin: 07/09/19 08:36 Dose: 325 mg Documented by: Cefepime HCl 1 gm/ Sodium (Chloride) 50 mls @ 100 mls/hr IVPB Q12HR [facility] Last Admin: 07/09/19 10:00 Dose: 100 mls/hr Documented by: Sodium Chloride (Saline 0.9%) 1,000 mls @ 100 mls/hr IV .Q10H [facility] Last Admin: 07/09/19 19:00 Dose: Not Given Documented by: Melatonin (Melatonin) 3 mg PO [facility] Last Admin: 07/08/19 21:20 Dose: Not Given Documented by: Oxycodone HCl (Oxyir) 30 mg PO Q6H PRN PRN Reason: Pain Last Admin: 07/09/19 16:03 Dose: 30 mg Documented by: Pantoprazole Sodium (Protonix) 40 mg PO AC-BRKFST [facility] Last Admin: 07/09/19 08:36 Dose: 40 mg Documented by: Polyethylene Glycol (Miralax) 17 gm PO DAILY [facility] Last Admin: 07/09/19 08:38 Dose: Not Given Documented by: Ropinirole HCl (Requip) 0.25 mg PO TID [facility] Last Admin: 07/09/19 16:03 Dose: 0.25 mg Documented by: Tizanidine HCl (Zanaflex) 4 mg PO [facility] Last Admin: 07/08/19 21:28 Dose: 4 mg Documented by: Tizanidine HCl (Zanaflex) 2 mg PO BID [facility] Last Admin: 07/09/19 08:36 Dose: 2 mg Documented by: Trazodone HCl (Desyrel) 100 mg PO [facility] Last Admin: 07/08/19 21:18 Dose: 100 mg Documented by: Physical examination: VITAL SIGNS: 98.6, 55, 17, 116/84, 97% on room air GENERAL: Sitting up in a chair, looking better EYES: Pupils equal. Conjunctiva normal. HEENT: External appearance of nose and ears normal, oral cavity grossly normal. NECK: JVD not raised; masses not palpable. HEART: First and second heart sounds are normal; no edema. LUNGS: Respiratory rate increased, decreased breath sounds ABDOMEN: Soft, nontender, liver spleen not palpable, no masses palpable. PSYCH: Alert and oriented x3; mood and affect. Improved INVESTIGATIONS, reviewed in the clinical context: White count 7.8 hemoglobin 11.6 potassium 3.7 creatinine 0.66 Doppler ultrasound of both the lower extremity-negative for DVT Previous testing White count 14.9 hemoglobin 12.7 neutrophils 12.8 lymphocytes 0.8 d-dimer 0.93 progression 3.8 creatinine 0.66 Progress calcitonin 0.14 Coronavirus PCR-not detected Influenza type A and type B both negative EKG tracing personally reviewed by me-normal sinus rhythm Computed tomography scan of the chest-scattered groundglass infiltrates. Large fixed hiatal hernia small pulmonary emboli cannot be ruled out Chest x-ray film personally reviewed by me-scattered infiltrates Blood culture-E. coli Assessment: -Bilateral pneumonia, suspect gram-negative organism., Improving POA -Clinical picture is not compatible with PE. Negative Doppler ultrasounds lower extremity. -chronic gastritis. -Intermittent asthma, with acute exacerbation, POA -poor sleep hygiene -Chronic fibromyalgia -GERD -Hyperlipidemia -MTHFR gene mutation -Chronic hypoxic respiratory failure on home oxygen 2 L at night -Multilevel spondylitic changes in the cervical spine including disc herniation and spinal stenosis especially at C4-C5. Plan: Patient is clinically doing much better. Respiratory status much improved. Switch to oral antibiotic tomorrow and discharged home. Discussed with the patient.
[2019-07-09] MEDS: traZODone HCL 100 MG TAB PO SCH (20:21)
[2019-07-09] MEDS: MELATONIN 3 MG TABLET PO SCH (20:21)
[2019-07-10] MEDS: busPIRone HCl 10 MG TAB PO SCH (07:08)
[2019-07-10] MEDS: ARIPiprazole 5 MG TAB PO SCH (07:09)
[2019-07-10] MEDS: PANTOPRAZOLE 40 MG TABLET PO SCH (07:09)
[2019-07-10] MEDS: AZITHROMYCIN 500 MG TAB PO SCH (07:09)
[2019-07-10] MEDS: FERROUS SULFATE 325 MG TAB PO SCH (07:10)
[2019-07-10] MEDS: ENOXAPARIN 80 MG/0.8 ML SYRINGE SQ SCH (07:10)
[2019-07-10] MEDS: cycloSPORINE 0.05% OPHTH 0.4 ML DROPERETTE BOTH EYES SCH (07:10)
[2019-07-10] MEDS: DULoxetine HCL 30 MG CAPSULE.DR PO SCH (07:10)
[2019-07-10] MEDS: tiZANidine 4 MG TAB PO SCH (07:11)
[2019-07-10] MEDS: POLYETHYLENE GLYCOL 3350 17 GM POWD.PACK PO SCH (07:11)
[2019-07-10] MEDS: DOCUSATE 100 MG CAP PO SCH (07:11)
[2019-07-10] MEDS: CEFEPIME 1 GM in SODIUM CHLORIDE 0.9% 50 ML IVPB SCH (07:15)
[2019-07-10] MEDS: SODIUM CHLORIDE 0.9% 1,000 ML IV SCH (07:21)
[2019-07-10 07:40] VITALS: BP 153/88; PULSE 53; RESP 18; TEMP 97.3
[2019-07-10] MEDS: ALBUTEROL HFA INHALER INHALATION PRN (08:05)
[2019-07-10 08:07] LABS: Basophils % (A) 1 %; Eosinophils # (A) 0.2 k/uL (0-0.7); Eosinophils % (A) 4 %; HCT 38.1 % (34.0-46.0); HGB 12.2 gm/dL (11.4-16.0); Lymphocytes # (A) 1.2 k/uL (1.0-4.8); Lymphocytes % (A) 17 %; MCH 29.8 pg (25.0-35.0); MCHC 32.1 g/dL (31.0-37.0); MCV 92.8 fL (80.0-100.0); Mean Platelet Volume 9.1; Monocytes # (A) 0.4 k/uL (0-1.0); Monocytes % (A) 6 %; Neutrophils # (A) 4.7 k/uL (1.3-7.7); Neutrophils % (A) 69 %; Platelet Count 247 k/uL (150-450); RDW 15.8 % (11.5-15.5); WBC 6.8 k/uL (3.8-10.6)
--- NOTE | 2019-07-10 16:59 | P.DS ---
Providers Date of admission: 07/07/19 09:14 Expected date of discharge: 07/10/19 Attending physician: Edward Trujillo Primary care physician: Major Funk MD Hospital Course: Chief Complaint: Fever and cough History of presenting complaint: This is a 58-year-old patient of Dr. Major Braden from visiting physicians. Chronic stable medical conditions include chronic gastritis, fibromyalgia, GERD, hyperlipidemia, MTHFR gene mutation, cervical spine spondylosis with disc herniation. Patient now presents with five-day history is of fevers cough some vomiting. Some chest tightness and wheezing also. Also having some loose stools about 2 times a day. Some headache body aches. Patient is due to vaping in the past. Denies doing the same for last 2 months. Admitted with pneumonia. Coronavirus PCR was negative. Started IV cefepime, Zithromax. Blood cultures grew-E. coli Today-patient had been persistent about going home. Feeling well. oral intake fair. Physical examination: VITAL SIGNS: 97.3, 53, 18, 153/88, 95% on room air GENERAL: Sitting up in a chair, looking better EYES: Pupils equal. Conjunctiva normal. HEENT: External appearance of nose and ears normal, oral cavity grossly normal. NECK: JVD not raised; masses not palpable. HEART: First and second heart sounds are normal; no edema. LUNGS: Respiratory rate normal, decreased breath sounds ABDOMEN: Soft, nontender, liver spleen not palpable, no masses palpable. PSYCH: Alert and oriented x3; mood and affect. Improved INVESTIGATIONS, reviewed in the clinical context: white count 6.8 hemoglobin 12.2 Previous testing White count 14.9 hemoglobin 12.7 neutrophils 12.8 lymphocytes 0.8 d-dimer 0.93 progression 3.8 creatinine 0.66 Progress calcitonin 0.14 Coronavirus PCR-not detected Influenza type A and type B both negative EKG tracing personally reviewed by me-normal sinus rhythm Computed tomography scan of the chest-scattered groundglass infiltrates. Large fixed hiatal hernia small pulmonary emboli cannot be ruled out Chest x-ray film personally reviewed by me-scattered infiltrates Blood culture-E. coli Doppler ultrasound of both the lower extremity-negative for DVT Assessment: -Bilateral pneumonia, suspect gram-negative organism., POA -Clinical picture is not compatible with PE. Negative Doppler ultrasounds lower extremity. -chronic gastritis. -Intermittent asthma, with acute exacerbation, POA -poor sleep hygiene -Chronic fibromyalgia -GERD -Hyperlipidemia -MTHFR gene mutation -Chronic hypoxic respiratory failure on home oxygen 2 L at night -Multilevel spondylitic changes in the cervical spine including disc herniation and spinal stenosis especially at C4-C5. -blood culture positive for E. coli disposition: Home Patient Condition at Discharge: Stable Plan - Discharge Summary Discharge Rx Participant: No New Discharge Prescriptions: New Cefuroxime Axetil [Ceftin] 500 mg PO BID 3 Days #6 tab Azithromycin [Zithromax] 500 mg PO DAILY #3 tab Continue cycloSPORINE [Restasis] 1 drop BOTH EYES Q12H Ergocalciferol [Vitamin D2 (DRISDOL)] 50,000 unit PO WE Albuterol Sulfate [Proair Hfa] 2 puff INHALATION RT-QID PRN PRN Reason: Shortness Of Breath traZODone HCL [Desyrel] 100 mg PO HS oxyCODONE HCL [oxyCODONE HCL (IR)] 30 mg PO QID ARIPiprazole [Abilify] 5 mg PO DAILY rOPINIRole HCL [Requip] 0.25 mg PO TID tiZANidine [Zanaflex] 4 mg PO HS tiZANidine [Zanaflex] 2 mg PO BID busPIRone HCL [Buspar] 30 mg PO DAILY Polyethylene Glycol 3350 [Miralax] 17 gm PO DAILY [facility]pack Albuterol Nebulized [Ventolin Nebulized] 2.5 mg INHALATION RT-Q6H PRN PRN Reason: Shortness Of Breath Diclofenac Sodium [Voltaren Gel] 1 applic TOPICAL BID PRN PRN Reason: Pain Ferrous Sulfate [Iron (65 MG Elemental)] 325 mg PO DAILY Melatonin 3 mg PO HS #30 tablet Docusate [Colace] 100 mg PO BID DULoxetine HCL [Cymbalta] 60 mg PO DAILY Pantoprazole [Protonix] 40 mg PO DAILY DULoxetine HCL [Cymbalta] 30 mg PO DAILY Discontinued Meclizine [Antivert] 25 mg PO BID PRN PRN Reason: DIZZINESS Discharge Medication List ARIPiprazole [Abilify] 5 mg PO DAILY 04/16/19 [History] Albuterol Sulfate [Proair Hfa] 2 puff INHALATION RT-QID PRN 04/16/19 [History] Ergocalciferol [Vitamin D2 (DRISDOL)] 50,000 unit PO WE 04/16/19 [History] cycloSPORINE [Restasis] 1 drop BOTH EYES Q12H 04/16/19 [History] oxyCODONE HCL [oxyCODONE HCL (IR)] 30 mg PO QID 04/16/19 [History] traZODone HCL [Desyrel] 100 mg PO HS 04/16/19 [History] Polyethylene Glycol 3350 [Miralax] 17 gm PO DAILY [facility].pack 04/19/19 [Rx] busPIRone HCL [Buspar] 30 mg PO DAILY 04/19/19 [History] rOPINIRole HCL [Requip] 0.25 mg PO TID 04/19/19 [History] tiZANidine [Zanaflex] 2 mg PO BID 04/19/19 [History] tiZANidine [Zanaflex] 4 mg PO HS 04/19/19 [History] Albuterol Nebulized [Ventolin Nebulized] 2.5 mg INHALATION RT-Q6H PRN 05/24/19 [History] Diclofenac Sodium [Voltaren Gel] 1 applic TOPICAL BID PRN 05/24/19 [History] Ferrous Sulfate [Iron (65 MG Elemental)] 325 mg PO DAILY 05/24/19 [History] Melatonin 3 mg PO HS #30 tablet 05/27/19 [Rx] DULoxetine HCL [Cymbalta] 30 mg PO DAILY 07/07/19 [History] DULoxetine HCL [Cymbalta] 60 mg PO DAILY 07/07/19 [History] Docusate [Colace] 100 mg PO BID 07/07/19 [History] Pantoprazole [Protonix] 40 mg PO DAILY 07/07/19 [History] Azithromycin [Zithromax] 500 mg PO DAILY #3 tab 07/10/19 [Rx] Cefuroxime Axetil [Ceftin] 500 mg PO BID 3 Days #6 tab 07/10/19 [Rx] Follow up Appointment(s)/Referral(s): Major Funk MD [Primary Care Provider] - 1-2 days (Visiting physician) Patient Instructions/Handouts: Pulmonary Embolism (DC), Pneumonia (DC) Activity/Diet/Wound Care/Special Instructions: PNEUMONIA 1. Continue coughing and breathing exercises to help clear your lungs of secre tions. 2. Sit upright during the day to promote lung expansion. Avoid lying flat. 3. Use incentive spirometer every hour to open your airways. 4. Wash your hands before taking your medications or using your nebulizer. 5. Drink clear liquids as directed, they can help loosen secretions. Avoid milk products, as these can make secretions thicker. 6. Do not smoke, or be around others who smoke. 7. Call your physician if your shortness of breath worsens, if you develop an increased fever greater than 100.4 Discharge Disposition: HOME SELF-CARE
== END 2019-07-10 13:43 | disposition home or self-care (01) | DRG 178 ==
LOC: EC 06:48 → 3SCARD 09:14 → 4SSUR 07-08 11:30
PROVIDERS: ADMIT Hospitalist; ATTEND Hospitalist
DX: J15.6 Pneumonia due to other Gram-negative bacteria (principal); J44.0 Chronic obstructive pulmonary disease with (acute) lower respiratory infection; J96.11 Chronic respiratory failure with hypoxia; J45.21 Mild intermittent asthma with (acute) exacerbation; L40.50 Arthropathic psoriasis, unspecified; M50.221 Other cervical disc displacement at C4-C5 level; Z15.89 Genetic susceptibility to other disease; E78.5 Hyperlipidemia, unspecified; F32.9 Major depressive disorder, single episode, unspecified; Z20.828 Contact with and (suspected) exposure to other viral communicable diseases; F41.9 Anxiety disorder, unspecified; K21.9 Gastro-esophageal reflux disease without esophagitis; K29.50 Unspecified chronic gastritis without bleeding; M06.9 Rheumatoid arthritis, unspecified; M47.812 Spondylosis without myelopathy or radiculopathy, cervical region; M48.02 Spinal stenosis, cervical region; M79.7 Fibromyalgia; G43.909 Migraine, unspecified, not intractable, without status migrainosus; G47.30 Sleep apnea, unspecified; K44.9 Diaphragmatic hernia without obstruction or gangrene; K58.9 Irritable bowel syndrome, unspecified; M19.90 Unspecified osteoarthritis, unspecified site; R41.3 Other amnesia; D50.9 Iron deficiency anemia, unspecified; Z79.899 Other long term (current) drug therapy; Z79.891 Long term (current) use of opiate analgesic; Z90.710 Acquired absence of both cervix and uterus; Z87.891 Personal history of nicotine dependence; Z91.018 Allergy to other foods; Z91.013 Allergy to seafood; Z90.49 Acquired absence of other specified parts of digestive tract; Z87.01 Personal history of pneumonia (recurrent); Z87.11 Personal history of peptic ulcer disease; Z82.49 Family history of ischemic heart disease and other diseases of the circulatory system; Z83.3 Family history of diabetes mellitus
CPT/HCPCS: 36415; 71045; 71275; 80048; 80053; 82728; 83605; 83615; 83735; 84145; 85025; 85379; 85610; 85730; 86140; 87040; 87077; 87186; 87502; 87635; 93005; 93970; 94640; 96365; 99285

== ENCOUNTER 2019-07-11 09:30 | Emergency (ER) | payer MEDICARE, OTHER ==
[2019-07-11] MEDS ORDERED: SODIUM CHLORIDE 0.9% 1,000 ML IV ONE (09:40)
[2019-07-11] MEDS ORDERED: LORazepam 2 MG/ML INJ IV STA ×2 (09:47→11:05)
[2019-07-11 09:48] LABS: ABG HCO3 19 mmol/L (21-25); ABG Oxygen Saturation 98.5 % (94-97); ABG PO2 208 mmHg (83-108); ABG TCO2 21 mmol/L (19-24); Allen Test Performed? Yes
[2019-07-11 09:51] LABS: ABG PCO2 74 mmHg (35-45); ABG PH 7.02 (7.35-7.45)
[2019-07-11 10:06] LABS: Basophils # (A) 0.1 k/uL (0-0.2); Basophils % (A) 0 %; Eosinophils # (A) 0.1 k/uL (0-0.7); Eosinophils % (A) 0 %; HCT 43.9 % (34.0-46.0); HGB 13.7 gm/dL (11.4-16.0); Hypochromasia Slight; Lymphocytes # (A) 2.9 k/uL (1.0-4.8); Lymphocytes % (A) 13 %; MCH 29.8 pg (25.0-35.0); MCHC 31.2 g/dL (31.0-37.0); MCV 95.5 fL (80.0-100.0); Mean Platelet Volume 8.7; Monocytes # (A) 0.6 k/uL (0-1.0); Monocytes % (A) 3 %; Neutrophils # (A) 18.1 k/uL (1.3-7.7); Neutrophils % (A) 82 %; Platelet Count 328 k/uL (150-450); RBC 4.59 m/uL (3.80-5.40); WBC 22.2 k/uL (3.8-10.6)
--- NOTE | 2019-07-11 10:09 | ED ---
General Adult HPI - General Chief complaint: Neuro Symptoms/Deficit Stated complaint: Altered Mental Time Seen by Provider: 07/11/19 09:30 Source: patient, EMS, RN notes reviewed, old records reviewed Mode of arrival: EMS Limitations: altered mental status - History of Present Illness Initial comments: This is a 59-year-old female who presents emergency Department after having recently been discharged hospital with pneumonia. Patient went home yesterday. Per EMS states the patient woke up this morning at 4:00 in the morning and was vomiting. Then a few hours later she seemed to stop breathing and turned blue according to the he called EMS when EMS arrived the patient was significantly combative and not answering any questions they were even able to get a full set of vitals prior to arrival here. was not much help th ereafter because he was so upset according to EMS. Patient arrived without and she was not responding to any questions so no further history could be obtained at this time. Patient however did seize shortly after my physical exam and was given Ativan. - Related Data Home Medications Medication Instructions Recorded Confirmed ARIPiprazole [Abilify] 5 mg PO DAILY 04/16/19 07/11/19 Albuterol Sulfate [Proair Hfa] 2 puff INHALATION RT-QID PRN 04/16/19 07/11/19 Ergocalciferol [Vitamin D2 50,000 unit PO WE 04/16/19 07/11/19 (DRISDOL)] cycloSPORINE [Restasis] 1 drop BOTH EYES Q12H 04/16/19 07/11/19 oxyCODONE HCL [oxyCODONE HCL (IR)] 30 mg PO QID 04/16/19 07/11/19 traZODone HCL [Desyrel] 100 mg PO HS 04/16/19 07/11/19 busPIRone HCL [Buspar] 30 mg PO DAILY 04/19/19 07/11/19 rOPINIRole HCL [Requip] 0.25 mg PO TID 04/19/19 07/11/19 tiZANidine [Zanaflex] 2 mg PO BID 04/19/19 07/11/19 tiZANidine [Zanaflex] 4 mg PO HS 04/19/19 07/11/19 Albuterol Nebulized [Ventolin 2.5 mg INHALATION RT-Q6H PRN 05/24/19 07/11/19 Nebulized] Diclofenac Sodium [Voltaren Gel] 1 applic TOPICAL BID PRN 05/24/19 07/11/19 Ferrous Sulfate [Iron (65 MG 325 mg PO DAILY 05/24/19 07/11/19 Elemental)] DULoxetine HCL [Cymbalta] 30 mg PO DAILY 07/07/19 07/11/19 DULoxetine HCL [Cymbalta] 60 mg PO DAILY 07/07/19 07/11/19 Docusate [Colace] 100 mg PO BID 07/07/19 07/11/19 Pantoprazole [Protonix] 40 mg PO DAILY 07/07/19 07/11/19 Previous Rx's Medication Instructions Recorded Polyethylene Glycol 3350 [Miralax] 17 gm PO DAILY powd.pack 04/19/19 Melatonin 3 mg PO HS #30 tablet 05/27/19 Azithromycin [Zithromax] 500 mg PO DAILY #3 tab 07/10/19 Cefuroxime Axetil [Ceftin] 500 mg PO BID 3 Days #6 tab 07/10/19 Allergies Allergy/AdvReac Type Severity Reaction Status Date / Time cashew nut Allergy Unknown Verified 07/11/19 10:39 shellfish derived Allergy Swelling Verified 07/11/19 10:39 nuts Allergy Swelling Uncoded 07/07/19 06:54 animals AdvReac Wheezing Uncoded 07/07/19 06:54 environmental AdvReac Wheezing Uncoded 07/07/19 06:54 Review of Systems ROS Statement: Those systems with pertinent positive or pertinent negative responses have been documented in the HPI. ROS Other: All systems not noted in ROS Statement are negative. 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 Past Psychological History: Anxiety, Depression Smoking Status: Former smoker Past Alcohol Use History: None Reported Past Drug Use History: None Reported - Past Family History Son(s) Additional Family Medical History / Comment(s): Patient has 1 son living. 3 sons have passed and patient does not want to talk about their cause of . Mother Family Medical History: No Reported History Additional Family Medical History / Comment(s): Mother at age 84 and had history of anemia. Sister(s) Family Medical History: Congestive Heart Failure (CHF), Diabetes Mellitus Brother(s) Family Medical History: Congestive Heart Failure (CHF), Diabetes Mellitus Father Family Medical History: No Reported History Additional Family Medical History / Comment(s): Father at age 54 from an accident. General Exam - General Exam Comments Initial Comments: GENERAL: Patient is well-developed and well-nourished. She does not respond to any verbal stimuli. Patient does withdraw however to painful stimuli ENT: Neck is soft and supple. No significant lymphadenopathy is noted. Oropharynx is clear. Moist mucous membranes. EYES: The sclera were anicteric and conjunctiva were pink and moist. PULMONARY: Unlabored respirations. Difficult to hear breath sounds because she does not take deep breaths at this time CARDIOVASCULAR: Patient is tachycardic ABDOMEN: Soft abdomen SKIN: Skin is clear with no lesions or rashes and otherwise unremarkable. NEUROLOGIC: Patient is unresponsive except to painful stimuli when she groans a little and withdraws from pain. MUSCULOSKELETAL: She is moving all 4 extremities however to what degree is unable to be d etermined at this time LYMPHATICS: No significant lymphadenopathy is noted PSYCHIATRIC: Unable to assess Limitations: altered mental status Course Vital Signs 07/11/19 09:34 Temperature 67.6 F L Pulse Rate 92 Respiratory 16 Rate Blood Pressure 155/70 O2 Sat by Pulse 96 Oximetry Medical Decision Making - Medical Decision Making EKG shows normal sinus rhythm at 82 bpm NJ interval is 136 dresses 80 QT interval 408 QTC is 476. Patient's EKG shows no ST segment elevation or depression. arrived I went to the family room and spoke with the he stated that the patient woke up at 4:00 in the morning and was vomiting and was also blind. She eventually settled down but never could see and he let her go back to sleep she woke up later that morning and he said she didn't need anything for now he went about his daily chores a little while later he looked in on her she was purple and convulsing at that point time he called EMS. EMS stated upon arrival she was unresponsive and never able to give any input into her condition at all. I called anesthesia to intubate the patient and intubate the patient. CT of the brain shows a cerebellar bleed. Per the radiologist CT showed round glass infiltrates diffusely but no PE. Per the radiologist I spoke with the about transferring to [facility] he was in agreement but he could not stay for the final results of all the testing because he had to go home and take care of some emergency. I spoke with [facility] they were in agreement with accepting the patient I spoke with and he accepted the transfer - Lab Data Result diagrams: 07/11/19 10:01 07/11/19 09:50 Lab Results 07/11/19 07/11/19 07/11/19 Range/Units 09:46 09:50 09:50 WBC (3.8-10.6) k/uL RBC (3.80-5.40) m/uL Hgb (11.4-16.0) gm/dL Hct (34.0-46.0) % MCV (80.0-100.0) fL MCH (25.0-35.0) pg MCHC (31.0-37.0) g/dL RDW (11.5-15.5) % Plt Count (150-450) k/uL Neutrophils % % Lymphocytes % % Monocytes % % Eosinophils % % Basophils % % Neutrophils # (1.3-7.7) k/uL Lymphocytes # (1.0-4.8) k/uL Monocytes # (0-1.0) k/uL Eosinophils # (0-0.7) k/uL Basophils # (0-0.2) k/uL Hypochromasia PT (9.0-12.0) sec INR (<1.2) APTT (22.0-30.0) sec D-Dimer (<0.60) mg/L FEU Sample Site lbrac ABG pH 7.02 L* (7.35-7.45) ABG pCO2 74 H* (35-45) mmHg ABG pO2 208 H (83-108) mmHg ABG HCO3 19 L (21-25) mmol/L ABG Total CO2 21 (19-24) mmol/L ABG O2 Saturation 98.5 H (94-97) % ABG Base Excess -12.0 mmol/L Michael Test Yes FiO2 100 % Sodium 143 (137-145) mmol/L Potassium 3.4 L (3.5-5.1) mmol/L Chloride 107 (98-107) mmol/L Carbon Dioxide 20 L (22-30) mmol/L Anion Gap 16 mmol/L BUN 7 (7-17) mg/dL Creatinine 0.76 (0.52-1.04) mg/dL Est GFR (CKD-EPI)AfAm >90 (>60 ml/min/1.73 sqM) Est GFR (CKD-EPI)NonAf 87 (>60 ml/min/1.73 sqM) Glucose 141 H (74-99) mg/dL POC Glucose (mg/dL) (75-99) mg/dL POC Glu Farm Butcher ID Calcium 9.7 (8.4-10.2) mg/dL Total Bilirubin 0.3 (0.2-1.3) mg/dL AST 57 H (14-36) U/L ALT 45 H (4-34) U/L Alkaline Phosphatase 102 (38-126) U/L Ammonia 110 H (<30) umol/L Lactate Dehydrogenase 765 H (313-618) U/L Troponin I (0.000-0.034) ng/mL C-Reactive Protein 16.9 H (<10.0) mg/L Total Protein 7.7 (6.3-8.2) g/dL Albumin 4.4 (3.5-5.0) g/dL 07/11/19 07/11/19 07/11/19 Range/Units 10:00 10:01 10:06 WBC 22.2 H (3.8-10.6) k/uL RBC 4.59 (3.80-5.40) m/uL Hgb 13.7 (11.4-16.0) gm/dL Hct 43.9 (34.0-46.0) % MCV 95.5 (80.0-100.0) fL MCH 29.8 (25.0-35.0) pg MCHC 31.2 (31.0-37.0) g/dL RDW 16.0 H (11.5-15.5) % Plt Count 328 (150-450) k/uL Neutrophils % 82 % Lymphocytes % 13 % Monocytes % 3 % Eosinophils % 0 % Basophils % 0 % Neutrophils # 18.1 H (1.3-7.7) k/uL Lymphocytes # 2.9 (1.0-4.8) k/uL Monocytes # 0.6 (0-1.0) k/uL Eosinophils # 0.1 (0-0.7) k/uL Basophils # 0.1 (0-0.2) k/uL Hypochromasia Slight PT 10.0 (9.0-12.0) sec INR 1.0 (<1.2) APTT 22.4 (22.0-30.0) sec D-Dimer 1.15 H (<0.60) mg/L FEU Sample Site ABG pH (7.35-7.45) ABG pCO2 (35-45) mmHg ABG pO2 (83-108) mmHg ABG HCO3 (21-25) mmol/L ABG Total CO2 (19-24) mmol/L ABG O2 Saturation (94-97) % ABG Base Excess mmol/L Michael Test FiO2 % Sodium (137-145) mmol/L Potassium (3.5-5.1) mmol/L Chloride (98-107) mmol/L Carbon Dioxide (22-30) mmol/L Anion Gap mmol/L BUN (7-17) mg/dL Creatinine (0.52-1.04) mg/dL Est GFR (CKD-EPI)AfAm (>60 ml/min/1.73 sqM) Est GFR (CKD-EPI)NonAf (>60 ml/min/1.73 sqM) Glucose (74-99) mg/dL POC Glucose (mg/dL) (75-99) mg/dL POC Glu Farm Butcher ID Calcium (8.4-10.2) mg/dL Total Bilirubin (0.2-1.3) mg/dL AST (14-36) U/L ALT (4-34) U/L Alkaline Phosphatase (38-126) U/L Ammonia (<30) umol/L Lactate Dehydrogenase (313-618) U/L Troponin I <0.012 (0.000-0.034) ng/mL C-Reactive Protein (<10.0) mg/L Total Protein (6.3-8.2) g/dL Albumin (3.5-5.0) g/dL 07/11/19 07/11/19 Range/Units 10:12 10:52 WBC (3.8-10.6) k/uL RBC (3.80-5.40) m/uL Hgb (11.4-16.0) gm/dL Hct (34.0-46.0) % MCV (80.0-100.0) fL MCH (25.0-35.0) pg MCHC (31.0-37.0) g/dL RDW (11.5-15.5) % Plt Count (150-450) k/uL Neutrophils % % Lymphocytes % % Monocytes % % Eosinophils % % Basophils % % Neutrophils # (1.3-7.7) k/uL Lymphocytes # (1.0-4.8) k/uL Monocytes # (0-1.0) k/uL Eosinophils # (0-0.7) k/uL Basophils # (0-0.2) k/uL Hypochromasia PT (9.0-12.0) sec INR (<1.2) APTT (22.0-30.0) sec D-Dimer (<0.60) mg/L FEU Sample Site R radial ABG pH 7.28 L (7.35-7.45) ABG pCO2 54 H (35-45) mmHg ABG pO2 329 H (83-108) mmHg ABG HCO3 26 H (21-25) mmol/L ABG Total CO2 27 H (19-24) mmol/L ABG O2 Saturation 100.0 H (94-97) % ABG Base Excess -1.2 mmol/L Michael Test Yes FiO2 100 % Sodium (137-145) mmol/L Potassium (3.5-5.1) mmol/L Chloride (98-107) mmol/L Carbon Dioxide (22-30) mmol/L Anion Gap mmol/L BUN (7-17) mg/dL Creatinine (0.52-1.04) mg/dL Est GFR (CKD-EPI)AfAm (>60 ml/min/1.73 sqM) Est GFR (CKD-EPI)NonAf (>60 ml/min/1.73 sqM) Glucose (74-99) mg/dL POC Glucose (mg/dL) 129 H (75-99) mg/dL POC Glu Farm Butcher ID Avelino Young Calcium (8.4-10.2) mg/dL Total Bilirubin (0.2-1.3) mg/dL AST (14-36) U/L ALT (4-34) U/L Alkaline Phosphatase (38-126) U/L Ammonia (<30) umol/L Lactate Dehydrogenase (313-618) U/L Troponin I (0.000-0.034) ng/mL C-Reactive Protein (<10.0) mg/L Total Protein (6.3-8.2) g/dL Albumin (3.5-5.0) g/dL Critical Care Time Critical Care Time: Yes Total Critical Care Time: 45 Disposition Clinical Impression: Cerebellar bleed, Respiratory failure, New onset seizure, Pneumonia Disposition: OTHER INSTITUTION NOT DEFINED Referrals: Major Funk MD [Primary Care Provider] - 1-2 days Time of Disposition: 10:49 - Out of Hospital Transfer - Req. Specs Out of Hospital Transfer - Requested Specifics: Other Emergency Center ([facility])
[2019-07-11 10:13] LABS: AST 57 U/L (14-36); African American GFR (CKD) >90 (>60 ml/min/1.73 sqM); Albumin 4.4 g/dL (3.5-5.0); Alkaline Phosphatase 102 U/L (38-126); Anion Gap 16 mmol/L; Blood Urea Nitrogen 7 mg/dL (7-17); C Reactive Protein 16.9 mg/L (<10.0); Calcium 9.7 mg/dL (8.4-10.2); Carbon Dioxide 20 mmol/L (22-30); Chloride 107 mmol/L (98-107); Glucose 141 mg/dL (74-99); LDH 765 U/L (313-618); Non-African American GFR(CKD) 87 (>60 ml/min/1.73 sqM); Potassium 3.4 mmol/L (3.5-5.1); Sodium 143 mmol/L (137-145); Total Bilirubin 0.3 mg/dL (0.2-1.3); Total Protein 7.7 g/dL (6.3-8.2)
[2019-07-11 10:16] LABS: Partial Thromboplastin Time 22.4 sec (22.0-30.0)
[2019-07-11 10:19] LABS: ALT 45 U/L (4-34)
[2019-07-11 10:24] LABS: Glucose,Whole Blood 129 mg/dL (75-99)
--- NOTE | 2019-07-11 10:24 | CT ---
EXAMINATION TYPE: CT brain wo con DATE OF EXAM: 07/11/2019 COMPARISON: Previous study dated 06/03/2017 HISTORY: altered mental status, new onset seizure CT DLP: 768.3 mGycm Automated exposure control for dose reduction was used. FINDINGS: Central structures are midline. There is no evidence of hydrocephalus. There is a 1.7 x 1.1 x 1.5 cm hemorrhage in the posterior aspect of the left cerebellar hemisphere there is no ventricular extensio n. The remainder of the brain has a normal appearance. Visualized portions of the paranasal sinuses and mastoids are clear. The bony calvarium is intact. IMPRESSION: 1.7 X 1.1 X 1.5 CENTIMETER HEMORRHAGE IN THE LEFT CEREBELLAR HEMISPHERE.
[2019-07-11 10:25] LABS: D-Dimer 1.15 mg/L FEU (<0.60)
[2019-07-11] MEDS ORDERED: PROPOFOL 1,000 MG in EMPTY BAG 1 BAG IV ONE (10:30)
--- NOTE | 2019-07-11 10:30 | CT ---
EXAMINATION TYPE: CT chest angio for PE DATE OF EXAM: 07/11/2019 COMPARISON: Previous study dated 07/07/2019. HISTORY: PE CT DLP: 768.3 mGycm Automated exposure control for dose reduction was used. CONTRAST: CT Chest for pulmonary embolism performed with with IV Contrast, patient injected with 100 mL of Isov ue 370. FINDINGS: There is a large intrathoracic stomach. The esophagus is dilated. There is dependent atelectasis at the dependent portions of the lungs. There are scattered groundglas s opacities throughout the lungs. These have not progressed from previous. There is no significant ax illary, internal mammary, mediastinal or hilar adenopathy. I do not see evidence of pulmonary embolus. The aorta is normal in caliber without evidence of dissection. There is a small left effusion. There is no pericardial fluid. The heart is enlarged. Within the abdomen, the liver is low attenuating and may be fatty infiltrated. The gallbladder has be en removed. The adrenal glands are normal. Limited views of the pancreas are unremarkable. IMPRESSION: 1. THIS EXAMINATION IS NEGATIVE FOR PULMONARY EMBOLUS. 2. LARGE INTRATHORACIC STOMACH. 3. SMALL LEFT EFFUSION. 4. CARDIOMEGALY. 5. PROBABLE FATTY INFILTRATION OF THE LIVER.
[2019-07-11] MEDS ORDERED: cefTRIAXone IN SWFI 1,000 MG/10 ML SYRINGE IVP STA (10:44)
[2019-07-11] MEDS ORDERED: SUCCINYLCHOLINE CHLORIDE VIAL 200 MG/10 ML VIAL IV STA (10:46)
[2019-07-11] MEDS ORDERED: PROPOFOL 10 MG/ML 20 ML VIAL IV ONE (10:52)
[2019-07-11 11:09] LABS: ABG Base Excess -1.2 mmol/L; ABG HCO3 26 mmol/L (21-25); ABG PCO2 54 mmHg (35-45); ABG PH 7.28 (7.35-7.45); ABG PO2 329 mmHg (83-108); ABG TCO2 27 mmol/L (19-24); Allen Test Performed? Yes
--- NOTE | 2019-07-11 11:31 | XR ---
EXAMINATION TYPE: XR abdomen 1V , ONE VIEW DATE OF EXAM ORDERED: 07/11/2019 HISTORY: Tube placement. COMPARISON: Previous study dated 01/10/2013. FINDINGS: There is IV contrast within the renal collecting systems and bladder due to a recent CT sc an. Clinical history assess tube placement but no extraneous tube is identified on this study. The study did not cover the entire stomach. ECG leads project over the right side of the abdomen. There are non distended air-filled loops of large and small bowel throughout the abdomen. IMPRESSION: NO INDWELLING TUBE OR CATHETER IDENTIFIED ON THIS EXAMINATION.
--- NOTE | 2019-07-11 11:34 | XR ---
EXAMINATION TYPE: XR chest 1V portable DATE OF EXAM: 07/11/2019 HISTORY: Tube placement . REFERENCE: Previous chest x-ray dated 07/07/2019. FINDINGS: The patient has been intubated. ET tube is in satisfactory position with its tip approximat angie 2.5 cm from the dara. An NG tube is in place. It traverses a large sliding hiatal hernia and is tip is just below the left hemidiaphragm. The heart is enlarged. There are increased interstitial markings throughout the lungs. The left CP an gles been excluded from this study. The right CP angle is clear. IMPRESSION: 1. SATISFACTORY ET TUBE TUBE AND NG TUBE PLACEMENT. 2. CARDIOMEGALY. 3. INCREASED INTERSTITIAL OF INCREASED ETIOLOGY AT THIS TIME. THIS MAY REPRESENT ATYPICAL PNEUMONIA O R MAY REPRESENT EARLY HEART FAILURE. PLEASE CORRELATE CLINICALLY.
[2019-07-11 12:32] VITALS: RESP 18
[2019-07-11 12:42] VITALS: BP 122/78; PULSE 75; TEMP 97.6
[2019-07-12 10:23] LABS: Ferritin 70.4 ng/mL (10.0-291.0)
== END 2019-07-11 11:50 | disposition other institution (70) ==
LOC: EC 09:30
DX: I61.4 Nontraumatic intracerebral hemorrhage in cerebellum (principal); J96.90 Respiratory failure, unspecified, unspecified whether with hypoxia or hypercapnia; J18.9 Pneumonia, unspecified organism; R56.9 Unspecified convulsions; J45.909 Unspecified asthma, uncomplicated; M79.7 Fibromyalgia; K21.9 Gastro-esophageal reflux disease without esophagitis; M06.9 Rheumatoid arthritis, unspecified; L40.50 Arthropathic psoriasis, unspecified; F41.9 Anxiety disorder, unspecified; F32.9 Major depressive disorder, single episode, unspecified; G47.30 Sleep apnea, unspecified; Z99.89 Dependence on other enabling machines and devices; Z87.891 Personal history of nicotine dependence; Z79.891 Long term (current) use of opiate analgesic; Z79.899 Other long term (current) drug therapy; Z91.018 Allergy to other foods; Z91.013 Allergy to seafood; Z91.09 Other allergy status, other than to drugs and biological substances
CPT/HCPCS: 99291 ×2; 31500 ×2; 96374 ×2; 96376 ×2; 96361 ×2; 36415; 36600; 93005; 85379; 80053; 82728; 82140; 82550; 82805; 83615; 84484; 85025; 85610; 85730; 86140; 84145; 71045; 74018; 70450; 71275; J0330; J2060; J2704 ×2; Q9967; 94002

== ENCOUNTER 2019-10-02 20:54 | Inpatient (IN) | payer MEDICARE, OTHER ==
[2019-10-02] MEDS ORDERED: ACETAMINOPHEN TAB 500 MG TAB PO STA (21:17)
[2019-10-02] MEDS ORDERED: SODIUM CHLORIDE 0.9% 1,000 ML IV STA (21:17)
[2019-10-02 21:49] LABS: Basophils % (A) 0 %; Eosinophils # (A) 0.2 k/uL (0-0.7); Eosinophils % (A) 1 %; HCT 40.1 % (34.0-46.0); HGB 12.2 gm/dL (11.4-16.0); Hypochromasia Moderate; Lymphocytes # (A) 0.8 k/uL (1.0-4.8); Lymphocytes % (A) 6 %; MCH 26.6 pg (25.0-35.0); MCHC 30.5 g/dL (31.0-37.0); MCV 87.3 fL (80.0-100.0); Mean Platelet Volume 8.4; Monocytes # (A) 0.7 k/uL (0-1.0); Monocytes % (A) 5 %; Neutrophils # (A) 11.5 k/uL (1.3-7.7); Neutrophils % (A) 86 %; Platelet Count 288 k/uL (150-450); RDW 14.4 % (11.5-15.5); WBC 13.4 k/uL (3.8-10.6)
[2019-10-02 21:56] LABS: Albumin 4.4 g/dL (3.5-5.0); Calcium 10.1 mg/dL (8.4-10.2); Magnesium 1.9 mg/dL (1.6-2.3); Potassium 3.7 mmol/L (3.5-5.1); Total Bilirubin 1.1 mg/dL (0.2-1.3); Total Protein 7.8 g/dL (6.3-8.2)
--- NOTE | 2019-10-02 22:00 | ED ---
General Adult HPI - General Chief complaint: Headache Stated complaint: Headache,Hx Seizures/Stroke Time Seen by Provider: 10/02/19 21:09 Source: patient Mode of arrival: wheelchair Limitations: no limitations - History of Present Illness Initial comments: Dictation was produced using [employer] dictation software. please excuse any grammatical, word or spelling errors. This patient was cared for during a federal and state declared state of emergen cy secondary to Covid 19 Chief Complaint: 59-year-old female presents with fever, headache and dysuria. History of Present Illness: 59-year-old female she states her symptoms began 3-4 days ago. She states that she has a combination of dysuria, fever and headache. Patient reports that she is having hallucinations. However when asked in detail she reports that she had dreams of rats doing interesting things. Her at bedside reports that she has not shown any signs of hallucinations at home. 3 weeks ago patient was discharged from [facility]. She states she had a carotid artery stent and subsequent treatment for an aneurysm. She denies any headache that's originates from the left paraspinal neck just over the trapezius. She denies any numbness and paresthesias of the arms or the legs. Patient denies any neck stiffness. She does report having had dysuria over the last 2 days. She does complain of some mild right flank pain. She denies any chest pain or shortness of breath. She denies any sore throat or loss of taste or smell. She has had no obvious exposure to anyone with chronic virus. The ROS documented in this emergency department record has been reviewed and confirmed by me. Those systems with pertinent positive or negative responses have been documented in the HPI. All other systems are other negative and/or noncontributory. PHYSICAL EXAM: General Impression: Alert and oriented x3, not in acute distress HEENT: Normocephalic atraumatic, extra-ocular movements intact, pupils equal and reactive to light bilaterally, mucous membranes moist. Cardiovascular: Heart regular rate and rhythm Chest: Able to complete full sentences, no retractions, no tachypnea Abdomen: abdomen soft, non-tender, non-distended, no organomegaly Musculoskeletal: Pulses present and equal in all extremities, no peripheral edema, positive CVA tenderness to the right flank Motor: no focal deficits noted Neurological: CN II-XII grossly intact, no focal motor or sensory deficits noted, and it negative Kernig's, negative Brudzinski's Skin: Intact with no visualized rashes Psych: Normal affect and mood ED course: 59-year-old female presents with headache, constitutional symptoms, dysuria. Signs upon arrival shows temperature 102.8, heart rate 116, 92% on room air. Patient has multiple complaints. She has multiple localizing symptoms. At this point it is unclear what is causing patient's fever. She does complain of headache however he is neurologically intact without any focal neurologic signs. She does not have any his exam findings to suggest meningitis. She doesn't have any respiratory symptoms however was just admitted to [facility]. There is concern that patient does have chronic virus given that patient is a mild degree of hypoxia. She does have urinary symptoms. Laboratory evaluation obtained. Leukocytosis of 13.4, neutrophils of 11.5. Metabolic panel is unremarkable. No anion gap acidosis. There is a bicarb of 21. Elevated liver markers. Urinalysis consistent with urinary tract infection. Chest x-ray shows no acute processes. Patient given ceftriaxone. She is reevaluated at bedside states that her headache is improved with fluids and Tylenol. Patient treated with ceftriaxone. Pending urine cultures. Tried to admit patient however we do not have a secretary administrative assistant today. There is no one in the emergency room that his strained to contact admitting physicians. Patient's primary care doctor is Dr. Funk would be admitted to Dr. Trujillo. I am not sure whether Dr. Trujillo is taking patients currently. We have no secretary administrative assistant to confirm if Dr. Trujillo is taking patients. Patient will be admitted to Dr. Raul arriaga's service. We will attempt to contact him in the morning to inform him of this patient's care or patient is to be transferred to a different hospitalist service. Patient clinically stable at this time. No urgent need to contact hospitalist regarding patient's care currently. EKG interpretation: Ventricular rate 110, sinus tachycardia,. Interval 136, QRS 76, QTC 43. No LA prolongation, no QTC prolongation, no ST or T-wave changes noted. EKG compared to. July 11 2019 showing no changes. Overall, this EKG is unremarkable - Related Data Home Medications Medication Instructions Recorded Confirmed ARIPiprazole [Abilify] 5 mg PO DAILY 04/16/19 07/11/19 Albuterol Sulfate [Proair Hfa] 2 puff INHALATION RT-QID PRN 04/16/19 07/11/19 Ergocalciferol [Vitamin D2 50,000 unit PO WE 04/16/19 07/11/19 (DRISDOL)] cycloSPORINE [Restasis] 1 drop BOTH EYES Q12H 04/16/19 07/11/19 oxyCODONE HCL [oxyCODONE HCL (IR)] 30 mg PO QID 04/16/19 07/11/19 traZODone HCL [Desyrel] 100 mg PO HS 04/16/19 07/11/19 busPIRone HCL [Buspar] 30 mg PO DAILY 04/19/19 07/11/19 rOPINIRole HCL [Requip] 0.25 mg PO TID 04/19/19 07/11/19 tiZANidine [Zanaflex] 2 mg PO BID 04/19/19 07/11/19 tiZANidine [Zanaflex] 4 mg PO HS 04/19/19 07/11/19 Albuterol Nebulized [Ventolin 2.5 mg INHALATION RT-Q6H PRN 05/24/19 07/11/19 Nebulized] Diclofenac Sodium [Voltaren Gel] 1 applic TOPICAL BID PRN 05/24/19 07/11/19 Ferrous Sulfate [Iron (65 MG 325 mg PO DAILY 05/24/19 07/11/19 Elemental)] DULoxetine HCL [Cymbalta] 30 mg PO DAILY 07/07/19 07/11/19 DULoxetine HCL [Cymbalta] 60 mg PO DAILY 07/07/19 07/11/19 Docusate [Colace] 100 mg PO BID 07/07/19 07/11/19 Pantoprazole [Protonix] 40 mg PO DAILY 07/07/19 07/11/19 Previous Rx's Medication Instructions Recorded Polyethylene Glycol 3350 [Miralax] 17 gm PO DAILY powd.pack 04/19/19 Melatonin 3 mg PO HS #30 tablet 05/27/19 Azithromycin [Zithromax] 500 mg PO DAILY #3 tab 07/10/19 Cefuroxime Axetil [Ceftin] 500 mg PO BID 3 Days #6 tab 07/10/19 Allergies Allergy/AdvReac Type Severity Reaction Status Date / Time cashew nut Allergy Unknown Verified 10/02/19 21:06 shellfish derived Allergy Swelling Verified 10/02/19 21:06 nuts Allergy Swelling Uncoded 10/02/19 21:06 animals AdvReac Wheezing Uncoded 10/02/19 21:06 environmental AdvReac Wheezing Uncoded 10/02/19 21:06 Review of Systems ROS Statement: Those systems with pertinent positive or pertinent negative responses have been documented in the HPI. ROS Other: All systems not noted in ROS Statement are negative. 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 Past Psychological History: Anxiety, Depression Smoking Status: Former smoker Past Alcohol Use History: None Reported Past Drug Use History: None Reported - Past Family History Son(s) Additional Family Medical History / Comment(s): Patient has 1 son living. 3 sons have passed and patient does not want to talk about their cause of . Mother Family Medical History: No Reported History Additional Family Medical History / Comment(s): Mother at age 84 and had history of anemia. Sister(s) Family Medical History: Congestive Heart Failure (CHF), Diabetes Mellitus Brother(s) Family Medical History: Congestive Heart Failure (CHF), Diabetes Mellitus Father Family Medical History: No Reported History Additional Family Medical History / Comment(s): Father at age 54 from an accident. General Exam Limitations: no limitations Course Vital Signs 10/02/19 10/02/19 10/02/19 20:58 21:39 22:00 Temperature 101.9 F H 102.8 F H Pulse Rate 116 H 103 H Respiratory 22 15 Rate Blood Pressure 136/86 129/80 O2 Sat by Pulse 93 L 95 Oximetry 10/02/19 23:25 Temperature 99.1 F Pulse Rate 86 Respiratory 20 Rate Blood Pressure 108/88 O2 Sat by Pulse 94 L Oximetry Medical Decision Making - Lab Data Result diagrams: 10/02/19 21:39 10/02/19 21:39 Lab Results 10/02/19 10/02/19 10/02/19 Range/Units 21:39 21:39 21:39 WBC 13.4 H (3.8-10.6) k/uL RBC 4.60 (3.80-5.40) m/uL Hgb 12.2 (11.4-16.0) gm/dL Hct 40.1 (34.0-46.0) % MCV 87.3 (80.0-100.0) fL MCH 26.6 (25.0-35.0) pg MCHC 30.5 L (31.0-37.0) g/dL RDW 14.4 (11.5-15.5) % Plt Count 288 (150-450) k/uL Neutrophils % 86 % Lymphocytes % 6 % Monocytes % 5 % Eosinophils % 1 % Basophils % 0 % Neutrophils # 11.5 H (1.3-7.7) k/uL Lymphocytes # 0.8 L (1.0-4.8) k/uL Monocytes # 0.7 (0-1.0) k/uL Eosinophils # 0.2 (0-0.7) k/uL Basophils # 0.0 (0-0.2) k/uL Hypochromasia Moderate Sodium 135 L (137-145) mmol/L Potassium 3.7 (3.5-5.1) mmol/L Chloride 105 (98-107) mmol/L Carbon Dioxide 21 L (22-30) mmol/L Anion Gap 9 mmol/L BUN 11 (7-17) mg/dL Creatinine 0.84 (0.52-1.04) mg/dL Est GFR (CKD-EPI)AfAm 88 (>60 ml/min/1.73 sqM) Est GFR (CKD-EPI)NonAf 76 (>60 ml/min/1.73 sqM) Glucose 130 H (74-99) mg/dL Plasma Lactic Acid Cipriano 1.0 (0.7-2.0) mmol/L Calcium 10.1 (8.4-10.2) mg/dL Magnesium 1.9 (1.6-2.3) mg/dL Total Bilirubin 1.1 (0.2-1.3) mg/dL AST 119 H (14-36) U/L ALT 94 H (4-34) U/L Alkaline Phosphatase 173 H (38-126) U/L Total Protein 7.8 (6.3-8.2) g/dL Albumin 4.4 (3.5-5.0) g/dL Urine Color Urine Appearance (Clear) Urine pH (5.0-8.0) Ur Specific [place] (1.001-1.035) Urine Protein (Negative) Urine Glucose (UA) (Negative) Urine Ketones (Negative) Urine Blood (Negative) Urine Nitrite (Negative) Urine Bilirubin (Negative) Urine Urobilinogen (<2.0) mg/dL Ur Leukocyte Esterase (Negative) Urine RBC (0-5) /hpf Urine WBC (0-5) /hpf Urine WBC Clumps (None) /hpf Ur Squamous Epith Cells (0-4) /hpf Urine Bacteria (None) /hpf Hyaline Casts (0-2) /lpf Urine Mucus (None) /hpf Urine Yeast (Budding) (None) /hpf 10/02/19 Range/Units 22:03 WBC (3.8-10.6) k/uL RBC (3.80-5.40) m/uL Hgb (11.4-16.0) gm/dL Hct (34.0-46.0) % MCV (80.0-100.0) fL MCH (25.0-35.0) pg MCHC (31.0-37.0) g/dL RDW (11.5-15.5) % Plt Count (150-450) k/uL Neutrophils % % Lymphocytes % % Monocytes % % Eosinophils % % Basophils % % Neutrophils # (1.3-7.7) k/uL Lymphocytes # (1.0-4.8) k/uL Monocytes # (0-1.0) k/uL Eosinophils # (0-0.7) k/uL Basophils # (0-0.2) k/uL Hypochromasia Sodium (137-145) mmol/L Potassium (3.5-5.1) mmol/L Chloride (98-107) mmol/L Carbon Dioxide (22-30) mmol/L Anion Gap mmol/L BUN (7-17) mg/dL Creatinine (0.52-1.04) mg/dL Est GFR (CKD-EPI)AfAm (>60 ml/min/1.73 sqM) Est GFR (CKD-EPI)NonAf (>60 ml/min/1.73 sqM) Glucose (74-99) mg/dL Plasma Lactic Acid Cipriano (0.7-2.0) mmol/L Calcium (8.4-10.2) mg/dL Magnesium (1.6-2.3) mg/dL Total Bilirubin (0.2-1.3) mg/dL AST (14-36) U/L ALT (4-34) U/L Alkaline Phosphatase (38-126) U/L Total Protein (6.3-8.2) g/dL Albumin (3.5-5.0) g/dL Urine Color Dark Brown Urine Appearance Cloudy H (Clear) Urine pH 5.5 (5.0-8.0) Ur Specific [place] 1.022 (1.001-1.035) Urine Protein 1+ H (Negative) Urine Glucose (UA) Negative (Negative) Urine Ketones Negative (Negative) Urine Blood Moderate H (Negative) Urine Nitrite Positive H (Negative) Urine Bilirubin 1+ H (Negative) Urine Urobilinogen 4.0 (<2.0) mg/dL Ur Leukocyte Esterase Large H (Negative) Urine RBC 7 H (0-5) /hpf Urine WBC 133 H (0-5) /hpf Urine WBC Clumps Few H (None) /hpf Ur Squamous Epith Cells 1 (0-4) /hpf Urine Bacteria Many H (None) /hpf Hyaline Casts 3 H (0-2) /lpf Urine Mucus Many H (None) /hpf Urine Yeast (Budding) Few H (None) /hpf Disposition Clinical Impression: UTI (urinary tract infection), Sepsis Disposition: ADMITTED IP TO THIS HOSP Referrals: Major Funk MD [Primary Care Provider] - 1-2 days Decision Time: 00:20
--- NOTE | 2019-10-02 22:25 | XR ---
EXAMINATION TYPE: XR chest 1V portable DATE OF EXAM: 10/02/2019 COMPARISON: 07/11/2019 HISTORY: Fever TECHNIQUE: FINDINGS: There is large hiatal hernia. Lungs are clear of consolidation. There is no heart failure. Heart size is normal. There are chest leads. Bony thorax is intact. IMPRESSION: Hiatal hernia. No active cardiopulmonary disease. There is clearing of the pleural thicke florencia at the lateral left lung base compared to old exam.
[2019-10-02 22:57] LABS: Appearance,Urine Cloudy (Clear); Bacteria,Urine Many /hpf; Bilirubin,Urine 1+ (Negative); Blood,Urine Moderate (Negative); Budding Yeast,Urine Few /hpf; Color,Urine Dark Brown; Glucose,Urine (UA) Negative (Negative); Hyaline Casts,Urine 3 /lpf (0-2); Ketones,Urine Negative (Negative); Leukocyte Esterase,Urine Large (Negative); Mucus,Urine Many /hpf; Nitrite,Urine Positive (Negative); PH, Urine 5.5 (5.0-8.0); Protein,Urine 1+ (Negative); RBC,Urine 7 /hpf (0-5); Specific Gravity,Urine 1.022 (1.001-1.035); Squamous Epithelial Cell,Urine 1 /hpf (0-4); WBC,Urine 133 /hpf (0-5)
[2019-10-02] MEDS ORDERED: cefTRIAXone IN SWFI 1,000 MG/10 ML SYRINGE IVP STA (23:30)
[2019-10-03] MEDS ORDERED: NALOXONE 0.4 MG/ML 1 ML VIAL IV PRN (00:17)
[2019-10-03] MEDS: SODIUM CHLORIDE 0.9% 1,000 ML IV SCH ×3 (01:56→17:25)
[2019-10-03] MEDS ORDERED: HYDROmorphone 1 MG/ML 1 ML SYRINGE IVP PRN (04:20)
--- NOTE | 2019-10-03 08:21 | CT ---
EXAMINATION TYPE: CT brain wo con DATE OF EXAM: 10/03/2019 COMPARISON: 07/11/2019 HISTORY: Hx stroke, headache CT DLP: 1099.4 mGycm Automated exposure control for dose reduction was used. FINDINGS: Ventricular system is midline. No acute hemorrhage or mass effect. No midline shift. Previous hemorrh age involving the left cerebellum longer identified. Orbits are symmetric. Sinuses are clear. IMPRESSION: NO ACUTE HEMORRHAGE OR MASS EFFECT. IF THERE ARE CONCERNS FOR ACUTE ISCHEMIA CORRELATE WITH MRI CL INICALLY WARRANTED
[2019-10-03] MEDS ORDERED: NAPROXEN 250 MG TAB PO STA (09:23)
[2019-10-03] MEDS: ACETAMINOPHEN TAB 325 MG TAB PO PRN (09:53)
[2019-10-03] MEDS: LACOSAMIDE 50 MG TABLET PO SCH ×2 (10:46→20:48)
[2019-10-03] MEDS: TICAGRELOR 90 MG TAB PO SCH ×2 (10:46→20:49)
[2019-10-03] MEDS: diazePAM 5 MG TAB PO SCH ×2 (15:45→20:48)
--- NOTE | 2019-10-03 16:09 | P.HPIM ---
History of Present Illness H&P Date: 10/03/19 Chief Complaint: Fever History of presenting complaint: This is a 59-year-old patient of Dr. Major Braden from visiting physicians. Chronic stable medical conditions include chronic gastritis, fibromyalgia, GERD, hyperlipidemia, MTHFR gene mutation, cervical spine spondylosis with disc herniation. At her baseline patient is a bit unsteady on her feet. On 07/11/2019 patient was seen in the ER withof seizures and a computed tomography scan of the brain did show a new cerebellar bleed. Patient was transferred to [facility]. About 3 weeks ago which was discharged from the [facility] as per the ER was documentation she had a carotid artery stent and subs equently treated for an aneurysm. She's been having burning in the urine and frequency for last 2 days. Had some fever and headache at home. Chronic stiffness. No light intolerance. A computed tomography scan done this morning was negative for any bleed. Review of systems: GEN.: Fever and chills present. EYES: No photophobia HEENT: Has a headache. No neck stiffness. NECK: None RESPIRATORY: As above CARDIOVASCULAR: None GASTROINTESTINAL: No abdominal pain GENITOURINARY: None MUSCULOSKELETAL: Some intermittent chronic neck pain LYMPHATICS: None HEMATOLOGICAL: None PSYCHIATRY: Anxious NEUROLOGICAL: Baseline slightly unsteady on her feet does not daily support for walking. Past medical history to include: Asthma, fibromyalgia, GERD, hyperlipidemia, rheumatoid arthritis, MTHFR gene mutations, seizures during , migraines, 2 L of oxygen at night, psoriatic arthritis, iron deficiency anemia, anxiety depression has lost 4 children, cerebellar bleed Social history: Patient smoked for 10 years stopped in 1998. Denies use of recreational drugs. Alcohol rarely. . History of vaping till-earlier this year. Physical examination: VITAL SIGNS: 102.8, 116, 22, 136/86, para 3% on room air GENERAL: BMI 26.6, laying in bed comfortable but very anxious EYES: Pupils equal. Conjunctiva normal. HEENT: External appearance of nose and ears normal, oral cavity grossly normal. NECK: JVD not raised; masses not palpable. HEART: First and second heart sounds are normal; no edema. LUNGS: Respiratory rate increased, decreased breath sounds some wheezing. ABDOMEN: Soft, nontender, liver spleen not palpable, no masses palpable. PSYCH: Alert and oriented x3; mood and affect. Very anxious NEUROLOGICAL: Cranial nerves grossly intact; no facial asymmetry, power and sensation grossly intact. LYMPHATICS: No lymph nodes palpable in the axilla and neck INVESTIGATIONS, reviewed in the clinical context: White count 13.4 hemoglobin 12.2 increased neutrophils potassium 3.7 creatinine 0.84 UA positive for leukoesterase nitrate EKG tracing personally reviewed by me shows-normal sinus rhythm, very subtle ST segment depression in 1 aVL and V3 to V6. Computed tomography scan brain-negative for any acute event Chest x-ray film personally reviewed by me-no infiltrates Assessment: -Acute UTI from cystitis causing severe sepsis, POA - -chronic gastritis. -Intermittent asthma, -Chronic fibromyalgia -GERD -Hyperlipidemia -MTHFR gene mutation -Chronic hypoxic respiratory failure on home oxygen 2 L at night -Multilevel spondylitic changes in the cervical spine including disc herniation and spinal stenosis especially at C4-C5. -History of cerebellar bleed -Acute cephalgia likely toxic from sepsis. Patient is no photophobia no neck stiffness. Plan: Home medications resumed. IV fluids. IV ceftriaxone. Patient's concern about a headache which is now greatly improved during my interview. We'll get a vascular surgery opinion. For the recent vascular stenting done. Also ID consultation. Mónica waite. Blood cultures were done in the ER. 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), has some amnesia, anemia-gets iron infusions, stroke 3 weeks ago with anuerysm per patient History of Any Multi-Drug Resistant Organisms: None Reported Date of last positivie culture/infection: unsure MDRO Source:: unsure Past Surgical History: Section, Cholecystectomy, Ear Surgery, Hysterectomy, Tonsillectomy Additional Past Surgical History / Comment(s): left ear recontructed, colonoscopy and EGD, C/S x 4, stents placed 3 weeks ago per patient Past Anesthesia/Blood Transfusion Reactions: Motion Sickness Additional Past Anesthesia/Blood Transfusion Reaction / Comment(s): Pt has received blood in past without reaction. Past Psychological History: Anxiety, Depression Additional Psychological History / Comment(s): Pt resides with her exspouse. She uses a cane or walker to ambulate. She does not drive, her exspouse drives. She has home oxygen and a nebulizer. 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 She states she h as started to see a psychiatrist. She states she has depression but is not suicidal. Smoking Status: Former smoker Past Alcohol Use History: None Reported Additional Past Alcohol Use History / Comment(s): Pt started smoking in 1978 and quit in 1998. She denies vaping regularly. She drinks a shot of vodka maybe 5 times per year. Past Drug Use History: None Reported - Past Family History Son(s) Additional Family Medical History / Comment(s): Patient has 1 son living. 3 sons have passed and patient does not want to talk about their cause of . Mother Family Medical History: No Reported History Additional Family Medical History / Comment(s): Mother at age 84 and had hi story of anemia. Sister(s) Family Medical History: Congestive Heart Failure (CHF), Diabetes Mellitus Brother(s) Family Medical History: Congestive Heart Failure (CHF), Diabetes Mellitus Father Family Medical History: No Reported History Additional Family Medical History / Comment(s): Father at age 54 from an accident. Medications and Allergies Home Medications Medication Instructions Recorded Confirmed Type oxyCODONE HCL [oxyCODONE HCL (IR)] 30 mg PO QID 04/16/19 10/03/19 History Aspirin EC [Ecotrin Low Dose] 81 mg PO DAILY 10/03/19 10/03/19 History Diazepam [Valium] 5 mg PO TID 10/03/19 10/03/19 History Lacosamide [Vimpat] 100 mg PO BID 10/03/19 10/03/19 History Multivit-Min/Iron/Folic/Lutein 1 tab PO DAILY 10/03/19 10/03/19 History [Centrum Silver Women Tablet] Ticagrelor [Brilinta] 90 mg PO BID 10/03/19 10/03/19 History levETIRAcetam 750 mg PO BID 10/03/19 10/03/19 History Allergies Allergy/AdvReac Type Severity Reaction Status Date / Time cashew nut Allergy Unknown Verified 10/03/19 10:06 shellfish derived Allergy Swelling Verified 10/03/19 10:06 nuts Allergy Swelling Uncoded 10/02/19 21:06 animals AdvReac Wheezing Uncoded 10/02/19 21:06 environmental AdvReac Wheezing Uncoded 10/02/19 21:06 Physical Exam Vitals: Vital Signs Temp Pulse Pulse Resp BP BP Pulse Ox 10/03/19 07:00 99.7 F H 97 19 166/88 100 10/03/19 00:32 98.3 F 86 18 122/72 97 10/02/19 23:25 99.1 F 86 20 108/88 94 L 10/02/19 22:00 103 H 15 129/80 95 10/02/19 21:39 102.8 F H 10/02/19 20:58 101.9 F H 116 H 22 136/86 93 L Intake and Output 10/02/19 10/03/19 10/03/19 22:59 06:59 14:59 Other: Voiding Method Toilet Toilet Bedpan Bedpan # Voids 1 Weight 77.111 kg 77.111 kg Results CBC & Chem 7: 10/02/19 21:39 10/02/19 21:39 Labs: Abnormal Lab Results - Last 24 Hours (Table) 10/02/19 10/02/19 10/02/19 Range/Units 21:39 21:39 22:03 WBC 13.4 H (3.8-10.6) k/uL MCHC 30.5 L (31.0-37.0) g/dL Neutrophils # 11.5 H (1.3-7.7) k/uL Lymphocytes # 0.8 L (1.0-4.8) k/uL Sodium 135 L (137-145) mmol/L Carbon Dioxide 21 L (22-30) mmol/L Glucose 130 H (74-99) mg/dL AST 119 H (14-36) U/L ALT 94 H (4-34) U/L Alkaline Phosphatase 173 H (38-126) U/L Urine Appearance Cloudy H (Clear) Urine Protein 1+ H (Negative) Urine Blood Moderate H (Negative) Urine Nitrite Positive H (Negative) Urine Bilirubin 1+ H (Negative) Ur Leukocyte Esterase Large H (Negative) Urine RBC 7 H (0-5) /hpf Urine WBC 133 H (0-5) /hpf Urine WBC Clumps Few H (None) /hpf Urine Bacteria Many H (None) /hpf Hyaline Casts 3 H (0-2) /lpf Urine Mucus Many H (None) /hpf Urine Yeast (Budding) Few H (None) /hpf Thrombosis Risk Factor Assmnt - Choose All That Apply Each Factor Represents 1 point: Age 41-60 years, History of prior major surgery (<1month), Obesity (BMI >25) Thrombosis Risk Factor Assessment Total Risk Factor Score: 3 Thrombosis Risk Factor Assessment Level: Moderate Risk
[2019-10-04] MEDS: ACETAMINOPHEN TAB 325 MG TAB PO PRN (00:13)
[2019-10-04] MEDS: SODIUM CHLORIDE 0.9% 1,000 ML IV SCH ×3 (02:41→18:17)
[2019-10-04] MEDS: ASPIRIN 81 MG PO SCH (07:58)
[2019-10-04] MEDS: TICAGRELOR 90 MG TAB PO SCH ×2 (07:58→21:29)
[2019-10-04] MEDS: MULTIVITAMINS, THERA 1 EACH TAB PO SCH (07:59)
[2019-10-04] MEDS: diazePAM 5 MG TAB PO SCH ×3 (07:59→16:14)
[2019-10-04] MEDS: LACOSAMIDE 50 MG TABLET PO SCH ×2 (07:59→21:29)
[2019-10-04 08:07] LABS: HCT 32.9 % (34.0-46.0); Hypochromasia Marked; MCH 27.1 pg (25.0-35.0); MCHC 29.9 g/dL (31.0-37.0); MCV 90.7 fL (80.0-100.0); Mean Platelet Volume 8.7; Platelet Count 176 k/uL (150-450); RBC 3.63 m/uL (3.80-5.40); RDW 14.3 % (11.5-15.5); WBC 7.9 k/uL (3.8-10.6)
--- NOTE | 2019-10-04 08:12 | CONS ---
CONSULTATION DATE OF SERVICE: 10/03/2019 REASON FOR CONSULTATION: Sepsis. HISTORY OF PRESENT ILLNESS: The patient is a 59-year-old female presenting to the ER with chief complaints of fever, headache, and dysuria. The patient's symptoms have been going on for about 4 days before presentation to the hospital. The patient headache has been most of a dull aching, at times sharp 5 to 6/10 and no radiation. She is also complaining of dysuria with the same duration but no suprapubic or flank pain. Some nausea but no vomiting. With these symptoms, the patient has been evaluated by the ER physician. On arrival to the ER, the patient did have fever of 101.9 degrees Fahrenheit. The patient did have mild tachycardia, heart rate of 97. She did have white count 13.4. Liver enzymes were mildly elevated. She did have positive UA with large leukocyte esterase, more than 133 WBC. She has been diagnosed with sepsis secondary to urinary tract infection. The patient was started on Rocephin 1 gram daily, admitted to the hospital. Infectious Disease was consulted for further management of antibiotic therapy. The patient did have CT of the brain that was negative for any bleed. Chest x-ray with no acute cardiopulmonary disease. REVIEW OF SYSTEMS: Positive points have been mentioned in HPI. Rest of the review of systems has been negative. PAST MEDICAL HISTORY: Asthma, fibromyalgia, gastroesophageal reflux disease, hyperlipidemia, osteoarthritis, rheumatoid arthritis, sleep apnea. PAST SURGICAL HISTORY: , cholecystectomy, hysterectomy, tonsillectomy. SOCIAL HISTORY: Remote history of smoking. No drinking or drug use. FAMILY HISTORY: Sister with history of diabetes and congestive heart failure. ALLERGIES: Mostly environmental. No known drug allergies. MEDICATIONS: The patient is currently on Tylenol, aspirin, Rocephin 1 g daily, Valium, ( ), Keppra, Theragran, Narcan, IV fluid. PHYSICAL EXAMINATION: Blood pressure is 133/70 with a pulse of 72, temperature 98.5, T-max 102, she is 93% on room air. GENERAL DESCRIPTION: The patient is a middle-aged female lying in bed in no distress. No tachypnea or accessory muscles of respiration use. HEENT: Examination shows no pallor or scleral icterus. Oral mucosa membrane is dry. No pharyngeal erythema or thrush. NECK: Trachea central. No thyromegaly. LUNGS: Unlabored breathing. Clear to auscultation anteriorly. No wheeze or crackle. HEART: S1, S2. Regular rate and rhythm. ABDOMEN: Soft, no tenderness. No guarding or rigidity. EXTREMITIES: No edema of the feet. SKIN: No rash or masses palpable. NEUROLOGICAL: Patient is awake, alert, oriented times three. Mood and affect normal. LABS: Hemoglobin is 12.8, white count 13.4, creatinine 1.0. UA has been positive. Drew PCR was negative. Chest x-ray was negative. DIAGNOSTIC IMPRESSION AND PLAN: Patient admitted to the hospital with sepsis. Source is urinary tract infection in this patient who did have a positive UA and urinary symptoms, likely symptomatic UTI likely from enteric gram-negative pathogen. She seemed to have response to initial antibiotic therapy of Rocephin likely ceftriaxone sensitive pathogen. PLAN: 1. Rocephin 1 gram IV piggyback daily. 2. Obtain ultrasound of the kidney, bladder to make sure there is no evidence of any structural abnormality. 3. IV fluids. 4. We will follow on clinical condition and culture to further adjust medication if needed. Thank you for this consultation. Will follow this patient along with you. MMODL / IJN: [id number] /
[2019-10-04 08:14] LABS: HGB 9.8 gm/dL (11.4-16.0)
[2019-10-04 09:55] LABS: African American GFR (CKD) >90 (>60 ml/min/1.73 sqM); Anion Gap 6 mmol/L; Blood Urea Nitrogen 9 mg/dL (7-17); Calcium 8.3 mg/dL (8.4-10.2); Carbon Dioxide 23 mmol/L (22-30); Chloride 110 mmol/L (98-107); Glucose 117 mg/dL (74-99); Non-African American GFR(CKD) >90 (>60 ml/min/1.73 sqM); Potassium 3.7 mmol/L (3.5-5.1); Sodium 139 mmol/L (137-145)
[2019-10-04] MEDS: IPRATROPIUM-ALBUTEROL 3 ML NEB INHALATION SCH ×3 (13:57→20:00)
--- NOTE | 2019-10-04 15:26 | P.GSCN ---
History of Present Illness Consult date: 10/04/19 Reason for Consult: Headache, recent carotid stent History of present illness: This is a 59-year-old female who presented to the emergency department with fever, headache, and dysuria. The patient states that the headaches began a few days ago, which radiates behind both eyes and left posterior neck. The patient has a recent history of a left cerebral bleed and stroke in June 2019 and was subsequently transferred to [facility]. The patient states she underwent stenting, however is unsure what kind of stenting. States that they went through the right groin. We have been consulted per medicine for possible recent carotid stent according to ER notes. The patient states relieving factors include rest and Tylenol. States the headaches become more intense with movement or coughing. She denies any other neural deficits. She denies any chest pain or shortness of breath. Infectious disease has been on consult reg tdding urinary tract infection, and patient was started on Rocephin. Her past medical history includes asthma, MTHFR, chest pain, fibromyalgia, GERD, hyperlipidemia, seizures, CVA, left cerebral hemorrhage, anxiety and depression. She has been on Brillinta. Review of Systems 14 point review of systems was completed all pertinent positives and negatives as stated in the HPI. 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 Past Psychological History: Anxiety, Depression Additional Psychological History / Comment(s): Pt resides with her exspouse. She uses a cane or walker to ambulate. She does not drive, her exspouse drives. She has home oxygen and a nebulizer. 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 She states she has started to see a psychiatrist. She states she has depression but is not suicidal. Smoking Status: Former smoker Past Alcohol Use History: None Reported Additional Past Alcohol Use History / Comment(s): Pt started smoking in 1978 and quit in 1998. She denies vaping regularly. She drinks a shot of vodka maybe 5 times per year. Past Drug Use History: None Reported - Past Family History Son(s) Additional Family Medical History / Comment(s): Patient has 1 son living. 3 sons have passed and patient does not want to talk about their cause of . Mother Family Medical History: No Reported History Additional Family Medical History / Comment(s): Mother at age 84 and had history of anemia. Sister(s) Family Medical History: Congestive Heart Failure (CHF), Diabetes Mellitus Brother(s) Family Medical History: Congestive Heart Failure (CHF), Diabetes Mellitus Father Family Medical History: No Reported History Additional Family Medical History / Comment(s): Father at age 54 from an accident. Medications and Allergies Home Medications Medication Instructions Recorded Confirmed Type oxyCODONE HCL [oxyCODONE HCL (IR)] 30 mg PO QID 04/16/19 10/03/19 History Aspirin EC [Ecotrin Low Dose] 81 mg PO DAILY 10/03/19 10/03/19 History Diazepam [Valium] 5 mg PO TID 10/03/19 10/03/19 History Lacosamide [Vimpat] 100 mg PO BID 10/03/19 10/03/19 History Multivit-Min/Iron/Folic/Lutein 1 tab PO DAILY 10/03/19 10/03/19 History [Centrum Silver Women Tablet] Ticagrelor [Brilinta] 90 mg PO BID 10/03/19 10/03/19 History levETIRAcetam 750 mg PO BID 10/03/19 10/03/19 History Allergies Allergy/AdvReac Type Severity Reaction Status Date / Time cashew nut Allergy Unknown Verified 10/03/19 10:06 shellfish derived Allergy Swelling Verified 10/03/19 10:06 nuts Allergy Swelling Uncoded 10/02/19 21:06 animals AdvReac Wheezing Uncoded 10/02/19 21:06 environmental AdvReac Wheezing Uncoded 10/02/19 21:06 Surgical - Exam Vital Signs Temp Pulse Resp BP Pulse Ox 101.9 F H 116 H 22 136/86 93 L 10/02/19 20:58 10/02/19 20:58 10/02/19 20:58 10/02/19 20:58 10/02/19 20:58 General appearance: The patient is alert, oriented, in no acute distress. HET: Head is normocephalic and atraumatic. Pupils are equal and reactive. EOM intact bilaterally Neck: Supple without lymphadenopathy. Trachea midline. No audible carotid bruit, bilaterally Heart: S1 S2. Regular rate and rhythm. Lungs: No crackles or wheezes are heard. Abdomen: Soft, nontender, nondistended with bowel sounds. Extremities: Normal skin color and turgor. No cyanosis, rash, ulceration, clubbing, or edema. Radial and pedal pulses are 2/4 bilaterally. Neurological: No focal deficits. Strength and sensation are grossly intact. Patient is able to follow commands, and answer questions appropriately. Results CT brain doubt contrast reviewed: Jugular system is midline. No acute hemorrhage or mass effect. No midline shift. - Labs 10/04/19 07:46 10/04/19 08:53 Abnormal Lab Results - Last 24 Hours (Table) 10/04/19 10/04/19 Range/Units 07:46 08:53 RBC 3.63 L (3.80-5.40) m/uL Hgb 9.8 L D (11.4-16.0) gm/dL Hct 32.9 L (34.0-46.0) % MCHC 29.9 L (31.0-37.0) g/dL Chloride 110 H (98-107) mmol/L Glucose 117 H (74-99) mg/dL Calcium 8.3 L (8.4-10.2) mg/dL Microbiology - Last 24 Hours (Table) 10/02/19 21:52 Blood Culture - Preliminary Blood No Growth after 24 hours 10/02/19 22:03 Urine Culture - Preliminary Urine,Clean Catch Diabetes panel 10/04/19 Range/Units 08:53 Sodium 139 (137-145) mmol/L Potassium 3.7 (3.5-5.1) mmol/L Chloride 110 H (98-107) mmol/L Carbon Dioxide 23 (22-30) mmol/L BUN 9 (7-17) mg/dL Creatinine 0.57 (0.52-1.04) mg/dL Glucose 117 H (74-99) mg/dL Calcium 8.3 L (8.4-10.2) mg/dL Calcium panel 10/04/19 Range/Units 08:53 Calcium 8.3 L (8.4-10.2) mg/dL Pituitary panel 10/04/19 Range/Units 08:53 Sodium 139 (137-145) mmol/L Potassium 3.7 (3.5-5.1) mmol/L Chloride 110 H (98-107) mmol/L Carbon Dioxide 23 (22-30) mmol/L BUN 9 (7-17) mg/dL Creatinine 0.57 (0.52-1.04) mg/dL Glucose 117 H (74-99) mg/dL Calcium 8.3 L (8.4-10.2) mg/dL Adrenal panel 10/04/19 Range/Units 08:53 Sodium 139 (137-145) mmol/L Potassium 3.7 (3.5-5.1) mmol/L Chloride 110 H (98-107) mmol/L Carbon Dioxide 23 (22-30) mmol/L BUN 9 (7-17) mg/dL Creatinine 0.57 (0.52-1.04) mg/dL Glucose 117 H (74-99) mg/dL Calcium 8.3 L (8.4-10.2) mg/dL Assessment and Plan Assessment: 1. Headache 2. Recent past history of left occipital intraparenchymal hemorrhage 3. MTHFR 4. Hyperlipidemia Plan: Medical records requested from [facility] and reviewed. Patient had recent stenting for brain aneurysm in June 2019. Will obtain bilateral carotid Doppler. Will consult neurology, await their recommendations. Further marciano mmendations to come. Thank you for this consultation and allowing us to take part in the plan of care of your patient during her hospital stay. The above dictated assessment and findings were discussed with Dr. Hurst. The impression and plan of care have been directed as dictated.
--- NOTE | 2019-10-04 16:04 | US ---
EXAMINATION TYPE: US carotid duplex BILAT DATE OF EXAM: 10/04/2019 COMPARISON: NONE CLINICAL HISTORY: r/o carotid stenosis, hx of brain aneurysm. Stenosis EXAM MEASUREMENTS: RIGHT: Peak Systolic Velocity (PSV) cm/sec ----- Right CCA: 76.4 ----- Right ICA: 80.8 ----- Right ECA: 70.6 ICA/CCA ratio: 1.1 RIGHT: End Diastole cm/sec ----- Right CCA: 15.4 ----- Right ICA: 22.7 ----- Right ECA: 0 LEFT: Peak Systolic Velocity (PSV) cm/sec ----- Left CCA: 61.9 ----- Left ICA: 76.4 ----- Left ECA: 69.2 ICA/CCA ratio: 1.2 LEFT: End Diastole cm/sec ----- Left CCA: 18.3 ----- Left ICA: 15.4 ----- Left ECA: 20.9 VERTEBRALS (direction of flow): Right Vertebral: Antegrade Left Vertebral: Antegrade Rhythm: Normal Vessels dive deep. No significant stenosis seen IMPRESSION: 1. No diagnostic evidence of significant hemodynamic stenosis as visualized. 2. Incidental note is made of a right thyroid nodule correlate with ultrasound. Criteria for Assigning % of Stenosis / Diameter reduction (Estimation based on the indirect measurements of the internal carotid artery velocities (ICA PSV). 1. Normal (no stenosis)=ICA PSV < 125 cm/s: ratio < 2.0: ICA EDV<40 cm/s. 2. Less than 50% stenosis=ICA PSV < 125 cm/s: ratio < 2.0: ICA EDV<40 cm/s. 3. 50 to 69% stenosis=ICA PSV of 125 to 230 cm/s: ration 2.0 ? 4.0: ICA EDV 40-100 cm/s. 4. Greater than 70% stenosis to near occlusion= ICA PSV > 230 cm/s: ratio > 4.0: ICA EDV > 100 cm/s. 5. Near occlusion= ICA PSV velocities may be low or undetectable: variable ratio and ICA EDV. 6. Total occlusion=unable to detect flow.
--- NOTE | 2019-10-04 20:07 | PN ---
PROGRESS NOTE DATE OF SERVICE: 10/04/2019 REASON FOR FOLLOWUP: Gram-negative urinary tract infection. INTERVAL HISTORY: The patient is currently afebrile. The patient is breathing comfortably. Denies having any chest pain or any cough. Still complaining of some burning of urine but no suprapubic pain. No diarrhea. He has been complaining of her pain medication being cut back and wants dose to be increased. PHYSICAL EXAMINATION: Blood pressure 151/87 with a pulse of 70, temperature 97.8. She is 99% on room air. General description is a middle-aged female lying in bed in no distress. RESPIRATORY SYSTEM: Unlabored breathing. Clear to auscultation anteriorly. HEART: S1, S2. Regular rate and rhythm. ABDOMEN: Soft. No tenderness. LABS: Urine is showing a Gram-negative. White count normal at 7.9. DIAGNOSTIC IMPRESSION AND PLAN: Patient with a Gram-negative urinary tract infection. Will wait for the sensitivity to finalize. Continue Rocephin, adjusting antibiotic further based on the culture report. Continue with supportive care. MMODL / IJN: [id number] /
[2019-10-04] MEDS ORDERED: diazePAM 5 MG TAB PO STA (21:24)
--- NOTE | 2019-10-04 23:01 | P.PN ---
Progress Note - Text Progress Note Date: 10/04/19 Chief Complaint: Fever History of presenting complaint: This is a 59-year-old patient of Dr. Major Braden from visiting physicians. Chronic stable medical conditions include chronic gastritis, fibromyalgia, GERD, hyperlipidemia, MTHFR gene mutation, cervical spine spondylosis with disc herniation. At her baseline patient is a bit unsteady on her feet. On 07/11/2019 patient was seen in the ER withof seizures and a computed tomography scan of the brain did show a new cerebellar bleed. Patient was transferred to [facility]. About 3 weeks ago which was discharged from the [facility] as per the ER was documentation she had a carotid artery stent and subsequently treated for an aneurysm. She's been having burning in the urine and frequency for last 2 days. Had some fever and headache at home. Chronic stiffness. No light intolerance. A computed tomography scan done this morning was negative for any bleed. Admitted with UTI and cystitis causing sepsis. And toxic encephalopathy. Started and IV ceftriaxone. Computed tomography scan of the brain was negative. Given IV fluids. Today-feeling much better. No further fever. Seen by Dr. Hurst from vascular. He is consulted neurology. Clinically patient looks much better. Review of systems: Was done for constitutional, cardiovascular, GI, pulmonary. relevant finding as above Active Medications Acetaminophen (Tylenol Tab) 650 mg PO Q6HR PRN PRN Reason: Mild Pain or Fever > 100.5 Last Admin: 10/04/19 00:13 Dose: 650 mg Documented by: Albuterol/Ipratropium (Duoneb 0.5 Mg-3 Mg/3 Ml Soln) 3 ml INHALATION RT-QID [facility] Last Admin: 10/04/19 20:00 Dose: 3 ml Documented by: Aspirin (Aspirin) 81 mg PO DAILY [facility] Last Admin: 10/04/19 07:58 Dose: 81 mg Documented by: Diazepam (Valium) 5 mg PO TID [facility] Last Admin: 10/04/19 16:14 Dose: 5 mg Documented by: Sodium Chloride (Saline 0.9%) 1,000 mls @ 120 mls/hr IV .Q8H20M [facility] Last Admin: 10/04/19 18:17 Dose: Not Given Documented by: Ceftriaxone Sodium 1 gm/ (Sodium Chloride) 50 mls @ 100 mls/hr IVPB Q24HR [facility] Last Admin: 10/04/19 08:02 Dose: 100 mls/hr Documented by: Lacosamide (Vimpat) 100 mg PO BID [facility] Last Admin: 10/04/19 21:29 Dose: 100 mg Documented by: Levetiracetam (Keppra) 750 mg PO BID [facility] Last Admin: 10/04/19 21:29 Dose: 750 mg Documented by: Multivitamins (Theragran) 1 each PO DAILY [facility] Last Admin: 10/04/19 07:59 Dose: 1 each Documented by: Naloxone HCl (Narcan) 0.2 mg IV Q2M PRN PRN Reason: Opioid Reversal Oxycodone HCl (Oxyir) 30 mg PO QID [facility] Last Admin: 10/04/19 21:29 Dose: 30 mg Documented by: Ticagrelor (Brilinta) 90 mg PO BID [facility] Last Admin: 10/04/19 21:29 Dose: 90 mg Documented by: Physical examination: VITAL SIGNS: Afebrile, 78, 17, 151/87, 99% room air GENERAL: Sitting up in bed, slightly less anxious today EYES: Pupils equal. Conjunctiva normal. HEENT: External appearance of nose and ears normal, oral cavity grossly normal. NECK: JVD not raised; masses not palpable. HEART: First and second heart sounds are normal; no edema. LUNGS: Respiratory rate improved, decreased breath sounds-decreased wheezing. ABDOMEN: Soft, nontender, liver spleen not palpable, no masses palpable. PSYCH: Alert and oriented x3; mood and affect. Less anxious INVESTIGATIONS, reviewed in the clinical context: White count 7.9 hemoglobin 9.8 potassium 3.7 creatinine 0.57 Previous testing White count 13.4 hemoglobin 12.2 increased neutrophils potassium 3.7 creatinine 0.84 UA positive for leukoesterase nitrate EKG tracing personally reviewed by me shows-normal sinus rhythm, very subtle ST segment depression in 1 aVL and V3 to V6. Computed tomography scan brain-negative for any acute event Chest x-ray film personally reviewed by me-no infiltrates Urine [id number] bacilli Assessment: -Acute UTI from cystitis causing severe sepsis, POA -chronic gastritis. -Intermittent asthma, -Chronic fibromyalgia -GERD -Hyperlipidemia -MTHFR gene mutation -Chronic hypoxic respiratory failure on home oxygen 2 L at night -Multilevel spondylitic changes in the cervical spine including disc herniation and spinal stenosis especially at C4-C5. -History of cerebellar bleed -Acute cephalgia likely toxic from sepsis. Patient is no photophobia no neck stiffness. Computed tomography scan of the brain negative. Plan: -Patient was reassured. Continue with IV fluids. Looking better. Seen by Dr. Hurst from vascular. Has consulted neurology. Overall looking much better. White count coming down nicely. Await culture results.
--- NOTE | 2019-10-04 23:23 | P.CNNES ---
History of Present Illness Consult date: 10/04/19 Requesting physician: Edward Trujillo Reason for Consult: Headache History of Present Illness: Patient is a 59-year-old female who came to the hospital for numerous neurological symptoms. Patient states that she had history of some intermittent headaches for a year, which she used to believe were sinus headaches. Patient had history of cerebral aneurysm diagnosed in June 2019 when she was transferred to [facility] where she underwent endovascular coiling of the aneurysm by Dr Slaughter. Patient states she required 4 coils. Since then patient has been having headaches. However they have got worse in the past 7-10 days, particularly in the last 3 days. Patient states that she has pressure behind her eyes, especially when she moves her head certain way, she gets pressure pain behind her eyes. Also gets pressure behind the neck on the left side. She rates the headache 9/10 now. She can hardly move her head. When she coughs or sneezes, the headache gets worse. It also involves the temporal in the neck. When she gets an argument with her , the headache gets worse. Patient denies any focal symptoms otherwise. Patient underwent CT head showed no acute hemorrhage or mass effect. If there are concerns for acute ischemia, correlate with MRI as clinically warranted. Chest x-ray showed some hiatal hernia. No active guarding pulmonary disease. EKG showed sinus tachycardia. Left axis deviation. Moderate voltage criteria for LVH. Carotid Doppler showed no significant stenosis. Antegrade flow in both vertebral arteries. Right thyroid nodule. To be addressed by IM. Colleene nt's blood test shows WBC 13.4 which is improved to 7.9. Hemoglobin 9.8. Platelets are 176. Sodium 139 potassium 3.7. Renal functions normal. AST is 119, ALT 94 both elevated. UA shows positive nitrite, 1+ bilirubin, large leukocyte esterase and 133 WBCs with clams. Many bacteria. Urine cultures have grown gram-negative bacilli. Blood cultures negative. Patient has history of left occipital lobe hemorrhage on 07/11/2019 (reported as cerebellar hemorrhage). Patient claims she has history of MTHFR mutation. She has strong family history of cerebral aneurysms. She states that 3-4 family members have of brain aneurysm. One of her knees H 25 had cerebral aneurysm. Brother had brain aneurysm and a stroke. Sister had a stroke. Review of records from [facility] Computed tomography scan of head without contrast 07/12/2019 showed stable left occipital lobe intraparenchymal/cortical hemorrhage measuring approximately 1.4 x 1.1 cm with mild surrounding is edema. CTA of head 07/14/2019 with and without IV contrast showed stable left occipital intraparenchymal hemorrhage meeting 1.3 x 1.1 cm. There is an aneurysm seen involving the ophthalmic portion of the left internal carotid artery measuring 4.5 x 5 mm. There is questionable 2-3 mm aneurysm of the basilar tip. Patient underwent placement of left supraclinoid ICA stent on 07/16/2019. Patient had a CTA of head and neck with and without contrast on 07/16/2019. Interval placement of vascular stent at the supraclinoid portion of the left ICA with persistent pooling of previously noted 4 x 4 mm aneurysm of the left supraclinoid ICA. 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 Patient had CT brain perfusion with and without IV contrast on 07/16/2019 revealed questionable small area of ischemia within the left temporal lobe. MRI recommended. Stable small left occipital intraparenchymal hemorrhage. Patient had an MRI of brain without con trast on 07/19/2019, which revealed left occipital hemorrhage with adjacent edema. Advised progress study to document resolution and help exclude underlying mass. Surrounding vasogenic edema. 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 Linear increased uptake on FLAIR images in the right occipital location favoring artifact over subarachnoid hemorrhage. MRA of the brain from 07/18/2019 showed status post pipeline stent placement. Residual aneurysmal dilation of the ophthalmic artery approximating 4 x 3 mm. Moderate narrowing of the mid basilar artery. Cannot exclude vasculitis or intrinsic vascular disease. 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 Known hemorrhage of the left occipital pole. Cerebral angiogram 07/15/2019 showed left ICA paraophthalmic aneurysm with small Young sac measuring 5.8 x 3.5 mm. Successful pipeline embolization. Vitamin B12 648 on 07/12/2019. Patient had an EEG on 07/16/2019, which was abnormal with occas ional to frequent low to moderate voltage single sharp person within equipotential at T3 to T5. Rare runs of frontally predominant delta range slowing were seen. Occasional focal left mid temporal and posterior temporal theta range slowing. The sharp waves seen over the left midposterior temporal region are epileptiform in nature. Patient subsequently underwent video EEG monitoring, which was mildly abnormal. No clinical or electrographic seizures were recorded. No epileptiform activity was present. Rare focal left frontotemporal theta range slowing was seen which is not epileptiform in nature. Patient had a 2-D echo on 07/12/2019, which revealed him normal left ventricular wall motion. Left-ventricular ejection fraction is 60-65%. Mild disc tricuspid regurgitation. Trivial pericardial effusion. Negative agitated saline bubble study for [id number]-[id number] shunt. Review of Systems As per HPI. Patient complains of memory loss. Complains of spinal stenosis in the neck. She has chronic neck pain for 3 years and chronic back pain for 3 years. She has been getting bad dreams, hallucinations. She feels her speech has messed up. She is getting speech therapy. Patient claims that she was in a coma after she had some adverse effect from an antidepressant that she was received. She was in [facility] on a ventilator. 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), has some amnesia, anemia-gets iron infusions, stroke 3 weeks ago with anuerysm per patient History of Any Multi-Drug Resistant Organisms: None Reported Date of last positivie culture/infection: unsure MDRO Source:: unsure Past Surgical History: Section, Cholecystectomy, Ear Surgery, Hysterectomy, Tonsillectomy Additional Past Surgical History / Comment(s): left ear recontructed, colonoscopy and EGD, C/S x 4, stents placed 3 weeks ago per patient Past Anesthesia/Blood Transfusion Reactions: Motion Sickness Additional Past Anesthesia/Blood Transfusion Reaction / Comment(s): Pt has received blood in past without reaction. Past Psychological History: Anxiety, Depression Additional Psychological History / Comment(s): Pt resides with her exspouse. She uses a cane or walker to ambulate. She does not drive, her exspouse drives. She has home oxygen and a nebulizer. 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 She states she has started to see a psychiatrist. She states she has depression but is not suicidal. Smoking Status: Former smoker Past Alcohol Use History: None Reported Additional Past Alcohol Use History / Comment(s): Pt started smoking in 1978 and quit in 1998. She denies vaping regularly. She drinks a shot of vodka maybe 5 times per year. Past Drug Use History: None Reported - Past Family History Son(s) Additional Family Medical History / Comment(s): Patient has 1 son living. 3 sons have passed and patient does not want to talk about their cause of . Mother Family Medical History: No Reported History Additional Family Medical History / Comment(s): Mother at age 84 and had history of anemia. Sister(s) Family Medical History: Congestive Heart Failure (CHF), Diabetes Mellitus Brother(s) Family Medical History: Congestive Heart Failure (CHF), Diabetes Mellitus Father Family Medical History: No Reported History Additional Family Medical History / Comment(s): Father at age 54 from an accident. Medications and Allergies Home Medications Medication Instructions Recorded Confirmed Type oxyCODONE HCL [oxyCODONE HCL (IR)] 30 mg PO QID 04/16/19 10/03/19 History Aspirin EC [Ecotrin Low Dose] 81 mg PO DAILY 10/03/19 10/03/19 History Diazepam [Valium] 5 mg PO TID 10/03/19 10/03/19 History Lacosamide [Vimpat] 100 mg PO BID 10/03/19 10/03/19 History Multivit-Min/Iron/Folic/Lutein 1 tab PO DAILY 10/03/19 10/03/19 History [Centrum Silver Women Tablet] Ticagrelor [Brilinta] 90 mg PO BID 10/03/19 10/03/19 History levETIRAcetam 750 mg PO BID 10/03/19 10/03/19 History Allergies Allergy/AdvReac Type Severity Reaction Status Date / Time cashew nut Allergy Unknown Verified 10/03/19 10:06 shellfish derived Allergy Swelling Verified 10/03/19 10:06 nuts Allergy Swelling Uncoded 10/02/19 21:06 animals AdvReac Wheezing Uncoded 10/02/19 21:06 environmental AdvReac Wheezing Uncoded 10/02/19 21:06 Physical Examination - Vital Signs Vital Signs: Vital Signs Temp Pulse Pulse Resp BP Pulse Ox 10/04/19 15:00 97.8 F 78 17 151/87 99 10/04/19 14:10 85 10/04/19 13:50 86 18 96 10/04/19 07:00 97.5 F L 63 17 119/78 98 10/04/19 00:51 97.6 F 71 18 113/71 96 Intake and Output 10/04/19 10/04/19 10/04/19 06:59 14:59 22:59 Other: Voiding Method Toilet Toilet Toilet Bedpan Bedpan Bedpan # Voids 2 3 On examination patient is a middle aged female, who appears to be very stressed, distressed because of the headache and concerns about aneurysms. Her mental status, speech and language functions otherwise are normal. Attention, concentration and fund of knowledge appears adequate. Detailed testing deferred. She has a nasal tone to her voice. On cranial examination pupils are round and reactive to light, visual ramirez are full on confrontation. Extraocular muscles are intact. Face is symmetric, tongue protrudes the midline. Palatal elevation and sensation normal. Hearing and shoulder shrug normal. On muscle strength testing there is no pronator drift and the strength is normal in arms and legs distally and proximally. Reflexes are 1+ and plantars downgoing. Sensory touch is equal. Patient appears tremulous for [id number]-[id number] testing, more so on the left. Tone and bulk of muscles normal. Gait deferred. No obvious bruit, S1 and S2 audible. Peripheral pulses present. Abdomen soft nontender. Chest is clear. Results - Laboratory Findings CBC and BMP: 10/04/19 07:46 10/04/19 08:53 Abnormal Lab Findings: Abnormal Labs 10/02/19 10/02/19 10/02/19 21:39 21:39 22:03 WBC 13.4 H RBC Hgb Hct MCHC 30.5 L Neutrophils # 11.5 H Lymphocytes # 0.8 L Sodium 135 L Chloride Carbon Dioxide 21 L Glucose 130 H Calcium AST 119 H ALT 94 H Alkaline Phosphatase 173 H Procalcitonin Urine Appearance Cloudy H Urine Protein 1+ H Urine Blood Moderate H Urine Nitrite Positive H Urine Bilirubin 1+ H Ur Leukocyte Esterase Large H Urine RBC 7 H Urine WBC 133 H Urine WBC Clumps Few H Urine Bacteria Many H Hyaline Casts 3 H Urine Mucus Many H Urine Yeast (Budding) Few H 10/04/19 10/04/19 10/04/19 07:46 08:53 08:53 WBC RBC 3.63 L Hgb 9.8 L D Hct 32.9 L MCHC 29.9 L Neutrophils # Lymphocytes # Sodium Chloride 110 H Carbon Dioxide Glucose 117 H Calcium 8.3 L AST ALT Alkaline Phosphatase Procalcitonin 0.28 H Urine Appearance Urine Protein Urine Blood Urine Nitrite Urine Bilirubin Ur Leukocyte Esterase Urine RBC Urine WBC Urine WBC Clumps Urine Bacteria Hyaline Casts Urine Mucus Urine Yeast (Budding) Assessment and Plan Assessment: * 59-year-old female with 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 * History of left occipital lobe cortical hemorrhage. * Chronic headaches, memory loss, rule out vasculitis. * Hypertension Plan: * Patient is presenting with very severe headache of 7-10 day duration, progress ively getting worse. Computed tomography scan of the head revealed no subarachnoid hemorrhage. Patient cannot undergo lumbar puncture because of being on Brilinta. I would recommend evaluation by neuro intervention for further management of this headache, rule out sentinel bleed, vasculitis or CS F leak. * Patient probably will need MRI of the brain with and without contrast, MRA of the head (if compatible with the endovascular coil), perhaps lumbar puncture to check for opening pressure, rule out any infectious process or subarachnoid hemorrhage. * Suggest transfer to a higher level of care for further management of her headaches and above conditions, given strong family history of mortality related to ruptured cerebral aneurysms. * Discussed with Dr. Robbins, who initially performed endovascular treatment for her left ICA aneurysm in June 2019. He accepted the patient for transfer. * Discussed with the charge nurse to initiate transfer, if okay with the primary physician. Time with Patient: Greater than 30 (In reviewing records, coordinating care.)
[2019-10-05] MEDS: SODIUM CHLORIDE 0.9% 1,000 ML IV SCH (01:49)
[2019-10-05 04:17] LABS: % Iron Saturation 3.47 (12.00-45.00)
[2019-10-05 04:19] LABS: Ferritin 65.1 ng/mL (10.0-291.0)
[2019-10-05] MEDS: LACOSAMIDE 50 MG TABLET PO SCH (08:25)
[2019-10-05] MEDS: MULTIVITAMINS, THERA 1 EACH TAB PO SCH (08:25)
[2019-10-05] MEDS: TICAGRELOR 90 MG TAB PO SCH (08:25)
[2019-10-05] MEDS: ASPIRIN 81 MG PO SCH (08:25)
[2019-10-05] MEDS: diazePAM 5 MG TAB PO SCH (08:25)
[2019-10-05] MEDS: IPRATROPIUM-ALBUTEROL 3 ML NEB INHALATION SCH ×2 (08:43→12:12)
[2019-10-05 08:47] VITALS: RESP 20
[2019-10-05 09:52] VITALS: BP 144/84; TEMP 98.1
[2019-10-05 12:14] VITALS: PULSE 60
--- NOTE | 2019-10-05 13:19 | P.DS ---
Providers Date of admission: 10/03/19 00:19 Expected date of discharge: 10/05/19 Attending physician: Edward Trujillo Consults: 10/03/19 00:18 Consult Physician Routine Consulting Provider: Carson Grimes Consult Reason/Comments: sepsis Do you want consulting provider notified?: Yes 10/03/19 11:47 Consult Physician Routine Consulting Provider: Carson Grimes Consult Reason/Comments: fever Do you want consulting provider notified?: Yes 10/03/19 11:50 Consult Physician Routine Consulting Provider: Nelly Escamilla Consult Reason/Comments: recent carotid stent - headache Do you want consulting provider notified?: Yes 10/04/19 10:31 Consult Physician Routine Consulting Provider: Madyson Schuler Consult Reason/Comments: headaches, recent cerebellum bleed Do you want consulting provider notified?: Yes 10/04/19 13:12 Consult Physician Routine Consulting Provider: Madyson Schuler Consult Reason/Comments: headache Do you want consulting provider notified?: Yes Primary care physician: Major Funk MD Hospital Course: Chief Complaint: Fever History of presenting complaint: This is a 59-year-old patient of Dr. Major Braden from visiting physicians. Chronic stable medical conditions include chronic gastritis, fibromyalgia, GERD, hyperlipidemia, MTHFR gene mutation, cervical spine spondylosis with disc herniation. At her baseline patient is a bit unsteady on her feet. On 07/11/2019 patient was seen in the ER withof seizures and a computed tomography scan of the brain did show a new cerebellar bleed. Patient was transferred to [facility]. About 3 weeks ago which was discharged from the [facility] as per the ER was documentation she had a carotid artery stent and subsequently treated for an aneurysm. She's been having burning in the urine and frequency for last 2 days. Had some fever and headache at home. No neck stiffness. No light intolerance. A computed tomography scan done this morning was negative for any bleed. Admitted with UTI and cystitis causing sepsis. And toxic encephalopathy. Started and IV ceftriaxone. Computed tomography scan of the brain was negative. Given IV fluids. Urine culture positive for E. coli. Patient was seen by Dr. Harris from neurology. Because patient headache was still persisting to patient did tolerate any focal symptoms. Overall doing better. Given the recent history of intervention and cerebellar bleed he spoke to Dr. Slaughter from [facility] except to the patient. Today-better though still having some headaches. Able to tolerate some diet. Her nausea vomiting. Spoke at length with Dr. Harris. And to the patient. Spoke to the transfer team at [facility], Dr Llanos internal medicine accepted the patient. Discussion and discharge planning more than 35 minutes Consultation: Dr. Harris from neurology Dr. Grimes from [place] Physical examination: VITAL SIGNS: 98.1, 65, 18, 144/84, 97% on room air GENERAL: Sitting up in bed, less anxious EYES: Pupils equal. Conjunctiva normal. HEENT: External appearance of nose and ears normal, oral cavity grossly normal. NECK: JVD not raised; masses not palpable. HEART: First and second heart sounds are normal; no edema. LUNGS: Respiratory rate improved, decreased breath sounds-decreased wheezing. ABDOMEN: Soft, nontender, liver spleen not palpable, no masses palpable. PSYCH: Alert and oriented x3; mood and affect. Less anxious INVESTIGATIONS, reviewed in the clinical context: Pro calcitonin 0.28 White count 7.9 hemoglobin 9.8 potassium 3.7 creatinine 0.57 Previous testing White count 13.4 hemoglobin 12.2 increased neutrophils potassium 3.7 creatinine 0.84 UA positive for leukoesterase nitrate EKG tracing personally reviewed by me shows-normal sinus rhythm, very subtle ST segment depression in 1 aVL and V3 to V6. Computed tomography scan brain-negative for any acute event Chest x-ray film personally reviewed by me-no infiltrates Urine culture-E. coli Assessment: -Acute UTI from cystitis causing severe sepsis, cultures positive for E. coli. POA -chronic gastritis. -Intermittent asthma, -Chronic fibromyalgia -GERD -Hyperlipidemia -MTHFR gene mutation -Chronic hypoxic respiratory failure on home oxygen 2 L at night -Multilevel spondylitic changes in the cervical spine including disc herniation and spinal stenosis especially at C4-C5. -History of cerebellar bleed -Acute cephalgia likely toxic from sepsis. Patient is no photophobia no neck stiffness. Computed tomography scan of the brain negative. Because of recent intervention with the coiling decided by neurology Dr. Harris to transfer the patient to [facility]. For higher level of care. Disposition: Transfer to [facility] Patient Condition at Discharge: Stable Plan - Discharge Summary Discharge Rx Participant: No New Discharge Prescriptions: New Ipratropium-Albuterol Nebulize [Duoneb 0.5 mg-3 mg/3 ml Soln] 3 ml INHALATION RT-QID ml Continue oxyCODONE HCL [oxyCODONE HCL (IR)] 30 mg PO QID Diazepam [Valium] 5 mg PO TID Multivit-Min/Iron/Folic/Lutein [Centrum Silver Women Tablet] 1 tab PO DAILY Lacosamide [Vimpat] 100 mg PO BID Aspirin EC [Ecotrin Low Dose] 81 mg PO DAILY levETIRAcetam 750 mg PO BID Ticagrelor [Brilinta] 90 mg PO BID Discharge Medication List oxyCODONE HCL [oxyCODONE HCL (IR)] 30 mg PO QID 04/16/19 [History] Aspirin EC [Ecotrin Low Dose] 81 mg PO DAILY 10/03/19 [History] Diazepam [Valium] 5 mg PO TID 10/03/19 [History] Lacosamide [Vimpat] 100 mg PO BID 10/03/19 [History] Multivit-Min/Iron/Folic/Lutein [Centrum Silver Women Tablet] 1 tab PO DAILY 10/03/19 [History] Ticagrelor [Brilinta] 90 mg PO BID 10/03/19 [History] levETIRAcetam 750 mg PO BID 10/03/19 [History] Ipratropium-Albuterol Nebulize [Duoneb 0.5 mg-3 mg/3 ml Soln] 3 ml INHALATION RT-QID ml 10/05/19 [Rx] Follow up Appointment(s)/Referral(s): Major Funk MD [Primary Care Provider] - 1-2 days [facility], [NON-STAFF] -
--- NOTE | 2019-10-05 14:52 | PN ---
PROGRESS NOTE DATE OF SERVICE: 10/05/2019 REASON FOR FOLLOWUP: A gram-negative urinary tract infection. INTERVAL HISTORY: Patient is currently afebrile. Patient is breathing comfortably. He denies having any chest pain or shortness of breath or cough. Her Unasyn has been No nausea, vomiting or diarrhea. PHYSICAL EXAMINATION: Blood pressure 144/84 with a pulse of 65, temperature 98.1. She is 97% on room air. General description is a middle-aged female, lying in bed, in no distress. RESPIRATORY SYSTEM: Unlabored breathing, clear to auscultation anteriorly. HEART: S1, S2. Regular rate and rhythm. ABDOMEN: Soft, no tenderness. LABS: No new labs been obtained today. Urine has been finalized with E coli sensitive pathogen. Blood culture has been negative. DIAGNOSTIC IMPRESSION AND PLAN: Patient with E coli urinary tract infection. The patient has shown clinical improvement with IV Rocephin to continue finish therapy with oral antibiotic with a possible transfer to [facility] for neurological workup. Continue with IV Rocephin. Continue supportive care. MMODL / IJN: [id number] /
--- NOTE | 2019-10-05 18:59 | P.PN ---
Subjective Progress Note Date: 10/05/19 Patient was seen earlier today before her discharge. Patient states that she has been noticing sudden onset of 10/10 headache involving the right parietal or occipital region, that lasts for a few seconds. She feels like she will faint. She is having pressure behind her right and the left eye. Shooting pain in the back of her head. She is photophobic, phonophobic with nausea but no vomiting. The headaches last from couple seconds to hours. She states that they're occurring about 10-20 times a day. Her neck is always hurting. Objective - Vital Signs Vital signs: Vital Signs Temp 98.1 F 10/05/19 08:30 Pulse 60 10/05/19 12:25 Resp 20 10/05/19 08:43 BP 144/84 10/05/19 08:30 Pulse Ox 97 10/05/19 08:43 Intake & Output 10/04/19 10/05/19 10/05/19 18:59 06:59 18:59 Other: Voiding Method Toilet Toilet Toilet Bedpan Bedpan # Voids 3 1 - Exam No change. 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 * History of left occipital lobe cortical hemorrhage. * Chronic headaches, memory loss, rule out vasculitis. * Hypertension Plan: * Patient is presenting with very severe headache of 7-10 day duration, progressively getting worse. Computed tomography scan of the head revealed no subarachnoid hemorrhage. Patient cannot undergo lumbar puncture because of being on Brilinta. I would recommend evaluation by neuro intervention for further management of this headache, rule out sentinel bleed, vasculitis or CSF leak. * Patient probably will need MRI of the brain with and without contrast, MRA of the head (if compatible with the endovascular coil), perhaps lumbar puncture to check for opening pressure, rule out any infectious process or subarachnoid hemorrhage. * Suggest transfer to a higher level of care for further management of her headaches and above conditions, given strong family history of mortality related to ruptured cerebral aneurysms. * Discussed with Dr. Robbins, who initially performed endovascular treatment for her left ICA aneurysm in June 2019. He accepted the patient for transfer. * Agree with transfer to higher level of care. Discussed with primary attending.
== END 2019-10-05 13:34 | disposition short-term general hospital (02) | DRG 871 ==
LOC: EC 20:54 → 4SSUR 10-03 00:19
PROVIDERS: ADMIT Hospitalist; ATTEND Hospitalist
DX: A41.51 Sepsis due to Escherichia coli [E. coli] (principal); G92 Toxic encephalopathy; E72.12 Methylenetetrahydrofolate reductase deficiency; J96.11 Chronic respiratory failure with hypoxia; K21.9 Gastro-esophageal reflux disease without esophagitis; M79.7 Fibromyalgia; E78.5 Hyperlipidemia, unspecified; K29.50 Unspecified chronic gastritis without bleeding; M47.812 Spondylosis without myelopathy or radiculopathy, cervical region; R26.81 Unsteadiness on feet; M06.9 Rheumatoid arthritis, unspecified; G43.909 Migraine, unspecified, not intractable, without status migrainosus; L40.50 Arthropathic psoriasis, unspecified; D50.9 Iron deficiency anemia, unspecified; F41.9 Anxiety disorder, unspecified; M48.02 Spinal stenosis, cervical region; M50.221 Other cervical disc displacement at C4-C5 level; N30.90 Cystitis, unspecified without hematuria; G47.30 Sleep apnea, unspecified; M19.90 Unspecified osteoarthritis, unspecified site; K58.9 Irritable bowel syndrome, unspecified; I10 Essential (primary) hypertension; F32.9 Major depressive disorder, single episode, unspecified; K44.9 Diaphragmatic hernia without obstruction or gangrene; R65.20 Severe sepsis without septic shock; J45.20 Mild intermittent asthma, uncomplicated; Z20.828 Contact with and (suspected) exposure to other viral communicable diseases; Z87.19 Personal history of other diseases of the digestive system; Z82.3 Family history of stroke; Z87.01 Personal history of pneumonia (recurrent); Z98.890 Other specified postprocedural states; Z90.710 Acquired absence of both cervix and uterus; Z90.89 Acquired absence of other organs; Z87.891 Personal history of nicotine dependence; Z83.2 Family history of diseases of the blood and blood-forming organs and certain disorders involving the immune mechanism; Z82.49 Family history of ischemic heart disease and other diseases of the circulatory system; Z83.3 Family history of diabetes mellitus; Z79.899 Other long term (current) drug therapy; Z99.81 Dependence on supplemental oxygen; Z79.82 Long term (current) use of aspirin; Z99.89 Dependence on other enabling machines and devices; Z86.73 Personal history of transient ischemic attack (TIA), and cerebral infarction without residual deficits; Z91.018 Allergy to other foods; Z91.013 Allergy to seafood; Z91.048 Other nonmedicinal substance allergy status; Z90.49 Acquired absence of other specified parts of digestive tract; Z95.828 Presence of other vascular implants and grafts; Z87.2 Personal history of diseases of the skin and subcutaneous tissue
CPT/HCPCS: 36415; 70450; 71045; 80048; 80053; 81001; 82728; 83540; 83550; 83605; 83735; 84145; 85025; 85027; 87040; 87077; 87086; 87186; 93005; 93880; 94640; 94760; 96374; 99285

== ENCOUNTER → 2020-02-25 | Outpatient (CLI) | payer MEDICARE, OTHER | END | disposition home or self-care (01) | LOC: LABWHC1 10:39 | PROVIDERS: ATTEND Psychiatry & Neurology Neurology | DX: Z20.828 Contact with and (suspected) exposure to other viral communicable diseases (principal) | CPT/HCPCS: U0003; C9803 ==

== ENCOUNTER → 2020-02-25 | Outpatient (CLI) | payer MEDICARE, OTHER ==
--- NOTE | 2020-02-25 19:15 | MR ---
EXAMINATION TYPE: MR brain wo con DATE OF EXAM: 02/25/2020 COMPARISON: Prior MRI brain July 22, 2017. CT brain October 03, 2019 HISTORY: Aneurysm per order. History of right-sided hearing loss per patient. Prior brain surgery wit h coils June 2019 per patient. TECHNIQUE: Multiplanar, multisequence imaging of the brain and brainstem is performed without IV cont rast. FINDINGS: Diffusion weighted images demonstrate no evidence of a recent infarct or other diffusion abnormality. There is no extraaxial fluid collection or new significant white matter signal abnormality. The vent ricular system and cisternal spaces remain normal in size and appearance. The brain volume is age ap propriate. Midline structures redemonstrate normal morphology. The craniocervical junction remains within luis l limits. Normal vascular flow voids are present. The visualized sinuses are clear and the globes are intact. No suspicious fluid signal in the mastoid air cells bilaterally. Nasal septum stable and sli ghtly deviated to left of midline. IMPRESSION: No new or acute findings. No significant change from prior.
== END | disposition home or self-care (01) ==
LOC: RADMRIMAIN 09:50
PROVIDERS: ATTEND Psychiatry & Neurology Vascular Neurology
DX: I67.1 Cerebral aneurysm, nonruptured (principal)
CPT/HCPCS: 70551

== ENCOUNTER → 2020-10-13 | Outpatient (CLI) | payer MEDICARE, OTHER ==
--- NOTE | 2020-10-13 11:35 | USB ---
EXAMINATION TYPE: US breast limited RT DATE OF EXAM: 10/13/2020 COMPARISON: Mammogram same date CLINICAL HISTORY: Palpable abnormality right breast. Findings: The right breast was scanned with ultrasound from 1-3 o'clock and in the retroareolar region and axil soheila tail. In the right breast at 2:00, there is a 0.9 x 0.6 x 0.6 cm hyperechoic lesion which is most consisten t with a lipoma. In the right breast at 2:00, there is a 1.6 x 0.7 x 1.6 cm hyperechoic lesion which is most consistent with a lipoma. IMPRESSION: Palpable abnormality corresponds to a lipoma. Pedicle follow-up is recommended. Yearly mammogram is recommended. BI-RADS 2, benign.
--- NOTE | 2020-10-13 13:50 | MM ---
Reason for exam: clinical finding. Last mammogram was performed 6 years and 3 months ago. History: Patient is postmenopausal. Took estrogen for 5 years beginning at age 43. Indicated problem(s): lump or thickening in the right breast. Physical Findings: Nurse Summary: 1 x 1.5cm nodule in the right breast at 2:30 (nurse ts). MG 3D Diag Mammo W/Cad [place] Bilateral CC and MLO view(s) were taken. Prior study comparison: July 12, 2014, bilateral MG screening mammo w CAD. There are scattered fibroglandular densities. No correlate for right upper inner quadrant palpable, recommend ultrasound. No correlate diffuse bilateral breast pain, recommend clinical follow up. These results were verbally communicated with the patient and result sheet given to the patient on 10/13/20. ASSESSMENT: Incomplete: need additional imaging evaluation, BI-RAD 0 RECOMMENDATION: Ultrasound of the right breast.
== END | disposition home or self-care (01) ==
LOC: RADMAMWWP 09:39
PROVIDERS: ATTEND General Practice
DX: D17.79 Benign lipomatous neoplasm of other sites (principal); R92.8 Other abnormal and inconclusive findings on diagnostic imaging of breast; Z78.0 Asymptomatic menopausal state; Z79.818 Long term (current) use of other agents affecting estrogen receptors and estrogen levels
CPT/HCPCS: 77066; 76642; G0279; 77062

== ENCOUNTER → 2020-10-31 | Outpatient (CLI) | payer MEDICARE, OTHER ==
[2020-10-31 15:14] VITALS: BP 115/82; PULSE 98; RESP 18; TEMP 98.4
--- NOTE | 2020-10-31 18:21 | P.HPOB ---
History of Present Illness H&P Date: 10/31/20 Chief Complaint: The patient is here for her routine gynecologic exam. This is a 60-year-old 001 with an LMP of 2003. The patient is here to establish with this office. She came for her routine gynecologic exam, however she has multiple complaints. It has been about 7 years since her last pelvic exam. Status post NALINI and unilateral oophorectomy in 2003for endometriosis. The patient states she has noticed a lump in the right breast for the past 3 months. She states breasts bilaterally seem heavy year. She describes the lump in the right breast has half dollar size. She did have a mammogram and right breast ultrasound on 10/13/2020. These imaging studies indicates that the palpable abnormality corresponds to a benign lipoma. This measured approximately 1.6 cm. She also noticed 1 episode of vaginal spotting 4 months ago. She states this had not occurred for many years and has not occurred since then. She states she has not been sexually active for several years. She cannot think of anything that may have caused this brief bleeding. She denies inserting anything into the vagina. She has noticed that her urinary stream is very slow. Review of Systems She states she has gained about 40 pounds over the past year and is unaware of any reasons why she has gained weight. She states she often does not eat for days. She states she does tended eat hard candies. She denies respiratory, cardiac, or GI problems. : Voiding has been slow and she did have one episode of postmenopausal vaginal spotting 4 months ago as in the HPI. 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 PAST DATABASE DBA HISTORY: She has no history of STDs. Endometriosis. History of Any Multi-Drug Resistant Organisms: None Reported Date of last positivie culture/infection: unsure MDRO Source:: unsure Past Surgical History: Section, Cholecystectomy, Ear Surgery, Hysterectomy, Tonsillectomy Additional Past Surgical History / Comment(s): left ear recontructed, colonoscopy and EGD, C/S x 4, brain coils x5 08/17. Multiple brain shunts. NALINI with unilateral oophorectomy in 2003. Past Anesthesia/Blood Transfusion Reactions: Motion Sickness Additional Past Anesthesia/Blood Transfusion Reaction / Comment(s): Pt has received blood in past without reaction. Past Psychological History: Anxiety, Depression Additional Psychological History / Comment(s): Pt resides with her exspouse. She uses a cane or walker to ambulate. She does not drive, her exspouse drives. Smoking Status: Former smoker, Vaper Past Alcohol Use History: None Reported Additional Past Alcohol Use History / Comment(s): Pt started smoking in 1978 and quit in 1998. She denies vaping regularly. She drinks a shot of vodka maybe 5 times per year. Past Drug Use History: None Reported Additional History: She is and disabled. She is not sexually active. - Past Family History Son(s) Additional Family Medical History / Comment(s): Patient has 1 son living. 3 of her children have passed (one drowned, one in MVA, and one murdered). Mother Family Medical History: Asthma, Blood Disorder Additional Family Medical History / Comment(s): Mother at age 84 and had history of anemia. Sister(s) Family Medical History: Congestive Heart Failure (CHF), Diabetes Mellitus, Myocardial Infarction ([place]) Brother(s) Family Medical History: Congestive Heart Failure (CHF), Diabetes Mellitus, Myocardial Infarction ([place]) Father Family Medical History: No Reported History Additional Family Medical History / Comment(s): Father at age 54 from an accident. Medications and Allergies Home Medications Medication Instructions Recorded Confirmed Type oxyCODONE HCL [oxyCODONE HCL (IR)] 30 mg PO QID 04/16/19 10/31/20 History Aspirin EC [Ecotrin Low Dose] 81 mg PO DAILY 10/03/19 10/31/20 History Multivit-Min/Iron/Folic/Lutein 1 tab PO DAILY 10/03/19 10/31/20 History [Centrum Silver Women Tablet] Ipratropium-Albuterol Nebulize 3 ml INHALATION RT-QID ml 10/05/19 10/31/20 Rx [Duoneb 0.5 mg-3 mg/3 ml Soln] cycloSPORINE [Restasis] 1 applicator BOTH EYES DAILY PRN 06/05/20 10/31/20 History Ergocalciferol [Vitamin D2 (1250 1,250 mcg PO WEEKLY 10/31/20 10/31/20 History Mcg = 64629 Iu)] Ferrous Sulfate [Slow Fe] 142 mg PO HS 10/31/20 10/31/20 History Folic Acid 1 mg PO DAILY 10/31/20 10/31/20 History Methenamine/Sodium Salicylate [Azo 1 each PO HS 10/31/20 10/31/20 History Urinary Tract Defense Tab] Allergies Allergy/AdvReac Type Severity Reaction Status Date / Time cashew nut Allergy Unknown Verified 10/31/20 15:05 shellfish derived Allergy Swelling Verified 10/31/20 15:05 ANTIBIOTIC STARTS WITH C Allergy Unknown Uncoded 10/31/20 15:05 nuts Allergy Swelling Uncoded 10/31/20 15:05 animals AdvReac Wheezing Uncoded 10/31/20 15:05 environmental AdvReac Wheezing Uncoded 10/31/20 15:05 Exam Vital Signs Temp Pulse Resp BP Pulse Ox 10/31/20 15:08 98.4 F 98 18 115/82 95 Intake and Output 10/31/20 10/31/20 10/31/20 06:59 14:59 22:59 Other: Weight 97.069 kg Height 5 feet 6 inches, weight 214 pounds, BMI 34.5. This is a well-developed well-nourished white female who is alert and oriented times 3 in no acute distress. HEENT: Within normal limits. CHEST AND LUNGS: Clear to auscultation. HEART: Regular rate and rhythm. BREASTS: Right breast demonstrates a palpable rubbery type mass measuring approximately 1.5-2.0 cm. This is near the surface of the skin and is smooth and nontender. This mass is at the 2 o'clock position approximate 4-5 cm from the areola. There are no other palpable masses. There is no nipple discharge or unusual puckering or dimpling. AXILLARY EXAM: Negative for adenopathy. BACK: Negative for CVA tenderness. ABDOMEN: Soft, nontender, without palpable masses. PELVIC EXAM: Normal external genitalia with mild atrophy. Vagina reveals mild to moderate atrophy and insertion of the narrow Graves speculum was mild to moderately uncomfortable to the patient. No vaginal lesions are noted. There is a discharge with the consistency and color of [place] Poupon mustard. No odor is noted. There is no evidence of prolapse. The vaginal cuff is intact without lesions and is well supported. Upon bimanual examination there is mild bilateral tenderness without palpable masses. RECTAL EXAM: Rectovaginal exam is negative for mass or tenderness and is negative for occult blood. There is no evidence of rectovaginal fistula on exam. EXTREMITIES: Nontender. IMPRESSION: 1. 60-year-old menopausal female status post NALINI with unilateral oophorectomy for benign reasons. 2. Right breast mass consistent with a 1.6 cm lipoma at the 2 o'clock position. The diagnosis of lipoma is consistent with her recent breast ultrasound and mammogram done 2 weeks ago. 3. Brief postmenopausal vaginal spotting post-hysterectomy. There is no evidence of acute bleeding at this time. 4. Small amount of abnormal dark yellow thick discharge in the vagina. Differential diagnosis will include Layne vaginitis, bacterial vaginosis, Trichomonas, gonorrhea, chlamydia, foreign substance, and some type of occult fistula. At this time there is no evidence of fistula on exam. 5. Vaginal discomfort upon doing the speculum examination and generalized mild pelvic tenderness. Differential diagnosis will include ovarian neoplasm, UTI, 9 gynecologic pelvic pain, and chronic pain syndrome. PLAN: 1. Pap smears have been discontinued. 2. Self breast awareness was discussed. At this time I have reassured her that the breast imaging studies recently done and exam are consistent with a lipoma which is a benign condition. She was instructed to check her own breast on a regular basis and to call if she is noticing any changes. Yearly mammograms. 3. Pelvic ultrasound was recommended and the order slip was given to the patient for this. 4. Affirm vaginitis panel, GC and chlamydia testing from the vagina, and a general anaerobic culture from the vaginal discharge were obtained. 5. Urine for urinalysis and culture with sensitivity. 6. We will make additional plans following the above workup. She was advised to return in one year for her annual well woman exam and as needed.
[2020-11-01 16:17] LABS: Gardnerella Negative (Negative); Source Vagina; Trichomonas Negative (Negative)
[2020-11-01 16:55] LABS: C. trachomatis,PCR Negative (Neg,Equiv); Chlamydia trachomatis Source Vagina; N. gonorrhoeae,PCR Negative (Neg,Equiv); Neisseria Source Vagina
--- NOTE | 2020-11-02 13:21 | P.PN ---
Progress Note - Text Progress Note Date: 11/02/20 Test results from 10/31/20 include Affirm vaginitis panel negative for Layne, Gardnerella, and Trichomonas. GC and Chlamydia testing were also negative. Negative test results were left on the patients voice mail. Await aerobic genital culture, pending. The patient was not able to give a urine specimen the day of her visit.
== END ==
LOC: WWCWWP 14:54
PROVIDERS: ATTEND Obstetrics & Gynecology
DX: Z01.419 Encounter for gynecological examination (general) (routine) without abnormal findings (principal); D17.1 Benign lipomatous neoplasm of skin and subcutaneous tissue of trunk; N89.8 Other specified noninflammatory disorders of vagina; Z78.0 Asymptomatic menopausal state; Z87.891 Personal history of nicotine dependence; Z90.710 Acquired absence of both cervix and uterus; Z90.721 Acquired absence of ovaries, unilateral; E78.5 Hyperlipidemia, unspecified; J45.909 Unspecified asthma, uncomplicated; F41.9 Anxiety disorder, unspecified; F32.9 Major depressive disorder, single episode, unspecified; Z91.018 Allergy to other foods; Z88.1 Allergy status to other antibiotic agents; Z91.013 Allergy to seafood; Z91.09 Other allergy status, other than to drugs and biological substances
CPT/HCPCS: 87070; 87480; 87491; 87510; 87591; 87660

== ENCOUNTER 2021-02-09 10:24 | Emergency (ER) | payer MEDICARE, OTHER ==
[2021-02-09] MEDS ORDERED: SODIUM CHLORIDE 0.9% 1,000 ML IV STA (10:38)
[2021-02-09] MEDS ORDERED: SODIUM CHLORIDE 0.9% 500 ML 500 ML IV STA (10:38)
[2021-02-09] MEDS ORDERED: METOCLOPRAMIDE 5 MG/ML 2 ML VIAL IVP STA (10:38)
[2021-02-09] MEDS ORDERED: diphenhydrAMINE 50 MG/ML 1 ML VIAL IVP STA (10:38)
[2021-02-09] MEDS ORDERED: HYDROmorphone 0.5 MG/0.5 ML SYRINGE IVP STA ×2 (10:38→15:12)
[2021-02-09] MEDS ORDERED: KETOROLAC 15 MG/ML 1 ML VIAL IVP STA (10:38)
[2021-02-09] MEDS ORDERED: HYDROmorphone 1 MG/ML 1 ML SYRINGE IVP STA ×2 (11:22→13:05)
[2021-02-09 13:02] LABS: ALT 20 U/L (4-34); AST 20 U/L (14-36); African American GFR (CKD) >90 (>60 ml/min/1.73 sqM); Albumin 4.1 g/dL (3.5-5.0); Alkaline Phosphatase 96 U/L (38-126); Amylase 47 U/L (30-110); Anion Gap 11 mmol/L; Anisocytosis Slight; Basophils % (A) 0 %; Blood Urea Nitrogen 7 mg/dL (7-17); Calcium 9.7 mg/dL (8.4-10.2); Carbon Dioxide 23 mmol/L (22-30); Chloride 107 mmol/L (98-107); Eosinophils % (A) 0 %; Glucose 120 mg/dL (74-99); HGB 8.9 gm/dL (11.4-16.0); Hypochromasia Marked; Lipase 92 U/L (23-300); Lymphocytes % (A) 11 %; MCH 22.1 pg (25.0-35.0); MCHC 28.8 g/dL (31.0-37.0); MCV 76.7 fL (80.0-100.0); Microcytosis Slight; Monocytes # (A) 0.4 k/uL (0-1.0); Monocytes % (A) 5 %; Neutrophils # (A) 7.2 k/uL (1.3-7.7); Neutrophils % (A) 83 %; Non-African American GFR(CKD) >90 (>60 ml/min/1.73 sqM); Platelet Count 337 k/uL (150-450); Poikilocytosis Moderate; Potassium 4.2 mmol/L (3.5-5.1); RBC 4.04 m/uL (3.80-5.40); RDW 16.7 % (11.5-15.5); Sodium 141 mmol/L (137-145); Total Bilirubin 0.5 mg/dL (0.2-1.3); Total Protein 7.6 g/dL (6.3-8.2); WBC 8.7 k/uL (3.8-10.6)
--- NOTE | 2021-02-09 13:40 | ED ---
Back Pain HPI - General Chief Complaint: Back Pain/Injury Stated Complaint: Back Pain Time Seen by Provider: 02/09/21 10:31 Source: patient, EMS, RN notes reviewed Limitations: no limitations - History of Present Illness Initial Comments: 60-year-old female presents emergency from via EMS chief complaint of back pain, flank pain, nausea vomiting. Patient states she is being treated for urinary tract infection but states that her PCP gave her antibiotics to make her sick. Patient states she's been vomiting unable take antibiotics. Patient states that symptoms are getting worse. She reports fever, no URI symptoms. Patient complains of diffuse pain she's on and unable take her pain medication. - Related Data Home Medications Medication Instructions Recorded Confirmed Folic Acid 1 mg PO DAILY 10/31/20 02/09/21 Cephalexin [Keflex] 500 mg PO Q12HR 02/09/21 02/09/21 Ferrous Sulfate 324mg 324 mg PO BID 02/09/21 02/09/21 Montelukast [Singulair] 10 mg PO HS 02/09/21 02/09/21 Propranolol HCl 80 mg PO DAILY 02/09/21 02/09/21 Previous Rx's Medication Instructions Recorded Ondansetron Odt [Zofran Odt] 4 mg PO Q8HR PRN #14 tab 02/09/21 Allergies Allergy/AdvReac Type Severity Reaction Status Date / Time cashew nut Allergy Unknown Verified 02/09/21 12:20 shellfish derived Allergy Swelling Verified 02/09/21 12:20 ANTIBIOTIC STARTS WITH C Allergy Unknown Uncoded 02/09/21 10:40 nuts Allergy Swelling Uncoded 02/09/21 10:40 animals AdvReac Wheezing Uncoded 02/09/21 10:40 environmental AdvReac Wheezing Uncoded 02/09/21 10:40 Review of Systems ROS Statement: Those systems with pertinent positive or pertinent negative responses have been documented in the HPI. ROS Other: All systems not noted in ROS Statement are negative. 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 Endometriosis. History of Any Multi-Drug Resistant Organisms: None Reported Date of last positivie culture/infection: unsure MDRO Source:: unsure Past Surgical History: Section, Cholecystectomy, Ear Surgery, Hysterectomy, Tonsillectomy Additional Past Surgical History / Comment(s): left ear recontructed, col onoscopy and EGD, C/S x 4, brain coils x5 08/17. Multiple brain shunts. NALINI with unilateral oophorectomy in 2003. Past Anesthesia/Blood Transfusion Reactions: Motion Sickness Additional Past Anesthesia/Blood Transfusion Reaction / Comment(s): Pt has received blood in past without reaction. Past Psychological History: Anxiety, Depression Smoking Status: Former smoker, Vaper Past Alcohol Use History: None Reported Past Drug Use History: None Reported - Past Family History Son(s) Additional Family Medical History / Comment(s): Patient has 1 son living. 3 of her children have passed (one drowned, one in MVA, and one murdered). Mother Family Medical History: Asthma, Blood Disorder Additional Family Medical History / Comment(s): Mother at age 84 and had history of anemia. Sister(s) Family Medical History: Congestive Heart Failure (CHF), Diabetes Mellitus, Myocardial Infarction ([place]) Brother(s) Family Medical History: Congestive Heart Failure (CHF), Diabetes Mellitus, Myocardial Infarction ([place]) Father Family Medical History: No Reported History Additional Family Medical History / Comment(s): Father at age 54 from an accident. General Exam Limitations: no limitations General appearance: alert, in no apparent distress Head exam: Present: atraumatic, normocephalic, normal inspection Neck exam: Present: normal inspection. Absent: tenderness, meningismus, lymphadenopathy Respiratory exam: Present: normal lung sounds bilaterally. Absent: respiratory distress, wheezes, rales, rhonchi, stridor Cardiovascular Exam: Present: regular rate, normal rhythm, normal heart sounds. Absent: systolic murmur, diastolic murmur, rubs, gallop, clicks GI/Abdominal exam: Present: soft, tenderness, normal bowel sounds. Absent: distended, guarding, rebound, rigid Back exam: Present: tenderness Neurological exam: Present: alert, oriented X3 Course Vital Signs 02/09/21 10:27 Temperature 100.7 F H Pulse Rate 80 Respiratory 22 Rate O2 Sat by Pulse 95 Oximetry Medical Decision Making - Medical Decision Making 60-year-old female presented for chronic back pain, nausea vomiting issues. She was concerned she had a UTI based on she had dark urine. Patient has no evidence of UTI she has no leukocytosis anemia is chronic in nature. She was given multiple doses of pain meds and antiemetics she has not vomited several hours emergency from family is here who agrees the patient has chronic issues and is stable for discharge. - Lab Data Result diagrams: 02/09/21 10:40 02/09/21 10:40 Lab Results 02/09/21 02/09/21 02/09/21 Range/Units 10:40 10:40 10:40 WBC 8.7 (3.8-10.6) k/uL RBC 4.04 (3.80-5.40) m/uL Hgb 8.9 L (11.4-16.0) gm/dL Hct 31.0 L (34.0-46.0) % MCV 76.7 L (80.0-100.0) fL MCH 22.1 L (25.0-35.0) pg MCHC 28.8 L (31.0-37.0) g/dL RDW 16.7 H (11.5-15.5) % Plt Count 337 (150-450) k/uL MPV 9.0 Neutrophils % 83 % Lymphocytes % 11 % Monocytes % 5 % Eosinophils % 0 % Basophils % 0 % Neutrophils # 7.2 (1.3-7.7) k/uL Lymphocytes # 1.0 (1.0-4.8) k/uL Monocytes # 0.4 (0-1.0) k/uL Eosinophils # 0.0 (0-0.7) k/uL Basophils # 0.0 (0-0.2) k/uL Hypochromasia Marked Poikilocytosis Moderate Anisocytosis Slight Microcytosis Slight Sodium 141 (137-145) mmol/L Potassium 4.2 (3.5-5.1) mmol/L Chloride 107 (98-107) mmol/L Carbon Dioxide 23 (22-30) mmol/L Anion Gap 11 mmol/L BUN 7 (7-17) mg/dL Creatinine 0.66 (0.52-1.04) mg/dL Est GFR (CKD-EPI)AfAm >90 (>60 ml/min/1.73 sqM) Est GFR (CKD-EPI)NonAf >90 (>60 ml/min/1.73 sqM) Glucose 120 H (74-99) mg/dL Plasma Lactic Acid Cipriano (0.7-2.0) mmol/L Calcium 9.7 (8.4-10.2) mg/dL Total Bilirubin 0.5 (0.2-1.3) mg/dL AST 20 (14-36) U/L ALT 20 (4-34) U/L Alkaline Phosphatase 96 (38-126) U/L Total Protein 7.6 (6.3-8.2) g/dL Albumin 4.1 (3.5-5.0) g/dL Amylase 47 (30-110) U/L Lipase 92 (23-300) U/L Urine Color Yellow Urine Appearance Clear (Clear) Urine pH 6.5 (5.0-8.0) Ur Specific [place] 1.002 (1.001-1.035) Urine Protein Negative (Negative) Urine Glucose (UA) Negative (Negative) Urine Ketones Negative (Negative) Urine Blood Negative (Negative) Urine Nitrite Negative (Negative) Urine Bilirubin Negative (Negative) Urine Urobilinogen <2.0 (<2.0) mg/dL Ur Leukocyte Esterase Negative (Negative) 02/09/21 Range/Units 10:40 WBC (3.8-10.6) k/uL RBC (3.80-5.40) m/uL Hgb (11.4-16.0) gm/dL Hct (34.0-46.0) % MCV (80.0-100.0) fL MCH (25.0-35.0) pg MCHC (31.0-37.0) g/dL RDW (11.5-15.5) % Plt Count (150-450) k/uL MPV Neutrophils % % Lymphocytes % % Monocytes % % Eosinophils % % Basophils % % Neutrophils # (1.3-7.7) k/uL Lymphocytes # (1.0-4.8) k/uL Monocytes # (0-1.0) k/uL Eosinophils # (0-0.7) k/uL Basophils # (0-0.2) k/uL Hypochromasia Poikilocytosis Anisocytosis Microcytosis Sodium (137-145) mmol/L Potassium (3.5-5.1) mmol/L Chloride (98-107) mmol/L Carbon Dioxide (22-30) mmol/L Anion Gap mmol/L BUN (7-17) mg/dL Creatinine (0.52-1.04) mg/dL Est GFR (CKD-EPI)AfAm (>60 ml/min/1.73 sqM) Est GFR (CKD-EPI)NonAf (>60 ml/min/1.73 sqM) Glucose (74-99) mg/dL Plasma Lactic Acid Cipriano 1.1 (0.7-2.0) mmol/L Calcium (8.4-10.2) mg/dL Total Bilirubin (0.2-1.3) mg/dL AST (14-36) U/L ALT (4-34) U/L Alkaline Phosphatase (38-126) U/L Total Protein (6.3-8.2) g/dL Albumin (3.5-5.0) g/dL Amylase (30-110) U/L Lipase (23-300) U/L Urine Color Urine Appearance (Clear) Urine pH (5.0-8.0) Ur Specific [place] (1.001-1.035) Urine Protein (Negative) Urine Glucose (UA) (Negative) Urine Ketones (Negative) Urine Blood (Negative) Urine Nitrite (Negative) Urine Bilirubin (Negative) Urine Urobilinogen (<2.0) mg/dL Ur Leukocyte Esterase (Negative) Disposition Clinical Impression: Chronic pain, Back pain, Fibromyalgia, Nausea & vomiting Disposition: HOME SELF-CARE Condition: Stable Instructions (If sedation given, give patient instructions): Chronic Back Pain ([place]) Additional Instructions: Please return to the Emergency Department if symptoms worsen or any other concerns. Prescriptions: Ondansetron Odt [Zofran Odt] 4 mg PO Q8HR PRN #14 tab PRN Reason: Nausea Is patient prescribed a controlled substance at d/c from ED?: No Referrals: Major Funk MD [Primary Care Provider] - 1-2 days Time of Disposition: 15:12
[2021-02-09 13:46] LABS: Appearance,Urine Clear (Clear); Bilirubin,Urine Negative (Negative); Blood,Urine Negative (Negative); Color,Urine Yellow; Glucose,Urine (UA) Negative (Negative); Ketones,Urine Negative (Negative); Leukocyte Esterase,Urine Negative (Negative); Nitrite,Urine Negative (Negative); PH, Urine 6.5 (5.0-8.0); Protein,Urine Negative (Negative); Specific Gravity,Urine 1.002 (1.001-1.035); Urobilinogen,Urine <2.0 mg/dL (<2.0)
--- NOTE | 2021-02-09 13:55 | CT ---
EXAMINATION TYPE: CT abdomen pelvis w con DATE OF EXAM: 02/09/2021 COMPARISON: 04/16/2019 HISTORY: Rt flank pain CT DLP: 1438.3 mGycm Automated exposure control for dose reduction was used. CONTRAST: CT scan of the abdomen pelvis is performed with IV Contrast, patient injected with 100 mL of Isovue 3 00. FINDINGS- Large hiatal hernia with subsegmental consolidation most typical of atelectasis. Hypertrophic and deg enerative changes spine. There is low in attenuation correlate for hepatic steatosis. Postcholecystectomy changes noted. Splee n homogeneous. Adrenal glands normal morphology. Pancreas normal. Aorta of normal caliber with athero sclerotic change. There is a 4 mm nonobstructing left renal calculus. No pathologic adenopathy. Bowel gas pattern nonsp ecific. A couple prominent small bowel loops in the midabdomen are nonspecific Appendix not seen with certainty. No inflammatory change within the right lower quadrant. IMPRESSION- 1. Large hiatal hernia. 2. Nonobstructing 4 mm left renal calculus. No hydronephrosis bilaterally. 3. Hepatic steatosis. 4. Nonspecific bowel gas pattern with a few prominent small bowel loops seen in the mid abdomen. No i nflammatory change or bowel dilation. Could be on the basis of a localized ileus correlate clinically to exclude enteritis.
[2021-02-09] MEDS ORDERED: ONDANSETRON 4 MG/2 ML VIAL IVP STA (15:12)
[2021-02-09 15:15] VITALS: RESP 18
[2021-02-09 16:34] VITALS: BP 136/72; PULSE 83; TEMP 98.2
== END 2021-02-09 16:32 | disposition home or self-care (01) ==
LOC: EC 10:24
DX: G89.29 Other chronic pain (principal); M54.9 Dorsalgia, unspecified; M79.7 Fibromyalgia; R11.2 Nausea with vomiting, unspecified; J45.909 Unspecified asthma, uncomplicated; E78.5 Hyperlipidemia, unspecified; K21.9 Gastro-esophageal reflux disease without esophagitis; M06.9 Rheumatoid arthritis, unspecified; Z79.899 Other long term (current) drug therapy; Z87.891 Personal history of nicotine dependence
CPT/HCPCS: 36415; 80053; 82150; 83605; 83690; 85025; 81003; 74177; 99284; 96374; 96375 ×4; 96376 ×2; 96361; J1200; J2765; J2405; J1170 ×2; J1885; Q9967

== ENCOUNTER 2021-02-11 21:18 | Inpatient (IN) | payer MEDICARE, OTHER ==
[2021-02-11] MEDS ORDERED: SODIUM CHLORIDE 0.9% 1,000 ML IV STA (21:52)
--- NOTE | 2021-02-11 22:28 | ED ---
Neuro HPI - General Chief Complaint: Neuro Symptoms/Deficit Stated Complaint: Seizure Time Seen by Provider: 02/11/21 21:46 Source: patient Mode of arrival: wheelchair Limitations: no limitations - Related Data Home Medications: Home Medications Medication Instructions Recorded Confirmed Folic Acid 1 mg PO DAILY 10/31/20 02/09/21 Cephalexin [Keflex] 500 mg PO Q12HR 02/09/21 02/09/21 Ferrous Sulfate 324mg 324 mg PO BID 02/09/21 02/09/21 Montelukast [Singulair] 10 mg PO HS 02/09/21 02/09/21 Propranolol HCl 80 mg PO DAILY 02/09/21 02/09/21 Previous Rx's Medication Instructions Recorded Ondansetron Odt [Zofran Odt] 4 mg PO Q8HR PRN #14 tab 02/09/21 Allergies/Adverse Reactions: Allergies Allergy/AdvReac Type Severity Reaction Status Date / Time cashew nut Allergy Unknown Verified 02/11/21 21:27 shellfish derived Allergy Swelling Verified 02/11/21 21:27 ANTIBIOTIC STARTS WITH C Allergy Unknown Uncoded 02/09/21 10:40 nuts Allergy Swelling Uncoded 02/09/21 10:40 animals AdvReac Wheezing Uncoded 02/09/21 10:40 antibiotics AdvReac Unknown Uncoded 02/11/21 21:28 environmental AdvReac Wheezing Uncoded 02/09/21 10:40 Review of Systems ROS Statement: Those systems with pertinent positive or pertinent negative responses have been documented in the HPI. ROS Other: All systems not noted in ROS Statement are negative. General Exam Limitations: no limitations Stroke MDM - Lab Data Result diagrams: 02/11/21 22:14 02/11/21 22:14 Lab Results 02/11/21 02/11/21 02/11/21 Range/Units 22:14 22:14 22:14 WBC 9.6 (3.8-10.6) k/uL RBC 3.73 L (3.80-5.40) m/uL Hgb 8.2 L (11.4-16.0) gm/dL Hct 28.4 L (34.0-46.0) % MCV 76.2 L (80.0-100.0) fL MCH 22.1 L (25.0-35.0) pg MCHC 29.0 L (31.0-37.0) g/dL RDW 16.5 H (11.5-15.5) % Plt Count 295 (150-450) k/uL MPV 7.5 Neutrophils % 72 % Lymphocytes % 17 % Monocytes % 6 % Eosinophils % 2 % Basophils % 1 % Neutrophils # 7.0 (1.3-7.7) k/uL Lymphocytes # 1.6 (1.0-4.8) k/uL Monocytes # 0.6 (0-1.0) k/uL Eosinophils # 0.2 (0-0.7) k/uL Basophils # 0.1 (0-0.2) k/uL Hypochromasia Marked Poikilocytosis Moderate Anisocytosis Slight Microcytosis Slight PT 10.5 (9.0-12.0) sec INR 1.0 (<1.2) APTT 21.6 L (22.0-30.0) sec Sodium 137 (137-145) mmol/L Potassium 4.0 (3.5-5.1) mmol/L Chloride 105 (98-107) mmol/L Carbon Dioxide 25 (22-30) mmol/L Anion Gap 7 mmol/L BUN 10 (7-17) mg/dL Creatinine 0.72 (0.52-1.04) mg/dL Est GFR (CKD-EPI)AfAm >90 (>60 ml/min/1.73 sqM) Est GFR (CKD-EPI)NonAf >90 (>60 ml/min/1.73 sqM) Glucose 108 H (74-99) mg/dL Calcium 9.3 (8.4-10.2) mg/dL Phosphorus 3.3 (2.5-4.5) mg/dL Magnesium 1.9 (1.6-2.3) mg/dL Total Bilirubin 0.3 (0.2-1.3) mg/dL AST 19 (14-36) U/L ALT 18 (4-34) U/L Alkaline Phosphatase 82 (38-126) U/L Troponin I (0.000-0.034) ng/mL Total Protein 7.0 (6.3-8.2) g/dL Albumin 4.0 (3.5-5.0) g/dL 02/11/ Range/Units 22:14 WBC (3.8-10.6) k/uL RBC (3.80-5.40) m/uL Hgb (11.4-16.0) gm/dL Hct (34.0-46.0) % MCV (80.0-100.0) fL MCH (25.0-35.0) pg MCHC (31.0-37.0) g/dL RDW (11.5-15.5) % Plt Count (150-450) k/uL MPV Neutrophils % % Lymphocytes % % Monocytes % % Eosinophils % % Basophils % % Neutrophils # (1.3-7.7) k/uL Lymphocytes # (1.0-4.8) k/uL Monocytes # (0-1.0) k/uL Eosinophils # (0-0.7) k/uL Basophils # (0-0.2) k/uL Hypochromasia Poikilocytosis Anisocytosis Microcytosis PT (9.0-12.0) sec INR (<1.2) APTT (22.0-30.0) sec Sodium (137-145) mmol/L Potassium (3.5-5.1) mmol/L Chloride (98-107) mmol/L Carbon Dioxide (22-30) mmol/L Anion Gap mmol/L BUN (7-17) mg/dL Creatinine (0.52-1.04) mg/dL Est GFR (CKD-EPI)AfAm (>60 ml/min/1.73 sqM) Est GFR (CKD-EPI)NonAf (>60 ml/min/1.73 sqM) Glucose (74-99) mg/dL Calcium (8.4-10.2) mg/dL Phosphorus (2.5-4.5) mg/dL Magnesium (1.6-2.3) mg/dL Total Bilirubin (0.2-1.3) mg/dL AST (14-36) U/L ALT (4-34) U/L Alkaline Phosphatase (38-126) U/L Troponin I <0.012 (0.000-0.034) ng/mL Total Protein (6.3-8.2) g/dL Albumin (3.5-5.0) g/dL - EKG Data -: EKG Interpreted by Me (EKG shows sinus rhythm 71 VT 112 QRS 78 QTc 447) 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 Endometriosis. History of Any Multi-Drug Resistant Organisms: None Reported Date of last positivie culture/infection: unsure MDRO Source:: unsure Past Surgical History: Section, Cholecystectomy, Ear Surgery, Hysterectomy, Tonsillectomy Additional Past Surgical History / Comment(s): left ear recontructed, colonoscopy and EGD, C/S x 4, brain coils x5 08/17. Multiple brain shunts. NALINI with unilateral oophorectomy in 2003. Past Anesthesia/Blood Transfusion Reactions: Motion Sickness Additional Past Anesthesia/Blood Transfusion Reaction / Comment(s): Pt has received blood in past without reaction. Past Psychological History: Anxiety, Depression Smoking Status: Former smoker, Vaper Past Alcohol Use History: None Reported Past Drug Use History: None Reported - Past Family History Son(s) Additional Family Medical History / Comment(s): Patient has 1 son living. 3 of her children have passed (one drowned, one in MVA, and one murdered). Mother Family Medical History: Asthma, Blood Disorder Additional Family Medical History / Comment(s): Mother at age 84 and had history of anemia. Sister(s) Family Medical History: Congestive Heart Failure (CHF), Diabetes Mellitus, Myocardial Infarction ([place]) Brother(s) Family Medical History: Congestive Heart Failure (CHF), Diabetes Mellitus, Myocardial Infarction ([place]) Father Family Medical History: No Reported History Additional Family Medical History / Comment(s): Father at age 54 from an accident. Course Vital Signs 02/11/21 02/12/21 02/12/21 21:23 00:58 01:00 Temperature 100.0 F H 98.6 F Pulse Rate 84 63 Respiratory 18 16 Rate Blood Pressure 135/86 122/64 O2 Sat by Pulse 93 L 97 Oximetry Disposition Clinical Impression: New onset seizure, Altered mental status Disposition: ADMITTED IP TO THIS HOSP Condition: Fair Instructions (If sedation given, give patient instructions): Seizure/Epilepsy Discharge Instructions & Follow-Up Is patient prescribed a controlled substance at d/c from ED?: No Referrals: Major Funk MD [Primary Care Provider] - 1-2 days
[2021-02-11 22:39] LABS: Anisocytosis Slight; Basophils # (A) 0.1 k/uL (0-0.2); Basophils % (A) 1 %; Eosinophils # (A) 0.2 k/uL (0-0.7); Eosinophils % (A) 2 %; HCT 28.4 % (34.0-46.0); HGB 8.2 gm/dL (11.4-16.0); Hypochromasia Marked; Lymphocytes # (A) 1.6 k/uL (1.0-4.8); Lymphocytes % (A) 17 %; MCH 22.1 pg (25.0-35.0); MCV 76.2 fL (80.0-100.0); Mean Platelet Volume 7.5; Microcytosis Slight; Monocytes # (A) 0.6 k/uL (0-1.0); Monocytes % (A) 6 %; Neutrophils % (A) 72 %; Platelet Count 295 k/uL (150-450); Poikilocytosis Moderate; RBC 3.73 m/uL (3.80-5.40); RDW 16.5 % (11.5-15.5); WBC 9.6 k/uL (3.8-10.6)
[2021-02-11 22:42] LABS: Prothrombin Time 10.5 sec (9.0-12.0)
[2021-02-11 22:46] LABS: Partial Thromboplastin Time 21.6 sec (22.0-30.0)
[2021-02-11 22:50] LABS: ALT 18 U/L (4-34); AST 19 U/L (14-36); African American GFR (CKD) >90 (>60 ml/min/1.73 sqM); Alkaline Phosphatase 82 U/L (38-126); Anion Gap 7 mmol/L; Blood Urea Nitrogen 10 mg/dL (7-17); Calcium 9.3 mg/dL (8.4-10.2); Carbon Dioxide 25 mmol/L (22-30); Chloride 105 mmol/L (98-107); Glucose 108 mg/dL (74-99); Magnesium 1.9 mg/dL (1.6-2.3); Non-African American GFR(CKD) >90 (>60 ml/min/1.73 sqM); Phosphorus 3.3 mg/dL (2.5-4.5); Sodium 137 mmol/L (137-145); Total Bilirubin 0.3 mg/dL (0.2-1.3)
--- NOTE | 2021-02-11 23:15 | CT ---
EXAMINATION TYPE: CT brain wo con DATE OF EXAM: 02/11/2021 COMPARISON: 10/03/2019 HISTORY: seizure/pain CT DLP: 1652.8 mGycm Automated exposure control for dose reduction was used. Images of the brain obtained without contrast. Ventricles have normal size. There is no mass effect nor midline shift. There is no sign of intracran ial hemorrhage. Calvarium is intact. There is normal aeration of the mastoid sinuses. IMPRESSION: Negative CT scan of the brain. No change.
[2021-02-11] MEDS ORDERED: LORazepam 2 MG/ML INJ IV STA (23:29)
[2021-02-11] MEDS ORDERED: levETIRAcetam IV 1,000 MG in SALINE 1 100ML.BAG IVPB ONE (23:45)
[2021-02-12] MEDS ORDERED: HYDROmorphone 1 MG/ML 1 ML SYRINGE IVP STA (01:21)
[2021-02-12] MEDS ORDERED: NALOXONE 0.4 MG/ML 1 ML VIAL IV PRN (01:21)
[2021-02-12] MEDS: LORazepam 2 MG/ML INJ IV PRN ×3 (05:17→16:59)
[2021-02-12] MEDS: MORPHINE SULFATE 4 MG/ML SYRINGE IV PRN ×3 (05:17→14:00)
[2021-02-12] MEDS: SODIUM CHLORIDE 0.9% 1,000 ML IV SCH ×3 (06:04→16:45)
[2021-02-12 06:27] LABS: Appearance,Urine Cloudy (Clear); Bilirubin,Urine 1+ (Negative); Blood,Urine Moderate (Negative); Color,Urine Dark Brown; Glucose,Urine (UA) Negative (Negative); Ketones,Urine Negative (Negative); Leukocyte Esterase,Urine Negative (Negative); Mucus,Urine Many /hpf; Nitrite,Urine Positive (Negative); PH, Urine 5.5 (5.0-8.0); Protein,Urine Trace (Negative); RBC,Urine >182 /hpf (0-5); Specific Gravity,Urine 1.022 (1.001-1.035); Squamous Epithelial Cell,Urine 1 /hpf (0-4); WBC,Urine 4 /hpf (0-5)
[2021-02-12] MEDS: FOLIC ACID 1 MG TAB PO SCH (11:44)
[2021-02-12] MEDS: FERROUS SULFATE 325 MG TAB PO SCH ×2 (11:44→20:53)
[2021-02-12] MEDS: ENOXAPARIN 40 MG/0.4 ML SYRINGE SQ SCH (11:45)
[2021-02-12] MEDS: PROPRANOLOL 40 MG TAB PO SCH (12:40)
[2021-02-12] MEDS: levETIRAcetam IV 1,000 MG in SALINE 1 100ML.BAG IVPB SCH ×2 (12:40→23:25)
--- NOTE | 2021-02-12 14:52 | P.HPIM ---
History of Present Illness H&P Date: 02/12/21 Chief Complaint: Shaking on the right side History of presenting complaint: This is a 60-year-old patient of Dr. Major Funk from visiting physicians. Chronic stable medical conditions include chronic gastritis, fibromyalgia, GERD, hyperlipidemia, MTHFR gene mutation, cervical spine spondylosis with disc herniation. At her baseline patient is a bit unsteady on her feet. On 07/11/2019 patient was seen in the ER withof seizures and a computed tomography scan of the brain did show a new cerebellar bleed. transferred to [facility]. About 3 weeks ago which was discharged from the [facility] as per the ER was documentation she had a carotid artery stent and subsequently treated for an aneurysm. In September 2019 patient presented UTI and headaches. Was seen by neurologist Dr. Harris and he spoke to Dr. Slaughter from [facility] and patient was transferred. Patient states she received 5 stents in the coiling for aneurysm. Today: Patient presented after she noticed that her right foot was shaking. In the shaking progressed affect the right side of the body. It was felt to be a seizure. For 2 days patient is having nausea vomiting and she presented to ER for a kidney stone. She did pass a kidney stone. Shaking symptoms started yesterday. Patient has noticed that even since her stenting to the brain she's become more unsteady. Often gets nausea and dizzy. Often times has to be in bed mostly. She was started on IV Keppra in the ER. She can the right side is better. Review of systems: GEN.: Tired EYES: None HEENT: None. NECK: None RESPIRATORY: As above CARDIOVASCULAR: None GASTROINTESTINAL: Baseline nausea GENITOURINARY: None MUSCULOSKELETAL: Some intermittent chronic neck pain LYMPHATICS: None HEMATOLOGICAL: None PSYCHIATRY: Anxious NEUROLOGICAL: Intermittent dizziness. As above. Baseline somewhat unsteady on feet. Past medical history to include: Asthma, fibromyalgia, GERD, hyperlipidemia, rheumatoid arthritis, MTHFR gene mutations, seizures during , migraines, 2 L of oxygen at night, psoriatic arthritis, iron deficiency anemia, anxiety depression has lost 4 children, cerebellar bleed. Cerebral aneurysm with stent in coiling Social history: Patient smoked for 10 years stopped in 1998. Denies use of recreational drugs. Alcohol rarely. . History of vaping Physical examination: VITAL SIGNS: 100, 84, 18, 135/86, 93% on room air upon presentation GENERAL: BMI 31.3, laying in bed, awake, tired, anxious EYES: Pupils equal. Conjunctiva normal. HEENT: External appearance of nose and ears normal, oral cavity grossly normal. NECK: JVD not raised; masses not palpable. HEART: First and second heart sounds are normal; no edema. LUNGS: Respiratory rate increased, decreased breath sounds some wheezing. ABDOMEN: Soft, nontender, liver spleen not palpable, no masses palpable. PSYCH: Alert and oriented x3; mood and affect. anxious NEUROLOGICAL: Cranial nerves grossly intact; no facial asymmetry, power and sensation grossly intact. LYMPHATICS: No lymph nodes palpable in the axilla and neck INVESTIGATIONS, reviewed in the clinical context: White count 9.6 hemoglobin 8.2 MCV 76.2 platelets 295 potassium 4 BUN 10 creatinine 0.7 to UA positive for nitrite and leukoesterase. Coronavirus [PCR]: Not detected EKG tracing personally reviewed by pa-Jordan denson. Possible sinus rhythm. Computed tomography scan of the brain without contrast: No change Assessment and plan: -Possible focal seizures. Patient presents with initially shaking of the right foot that progressed affect the whole right body side of the body. Patient was started on Keppra in the ER. Breathing better. Patient has brain aneurysm with intervention. Neurology consulted -Acute UTI from cystitis IV ceftriaxone -chronic gastritis. Pepcid -Intermittent asthma, Singulair 10 mg daily at bedtime -Chronic fibromyalgia Pain medications as needed -Iron deficiency anemia, microcytic anemia Check iron studies -GERD Pepcid 20 mg twice a day -MTHFR gene mutation -Chronic hypoxic respiratory failure on home oxygen 2 L at night -Multilevel spondylitic changes in the cervical spine including disc herniation and spinal stenosis especially at C4-C5. -History of cerebellar bleed, cerebral aneurysm with history of stent in coiling Dr. Seay at [facility] Patient started IV ceftriaxone. IV Keppra. Home medications resumed. IV fluids. Neurology consulted. Neuro checks. EEG ordered. Given the complexity and severity of patient's condition expect the patient to be in the hospital at least for 2 overnights 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 Endometriosis. History of Any Multi-Drug Resistant Organisms: None Reported Date of last positivie culture/infection: unsure MDRO Source:: unsure Past Surgical History: Section, Cholecystectomy, Ear Surgery, Hysterectomy, Tonsillectomy Additional Past Surgical History / Comment(s): left ear recontructed, colonoscopy and EGD, C/S x 4, brain coils x5 08/17. Multiple brain shunts. NALINI with unilateral oophorectomy in 2003. Past Anesthesia/Blood Transfusion Reactions: Motion Sickness Additional Past Anesthesia/Blood Transfusion Reaction / Comment(s): Pt has received blood in past without reaction. Past Psychological History: Anxiety, Depression Additional Psychological History / Comment(s): Pt resides with her exspouse. She uses a cane or walker to ambulate. She does not drive, her exspouse drives. Smoking Status: Former smoker Past Alcohol Use History: None Reported Additional Past Alcohol Use History / Comment(s): Pt started smoking in 1978 and quit in 1998. She denies vaping regularly. She drinks a shot of vodka maybe 5 times per year. Past Drug Use History: None Reported - Past Family History Son(s) Additional Family Medical History / Comment(s): Patient has 1 son living. 3 of her children have passed (one drowned, one in MVA, and one murdered). Mother Family Medical History: Asthma, Blood Disorder Additional Family Medical History / Comment(s): Mother at age 84 and had history of anemia. Sister(s) Family Medical History: Congestive Heart Failure (CHF), Diabetes Mellitus, Myocardial Infarction ([place]) Brother(s) Family Medical History: Congestive Heart Failure (CHF), Diabetes Mellitus, Myocardial Infarction ([place]) Father Family Medical History: No Reported History Additional Family Medical History / Comment(s): Father at age 54 from an accident. Medications and Allergies Home Medications Medication Instructions Recorded Confirmed Type Folic Acid 1 mg PO DAILY 10/31/20 02/12/21 History Cephalexin [Keflex] 500 mg PO Q12HR 02/09/21 02/12/21 History Ferrous Sulfate 324mg 324 mg PO BID 02/09/21 02/12/21 History Montelukast [Singulair] 10 mg PO HS 02/09/21 02/12/21 History Ondansetron Odt [Zofran Odt] 4 mg PO Q8HR PRN #14 tab 02/09/21 02/12/21 Rx Propranolol HCl 80 mg PO DAILY 02/09/21 02/12/21 History Allergies Allergy/AdvReac Type Severity Reaction Status Date / Time cashew nut Allergy Unknown Verified 02/12/21 06:58 shellfish derived Allergy Swelling Verified 02/12/21 06:58 ANTIBIOTIC STARTS WITH C Allergy Unknown Uncoded 02/09/21 10:40 nuts Allergy Swelling Uncoded 02/09/21 10:40 animals AdvReac Wheezing Uncoded 02/09/21 10:40 antibiotics AdvReac Unknown Uncoded 02/11/21 21:28 environmental AdvReac Wheezing Uncoded 02/09/21 10:40 Physical Exam Vitals: Vital Signs Temp Pulse Pulse Resp BP BP Pulse Ox 02/12/21 06:09 97.7 F 69 16 132/75 96 02/12/21 05:25 78 16 98/56 96 02/12/21 01:00 98.6 F 02/12/21 00:58 63 16 122/64 97 02/11/21 21:23 100.0 F H 84 18 135/86 93 L Intake and Output 02/11/21 02/12/21 02/12/21 22:59 06:59 14:59 Other: # Voids 1 Weight 90.718 kg 90.718 kg Results CBC & Chem 7: 02/11/21 22:14 02/11/21 22:14 Labs: Abnormal Lab Results - Last 24 Hours (Table) 02/11/21 02/11/21 02/11/21 Range/Units 22:14 22:14 22:14 RBC 3.73 L (3.80-5.40) m/uL Hgb 8.2 L (11.4-16.0) gm/dL Hct 28.4 L (34.0-46.0) % MCV 76.2 L (80.0-100.0) fL MCH 22.1 L (25.0-35.0) pg MCHC 29.0 L (31.0-37.0) g/dL RDW 16.5 H (11.5-15.5) % APTT 21.6 L (22.0-30.0) sec Glucose 108 H (74-99) mg/dL Urine Appearance (Clear) Urine Protein (Negative) Urine Blood (Negative) Urine Nitrite (Negative) Urine Bilirubin (Negative) Urine RBC (0-5) /hpf Urine Mucus (None) /hpf 02/12/21 Range/Units 06:07 RBC (3.80-5.40) m/uL Hgb (11.4-16.0) gm/dL Hct (34.0-46.0) % MCV (80.0-100.0) fL MCH (25.0-35.0) pg MCHC (31.0-37.0) g/dL RDW (11.5-15.5) % APTT (22.0-30.0) sec Glucose (74-99) mg/dL Urine Appearance Cloudy H (Clear) Urine Protein Trace H (Negative) Urine Blood Moderate H (Negative) Urine Nitrite Positive H (Negative) Urine Bilirubin 1+ H (Negative) Urine RBC >182 H (0-5) /hpf Urine Mucus Many H (None) /hpf Thrombosis Risk Factor Assmnt - Choose All That Apply Each Factor Represents 1 point: Age 41-60 years, Medical pt on bed rest, Obesity (BMI >25) Other Risk Factors: No Other congenital or acquired thrombophilia - If yes, enter type in comment: No Thrombosis Risk Factor Assessment Total Risk Factor Score: 3 Thrombosis Risk Factor Assessment Level: Moderate Risk
[2021-02-12] MEDS: FAMOTIDINE 20 MG TAB PO SCH ×2 (16:45→20:52)
[2021-02-12] MEDS: MONTELUKAST 10 MG TAB PO SCH (20:52)
--- NOTE | 2021-02-12 20:57 | EEG ---
ELECTROENCEPHALOGRAM REPORT DATE OF SERVICE: 02/12/2021 PREAMBLE: This is a 60-year-old female with new-onset seizure. This study is performed to evaluate for any epileptiform activity. EEG FINDINGS: This is a 21-channel digital EEG recorded with the video component, utilizing 10/20 international system with referential and bipolar montages. The background consists of well-developed but somewhat disorganized mixed frequencies of 9-10 hertz alpha, mixed with some fast and slow frequency activity seen in bihemispheric region. Background seems to be reactive to eye opening and closing. Frequent myogenic activity was seen during most of the study. Photic driving response was seen with some flash frequencies. Some drowsiness was seen with appearance of bilaterally symmetric theta frequency rhythm. Some occasional sleep spindles were seen during the later part of the study. No definitive focal or generalized epileptiform activity was seen. IMPRESSION: This is essentially a normal EEG during wakefulness, drowsiness and brief stage II sleep. No definitive epileptiform activity was seen. Normal EEG does not rule out seizure disorder. If your suspicion for seizures is high, consider prolonged EEG. MMODL / IJN: [id number] /
[2021-02-13] MEDS: SODIUM CHLORIDE 0.9% 1,000 ML IV SCH ×3 (02:20→18:52)
[2021-02-13 02:31] LABS: % Iron Saturation 5.03 (12.00-45.00); Ferritin 5.1 ng/mL (10.0-291.0)
[2021-02-13] MEDS: LORazepam 2 MG/ML INJ IV PRN ×3 (06:08→19:45)
[2021-02-13 07:03] LABS: Anisocytosis Slight; Basophils % (A) 1 %; Eosinophils # (A) 0.2 k/uL (0-0.7); Eosinophils % (A) 3 %; HCT 26.6 % (34.0-46.0); HGB 7.5 gm/dL (11.4-16.0); Hypochromasia Marked; Lymphocytes # (A) 1.7 k/uL (1.0-4.8); Lymphocytes % (A) 27 %; MCHC 28.2 g/dL (31.0-37.0); MCV 77.9 fL (80.0-100.0); Mean Platelet Volume 8.9; Microcytosis Slight; Monocytes # (A) 0.5 k/uL (0-1.0); Monocytes % (A) 7 %; Neutrophils # (A) 3.6 k/uL (1.3-7.7); Neutrophils % (A) 58 %; Platelet Count 294 k/uL (150-450); Poikilocytosis Moderate; RBC 3.42 m/uL (3.80-5.40); RDW 16.5 % (11.5-15.5); WBC 6.2 k/uL (3.8-10.6)
[2021-02-13] MEDS: FAMOTIDINE 20 MG TAB PO SCH (08:53)
[2021-02-13] MEDS: PROPRANOLOL 40 MG TAB PO SCH (08:53)
[2021-02-13] MEDS: FOLIC ACID 1 MG TAB PO SCH (08:54)
[2021-02-13] MEDS: ENOXAPARIN 40 MG/0.4 ML SYRINGE SQ SCH (08:54)
[2021-02-13] MEDS: FERROUS SULFATE 325 MG TAB PO SCH ×2 (08:54→19:45)
--- NOTE | 2021-02-13 09:53 | P.CNNES ---
History of Present Illness Consult date: 02/12/21 Requesting physician: Calderon Maradiaga Reason for Consult: Seizure? History of Present Illness: Patient is a 60-year-old right-handed female known to me from previous admission to the hospital, history of multiple cerebral aneurysms, status post stenting as well as endovascular coiling performed by Dr. Robbins at [facility] in the past. Patient came to the hospital because of possible seizure-like ac tivity. Patient's was also present today. Patient states that since she was seen last time in the hospital on 10/05/2019, patient underwent stenting at 5 different sites as well as coiling of the cerebral aneurysm. Patient was empirically placed on Vimpat for seizure prophylaxis, as she had abnormal EEGs in the past. As she has not had any further seizures, it was discontinued in June [address] Robbins. Patient has been doing well. Patient states that about 3 days ago, she developed episodes, in which her middle 3 toes of the right foot would get numb, we will start spasming. The spasms will extend to the rest of the foot, to the ankle, then moves up to the right leg, right side of the back, right shoulder arm and "roof of the mouth". This would associated with a jerk, like an electric jolt, lasting for a 1-2 minutes. These episodes would occur every 2 minutes, and kept on getting worse. She also felt spasms behind her left eye. Patient states that it was happening about thousand times a day. She also started feeling pressure in the chest with pulsation and throbbing sensation. Patient also complaining of blurred vision and some double vision. She notices that her jaw was going [id number]. Patient states that for the last 3 days she has been puking all the time, not able to keep her pain medications. Therefore she stopped taking her OxyContin. Patient states that she has been having migratory pain involving her head off and on for the last 1 year. It could involve behind the one or the other eye, roof of the mouth or back of the head. These brief pain lasts for 1-2 minutes. It comes on instantly and then goes away. Patient was scheduled for some brain imaging recommended by Dr. Robbins for follow-up regarding her cerebral aneurysms in October 2020. However because of pandemic, patient canceled the appointment and did not follow through with the brain imaging. I suggested patient's to bring the request form, so we can have it performed while she is in the hospital. Patient has history of cataract surgery in both eyes recently. Patient denies any tobacco use although she sometimes vapes. She also uses oxygen 5 L at home although she is supposed to take it no more than 3 L of oxygen. Patient underwent computed tomography scan of the head which was negative for any acute change. EKG shows normal sinus rhythm, septal infarct, age undetermined. Patient's blood test shows normal WBC, hemoglobin 8.2, platelets are 295. PT/PTT normal. Chem-20 is normal. Troponin negative. Patient's total iron is 22, TIBC is 4:30, transferring 307 and ferritin is 5.1. UA is positive for nitrite and negative leukocyte esterase. Coronavirus PCR negative. Review of Systems As above in detail. Denies any fever or chills. Denies any rash. Denies any abdominal pain. She has been having nausea vomiting. Also complaining of some chest pain. Patient has some shortness of breath. Patient has chronic pain issues. Details as mentioned in HPI. 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 Endometriosis. History of Any Multi-Drug Resistant Organisms: None Reported Date of last positivie culture/infection: unsure MDRO Source:: unsure Past Surgical History: Section, Cholecystectomy, Ear Surgery, Hysterectomy, Tonsillectomy Additional Past Surgical History / Comment(s): left ear recontructed, colonoscopy and EGD, C/S x 4, brain coils x5 05/20. Multiple brain shunts. NALINI with unilateral oophorectomy in 2003. Past Anesthesia/Blood Transfusion Reactions: Motion Sickness Additional Past Anesthesia/Blood Transfusion Reaction / Comment(s): Pt has received blood in past without reaction. Past Psychological History: Anxiety, Depression Additional Psychological History / Comment(s): Pt resides with her exspouse. She uses a cane or walker to ambulate. She does not drive, her exspouse drives. Smoking Status: Former smoker Past Alcohol Use History: None Reported Additional Past Alcohol Use History / Comment(s): Pt started smoking in 1978 and quit in 1998. She denies vaping regularly. She drinks a shot of vodka maybe 5 times per year. Past Drug Use History: None Reported - Past Family History Son(s) Additional Family Medical History / Comment(s): Patient has 1 son living. 3 of her children have passed (one drowned, one in MVA, and one murdered). Mother Family Medical History: Asthma, Blood Disorder Additional Family Medical History / Comment(s): Mother at age 84 and had history of anemia. Sister(s) Family Medical History: Congestive Heart Failure (CHF), Diabetes Mellitus, Myocardial Infarction ([place]) Brother(s) Family Medical History: Congestive Heart Failure (CHF), Diabetes Mellitus, Myocardial Infarction ([place]) Father Family Medical History: No Reported History Additional Family Medical History / Comment(s): Father at age 54 from an accident. Medications and Allergies Home Medications Medication Instructions Recorded Confirmed Type Folic Acid 1 mg PO DAILY 10/31/20 02/12/21 History Cephalexin [Keflex] 500 mg PO Q12HR 02/09/21 02/12/21 History Ferrous Sulfate 324mg 324 mg PO BID 02/09/21 02/12/21 History Montelukast [Singulair] 10 mg PO HS 02/09/21 02/12/21 History Ondansetron Odt [Zofran Odt] 4 mg PO Q8HR PRN #14 tab 02/09/21 02/12/21 Rx Propranolol HCl 80 mg PO DAILY 02/09/21 02/12/21 History oxyCODONE HCL [oxyCODONE HCL (IR)] 30 mg PO Q6H 02/12/21 02/12/21 History Allergies Allergy/AdvReac Type Severity Reaction Status Date / Time cashew nut Allergy Unknown Verified 02/12/21 06:58 shellfish derived Allergy Swelling Verified 02/12/21 06:58 ANTIBIOTIC STARTS WITH C Allergy Unknown Uncoded 02/09/21 10:40 nuts Allergy Swelling Uncoded 02/09/21 10:40 animals AdvReac Wheezing Uncoded 02/09/21 10:40 antibiotics AdvReac Unknown Uncoded 02/11/21 21:28 environmental AdvReac Wheezing Uncoded 02/09/21 10:40 Physical Examination - Vital Signs Vital Signs: Vital Signs Temp Pulse Pulse Resp BP BP Pulse Ox 02/13/21 08:45 75 119/78 96 02/13/21 07:38 98.0 F 67 11 L 116/74 90 L 02/13/21 05:00 97.5 F L 69 18 142/74 95 02/12/21 19:48 97.4 F L 70 18 118/66 93 L 02/12/21 12:37 98.1 F 83 15 114/74 92 L Intake and Output 02/12/21 02/13/21 02/13/21 22:59 06:59 14:59 Intake Total 2670 Balance 2670 Intake: Intake, IV Titration 1550 Amount Sodium Chloride 0.9% 1, 1300 000 ml @ 130 mls/hr IV . Q7H42M [facility] Rx#:[id number] cefTRIAXone 1 gm In 50 Sodium Chloride 0.9% 50 ml @ 100 mls/hr IVPB Q24HR [facility] Rx#:[id number] levETIRAcetam IV 1,000 mg 100 In Saline 1 100ml.bag @ 400 mls/hr IVPB ONCE ONE Rx#:[id number] levETIRAcetam IV 1,000 mg 100 In Saline 1 100ml.bag @ 400 mls/hr IVPB Q12H [facility] Rx#:[id number] Oral 1120 Other: Voiding Method Toilet # Voids 3 3 Patient is a late middle aged female, who is in no acute distress. She appears somewhat restless. Patient is alert awake oriented to time place and person. Speech has some nasal tone to her voice and language functions are normal. Patient can name and repeat very well. No aphasia or dysarthria. Attention, concentration and fund of knowledge is adequate. On cranial examination, pupils are round and reacting to light, visual ramirez are full on confrontation, patient has left ptosis. Patient does notice double vision at different gazes. Her extraocular muscles reveal slight restriction to the left lateral gaze with the left eye. Face is symmetric, tongue protrudes to the midline. Palatal elevation and sensation normal, hearing and shoulder shrug normal, facial sensation normal. Shoulder shrug normal. On muscle strength testing, there is mild right pronation but no drift. Her strength is normal in arms and legs distally and proximally, except left ankle dorsiflexion which is 5-with giveaway weakness. Hip flexion is 5-bilaterally.. Deep tendon reflexes are 1+ and plantars downgoing. Sensory to touch is equal with no neglect. Cerebellar function showed no ataxia for [id number] testing. No dysdiadoch okinesia. Tone and bulk of muscles normal. Gait deferred. On general examination, there is no carotid bruit or murmur, S1-S2 audible. Abdomen is soft nontender. Chest is clear. Peripheral pulses are present. No edema. Results - Laboratory Findings CBC and BMP: 02/13/21 05:56 02/11/21 22:14 Abnormal Lab Findings: Abnormal Labs 02/11/21 02/11/21 02/11/21 22:14 22:14 22:14 RBC 3.73 L Hgb 8.2 L Hct 28.4 L MCV 76.2 L MCH 22.1 L MCHC 29.0 L RDW 16.5 H APTT 21.6 L Glucose 108 H Iron % Saturation Ferritin Urine Appearance Urine Protein Urine Blood Urine Nitrite Urine Bilirubin Urine RBC Urine Mucus 02/12/21 02/12/21 02/13/21 06:07 16:00 05:56 RBC 3.42 L Hgb 7.5 L Hct 26.6 L MCV 77.9 L MCH 22.0 L MCHC 28.2 L RDW 16.5 H APTT Glucose Iron 22 L % Saturation 5.03 L Ferritin 5.1 L Urine Appearance Cloudy H Urine Protein Trace H Urine Blood Moderate H Urine Nitrite Positive H Urine Bilirubin 1+ H Urine RBC >182 H Urine Mucus Many H Assessment and Plan Assessment: * History of multiple cerebral aneurysms, status post stenting as well as endovascular coiling by Dr. Robbins in June 2019, and in September 2019. Patient has presented with 3 days history of episodic paresthesias on the right side of the body, with spasms and jerks, concerning for possible focal seizure. Patient has been off antiepileptic medication since June 2020. 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 * History of left occipital lobe cortical hemorrhage. * Chronic headaches, likely due to above. Patient currently on propranolol 80 mg daily. Plan: * Patient underwent EEG today, which was essentially normal EEG during wakefulness, drowsiness and brief stage II sleep. No epileptiform activity was seen. However patient had a previous EEG in June 2019, which had revealed sharp waves seen over the left mid posterior temporal region, which were felt to be epileptiform in nature. Patient is experiencing focal seizure type spells for the last 3 days. These episodes have much improved since Keppra has been started in the ER. Patient will continue Keppra at the same dose 1000 mg twice a day. * Patient's will try to obtain the request form for the brain imaging that was recommended by Dr. Robbins at her last appointment. We will try to have the test done while in the hospital. * Continue to observe for any seizure-like activity. * Continue propranolol 80 mg daily for chronic headaches. * Resume aspirin 81 mg daily related to her stents. * Neurology will follow. Time with Patient: Greater than 30 (Complexity of the case: high.)
[2021-02-13] MEDS: ASPIRIN 81 MG PO SCH (10:24)
[2021-02-13] MEDS: levETIRAcetam IV 1,000 MG in SALINE 1 100ML.BAG IVPB SCH (12:06)
[2021-02-13] MEDS ORDERED: ONDANSETRON 4 MG/2 ML VIAL IVP PRN (14:54)
--- NOTE | 2021-02-13 14:54 | P.CONS ---
History of Present Illness - Reason for Consult Consult date: 02/13/21 Nausea Requesting physician: Edward Trujillo - Chief Complaint Seizure - History of Present Illness This a 60-year-old female with multiple comorbidities including fibromyalgia, chronic iron deficiency anemia, GERD, hyperlipidemia, asthma, rheumatoid arthritis, multiple brain aneurysms is post coiling and range in, and sleep apnea who presented to the emergency department with complaints of seizure-like activity. She is currently being followed by neurology. She had an EEG which was reported as normal. Patient is known to Dr. Linn and recently was seen in the office about 2-3 weeks ago. Patient states she's having abdominal pain with nausea and vomiting. States she's been having pain since she last saw her. She states she is having a difficult time eating anything. She denies any blood in the emesis. States bowel movements have been normal. She's had no fevers or chills. Patient believes she was recently started on omeprazole or Protonix from the office. Her last EGD colonoscopy was in 05/2018 with findings of gastritis and essentially normal colonoscopy. Patient has had previous admissions for similar complaints including dizziness, nausea, and vomiting. At the time of evaluating the patient she was eating and had half of her lunch finished. Review of Systems REVIEW OF SYSTEMS: CARDIOPULMONARY: No chest pain or shortness of breath. Gastrointestinal: Burning sensation in epigastric region, with associated nausea and vomiting. No hematemesis, coffee-ground emesis. No rectal bleeding, or melena. GENITOURINARY: No dysuria or hematuria. MUSCULOSKELETAL: Reports normal range of motion., Joint pain. SKIN: No rashes. No jaundice. ENDOCRINE: No chills, fevers. No excessive weight gain or loss. No polydipsia or polyuria. PSYCHIATRIC: Unremarkable. NEUROLOGY: No change in mental status. Dizziness, seizure like activity. ENT: Vision unremarkable. CONSTITUTIONAL: No recent weight loss. No fever, chills, night sweats. 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 Endometriosis. History of Any Multi-Drug Resistant Organisms: None Reported Year Discovered:: unsure MDRO Source:: unsure Past Surgical History: Section, Cholecystectomy, Ear Surgery, Hysterectomy, Tonsillectomy Additional Past Surgical History / Comment(s): left ear recontructed, colonoscopy and EGD, C/S x 4, brain coils x5 08/17. Multiple brain shunts. NALINI with unilateral oophorectomy in 2003. Past Anesthesia/Blood Transfusion Reactions: Motion Sickness Additional Past Anesthesia/Blood Transfusion Reaction / Comm: Pt has received blood in past without reaction. Past Psychological History: Anxiety, Depression Additional Psychological History / Comment(s): Pt resides with her exspouse. She uses a cane or walker to ambulate. She does not drive, her exspouse drives. Smoking Status: Former smoker Past Alcohol Use History: None Reported Additional Past Alcohol Use History / Comment(s): Pt started smoking in 1978 and quit in 1998. She denies vaping regularly. She drinks a shot of vodka maybe 5 times per year. Past Drug Use History: None Reported - Past Family History Son(s) Additional Family Medical History / Comment(s): Patient has 1 son living. 3 of her children have passed (one drowned, one in MVA, and one murdered). Mother Family Medical History: Asthma, Blood Disorder Additional Family Medical History / Comment(s): Mother at age 84 and had history of anemia. Sister(s) Family Medical History: Congestive Heart Failure (CHF), Diabetes Mellitus, Myocardial Infarction ([place]) Brother(s) Family Medical History: Congestive Heart Failure (CHF), Diabetes Mellitus, Myocardial Infarction ([place]) Father Family Medical History: No Reported History Additional Family Medical History / Comment(s): Father at age 54 from an accident. Medications and Allergies Home Medications Medication Instructions Recorded Confirmed Type Folic Acid 1 mg PO DAILY 10/31/20 02/12/21 History Cephalexin [Keflex] 500 mg PO Q12HR 02/09/21 02/12/21 History Ferrous Sulfate 324mg 324 mg PO BID 02/09/21 02/12/21 History Montelukast [Singulair] 10 mg PO HS 02/09/21 02/12/21 History Ondansetron Odt [Zofran Odt] 4 mg PO Q8HR PRN #14 tab 02/09/21 02/12/21 Rx Propranolol HCl 80 mg PO DAILY 02/09/21 02/12/21 History oxyCODONE HCL [oxyCODONE HCL (IR)] 30 mg PO Q6H 02/12/21 02/12/21 History Allergies Allergy/AdvReac Type Severity Reaction Status Date / Time cashew nut Allergy Unknown Verified 02/12/21 06:58 shellfish derived Allergy Swelling Verified 02/12/21 06:58 ANTIBIOTIC STARTS WITH C Allergy Unknown Uncoded 02/09/21 10:40 nuts Allergy Swelling Uncoded 02/09/21 10:40 animals AdvReac Wheezing Uncoded 02/09/21 10:40 antibiotics AdvReac Unknown Uncoded 02/11/21 21:28 environmental AdvReac Wheezing Uncoded 02/09/21 10:40 Physical Exam Vitals: Vital Signs Temp Pulse Pulse Resp BP BP Pulse Ox 02/13/21 12:20 98.3 F 62 19 148/81 98 02/13/21 12:06 60 129/84 02/13/21 08:45 75 119/78 96 02/13/21 07:38 98.0 F 67 11 L 116/74 90 L 02/13/21 05:00 97.5 F L 69 18 142/74 95 02/12/21 19:48 97.4 F L 70 18 118/66 93 L Intake and Output 02/12/21 02/13/21 02/13/21 22:59 06:59 14:59 Intake Total 2670 Balance 2670 Intake: Intake, IV Titration 1550 Amount Sodium Chloride 0.9% 1, 1300 000 ml @ 130 mls/hr IV . Q7H42M [facility] Rx#:[id number] cefTRIAXone 1 gm In 50 Sodium Chloride 0.9% 50 ml @ 100 mls/hr IVPB Q24HR [facility] Rx#:[id number] levETIRAcetam IV 1,000 mg 100 In Saline 1 100ml.bag @ 400 mls/hr IVPB ONCE ONE Rx#:[id number] levETIRAcetam IV 1,000 mg 100 In Saline 1 100ml.bag @ 400 mls/hr IVPB Q12H [facility] Rx#:[id number] Oral 1120 Other: Voiding Method Toilet Toilet # Voids 3 3 General appearance: The patient is alert, oriented, appears in no acute distress. HET: Head is normocephalic and atraumatic. Conjunctiva pink. Sclera anicteric. Neck: Supple without lymphadenopathy. Trachea midline. Heart: S1 S2. Regular rate and rhythm. Lungs: Clear to auscultation. Abdomen: Soft, epigastric tenderness, nondistended with bowel sounds. No guarding or rigidity. Skin: No rashes. No jaundice. Extremities: Normal skin color and turgor. No pedal edema. Neurological: No focal deficits. Alert and oriented x3. Results CBC & Chem 7: 02/13/21 05:56 02/11/21 22:14 Labs: Abnormal Lab Results - Last 24 Hours (Table) 02/12/21 02/13/21 Range/Units 16:00 05:56 RBC 3.42 L (3.80-5.40) m/uL Hgb 7.5 L (11.4-16.0) gm/dL Hct 26.6 L (34.0-46.0) % MCV 77.9 L (80.0-100.0) fL MCH 22.0 L (25.0-35.0) pg MCHC 28.2 L (31.0-37.0) g/dL RDW 16.5 H (11.5-15.5) % Iron 22 L (50-170) ug/dL % Saturation 5.03 L (12.00-45.00) Ferritin 5.1 L (10.0-291.0) ng/mL Assessment and Plan (1) Epigastric pain Narrative/Plan: 60-year-old female known to GI services with multiple past complaints of nausea vomiting and epigastric pain presented to the emergency department with complaints of seizure-like activity. Patient was recently seen in the office by Dr. Linn 2-3 weeks ago. Patient states she believes she was started on Protonix or omeprazole and states that since she left the office she has been having epigastric pain associated with nausea and vomiting and is unable to eat. However patient was currently eating her lunch and half of her meal had been eating. Patient denies any hematemesis or coffee-ground emesis. States that this morning she had some nausea related to her epigastric pain and had vomited. Patient was placed on Vimpat for seizure prophylaxis and follows with a neurologist. Apparently according to the neurologist note patient has been having nonstop vomiting for the last 2 days and has not been taking her medications, however she did not mention this at the time of interview. Her last EGD and colonoscopy was in May 2018 which was only significant for some mild gastritis. Current Visit: Yes Status: Acute Code(s): R10.13 - EPIGASTRIC PAIN SNOMED Code(s): 11451516 (2) Nausea Current Visit: No Status: Acute Code(s): R11.0 - NAUSEA SNOMED Code(s): 483321658 (3) Iron deficiency anemia Narrative/Plan: Has ongoing history of chronic iron deficiency anemia Current Visit: No Status: Chronic Priority: Medium Code(s): D50.9 - IRON DEFICIENCY ANEMIA, UNSPECIFIED SNOMED Code(s): 16334632 Plan: 1. Nothing by mouth after midnight 2. Protonix 40 mg twice a day 3. Continue antiemetics as needed 4. Will proceed with the EGD tomorrow. The procedure discussed with patient including risk and benefits. Patient willing to proceed. 5. Continue with symptomatic and supportive care Thank you for this consultation, we will continue to follow. Dr. Geo Linn I agree with the dictator's note, documented as a scribe by Emily Parada.
[2021-02-13 16:20] LABS: ALT 14 U/L (8-44); AST 18 U/L (13-35); African American GFR (CKD) 92.9 (60.0-200.0); Albumin 3.8 g/dL (3.8-4.9); Albumin/Globulin Ratio 1.65 (1.60-3.17); Alkaline Phosphatase 73 U/L (41-126); BUN/Creat Ratio 9.38 Ratio (12.00-20.00); Blood Urea Nitrogen 7.5 mg/dL (9.0-27.0); Calcium 8.6 mg/dL (8.7-10.3); Carbon Dioxide 18.5 mmol/L (21.6-31.8); Chloride 108 mmol/L (96-109); Globulin 2.3 g/dL (1.6-3.3); Glucose 87 mg/dL (70-110); Magnesium 2.1 mg/dL (1.5-2.4); Non-African American GFR(CKD) 80.1 (60.0-200.0); Phosphorus 3.3 mg/dL (2.4-5.1); Potassium 4.2 mmol/L (3.5-5.5); Sodium 142 mmol/L (135-145); Total Bilirubin <0.20 mg/dL (0.30-1.20); Total Protein 6.1 g/dL (6.2-8.2)
--- NOTE | 2021-02-13 16:25 | CT ---
EXAMINATION TYPE: CT angio head neck DATE OF EXAM: 02/13/2021 HISTORY: Cerebral aneurysms COMPARISON: CT scan 02/11/2021. No other prior exam available. CT DLP: 443.9 mGycm. Automated Exposure Control for Dose Reduction was Utilized. TECHNIQUE: CTA scan of the neck is performed with IV Contrast, patient injected with 65 mL of Isovue 370, axial images are obtained, coronal and sagittal reformatted images are reviewed. 3D reconstruct ed images are created on an independent workstation and reviewed. FINDINGS: There remains increased density material near the region of the distal left ICA nearly cavernous sinu s which could be related to atherosclerotic change or previous intervention. Artifact limits assessme nt. Aneurysm in this region cannot be excluded. Left vertebral artery is dominant. Vertebrobasilar sy stem is patent. Visualized portions of the remaining vasculature including the anterior, posterior an d middle cerebral arteries demonstrate normal enhancement with no sizable aneurysm as visualized. Orbits are symmetric. The ventricular system is midline without evidence of displacement. There is hypertrophic and degenerative change of the spine. There is mild atherosclerotic change of t he aortic arch. The visualized common and internal carotid arteries are patent with no significant st enosis. IMPRESSION: 1. No diagnostic evidence of aneurysm as visualized. There is an area of rounded increased density ne ar the left carotid siphon and cavernous segment ICA which could be related to portions of the skelet al system or previous intervention. Correlate clinically and if necessary with MRA. 2. No evidence of carotid bifurcation stenosis. NASCET criteria was used in interpretation of this exam?
--- NOTE | 2021-02-13 18:04 | P.PN ---
Progress Note - Text Progress Note Date: 02/13/21 Chief Complaint: Shaking on the right side History of presenting complaint: This is a 60-year-old patient of Dr. Major Funk from visiting physicians. Chronic stable medical conditions include chronic gastritis, fibromyalgia, GERD, hyperlipidemia, MTHFR gene mutation, cervical spine spondylosis with disc herniation. At her baseline patient is a bit unsteady on her feet. On 07/11/2019 patient was seen in the ER withof seizures and a computed tomography scan of the brain did show a new cerebellar bleed. transferred to [facility]. About 3 weeks ago which was discharged from the [facility] as per the ER was documentation she had a carotid artery stent and subsequently treated for an aneurysm. In September 2019 patient presented UTI and headaches. Was seen by neurologist Dr. Harris and he spoke to Dr. Slaughter from [facility] and patient was transferred. Patient states she received 5 stents in the coiling for aneurysm. Today: Patient presented after she noticed that her right foot was shaking. In the shaking progressed affect the right side of the body. It was felt to be a seizure. For 2 days patient is having nausea vomiting and she presented to ER for a kidney stone. She did pass a kidney stone. Shaking symptoms started yesterday. Patient has noticed that even since her stenting to the brain she's become more unsteady. Often gets nausea and dizzy. Often times has to be in bed mostly. She was started on IV Keppra in the ER. She can the right side is better. February 13: Right-sided shaking is much improved. EEG negative for seizure activity. Discussed with DrAdam From Neurology. He Ordered a Repeat CT Angiography. Patient Dizziness Which Is Somewhat Chronic persist. Also having significant nausea which is also chronic. GI consulted. Review of systems: Was done for constitutional, cardiovascular, GI, pulmonary. relevant finding as above Active Medications Aspirin (Aspirin 81 Mg) 81 mg PO DAILY [facility] Last Admin: 02/13/21 10:24 Dose: 81 mg Documented by: Enoxaparin Sodium (Enoxaparin 40 Mg/0.4 Ml Syringe) 40 mg SQ DAILY [facility] Last Admin: 02/13/21 08:54 Dose: 40 mg Documented by: Ferrous Sulfate (Ferrous Sulfate 325 Mg Tab) 325 mg PO BID [facility] Last Admin: 02/13/21 08:54 Dose: 325 mg Documented by: Folic Acid (Folic Acid 1 Mg Tab) 1 mg PO DAILY [facility] Last Admin: 02/13/21 08:54 Dose: 1 mg Documented by: Sodium Chloride (Saline 0.9%) 1,000 mls @ 130 mls/hr IV .Q7H42M [facility] Last Admin: 02/13/21 05:32 Dose: 130 mls/hr Documented by: Ceftriaxone Sodium 1 gm/ (Sodium Chloride) 50 mls @ 100 mls/hr IVPB Q24HR [facility] Last Admin: 02/13/21 12:06 Dose: Not Given Documented by: Levetiracetam (Levetiracetam 500 Mg Tab) 1,000 mg PO Q12H [facility] Lorazepam (Lorazepam 2 Mg/Ml Inj) 0.5 mg IV Q6HR PRN PRN Reason: Anxiety Last Admin: 02/13/21 13:36 Dose: 0.5 mg Documented by: Montelukast Sodium (Montelukast 10 Mg Tab) 10 mg PO HS [facility] Last Admin: 02/12/21 20:52 Dose: 10 mg Documented by: Naloxone HCl (Naloxone 0.4 Mg/Ml 1 Ml Vial) 0.2 mg IV Q2M PRN PRN Reason: Opioid Reversal Ondansetron HCl (Ondansetron 4 Mg/2 Ml Vial) 4 mg IVP Q6HR PRN PRN Reason: Nausea And Vomiting Oxycodone HCl (Oxycodone Hcl 5 Mg Tab) 30 mg PO Q6HR PRN PRN Reason: Pain Last Admin: 02/13/21 12:07 Dose: 30 mg Documented by: Pantoprazole Sodium (Pantoprazole 40 Mg/10 Ml Vial) 40 mg IVP BID [facility] Propranolol HCl (Propranolol 40 Mg Tab) 80 mg PO DAILY [facility] Last Admin: 02/13/21 08:53 Dose: 80 mg Documented by: Past medical history to include: Asthma, fibromyalgia, GERD, hyperlipidemia, rheumatoid arthritis, MTHFR gene mutations, seizures during , migraines, 2 L of oxygen at night, psoriatic arthritis, iron deficiency anemia, anxiety depression has lost 4 children, cerebellar bleed. Cerebral aneurysm with stent in coiling Social history: Patient smoked for 10 years stopped in 1998. Denies use of recreational drugs. Alcohol rarely. . History of vaping Physical examination: VITAL SIGNS: 98, 62, 18, 1 45 x 69, 96% room air GENERAL: laying in bed, awake, tired, anxious EYES: Pupils equal. Conjunctiva normal. HEENT: External appearance of nose and ears normal, oral cavity grossly normal. NECK: JVD not raised; masses not palpable. HEART: First and second heart sounds are normal; no edema. LUNGS: Respiratory rate increased, decreased breath sounds some wheezing. ABDOMEN: Soft, nontender, liver spleen not palpable, no masses palpable. PSYCH: Alert and oriented x3; mood and affect. anxious NEUROLOGICAL: Cranial nerves grossly intact; no facial asymmetry, power and sensation grossly intact. INVESTIGATIONS, reviewed in the clinical context: CT angiogram head and neck [February 13]: No evidence of aneurysm. February 13: White count 6.2 hemoglobin 7.5 platelets 294 potassium 4.2 creatinine 0.8 EEG: Negative for epileptiform activity. Iron 22 TIBC 4:30 percent saturation 5.03 White count 9.6 hemoglobin 8.2 MCV 76.2 platelets 295 potassium 4 BUN 10 creatinine 0.7 to UA positive for nitrite and leukoesterase. Coronavirus [PCR]: Not detected EKG tracing personally reviewed by me-4 baseline. Possible sinus rhythm. Computed tomography scan of the brain without contrast: No change Assessment and plan: -Possible focal seizures. Patient presents with initially shaking of the right foot that progressed affect the whole right body side of the body. Patient was started on Keppra in the ER. Breathing better. Patient has brain aneurysm with intervention in the past. Follow-up with neurology. On Keppra. -Acute UTI from cystitis IV ceftriaxone. Changed to Keflex -chronic gastritis. Pepcid -Intermittent asthma, Singulair 10 mg daily at bedtime -Chronic fibromyalgia Pain medications as needed -Iron deficiency anemia, microcytic anemia Check iron studies -GERD Pepcid 20 mg twice a day -MTHFR gene mutation -Chronic hypoxic respiratory failure on home oxygen 2 L at night -Multilevel spondylitic changes in the cervical spine including disc herniation and spinal stenosis especially at C4-C5. -History of cerebellar bleed, cerebral aneurysm with history of stent in coiling Dr. Seay at [facility] Change IV ceftriaxone to by mouth Keflex. EEG negative first epilepsy. CT angiogram the brain unremarkable. Continue Keppra. Seen by GI. For EGD tomorrow. Discussed with patient. Total spent time. About 40 minutes with over 20 minutes of discussion.
[2021-02-13] MEDS: MONTELUKAST 10 MG TAB PO SCH (19:44)
[2021-02-13] MEDS: PANTOPRAZOLE 40 MG/10 ML VIAL IVP SCH (19:44)
[2021-02-13] MEDS ORDERED: LACTULOSE 20 GM/30 ML CUP PO ONE (20:34)
--- NOTE | 2021-02-13 21:04 | P.PN ---
Subjective Progress Note Date: 02/13/21 Patient was seen for a follow-up. Patient continues to feel subjective seizure- like activity involving right side of the body. It is occurring numerous times a day. Patient's has not noticed any twitching, jerking or loss of consciousness, or alteration in level of consciousness. No speech impediment. Objective - Vital Signs Vital signs: Vital Signs Temp 98.2 F 02/13/21 19:05 Pulse 61 02/13/21 19:06 Resp 20 02/13/21 19:06 BP 138/72 02/13/21 19:05 Pulse Ox 98 02/13/21 12:20 Intake & Output 02/13/21 02/13/21 02/14/21 06:59 18:59 06:59 Intake Total 200 Balance 200 Intake: Oral 200 Other: Voiding Method Toilet Toilet Toilet # Voids 3 3 - Exam Patient's mentation is normal. Extraocular muscles are intact. Does not appear to have ptosis today. - Labs CBC & Chem 7: 02/13/21 05:56 02/13/21 05:56 Labs: Abnormal Lab Results - Last 24 Hours (Table) 02/12/21 02/13/21 02/13/21 Range/Units 16:00 05:56 05:56 RBC 3.42 L (3.80-5.40) m/uL Hgb 7.5 L (11.4-16.0) gm/dL Hct 26.6 L (34.0-46.0) % MCV 77.9 L (80.0-100.0) fL MCH 22.0 L (25.0-35.0) pg MCHC 28.2 L (31.0-37.0) g/dL RDW 16.5 H (11.5-15.5) % Carbon Dioxide 18.5 L (21.6-31.8) mmol/L Anion Gap 15.50 H (4.00-12.00) mmol/L BUN 7.5 L (9.0-27.0) mg/dL BUN/Creatinine Ratio 9.38 L (12.00-20.00) Ratio Calcium 8.6 L (8.7-10.3) mg/dL Iron 22 L (50-170) ug/dL % Saturation 5.03 L (12.00-45.00) Ferritin 5.1 L (10.0-291.0) ng/mL Total Bilirubin <0.20 L (0.30-1.20) mg/dL Total Protein 6.1 L (6.2-8.2) g/dL Assessment and Plan Assessment: * History of multiple cerebral aneurysms, status post stenting as well as endovascular coiling by Dr. Robbins in June 2019, and in September 2019. Patient has presented with 3 days history of episodic paresthesias on the right side of the body, with spasms and jerks, concerning for possible focal seizure. Patient has been off antiepileptic medication since June 2020. 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 * History of left occipital lobe cortical hemorrhage. * Chronic headaches, likely due to above. Patient currently on propranolol 80 mg daily. Plan: * Routine EEG 02/12/2021, which was essentially normal EEG during wakefulness, drowsiness and brief stage II sleep. No epileptiform activity was seen. Lamin antunez patient had a previous EEG in June 2019, which had revealed sharp waves seen over the left mid posterior temporal region, which were felt to be epileptiform in nature. Patient is experiencing focal seizure type spells for the last 3 days. These episodes have much improved since Keppra has been started in the ER. However patient states that before the next dose is due, the seizure-like symptomatology reappears. Patient currently on Keppra 1000 mg twice a day. We will perform prolonged, 2.5 hours EEG in the morning. Patient is known to Dr. Gomez from her previous hospitalization at [facility]. * Patient's obtained a request of CTA of head and neck, that was recommended by Dr. Robbins at patient's last clinic visit at his office. * CTA of head and neck was performed today, which revealed no diagnostic evidence of aneurysm as visualized. There is an area of rounded increased density near the left carotid siphon and cavernous segment ICA, which could be related to portions of the skeletal system or previous intervention. Correlate clinically and if necessary with MRA. No evidence of carotid bifurcation stenosis. * Continue to observe for any seizure-like activity. * Continue propranolol 80 mg daily for chronic headaches. * Resume aspirin 81 mg daily related to her stents. * Discussed with patient's in detail as well.
[2021-02-13] MEDS: cycloSPORINE 0.05% OPHTH 0.4 ML DROPERETTE BOTH EYES SCH (21:13)
[2021-02-13] MEDS: levETIRAcetam 500 MG TAB PO SCH (22:39)
[2021-02-14] MEDS: FOLIC ACID 1 MG TAB PO SCH (09:08)
[2021-02-14] MEDS: PROPRANOLOL 40 MG TAB PO SCH (09:09)
[2021-02-14] MEDS: FERROUS SULFATE 325 MG TAB PO SCH ×2 (09:09→20:32)
[2021-02-14] MEDS: cycloSPORINE 0.05% OPHTH 0.4 ML DROPERETTE BOTH EYES SCH ×2 (09:10→20:32)
[2021-02-14] MEDS: CEPHALEXIN 250 MG CAP PO SCH ×4 (09:11→22:58)
[2021-02-14] MEDS: ASPIRIN 81 MG PO SCH (09:11)
[2021-02-14] MEDS: PANTOPRAZOLE 40 MG/10 ML VIAL IVP SCH (09:20)
[2021-02-14] MEDS: ENOXAPARIN 40 MG/0.4 ML SYRINGE SQ SCH (09:58)
[2021-02-14] MEDS ORDERED: LIDOCAINE 1% INJ 10MG/ML (20 ML MDV) ONE (12:44)
[2021-02-14] MEDS ORDERED: PROPOFOL 10 MG/ML 20 ML VIAL IV ONE (12:44)
[2021-02-14] MEDS ORDERED: LACTATED RINGERS 1,000 ML IV ONE (12:53)
--- NOTE | 2021-02-14 13:05 | P.PCN ---
Date of Procedure: 02/14/21 Procedure(s) Performed: BRIEF HISTORY: Patient is a 60-year-old, pleasant, white female scheduled for an upper endoscopy for evaluation of epigastric pain, nausea vomiting for the last several weeks duration. She has been having the symptoms on and off for almost 6 duration. Hence scheduled for an upper endoscopy to evaluate further. PROCEDURE PERFORMED: Esophagogastroduodenoscopy with biopsy . PREOPERATIVE DIAGNOSIS: .chronic epigastric pain associated with nausea vomiting of several months duration IV sedation per anesthesia. PROCEDURE: After informed consent was obtained, the patient was brought into the endoscopy unit. IV sedation was administered by Anesthesia under continuous monitoring. Initially the Olympus GIF-140 video endoscope was inserted into the mouth. Esophagus intubated without any difficulty. It was gradually advanced into the stomach and duodenum and carefully examined. The bulb and the second part of the duodenum appeared normal. The scope at this time was withdrawn to the stomach, adequately insufflated with air, and upon careful examination, mucosa of the antrum,had mild gastritis and biopsies were done from this area. The body, cardia and the fundus appeared normal. The scope was then withdrawn into the esophagus. The GE junction was located at 35 cm from the incisors. moderate size hiatal hernia noted. The esophagus appeared normal. There were no erosions or ulcerations seen, biopsies were done from the distal esophagus and the patient tolerated the procedure well. IMPRESSION: 1. Mild antral gastritis. 2. Moderate size hiatal hernia with some Dick erosions RECOMMENDATIONS: The findings of this examination were discussed with the patie nt as well as a family. She was advised to follow with the biopsy results. She'll continue with Protonix 40 mg daily and diet will be advanced as tolerated.
[2021-02-14] MEDS: levETIRAcetam 500 MG TAB PO SCH ×2 (13:21→22:57)
[2021-02-14] MEDS: LORazepam 2 MG/ML INJ IV PRN ×2 (13:42→20:39)
--- NOTE | 2021-02-14 18:01 | P.PN ---
Progress Note - Text Progress Note Date: 02/14/21 Chief Complaint: Shaking on the right side History of presenting complaint: This is a 60-year-old patient of Dr. Major Funk from visiting physicians. Chronic stable medical conditions include chronic gastritis, fibromyalgia, GERD, hyperlipidemia, MTHFR gene mutation, cervical spine spondylosis with disc herniation. At her baseline patient is a bit unsteady on her feet. On 07/11/2019 patient was seen in the ER withof seizures and a computed tomography scan of the brain did show a new cerebellar bleed. transferred to [facility]. About 3 weeks ago which was discharged from the [facility] as per the ER was documentation she had a carotid artery stent and subsequently treated for an aneurysm. In September 2019 patient presented UTI and headaches. Was seen by neurologist Dr. Harris and he spoke to Dr. Slaughter from [facility] and patient was transferred. Patient states she received 5 stents in the coiling for aneurysm. Today: Patient presented after she noticed that her right foot was shaking. In the shaking progressed affect the right side of the body. It was felt to be a seizure. For 2 days patient is having nausea vomiting and she presented to ER for a kidney stone. She did pass a kidney stone. Shaking symptoms started yesterday. Patient has noticed that even since her stenting to the brain she's become more unsteady. Often gets nausea and dizzy. Often times has to be in bed mostly. She was started on IV Keppra in the ER. She can the right side is better. February 13: Right-sided shaking is much improved. EEG negative for seizure activity. Discussed with DrAdam From Neurology. He Ordered a Repeat CT Angiography. Patient Dizziness Which Is Somewhat Chronic persist. Also having significant nausea which is also chronic. GI consulted. February 14: Underwent EGD colonoscopy. Found to have gastritis and wiliam Le sions. Continue PPI. Feeling Better. Patient unable to get to the bathroom. Had the patient sit up in a chair. Advise her to sit up more than laying in bed. Review of systems: Was done for constitutional, cardiovascular, GI, pulmonary. relevant finding as above Active Medications Aspirin (Aspirin 81 Mg) 81 mg PO DAILY [facility] Last Admin: 02/14/21 09:11 Dose: 81 mg Documented by: Cephalexin (Cephalexin 250 Mg Cap) 250 mg PO TID [facility] Last Admin: 02/14/21 15:01 Dose: Not Given Documented by: Cyclosporine (Cyclosporine 0.05% Ophth 0.4 Ml Droperette) 1 drops BOTH EYES Q12HR [facility] Last Admin: 02/14/21 09:10 Dose: 1 drops Documented by: Enoxaparin Sodium (Enoxaparin 40 Mg/0.4 Ml Syringe) 40 mg SQ DAILY [facility] Last Admin: 02/14/21 09:58 Dose: Not Given Documented by: Ferrous Sulfate (Ferrous Sulfate 325 Mg Tab) 325 mg PO BID [facility] Last Admin: 02/14/21 09:09 Dose: 325 mg Documented by: Folic Acid (Folic Acid 1 Mg Tab) 1 mg PO DAILY [facility] Last Admin: 02/14/21 09:08 Dose: 1 mg Documented by: Levetiracetam (Levetiracetam 500 Mg Tab) 1,000 mg PO Q12H [facility] Last Admin: 02/14/21 13:21 Dose: 1,000 mg Documented by: Lorazepam (Lorazepam 2 Mg/Ml Inj) 0.5 mg IV Q6HR PRN PRN Reason: Anxiety Last Admin: 02/14/21 13:42 Dose: 0.5 mg Documented by: Montelukast Sodium (Montelukast 10 Mg Tab) 10 mg PO HS [facility] Last Admin: 02/13/21 19:44 Dose: 10 mg Documented by: Naloxone HCl (Naloxone 0.4 Mg/Ml 1 Ml Vial) 0.2 mg IV Q2M PRN PRN Reason: Opioid Reversal Ondansetron HCl (Ondansetron 4 Mg/2 Ml Vial) 4 mg IVP Q6HR PRN PRN Reason: Nausea And Vomiting Last Admin: 02/14/21 13:21 Dose: 4 mg Documented by: Oxycodone HCl (Oxycodone Hcl 5 Mg Tab) 30 mg PO Q6HR PRN PRN Reason: Pain Last Admin: 02/14/21 14:52 Dose: 30 mg Documented by: Pantoprazole Sodium (Pantoprazole 40 Mg/10 Ml Vial) 40 mg IVP BID [facility] Last Admin: 02/14/21 09:20 Dose: 40 mg Documented by: Propranolol HCl (Propranolol 40 Mg Tab) 80 mg PO DAILY [facility] Last Admin: 02/14/21 09:09 Dose: 80 mg Documented by: Past medical history to include: Asthma, fibromyalgia, GERD, hyperlipidemia, rheumatoid arthritis, MTHFR gene mutations, seizures during , migraines, 2 L of oxygen at night, psoriatic arthritis, iron deficiency anemia, anxiety depression has lost 4 children, cerebellar bleed. Cerebral aneurysm with stent in coiling Social history: Patient smoked for 10 years stopped in 1998. Denies use of recreational drugs. Alcohol rarely. . History of vaping Physical examination: VITAL SIGNS: 98.3, 58, 18, 144/85, 97% room air GENERAL: laying in bed, awake, comfortable EYES: Pupils equal. Conjunctiva normal. HEENT: External appearance of nose and ears normal, oral cavity grossly normal. NECK: JVD not raised; masses not palpable. HEART: First and second heart sounds are normal; no edema. LUNGS: Respiratory rate increased, decreased breath sounds some wheezing. ABDOMEN: Soft, nontender, liver spleen not palpable, no masses palpable. PSYCH: Alert and oriented x3; mood and affect. anxious NEUROLOGICAL: Cranial nerves grossly intact; no facial asymmetry, power and sensation grossly intact. INVESTIGATIONS, reviewed in the clinical context: CT angiogram head and neck [February 13]: No evidence of aneurysm. February 13: White count 6.2 hemoglobin 7.5 platelets 294 potassium 4.2 creatinine 0.8 EEG: Negative for epileptiform activity. Iron 22 TIBC 4:30 percent saturation 5.03 White count 9.6 hemoglobin 8.2 MCV 76.2 platelets 295 potassium 4 BUN 10 creatinine 0.7 to UA positive for nitrite and leukoesterase. Coronavirus [PCR]: Not detected EKG tracing personally reviewed by ut-4 baseline. Possible sinus rhythm. Computed tomography scan of the brain without contrast: No change Assessment and plan: -Possible focal seizures. Patient presents with initially shaking of the right foot that progressed affect the whole right body side of the body. Patient was started on Keppra in the ER. Breathing better. Patient has brain aneurysm with intervention in the past. Follow-up with neurology. On Keppra. -Acute UTI from cystitis IV ceftriaxone. Changed to Keflex -chronic gastritis. Pepcid -Intermittent asthma, Singulair 10 mg daily at bedtime -Chronic fibromyalgia Pain medications as needed -Iron deficiency anemia, microcytic anemia Check iron studies -GERD Protonix 20 mg twice a day -Chronic gastritis with wiliam lesions Protonix -MTHFR gene mutation -Chronic hypoxic respiratory failure on home oxygen 2 L at night -Multilevel spondylitic changes in the cervical spine including disc herniation and spinal stenosis especially at C4-C5. -History of cerebellar bleed, cerebral aneurysm with history of stent in coiling Dr. Seay at [facility] Discussed with patient.. Put on Protonix. Sitting up in a chair. Discussed with patient. We discharged tomorrow.
[2021-02-14] MEDS: MONTELUKAST 10 MG TAB PO SCH (20:32)
[2021-02-15] MEDS: LORazepam 2 MG/ML INJ IV PRN ×2 (04:25→12:28)
[2021-02-15 05:07] VITALS: RESP 16
[2021-02-15] MEDS ORDERED: PANTOPRAZOLE 40 MG TABLET PO SCH (07:30)
[2021-02-15] MEDS: CEPHALEXIN 250 MG CAP PO SCH (08:25)
[2021-02-15] MEDS: FOLIC ACID 1 MG TAB PO SCH (08:28)
[2021-02-15] MEDS: ASPIRIN 81 MG PO SCH (08:28)
[2021-02-15] MEDS: levETIRAcetam 500 MG TAB PO SCH (08:28)
[2021-02-15] MEDS: FERROUS SULFATE 325 MG TAB PO SCH (08:28)
[2021-02-15] MEDS: ENOXAPARIN 40 MG/0.4 ML SYRINGE SQ SCH (08:29)
[2021-02-15] MEDS: cycloSPORINE 0.05% OPHTH 0.4 ML DROPERETTE BOTH EYES SCH (08:32)
[2021-02-15] MEDS: PROPRANOLOL 40 MG TAB PO SCH (08:33)
--- NOTE | 2021-02-15 09:51 | P.PN ---
Subjective Progress Note Date: 02/14/21 Patient was seen for a follow-up. Patient states that she is feeling better. Rory is definitely working. Patient had a 2-1/2 hours EEG performed earlier today, during which, she has no spells. Patient tells me that right at the end of the procedure, she had some spasms, but she could not press the button to notify of such event. No speech impediment. No new concerns. Objective - Vital Signs Vital signs: Vital Signs Temp 98.3 F 02/15/21 05:00 Pulse 64 02/15/21 05:00 Resp 16 02/15/21 05:00 BP 145/81 02/15/21 05:00 Pulse Ox 95 02/15/21 05:00 Intake & Output 02/14/21 02/15/21 02/15/21 18:59 06:59 18:59 Intake Total 280 200 Balance 280 200 Intake: IV 100 Oral 180 200 Other: Voiding Method Toilet Toilet # Voids 2 2 - Exam Patient's mentation is normal. Extraocular muscles are intact. Does not appear to have ptosis today. - Labs CBC & Chem 7: 02/13/21 05:56 02/13/21 05:56 Assessment and Plan Assessment: * History of multiple cerebral aneurysms, status post stenting as well as endovascular coiling by Dr. Robbins in June 2019, and in September 2019. Patient has presented with 3 days history of episodic paresthesias on the right side of the body, with spasms and jerks, concerning for possible focal seizure. Patient has been off antiepileptic medication since June 2020. 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 * History of left occipital lobe cortical hemorrhage. * Chronic headaches, likely due to above. Patient currently on propranolol 80 mg daily. Plan: * Routine EEG 02/12/2021, which was essentially normal EEG during wakefulness, drowsiness and brief stage II sleep. No epileptiform activity was seen. However patient had a previous EEG in June 2019, which had revealed sharp waves seen over the left mid posterior temporal region, which were felt to be epileptiform in nature. Patient is experiencing focal seizure type spells for the last 3 days. These episodes have much improved since Keppra has been started in the ER. * Await report of prolonged, 2.5 hours EEG. Patient is known to Dr. Gomez from her previous hospitalization at [facility]. * Continue Keppra 1000 mg twice a day. She is noticing some nausea, slight diz ziness, possibly side effect of medication. If the events continue, then would recommend increasing the dose to 1000 mg twice a day and an additional 500 mg in the midday. * CTA of head and neck was performed today, which revealed no diagnostic evidence of aneurysm as visualized. There is an area of rounded increased density near the left carotid siphon and cavernous segment ICA, which could be related to portions of the skeletal system or previous intervention. Correlate clinically and if necessary with MRA. No evidence of carotid bifurcation stenosis. * Continue to observe for any seizure-like activity. * Continue propranolol 80 mg daily for chronic headaches. * Patient had undergone EGD today. It shows mild antral gastritis. Moderate size hiatal hernia with some Dick erosions. Patient underwent biopsy. * Resume aspirin 81 mg daily related to her stents.
[2021-02-15 10:34] LABS: Anisocytosis Slight; Basophils # (A) 0.1 k/uL (0-0.2); Basophils % (A) 1 %; Eosinophils # (A) 0.2 k/uL (0-0.7); Eosinophils % (A) 4 %; HCT 32.4 % (34.0-46.0); Hypochromasia Marked; Lymphocytes # (A) 1.7 k/uL (1.0-4.8); Lymphocytes % (A) 26 %; MCH 21.7 pg (25.0-35.0); MCHC 28.4 g/dL (31.0-37.0); MCV 76.5 fL (80.0-100.0); Mean Platelet Volume 8.1; Microcytosis Slight; Monocytes # (A) 0.4 k/uL (0-1.0); Monocytes % (A) 7 %; Neutrophils # (A) 3.8 k/uL (1.3-7.7); Neutrophils % (A) 60 %; Platelet Count 347 k/uL (150-450); Poikilocytosis Moderate; RBC 4.23 m/uL (3.80-5.40); WBC 6.4 k/uL (3.8-10.6)
[2021-02-15 10:36] LABS: HGB 9.2 gm/dL (11.4-16.0)
[2021-02-15 12:25] VITALS: BP 139/63; PULSE 53; TEMP 98.1
[2021-02-15 13:52] VITALS: BMI 31.3
--- NOTE | 2021-02-15 15:21 | PN ---
PROGRESS NOTE DATE OF DICTATION: 02/15/2021 Patient is a 60-year-old pleasant white female admitted to the hospital with possible seizures. While in the hospital she has been complaining of severe epigastric pain associated nausea and vomiting and hence she underwent an upper endoscopy yesterday that showed evidence of small hiatal hernia and mild antral gastritis. She is presently on Protonix 40 mg twice daily and she is feeling better, able to tolerate diet well. PHYSICAL EXAMINATION: She appears comfortable. Vital signs are stable. Blood pressure is 130/86, pulse rate 82 per minute. Temperature 98.1. HEENT examination unremarkable. Conjunctivae are pink, sclerae anicteric. Oral cavity no lesions. Neck no JVD or lymph node enlargement. Chest was clear to auscultation. Heart: Regular rate and rhythm. Abdomen was soft. It was non-tender, non-distended. Bowel sounds are positive. No organomegaly. Extremities: No pedal edema. Neuro: She is alert and oriented x3. No focal deficits. LABS: Labs from today show WBC 6.4, hemoglobin 9.2, and platelets are 347. MCV is 76. Iron studies show a serum iron of 22, TIBC 430, iron saturation 5%, and ferritin is 5. IMPRESSION: 1. Epigastric pain associated with nausea, vomiting of several months' duration which has been progressively getting worse lately. She had an upper endoscopy done yesterday that showed small hiatal hernia and mild antral gastritis. She is currently on Protonix 40 mg twice daily and symptoms are gradually improving. 2. Iron deficiency anemia with a hemoglobin of 9.1 g/dL. She did have a colonoscopy in 2019 that was unremarkable. 3. History of seizure disorder. 4. Chronic back pain. RECOMMENDATIONS: 1. Continue with Protonix 40 mg twice daily. 2. Small frequent meals. 3. Start on iron supplements 1 tablet twice daily. 4. Monitor CBC on a daily basis. 5. Patient was advised to follow up in the office in 2-3 weeks. Thank you for this consultation. MMODL / IJN: [id number] /
--- NOTE | 2021-02-15 18:10 | P.DS ---
Providers Date of admission: 02/12/21 01:22 Expected date of discharge: 02/15/21 Attending physician: Edward Trujillo Consults: 02/12/21 01:22 Consult Physician Routine Consulting Provider: Jr Greene Consult Reason/Comments: sz? Do you want consulting provider notified?: Yes 02/13/21 12:16 Consult Physician Routine Consulting Provider: Tennille Linn Consult Reason/Comments: Nausea Do you want consulting provider notified?: Yes Primary care physician: Major Funk MD Hospital Course: Chief Complaint: Shaking on the right side History of presenting complaint: This is a 60-year-old patient of Dr. Major Funk from visiting physicians. Chronic stable medical conditions include chronic gastritis, fibromyalgia, GERD, hyperlipidemia, MTHFR gene mutation, cervical spine spondylosis with disc herniation. At her baseline patient is a bit unsteady on her feet. On 07/11/2019 patient was seen in the ER withof seizures and a computed tomography scan of the brain did show a new cerebellar bleed. transferred to [facility]. About 3 weeks ago which was discharged from the [facility] as per the ER was documentation she had a carotid artery stent and subsequently treated for an aneurysm. In September 2019 patient presented UTI and headaches. Was seen by neurologist Dr. Harris and he spoke to Dr. Slaughter from [facility] and p kaylieyecenia was transferred. Patient states she received 5 stents in the coiling for aneurysm. Today: Patient presented after she noticed that her right foot was shaking. In the shaking progressed affect the right side of the body. It was felt to be a seizure. For 2 days patient is having nausea vomiting and she presented to ER for a kidney stone. She did pass a kidney stone. Shaking symptoms started yesterday. Patient has noticed that even since her stenting to the brain she's become more unsteady. Often gets nausea and dizzy. Often times has to be in bed mostly. She was started on IV Keppra in the ER. She can the right side is better. February 13: Right-sided shaking is much improved. EEG negative for seizure activity. Discussed with From Neurology. He Ordered a Repeat CT An giography. Patient Dizziness Which Is Somewhat Chronic persist. Also having significant nausea which is also chronic. GI consulted. February 14: Underwent EGD colonoscopy. Found to have gastritis and wiliam Lesions. Continue PPI. Feeling Better. Patient able to get to the bathroom. Had the patient sit up in a chair. Advise her to sit up more than laying in bed. February 15: Patient able to get to the bathroom yesterday a few times. Also set up in a chair. Did have a lengthy discussion with the patient about the fraction is to be more active as she is getting deconditioned. Oral intake fair. PPI. Discussed and cleared with Dr. Harris from neurology. She to follow-up with a neurologist. No further right-sided seizure activity. Discussion and discharge planning more than 35 minutes Consultation: Dr. Harris from neurology, Dr. Geo Linn from GI Past medical history to include: Asthma, fibromyalgia, GERD, hyperlipidemia, rheumatoid arthritis, MTHFR gene mutations, seizures during , migraines, 2 L of oxygen at night, psoriatic arthritis, iron deficiency anemia, anxiety depression has lost 4 children, cerebellar bleed. Cerebral aneurysm with stent in coiling Social history: Patient smoked for 10 years stopped in 1998. Denies use of recreational drugs. Alcohol rarely. . History of vaping Physical examination: VITAL SIGNS: Weight 8.1, 53, 16, 139 with 63, 94% room air GENERAL: laying in bed, awake, comfortable EYES: Pupils equal. Conjunctiva normal. HEENT: External appearance of nose and ears normal, oral cavity grossly normal. NECK: JVD not raised; masses not palpable. HEART: First and second heart sounds are normal; no edema. LUNGS: Respiratory rate normal, decreased breath sounds ABDOMEN: Soft, nontender, liver spleen not palpable, no masses palpable. PSYCH: Alert and oriented x3; mood and affect. anxious NEUROLOGICAL: Cranial nerves grossly intact; no facial asymmetry, power and sensation grossly intact. INVESTIGATIONS, reviewed in the clinical context: February 15: Hemoglobin 9.2 CT angiogram head and neck [February 13]: No evidence of aneurysm. February 13: White count 6.2 hemoglobin 7.5 platelets 294 potassium 4.2 creatinine 0.8 EEG: Negative for epileptiform activity. Iron 22 TIBC 4:30 percent saturation 5.03 White count 9.6 hemoglobin 8.2 MCV 76.2 platelets 295 potassium 4 BUN 10 creatinine 0.7 to UA positive for nitrite and leukoesterase. Coronavirus [PCR]: Not detected EKG tracing personally reviewed by ky-[email or web address] baseline. Possible sinus rhythm. Computed tomography scan of the brain without contrast: No change Assessment and plan: -Possible focal seizures. has brain aneurysm with intervention in the past. EEG was unremarkable. The previous EEG reviewed by Dr. Harris from neurology did show some activity compatible with seizure disorder. Follow-up with own neurologist. On Keppra. -Intermittent asthma, Singulair 10 mg daily at bedtime -Chronic fibromyalgia Pain medications as needed -Iron deficiency anemia, microcytic anemia Check iron studies -GERD Protonix 20 mg twice a day -Chronic gastritis with wiliam lesions Protonix -MTHFR gene mutation -Chronic hypoxic respiratory failure on home oxygen 2 L at night -Multilevel spondylitic changes in the cervical spine including disc herniation and spinal stenosis especially at C4-C5. -History of cerebellar bleed, cerebral aneurysm with history of stent in coiling Dr. Seay at [facility] Disposition: Home Plan - Discharge Summary New Discharge Prescriptions: New Pantoprazole [Protonix] 40 mg PO AC-BID #60 tab Aspirin 81 mg PO DAILY tab levETIRAcetam [Keppra] 1,000 mg PO Q12H #60 tab cycloSPORINE 0.05% OPHTH SOLN [Restasis] 1 drops BOTH EYES Q12HR each Continue Ferrous Sulfate 324mg 324 mg PO BID Ondansetron Odt [Zofran ODT] 4 mg PO Q8HR PRN #14 tab PRN Reason: Nausea Folic Acid 1 mg PO DAILY Propranolol HCl 80 mg PO DAILY Montelukast [Singulair] 10 mg PO HS oxyCODONE HCL [oxyCODONE HCL (IR)] 30 mg PO Q6H Discontinued Cephalexin [Keflex] 500 mg PO Q12HR Discharge Medication List Folic Acid 1 mg PO DAILY 10/31/20 [History] Ferrous Sulfate 324mg 324 mg PO BID 02/09/21 [History] Montelukast [Singulair] 10 mg PO HS 02/09/21 [History] Ondansetron Odt [Zofran ODT] 4 mg PO Q8HR PRN #14 tab 02/09/21 [Rx] Propranolol HCl 80 mg PO DAILY 02/09/21 [History] oxyCODONE HCL [oxyCODONE HCL (IR)] 30 mg PO Q6H 02/12/21 [History] Aspirin 81 mg PO DAILY tab 02/15/21 [Rx] Pantoprazole [Protonix] 40 mg PO AC-BID #60 tab 02/15/21 [Rx] cycloSPORINE 0.05% OPHTH SOLN [Restasis] 1 drops BOTH EYES Q12HR each 02/15/21 [Rx] levETIRAcetam [Keppra] 1,000 mg PO Q12H #60 tab 02/15/21 [Rx] Follow up Appointment(s)/Referral(s): Farrukh Melo MD [STAFF PHYSICIAN] - 1 Week (Message left with Dr. Bowie office. The office will call you with an appointment time and date.) Major Funk MD [Primary Care Provider] - 1-2 days (The office should be calling you back with an appointment time and date if you do not receive a call back today please follow up tomorrow.) Tennille Linn MD [STAFF PHYSICIAN] - 04/25/21 4:30 pm (As previously scheduled ) Carlitos Gomez MD [STAFF PHYSICIAN] - 1 Week (The office is closed please call and make follow up appointment.) Patient Instructions/Handouts: Seizure/Epilepsy Discharge Instructions & Follow-Up, Pantoprazole (By mouth), Levetiracetam (By mouth), Pain Management (D C), Fall Prevention (DC) Activity/Diet/Wound Care/Special Instructions: Activity as tolerated. Fall precautions Discharge Disposition: HOME SELF-CARE
== END 2021-02-15 15:32 | disposition home or self-care (01) | DRG 101 ==
LOC: EC 21:18 → 5NMEDONC 02-12 01:22
PROVIDERS: ADMIT Hospitalist; ATTEND Hospitalist
PROC: 0DB68ZX Excision of Stomach, Via Natural or Artificial Opening Endoscopic, Diagnostic (ICD-10-PCS; principal; 2021-02-14 12:40)
DX: G40.909 Epilepsy, unspecified, not intractable, without status epilepticus (principal); E72.12 Methylenetetrahydrofolate reductase deficiency; J96.11 Chronic respiratory failure with hypoxia; N30.90 Cystitis, unspecified without hematuria; M54.9 Dorsalgia, unspecified; D50.9 Iron deficiency anemia, unspecified; D53.9 Nutritional anemia, unspecified; K21.9 Gastro-esophageal reflux disease without esophagitis; M79.7 Fibromyalgia; E78.5 Hyperlipidemia, unspecified; G47.30 Sleep apnea, unspecified; H53.2 Diplopia; J45.20 Mild intermittent asthma, uncomplicated; F32.9 Major depressive disorder, single episode, unspecified; F41.9 Anxiety disorder, unspecified; G89.29 Other chronic pain; K29.50 Unspecified chronic gastritis without bleeding; L40.50 Arthropathic psoriasis, unspecified; R51.9 Headache, unspecified; M06.9 Rheumatoid arthritis, unspecified; N20.0 Calculus of kidney; M48.02 Spinal stenosis, cervical region; M47.812 Spondylosis without myelopathy or radiculopathy, cervical region; M50.221 Other cervical disc displacement at C4-C5 level; K44.9 Diaphragmatic hernia without obstruction or gangrene; Z90.710 Acquired absence of both cervix and uterus; Z90.721 Acquired absence of ovaries, unilateral; Z99.81 Dependence on supplemental oxygen; Z86.19 Personal history of other infectious and parasitic diseases; Z79.899 Other long term (current) drug therapy; Z98.890 Other specified postprocedural states; Z86.73 Personal history of transient ischemic attack (TIA), and cerebral infarction without residual deficits; Z87.891 Personal history of nicotine dependence; Z83.3 Family history of diabetes mellitus; Z82.5 Family history of asthma and other chronic lower respiratory diseases; Z82.49 Family history of ischemic heart disease and other diseases of the circulatory system
CPT/HCPCS: 36415; 43239; 70450; 70496; 70498; 74177; 80053; 81001; 81003; 82150; 82728; 83540; 83550; 83605; 83690; 83735; 84100; 84484; 85025; 85610; 85730; 87635; 88305; 93005; 95713; 95816; 96365; 96375; 99285

== ENCOUNTER → 2021-04-24 | Outpatient (CLI) | payer MEDICARE, OTHER | LOC: NEUROMAIN 08:11 | PROVIDERS: ATTEND Psychiatry & Neurology Neurology | DX: R56.9 Unspecified convulsions (principal); Z88.1 Allergy status to other antibiotic agents; Z91.018 Allergy to other foods; Z91.030 Bee allergy status; Z91.048 Other nonmedicinal substance allergy status; Z87.891 Personal history of nicotine dependence | CPT/HCPCS: 95713 ==

== ENCOUNTER → 2022-02-12 | Outpatient (CLI) | payer MEDICARE, OTHER ==
[2022-02-12 15:11] VITALS: BP 130/83; PULSE 90; RESP 17; TEMP 98.6
--- NOTE | 2022-02-12 17:06 | P.PN ---
Progress Note - Text Progress Note Date: 02/12/22 Chief Complaint: Small amount of light from the vagina 5 days ago. HPI: This is a 61-year-old 001 with an LMP of 2003. She is status post NALINI with unilateral oophorectomy in 2003 for benign reasons. The patient states she noticed a small amount of pink blood from the vagina 5 days ago. It stopped after a day and she denies any blood from the vagina since then. She has not been sexually active for about 12 years. She denies inserting anything into the vagina. She states she noticed some low abdominal cramping around the time when the blood was noted and this lasted for several hours. She does not believe the blood was from the urinary tract noted she believes that it was from the rectal area. She denies dysuria or blood per rectum. She denies any unusual vaginal discharge and denies genital pruritus. ROS: Respiratory: She has occasional asthma symptoms. She denies cardiac problems. GI: Occasional constipation. She states this may be related to her pain medications or iron that she takes. PE: Blood pressure: 130/83, Height: 5 feet 7 inches, Weight: 200 pounds, Temperature: 98.6, Pulse: 90. Pulse oximeter 95%. This is a well developed, well nourished white female who is alert and orientedx3, in no acute distress. Abdomen: Mildly obese, soft, nontender without palpable masses. Pelvic exam: Normal external genitalia with mild atrophy. The left periurethral area has a minimal abrasion which is small and benign appearing. This does not appear as an ulceration nor does it appear infected. There is no blood noted. The introitus is otherwise unremarkable. The vagina is relatively small and the small disposable speculum is somewhat uncomfortable when opened. The vaginal cuff is visualized and appears normal without lesions. There is no unusual discharge or blood. As the speculum is withdrawn, there is no evidence of vaginal mucosal lesions or blood. Impression: 1. 61-year-old menopausal female status post NALINI with unilateral oophorectomy, with small amount of vaginal blood 5 days ago which has resolved. This may or may not be related to the very small abrasion on the left periurethral area. 2. No evidence of active bleeding or old blood within the vagina. Plan: 1. I have reassured the patient. Based on her degree of symptoms and given that it resolved, I do not feel any intervention is necessary at this time. She was advised to avoid scratching, rubbing, or vigorously wiping after voiding. She will make another appointment if she is having recurrent bleeding or problems. 2. She will return approximate 4-5 months for her annual well woman examination and as needed. Time spent with the patient: 15 minutes
== END | disposition home or self-care (01) ==
LOC: WWCWWP 14:50
PROVIDERS: ATTEND Obstetrics & Gynecology
DX: Z53.9 Procedure and treatment not carried out, unspecified reason (principal)

== ENCOUNTER → 2023-01-21 | Day surgery (SDC) | payer MEDICARE, OTHER ==
[~2023-01-21] MED LIST changes: +LACTATED RINGERS 1,000 ML IV ONE; +LIDOCAINE 1% (10MG/ML) FOR IV START INTRADERMA PRN; +LIDOCAINE 2% (PF) 20 MG/ML 5 ML VIAL ONE; +PROPOFOL 10 MG/ML 20 ML VIAL IV ONE; +fentaNYL (PF) 50 MCG/ML 2 ML AMP ONE
[2023-01-21 09:37] VITALS: TEMP 97.1
--- NOTE | 2023-01-21 10:14 | P.PCN ---
Date of Procedure: 01/21/23 Procedure(s) Performed: BRIEF HISTORY: Patient is a 62-year-old, pleasant, white female scheduled for an upper endoscopy as a part of evaluation of abdominal pain associated with intermittent nausea vomiting for the last several years duration. Lately has symptoms have been progressively getting worse.. PROCEDURE PERFORMED: Esophagogastroduodenoscopy with biopsy PREOPERATIVE DIAGNOSIS: Abdominal pain associated with intermittent episodes of nausea vomiting. IV sedation per anesthesia. PROCEDURE: After informed consent was obtained, the patient was brought into the endoscopy unit. IV sedation was administered by Anesthesia under continuous monitoring. Initially the Olympus GIF-140 video endoscope was inserted into the mouth. Esophagus intubated without any difficulty. It was gradually advanced into the stomach and duodenum and carefully examined. The bulb and the second part of the duodenum appeared normal. biopsies were done from the duodenum to rule out celiac disease. The scope at this time was withdrawn to the stomach, adequately insufflated with air, and upon careful examination, mucosa of the antrum, had scattered erosions and biopsies were done from this area. Rest of the body, cardia and the fundus appeared normal. moderate to large size hiatal hernia noted. The scope was then withdrawn into the esophagus. The GE junction was located at 36 cm from the incisors. The esophagus appeared normal. There were no erosions or ulcerations seen, biopsies were done from the distal esophagus and the patient tolerated the procedure well. IMPRESSION: 1. Moderate to large size hiatal hernia 2. Mild antral gastritis. RECOMMENDATIONS: The findings of this examination were discussed with the patient as well as a family. She was advised to follow with the biopsy results. Continue with current medications and follow antireflux measures. Follow up in office in 2-3 weeks.
[2023-01-21 10:36] VITALS: RESP 14
[2023-01-21 10:56] VITALS: BP 117/80; PULSE 73
== END ==
LOC: ORWHC2ENDO 09:00
PROVIDERS: ATTEND Internal Medicine Gastroenterology
DX: K29.50 Unspecified chronic gastritis without bleeding (principal); K20.90 Esophagitis, unspecified without bleeding; K44.9 Diaphragmatic hernia without obstruction or gangrene; Z91.013 Allergy to seafood
CPT/HCPCS: 88305; 43239; J3010; J2704; J2001